=== PATIENT | male | born 1950 | race Caucasian/White ===

== ENCOUNTER → 2016-06-05 | Outpatient (CLI) | payer BC ==
[~2016-06-05] MED LIST: AFRIN; ASCA500 PO; ASPI1TAB2 PO; ATOR-26 PO; CEPH500C2 PO; CHOL1000 PO; CYAN10005 PO; HYDR-3983 PO; INSU100I2 SQ; INSU1INJ23 SQ.; LIRA18IN IM; LIRA18IN INJ; LOSA50TA6 PO; LYSI500T4 PO; METF-384 PO; MULTCHW PO; OMEG10007 PO; SALI0.6510
[2016-06-05 10:08] LABS: ESTIMATED AVERAGE GLUCOSE 160 mg/dl; HA1C FLAG Normal (Normal)
== END | disposition home or self-care (01) ==
LOC: C.LAB1850 07:37
PROVIDERS: ATTEND Nurse Practitioner Adult Health
DX: E11.65 Type 2 diabetes mellitus with hyperglycemia (principal)

== ENCOUNTER → 2016-10-15 | Outpatient (CLI) | payer BC ==
[2016-10-15 10:14] LABS: RATIO 5.2 mcg/mg (0-30.0)
[2016-10-15 10:29] LABS: ESTIMATED AVERAGE GLUCOSE 157 mg/dl; HA1C FLAG Normal (Normal)
== END | disposition home or self-care (01) ==
LOC: C.LAB1850 07:19
PROVIDERS: ATTEND Nurse Practitioner Adult Health
DX: E11.9 Type 2 diabetes mellitus without complications (principal); E55.9 Vitamin D deficiency, unspecified; I10 Essential (primary) hypertension

== ENCOUNTER 2016-11-03 23:28 | Emergency (ER) | payer BC ==
[~2016-11-03] VITALS: Ht 170.2 cm; Wt 84.4 kg
[2016-11-03 23:30] VITALS: Ht 170.2 cm; Wt 84.4 kg
[2016-11-04] MEDS ORDERED: ATOR-26 PO (00:26)
[2016-11-04] MEDS ORDERED: INSU1INJ23 SQ. (00:26)
[2016-11-04] MEDS ORDERED: CYAN10005 PO (00:26)
[2016-11-04] MEDS ORDERED: LIRA18IN INJ (00:26)
[2016-11-04] MEDS ORDERED: INSU100I2 SQ (00:26)
[2016-11-04] MEDS ORDERED: OMEG10007 PO (00:26)
[2016-11-04] MEDS ORDERED: METF-384 PO (00:26)
[2016-11-04] MEDS ORDERED: ASPI1TAB2 PO (00:26)
[2016-11-04] MEDS ORDERED: ASCA500 PO (00:26)
[2016-11-04] MEDS ORDERED: LYSI500T4 PO (00:26)
[2016-11-04] MEDS ORDERED: CHOL1000 PO (00:26)
[2016-11-04] MEDS ORDERED: LOSA50TA6 PO (00:26)
[2016-11-04] MEDS ORDERED: MULTCHW PO (00:26)
--- NOTE | 2016-11-04 00:37 | EMERGENCY ROOM VISIT NOTE ---
History Report prepared by Duglas: Bhupendra Brennan Under the Supervision of: Dr. Samira Monzon D.O. First contact with patient: 23:56 Chief Complaint: NOSE BLEED (MINOR) Stated Complaint: BLEEDING NOSE - S/P SINUS SURGERY History of Present Illness The patient is a 66 year old male who presents to the Emergency Room with complaints of persistent nose bleeds that began yesterday. The patient notes that he had sinus surgery 1 week ago at [facility]. He was feeling good after the surgery and had no concerns, until his nose began to bleed yesterday. His nose started to bleed significantly this evening when he attempted to do his daily flush. The patient states that the nose bled heavily for 20-30 minutes. There was no associated light headedness or dizziness. He is not on any blood thinners. He denies any nausea, vomiting, or sneezing. He also denies any chest pain or shortness of breath, and has no history of hypertension. Source of History: patient Onset: Yesterday Position: nose Quality: other (Nose Bleed) Timing: other (Persistent) Associated Symptoms: No chest pain, No SOB, No nausea, No vomiting Review of Systems Patient is not on blood thinners, no nose manipulation tonight, no bleeding since surgery until this evening. Past Medical & Surgical Medical Problems: (1) Diabetes mellitus Surgical Problems: (1) History of sinus surgery (2) History of sinus surgery Diabetes mellitus Family History Diabetes mellitus Social History Smoking Status: Never Smoker Drug Use: none Marital Status: Housing Status: lives with significant other Current/Historical Medications Scheduled Ascorbic Acid (Vitamin C), 500 MG PO QAM Aspirin (Delia Aspirin Ec Low Dose), 81 MG PO HS Atorvastatin (Lipitor), 80 MG PO QPM Cholecalciferol (Vitamin D3), 1,000 UNIT PO QAM Cyanocobalamin (Vitamin B-12), 1,000 MCG PO QAM Fish Oil ([place]-3), 1 CAP PO AMPM Insulin Isophane (Human) (Humulin N Kwikpen), 24 UNITS SQ. HS Insulin Lispro (Human) (Humalog Kwikpen), 20 UNITS SQ ACHS Liraglutide (Victoza), 1.8 ML INJ HS Losartan Potassium (Cozaar), 50 MG PO QPM Lysine (L-Lysine), 500 MG PO DAILY Metformin Hcl (Glucophage), 1,000 MG PO AMPM Multiple Vitamins W/ Minerals (Centrum Silver), 1 TAB PO DAILY Allergies Coded Allergies: Lisinopril (Verified Allergy, Mild, cough, 11/04/16) Physical Exam Vital Signs Date Time Temp Pulse Resp B/P (MAP) Pulse Ox O2 Delivery O2 Flow Rate FiO2 11/04/16 01:47 36.7 85 16 113/81 96 11/04/16 01:04 85 16 113/81 11/03/16 23:30 36.7 103 20 143/85 96 Room Air Physical Exam HEENT: Head - normocephalic and atraumatic Pupils are equal, round, and reactive to light. Extraocular eye muscles are intact, and sclera are anicteric. Nose - moist nasal mucosa. There is a large clot present in the posterior oropharynx. Some blood present in the right naris. Mouth - moist buccal mucosa. Oropharynx is nonerythematous and there is no tonsillar exudate or edema noted. Medical Decision & Procedures Laboratory Results 11/04/16 00:15 Test 11/04/16 00:15 Red Blood Count 4.44 M/uL (4.7-6.1) Mean Corpuscular Volume 86.3 fL (80-100) Mean Corpuscular Hemoglobin 28.6 pg (25-34) Mean Corpuscular Hemoglobin Concent 33.2 g/dl (32-36) RDW Standard Deviation 41.7 fL (36.4-46.3) RDW Coefficient of Variation 13.0 % (11.5-14.5) Mean Platelet Volume 10.7 fL (7.4-10.4) Laboratory results per my review. ED Course 0019: Past medical records reviewed. The patient was evaluated in room B11B. A complete history and physical exam was performed. 0050: I reevaluated the patient at this time. The nose bleeding has stopped. There was a small amount of clot present in the posterior oropharynx. He was able to gargle and clear the clot. No further active bleeding. Laboratory studies were drawn as above. 0122: Upon reevaluation, there is no further bleeding. I discussed findings and results with him. He verbalized agreement of the treatment plan. The patient was discharged home. 0137: Per nursing staff the patient's nose started to bleed slightly once again. 0146: I reevaluated the patient at this time. The bleeding has stopped. I reminded him to not manipulate the nose. The patient is ready to be discharged home. Medical Decision The patient is a 66 year old male who presents to the Emergency Department for a nose bleed. Differential Diagnosis includes; Epistaxis, post surgical bleeding. Hematology Testing Shows; Hemoglobin of 12.7, Hematocrit of 38.3. No leukocytosis. The nosebleed had stopped. The patient's blood pressure came down nicely on its own. He was slightly anemic but did not require a blood transfusion. He has an appointment scheduled with the ENT doctor in 2 days from now. He was given very specific instructions if the bleeding were to start again. I suggested that he avoid any strenuous activity and I suggested he not manipulate his nose. Medication Reconcilliation Current Medication List: was personally reviewed by me Blood Pressure Screening Patient's blood pressure: Normal blood pressure Impression Primary Impression: Epistaxis Scribe Attestation The scribe's documentation has been prepared under my direction and personally reviewed by me in its entirety. I confirm that the note above accurately reflects all work, treatment, procedures, and medical decision making performed by me. Departure Information Dispostion Home / Self-Care Referrals Dallas Coulter M.D. (PCP) Forms HOME CARE DOCUMENTATION FORM, IMPORTANT VISIT INFORMATION, WORK / SCHOOL INSTRUCTIONS Patient Instructions My [facility] Additional Instructions Rest with your head elevated. Humidifier in your bedroom. Avoid manipulation of the nose. No strenuous activity. If bleeding starts again, clear the throat and hold pressure for 20 minutes.
[2016-11-04 01:08] LABS: HEMATOCRIT 38.3 % (42-52); MEAN CELL VOLUME 86.3 fL (80-100); MEAN CORPUSCULAR HEMOGLOBIN 28.6 pg (25-34); MEAN CORPUSCULAR HGB CONC 33.2 g/dl (32-36); MEAN PLATELET VOLUME 10.7 fL (7.4-10.4); PLATELET COUNT 210 K/uL (130-400); RED BLOOD COUNT 4.44 M/uL (4.7-6.1); WHITE BLOOD COUNT 7.23 K/uL (4.8-10.8)
[2016-11-04 01:47] VITALS: BP 113/81; PULSE 85; TEMP 36.7; O2SAT 96
[2016-11-05] MEDS ORDERED: HYDR-3983 PO (23:54)
[2016-11-05] MEDS ORDERED: CEPH500C2 PO (23:57)
[2016-11-05] MEDS ORDERED: LIRA18IN IM (23:59)
== END 2016-11-04 01:49 | disposition home or self-care (01) ==
LOC: C.EDB 23:29
DX: R04.0 Epistaxis (principal); E11.9 Type 2 diabetes mellitus without complications; D64.9 Anemia, unspecified; Z83.3 Family history of diabetes mellitus; Z79.82 Long term (current) use of aspirin; Z79.4 Long term (current) use of insulin; Z79.899 Other long term (current) drug therapy

== ENCOUNTER 2016-11-05 23:08 | Inpatient (IN) | payer BC, OTHER ==
[~2016-11-05] VITALS: Ht 170.2 cm; Wt 83.1 kg
[~2016-11-05 23:08] MED LIST changes: -AFRIN; -CEPH500C2 PO; -HYDR-3983 PO; -LIRA18IN IM; -SALI0.6510
[2016-11-05] MEDS ORDERED: HYDR-3983 PO (23:54)
[2016-11-05] MEDS ORDERED: CEPH500C2 PO (23:57)
[2016-11-05] MEDS ORDERED: LIRA18IN IM (23:59)
[2016-11-06] VITALS (9 sets, daily range): BP systolic 114–143; BP diastolic 68–85; PULSE 68–119; TEMP 36.8–37.2; O2SAT 93–98; Ht 170.2 cm; Wt 83.1 kg
[2016-11-06] MEDS ORDERED: NURSING VERBAL MED ORDER ONE (00:15)
[2016-11-06] MEDS ORDERED: SODIUM CHLORIDE 0.9% 500ML 500 ML IV STA (00:23)
[2016-11-06] MEDS ORDERED: SODIUM CHLORIDE 0.9% 1000ML 1,000 ML IV STA ×2 (00:23→04:33)
[2016-11-06] MEDS ORDERED: PROMETHAZINE HCL INJ 12.5 MG in SODIUM CHLORIDE 0.9% 50ML 50 ML IV STA (00:24)
[2016-11-06 00:28] LABS: HEMATOCRIT 32.3 % (42-52); MEAN CELL VOLUME 86.1 fL (80-100); MEAN CORPUSCULAR HEMOGLOBIN 28.3 pg (25-34); MEAN CORPUSCULAR HGB CONC 32.8 g/dl (32-36); MEAN PLATELET VOLUME 10.5 fL (7.4-10.4); PLATELET COUNT 244 K/uL (130-400); RED BLOOD COUNT 3.75 M/uL (4.7-6.1); WHITE BLOOD COUNT 15.22 K/uL (4.8-10.8)
[2016-11-06] MEDS ORDERED: OXYMETAZOLINE HCL 0.05% NA SPR 15 ML BTL ONE (00:28)
[2016-11-06] MEDS ORDERED: ONDANSETRON INJ 2 MG/ML 2 ML VIAL IV ONE (00:30)
--- NOTE | 2016-11-06 00:36 | EMERGENCY ROOM VISIT NOTE ---
History Report prepared by Duglas: Yuko Dang Under the Supervision of: Dr. Sheri Sherman M.D. First contact with patient: 00:07 Chief Complaint: NOSE BLEED (MINOR) Stated Complaint: NOSE BLEED, SYNCOPE History of Present Illness The patient is a 66 year old male who presents to the Emergency Room with complaints of a constant nose bleed beginning 4 hours ago. The patient states that he had sinus surgery done the other day at [facility]. He reports that the surgery went well and until 2 days ago. He notes that he he was seen here for the nose bleed and has not had another nose bleed until tonight. The patient states that he began to feel faint about 2 hours ago and fell backwards onto the carpet. His reports that he was shaking after the fall and had about 3 episodes of vomiting after the fall. The patient states that he has not had any of his diabetes medication tonight. He complains of nausea and denies any abdominal pain and blood in the back of his throat. He reports that he has never had a blood transfusion. Source of History: patient Onset: 4 hours ago Position: nose Quality: other (bloody) Timing: constant Associated Symptoms: + LOC, + nausea, + vomiting, No abdominal pain Note: Pt complains of lightheadedness. He denies blood in the throat. Review of Systems See HPI for pertinent positives & negatives. A total of 10 systems reviewed and were otherwise negative. Past Medical & Surgical Medical Problems: (1) Anemia (2) Bleeding nose (3) Diabetes mellitus (4) Syncope (5) Tachycardia Surgical Problems: (1) History of sinus surgery (2) History of sinus surgery Family History Diabetes mellitus Social History Smoking Status: Never Smoker Drug Use: none Marital Status: Housing Status: lives with significant other Current/Historical Medications Scheduled Aspirin (Delia Aspirin Ec Low Dose), 81 MG PO HS Atorvastatin (Lipitor), 80 MG PO QPM Cephalexin Monohydrate (Keflex), 500 MG PO QID Cholecalciferol (Vitamin D3), 1,000 UNIT PO QAM Fish Oil ([place]-3), 1 CAP PO AMPM Insulin Isophane (Human) (Humulin N Kwikpen), 24 UNITS SQ. HS Insulin Lispro (Human) (Humalog Kwikpen), 20 UNITS SQ ACHS Liraglutide (Victoza), 1.8 ML INJ HS Liraglutide (Victoza), 1 DOSE IM DAILYBB Losartan Potassium (Cozaar), 50 MG PO QPM Lysine (L-Lysine), 500 MG PO DAILY Metformin Hcl (Glucophage), 1,000 MG PO AMPM Multiple Vitamins W/ Minerals (Centrum Silver), 1 TAB PO DAILY Oxymetazoline HCl (Afrin Nasal [place]), 2 SPRAYS NA Q12 Saline ([place] Nasal [place]), 2 SPRAYS NA Q4H Scheduled PRN Hydrocodone/Acetaminophen 7.5MG/325MG ([place] 7.5MG/325MG), 1 TAB PO Q6 PRN for Pain Allergies Coded Allergies: Lisinopril (Verified Adverse Reaction, Mild, cough, 11/07/16) Physical Exam Vital Signs Date Time Temp Pulse Resp B/P (MAP) Pulse Ox O2 Delivery O2 Flow Rate FiO2 11/06/16 02:08 106 16 94 11/06/16 02:01 108/64 11/06/16 01:53 107 16 95 11/06/16 01:38 107 15 92 11/06/16 01:35 119/69 11/06/16 01:23 113 17 100 11/06/16 01:08 107 17 97 11/06/16 00:53 109 16 98 11/06/16 00:38 112 16 100 11/06/16 00:31 95/74 11/06/16 00:23 109 14 98 11/06/16 00:08 111 23 98 11/06/16 00:01 116/65 11/05/16 23:53 111 20 100 11/05/16 23:38 110 16 98 11/05/16 23:31 110/65 11/05/16 23:23 109 16 97 11/05/16 23:20 108 11/05/16 23:18 36.3 110 17 118/69 98 Room Air 11/05/16 23:17 118/69 Physical Exam Vital signs reviewed. General: Well-appearing male, pale, in no significant distress. HEENT: No scleral icterus, PERRLA, neck supple. Atraumatic. No active posterior oropharyngeal bleeding, nasal clamp in place with dried blood on the mucosa, pale with pale conjunctiva. Cardiovascular: Tachycardic rate and regular rhythm, no extra sounds. Pulmonary: Clear to auscultation bilaterally, normal work of breathing. Abdomen: Soft, nontender, nondistended, positive bowel sounds. Musculoskeletal: Atraumatic, no peripheral edema. Neurologic: Patient awake alert and oriented x 3 Skin: Warm, dry, no rash Medical Decision & Procedures Laboratory Results Test 11/06/16 00:18 Prothrombin Time 10.5 SECONDS (9.0-12.0) Prothromb Time International Ratio 1.0 (0.9-1.1) Activated Partial Thromboplast Time 22.2 SECONDS (21.0-31.0) Partial Thromboplastin Ratio 0.9 Laboratory results per my review. Medications Administered Medications (Trade) Dose Ordered Sig/Nani Route Start Time Stop Time Status Last Admin Dose Admin Ondansetron HCl (Zofran Inj) 4 mg NOW ONCE IV 11/06/16 00:30 11/06/16 00:31 DC 11/06/16 00:25 4 MG Sodium Chloride 500 ml @ 999 mls/hr Q31M STAT IV 11/06/16 00:23 11/06/16 00:53 DC 11/06/16 00:42 999 MLS/HR Sodium Chloride 1,000 ml @ 125 mls/hr Q8H STAT IV 11/06/16 00:23 11/06/16 04:34 DC 11/06/16 00:42 125 MLS/HR Insulin Aspart (novoLOG PER UNIT) 5 units ONE ONCE SC 11/06/16 02:11 11/06/16 03:00 DC 11/06/16 03:14 5 UNITS ED Course 0007: Past medical records reviewed. The patient was evaluated in room B2. A complete history and physical examination was performed. 0023: Sodium Chloride 1000 ml @ 125 mls/hr IV, Sodium Chloride 500 ml @ 999 mls/ hr IV. 0024: Promethazine HCl 12.5mg/Sodium Chloride 50.5 ml @ 204mls/hr IV. 0028: Oxymetazoline HCl 75 sprays. 0030: Zofran Inj 4mg IV. 0056: I reviewed the patient's case with Dr. Bateman of [facility]. He will evaluate the patient for further management. 0106: Upon reevaluation, the patient is resting comfortably. I discussed laboratory and radiographic results with the patient. He verbalized agreement of the treatment plan. I spoke with Dr. Bateman of the [facility] Hospitalist Service. The patient will be evaluated for further management and care. Medical Decision Differential diagnosis: Etiologies such as anterior epistaxis, coagulopathy, traumatic injury, fracture , septal hematoma, posterior epistaxis as well as other pathologies were entertained. This patient was evaluated and appeared to be in no significant distress. IV access was obtained and laboratory work was drawn. Patient was placed on cardiac surgeon and found to be in a normal sinus rhythm. Patient is found to be slightly hypotensive with a systolic pressure of 110. He is tachycardic. IV fluids were initiated. Patient was given IV Zofran for nausea. Patient's hemoglobin has dropped 2 points since his previous ER visit. Topical Afrin spray was applied with a nasal clamp, although bleeding had largely stopped on its own. The patient was observed in the emergency department and remained stable. Due to the drop in hemoglobin, he will be evaluated by the hospitalist service for further management. ENT to be consulted. Medication Reconcilliation Current Medication List: was personally reviewed by me Blood Pressure Screening Patient's blood pressure: Normal blood pressure Blood pressure disposition: Did not require urgent referral Consults Time Called: 51 Consulting Physician: Dr. Bateman - [facility] Returned Call: [phone] I reviewed the patient's case with Dr. Bateman of [facility]. He will evaluate the patient for further management. Impression Primary Impression: Epistaxis Scribe Attestation The scribe's documentation has been prepared under my direction and personally reviewed by me in its entirety. I confirm that the note above accurately reflects all work, treatment, procedures, and medical decision making performed by me. Departure Information Dispostion Being Evaluated By Hospitalist Prescriptions Saline ([place] NASAL SPRAY) 0.65 % Spr 2 SPRAYS NA Q4H for 16 Days, #100 SPRAYS Prov: Casey Langston MD 11/08/16 Oxymetazoline HCl (Afrin Nasal [place]) 75 Sprays/15 Ml [place] 2 SPRAYS NA Q12 for 2 Days, #12 SPRAY Prov: Casey Langston MD 11/08/16 Referrals Dallas Coulter M.D. (PCP) Patient Instructions My [facility]
[2016-11-06 00:47] LABS: BUN/CREATININE RATIO 21.4 (10-20); CALCIUM 8.5 mg/dl (8.5-10.1); CREATININE 1.4 mg/dl (0.60-1.40); POTASSIUM 4.6 mmol/L (3.5-5.1)
[2016-11-06 00:50] LABS: PARTIAL THROMBOPLASTIN RATIO 0.9; PROTHROMBIN TIME (PATIENT) 10.5 SECONDS (9.0-12.0)
[2016-11-06] MEDS ORDERED: NovoLOG PER UNIT CHARGE SC ONE (02:11)
[2016-11-06] MEDS ORDERED: DEXTROSE 50% 50 ML SYR IV PRN (02:15)
[2016-11-06] MEDS ORDERED: DC ALL PREVIOUSLY ORDERED DIABETES MEDS ONE (02:15)
[2016-11-06] MEDS ORDERED: GLUCAGON FOR INJ 1 MG VIAL SQ PRN (02:15)
[2016-11-06] MEDS ORDERED: ACETAMINOPHEN 325 MG TAB PO PRN (02:15)
[2016-11-06] MEDS ORDERED: GLUCOSE 10 TABS/TUBE PO PRN (02:15)
[2016-11-06] MEDS ORDERED: GLUCOSE 40% GEL 15 GM TUBE PO PRN (02:15)
[2016-11-06] MEDS ORDERED: ONDANSETRON INJ 2 MG/ML 2 ML VIAL IV PRN (02:15)
--- NOTE | 2016-11-06 02:58 | History and Physical ---
History & Physical Date & Time of Service: Nov 06, 2016 at 02:58 Chief Complaint: Nose Bleed, Syncope Primary Care Physician: Dallas Coulter M.D. History of Present Illness Source: patient, hospital records Mr Doss is a 66 year old male who presents to the ER with with epistaxis. He underwent sinus surgery by Dr Lehman approximately 1 week prior to presentation. He had packing removed the day after surgery. He presented to the ER 2 days prior with epistaxis which resolved and he was sent home from the ER. He then started having recurrent bleeding today. On this occasion he had a syncopal event (while sitting down at the top of the stairs he felt dizzy and passed out for a few minutes - no injuries from this). The patient states that he began to feel faint about 2 hours prior to presentation and fell backwards onto the carpet. He denies any chest pain, shortness of breath or current dizziness. Past Medical/Surgical History Medical Problems: (1) Diabetes mellitus Status: Chronic Surgical Problems: (1) History of sinus surgery Status: Resolved (2) History of sinus surgery Status: Resolved Family History Diabetes mellitus Social History Smoking Status: Never Smoker Smokeless Tobacco Use: No Alcohol Use: none Drug Use: none Marital Status: Housing status: lives with significant other Occupational Status: retired Immunizations History of Influenza Vaccine: Yes History of Tetanus Vaccine?: Yes History of Pneumococcal: Unknown History of Hepatitis B Vaccine: Unknown Multi-Drug Resistant Organisms History of MDRO: No Allergies Coded Allergies: Lisinopril (Verified Adverse Reaction, Mild, cough, 11/07/16) Home Medications Scheduled Aspirin (Delia Aspirin Ec Low Dose), 81 MG PO HS Atorvastatin (Lipitor), 80 MG PO QPM Cephalexin Monohydrate (Keflex), 500 MG PO QID Cholecalciferol (Vitamin D3), 1,000 UNIT PO QAM Fish Oil ([place]-3), 1 CAP PO AMPM Insulin Isophane (Human) (Humulin N Kwikpen), 24 UNITS SQ. HS Insulin Lispro (Human) (Humalog Kwikpen), 20 UNITS SQ ACHS Liraglutide (Victoza), 1.8 ML INJ HS Liraglutide (Victoza), 1 DOSE IM DAILYBB Losartan Potassium (Cozaar), 50 MG PO QPM Lysine (L-Lysine), 500 MG PO DAILY Metformin Hcl (Glucophage), 1,000 MG PO AMPM Multiple Vitamins W/ Minerals (Centrum Silver), 1 TAB PO DAILY Oxymetazoline HCl (Afrin Nasal [place]), 2 SPRAYS NA Q12 Saline ([place] Nasal [place]), 2 SPRAYS NA Q4H Scheduled PRN Hydrocodone/Acetaminophen 7.5MG/325MG ([place] 7.5MG/325MG), 1 TAB PO Q6 PRN for Pain Review of Systems Constitutional: No fever, No chills Eyes: No worsening of vision ENT: + unusual epistaxis, + sore throat, No hearing loss Respiratory: + cough, + sputum, No shortness of breath Cardiovascular: No chest pain, No edema, No palpitations Abdomen: No pain, No nausea, No vomiting, No diarrhea, No constipation, No GI bleeding Musculoskeletal: No joint pain, No muscle pain Genitourinary - Male: No hematuria, No dysuria, No urinary frequency, No urinary urgency Neurologic: No numbness/tingling, No balance problems Integumentary: No rash, No itch Physical Exam Vital Signs Date Time Temp Pulse Resp B/P (MAP) Pulse Ox O2 Delivery O2 Flow Rate FiO2 11/06/16 02:38 114 17 97 11/06/16 02:31 109/73 11/06/16 02:23 112 17 98 11/06/16 02:08 106 16 94 11/06/16 02:01 108/64 11/06/16 01:53 107 16 95 11/06/16 01:38 107 15 92 11/06/16 01:35 119/69 11/06/16 01:23 113 17 100 11/06/16 01:08 107 17 97 11/06/16 00:53 109 16 98 11/06/16 00:38 112 16 100 11/06/16 00:31 95/74 11/06/16 00:23 109 14 98 11/06/16 00:08 111 23 98 11/06/16 00:01 116/65 11/05/16 23:53 111 20 100 11/05/16 23:38 110 16 98 11/05/16 23:31 110/65 11/05/16 23:23 109 16 97 11/05/16 23:20 108 11/05/16 23:18 36.3 110 17 118/69 98 Room Air 11/05/16 23:17 [id number] General Appearance: WD/WN, no apparent distress Head: normocephalic, atraumatic Eyes: normal inspection, PERRL, EOMI ENT: + pertinent finding (dark red behind TM b/l likely from surgery) Neck: supple, no JVD Respiratory/Chest: chest non-tender, lungs clear, normal breath sounds, no respiratory distress, no accessory muscle use Cardiovascular: regular rate, rhythm, no edema, normal peripheral pulses Abdomen/GI: normal bowel sounds, non tender, soft Extremities/Musculoskelatal: no calf tenderness, no pedal edema, + slow capillary refill (3-4 seconds) Neurologic/Psych: nurse clinical II-XII nml as tested, no motor/sensory deficits, alert, oriented x 3 Skin: no rash, + mottled (cool peripheries) Diagnostics Laboratory Results Results Past 24 Hours Test 11/06/16 00:18 Range/Units White Blood Count 15.22 4.8-10.8 K/uL Red Blood Count 3.75 4.7-6.1 M/uL Hemoglobin 10.6 14.0-18.0 g/dL Hematocrit 32.3 42-52 % Mean Corpuscular Volume 86.1 80-100 fL Mean Corpuscular Hemoglobin 28.3 25-34 pg Mean Corpuscular Hemoglobin Concent 32.8 32-36 g/dl RDW Standard Deviation 40.5 36.4-46.3 fL RDW Coefficient of Variation 12.7 11.5-14.5 % Platelet Count 244 130-400 K/uL Mean Platelet Volume 10.5 7.4-10.4 fL Prothrombin Time 10.5 9.0-12.0 SECONDS Prothromb Time International Ratio 1.0 0.9-1.1 Activated Partial Thromboplast Time 22.2 21.0-31.0 SECONDS Partial Thromboplastin Ratio 0.9 Sodium Level 138 136-145 mmol/L Potassium Level 4.6 3.5-5.1 mmol/L Chloride Level 103 98-107 mmol/L Carbon Dioxide Level 29 21-32 mmol/L Anion Gap 6.0 3-11 mmol/L Blood Urea Nitrogen 30 7-18 mg/dl Creatinine 1.40 0.60-1.40 mg/dl Est Creatinine Clear Calc Drug Dose 52.4 ml/min Estimated GFR () 59.4 Estimated GFR (Non- 51.3 BUN/Creatinine Ratio 21.4 10-20 Random Glucose 275 70-99 mg/dl Calcium Level 8.5 8.5-10.1 mg/dl Impression Assessment and Plan 66 year old with recurrent epistaxis since sinus surgery Epistaxis - currently well controlled when seen, will re-evaluate if it returns. - Consult ENT in morning - Dr Lehman - appears under control since affrin given in the ER - serial H&H - type and screen done Elevated WBC s/p sinus surgery - he has been on keflex since his sinus surgery which I assume is prophylatic however despite this his WBC has increased since his ER visit . Given recurrence of bleeding we will switch him to Unasyn and consult ENT for further advice regarding this however currently he does not have significant pain over his sinus'. He is not septic and from Hx does not appear to have an infection elsewhere. Syncope - secondary to hypotension from bleeding as above - hold antihypertensives - perform orthostatics - IVF fluid bolus now for tachycardia T2DM - we will hold his usual regimen given acute illness and treat with basal bolus insulin only - Lantus 26 units BID, Novolog 15 correction, 5:1 carb ACHS/Q6H - BSG ACHS/Q6H Attending Addendum: I have physically seen and examined this patient, have supervised the medical residents activities, and agree with the H&P as noted above with the following exceptions: NONE The patient is awake, well-developed and adequately nourished, alert and oriented 3, normocephalic and atraumatic, lying in bed and in no acute distress. HEENT--PERRL, EOMI, mucous membranes and oropharynx dry. Blood at nares bilaterally. Neck--supple, no JVD or bruits, thyroid normal, trachea midline, no adenopathy. Heart--normal S1 and S2, no extra beats, no murmurs, rubs or gallops. Lungs--clear bilaterally with good air movement, no respiratory distress, no accessory muscle use. Abdomen--normal bowel sounds and soft, nontender and nondistended, no hernias or masses, no organomegaly. Extremities--no cyanosis, clubbing or edema. There are good distal pulses b/l. Dermatologic--mildly mottled and cool periphery with slow capillary refill, no abnormal lymph nodes. Neurologic--cranial nerves II through XII grossly intact. Rheumatologic--normal range of motion, nontender, muscles and joints. Psychiatric--normal affect. Assessment and Plan: 1. Epistaxis status post recent sinus surgery and then irrigation/anemia/ syncope-- The patient be admitted to telemetry unit for close vital signs monitoring. Check H&H every 6 hours for the next 24 hours. Consult his ENT Dr. Lehman. Place on Unasyn 3 g IV every 6 hours due to leukocytosis. Hold aspirin, losartan, and metformin. Orthostatic vital signs. Appropriate tachycardia due to hypovolemia. Give normal saline fluid boluses as indicated. Place on Accu-Cheks before meals and at bedtime with NovoLog coverage. Nothing by mouth after midnight Level of Care Telemetry Advanced Directives Existing Advance Directive: No Existing Living Will: No Existing Power of Betting Agency Counter Clerk: No Resuscitation Status FULL RESUSCITATION VTE Prophylaxis VTE Risk Assessment Done? Y/N: Yes Risk Level: Moderate Given or contraindicated: SCD's, Contraindicated Social Service Consult None Apply Resident Tracking Resident Involvement: Resident Care Provided Care Provided: Adult Hospital Medicine
[2016-11-06] MEDS: SODIUM CHLORIDE 0.9% 1000ML 1,000 ML IV SCH ×3 (06:11→23:06)
[2016-11-06] MEDS: AMPICILLIN/SULBACTAM SOD INJ 3,000 MG in SODIUM CHLORIDE 0.9% 100ML 100 ML IV SCH ×4 (06:12→21:29)
[2016-11-06 07:02] LABS: BASO % 0.1 %; BASO ABS # 0.01 K/uL (0-0.2); HEMATOCRIT 24.9 % (42-52); IG% 0.1 %; LYMPH % 11.6 %; LYMPH ABS # 0.82 K/uL (1.2-3.4); MEAN CELL VOLUME 85.9 fL (80-100); MEAN CORPUSCULAR HGB CONC 34.9 g/dl (32-36); MEAN PLATELET VOLUME 10.6 fL (7.4-10.4); MONO % 4.7 %; NEUT % 83.5 %; PLATELET COUNT 175 K/uL (130-400); WHITE BLOOD COUNT 7.08 K/uL (4.8-10.8)
[2016-11-06 07:38] LABS: COMPLETE YES
[2016-11-06 07:41] LABS: BUN/CREATININE RATIO 25.6 (10-20); CALCIUM 7.9 mg/dl (8.5-10.1); CREATININE 1.3 mg/dl (0.60-1.40); POTASSIUM 4.7 mmol/L (3.5-5.1)
--- NOTE | 2016-11-06 08:04 | Progress Note ---
Subjective Date of Service: Nov 06, 2016. I interviewed and examined this patient in room 242, and he was awake and alert and oriented. He reported no bleeding since Afrin was sprayed in his nose late last night in the [facility] ED. A little history is in order. He underwent endoscopic sinus surgery resulting in bilateral anterior ethmoidectomy and bilateral maxillary sinusotomy with bilateral inferior turbinate reduction by me on 10/28/16. This was uneventful with minimal blood loss. He was then seen by me on POD #1, 10/29/16, and his nasal packing was removed. There was still Nasopore (absorbable hemostatic packing in the anterior ethmoid defect). He did well until late in the night on POD #6 (11/03/16) when he developed epistaxis and he was seen in the [facility] ED and discharged to home in the accounting teacher of 11/04 after removal of a clot from his oropharynx. He mentioned that his blood pressure was elevated at the time of presentation to the ED. He then experienced no bleeding for over 24 hours, and saw me in the office yesterday, . I removed a bit of crusting and mature clot from the inferior nose ( along the inferior turbinates) bilaterally, and there was no excessive bleeding. Given his recent history, I decided NOT to perform his first endoscopic sinus debridement at that visit (first debridement is usually done by me on POD #8). He then did well until last night when he again experienced epistaxis. He related to me that his blood pressure was once again elevated in the [facility] ED. Either Dr. Bateman, or a member of the ED staff, interfaced with the ENT installation tech, Dr. Silas Floyd, and decision for admission was made. Subjective Pt evaluation today including: conversation w/ patient Problem List Medical Problems: (1) Epistaxis Status: Acute (2) Epistaxis Status: Acute Objective Vital Signs Date Time Temp Pulse Resp B/P (MAP) Pulse Ox O2 Delivery O2 Flow Rate FiO2 11/06/16 05:35 36.8 119 18 129/77 95 Room Air 11/06/16 04:07 36.3 110 17 109/67 96 11/06/16 04:06 110 109/67 96 11/06/16 02:38 114 17 97 11/06/16 02:31 109/73 11/06/16 02:23 112 17 98 11/06/16 02:08 106 16 94 11/06/16 02:01 108/64 11/06/16 01:53 107 16 95 11/06/16 01:38 107 15 92 11/06/16 01:35 119/69 11/06/16 01:23 113 17 100 11/06/16 01:08 107 17 97 11/06/16 00:53 109 16 98 11/06/16 00:38 112 16 100 11/06/16 00:31 95/74 11/06/16 00:23 109 14 98 11/06/16 00:08 111 23 98 11/06/16 00:01 116/65 11/05/16 23:53 111 20 100 11/05/16 23:38 110 16 98 11/05/16 23:31 110/65 11/05/16 23:23 109 16 97 11/05/16 23:20 108 11/05/16 23:18 36.3 110 17 118/69 98 Room Air 11/05/16 23:17 118/69 I examined his nose and there was no active bleeding. Exam of the oropharynx showed no active bleeding. Laboratory Results Last 24 Hours Test 11/06/16 00:18 11/06/16 03:15 11/06/16 06:26 11/06/16 06:37 White Blood Count 15.22 K/uL 7.08 K/uL Red Blood Count 3.75 M/uL 2.90 M/uL Hemoglobin 10.6 g/dL 8.7 g/dL Hematocrit 32.3 % 24.9 % Mean Corpuscular Volume 86.1 fL 85.9 fL Mean Corpuscular Hemoglobin 28.3 pg 30.0 pg Mean Corpuscular Hemoglobin Concent 32.8 g/dl 34.9 g/dl RDW Standard Deviation 40.5 fL 40.4 fL RDW Coefficient of Variation 12.7 % 12.8 % Platelet Count 244 K/uL 175 K/uL Mean Platelet Volume 10.5 fL 10.6 fL Prothrombin Time 10.5 SECONDS Prothromb Time International Ratio 1.0 Activated Partial Thromboplast Time 22.2 SECONDS Partial Thromboplastin Ratio 0.9 Sodium Level 138 mmol/L 140 mmol/L Potassium Level 4.6 mmol/L 4.7 mmol/L Chloride Level 103 mmol/L 106 mmol/L Carbon Dioxide Level 29 mmol/L 27 mmol/L Anion Gap 6.0 mmol/L 7.0 mmol/L Blood Urea Nitrogen 30 mg/dl 33 mg/dl Creatinine 1.40 mg/dl 1.30 mg/dl Est Creatinine Clear Calc Drug Dose 52.4 ml/min 56.1 ml/min Estimated GFR () 59.4 65.0 Estimated GFR (Non- 51.3 56.1 BUN/Creatinine Ratio 21.4 25.6 Random Glucose 275 mg/dl 169 mg/dl Calcium Level 8.5 mg/dl 7.9 mg/dl Bedside Glucose 241 mg/dl 178 mg/dl Neutrophils (%) (Auto) 83.5 % Lymphocytes (%) (Auto) 11.6 % Monocytes (%) (Auto) 4.7 % Eosinophils (%) (Auto) 0.0 % Basophils (%) (Auto) 0.1 % Neutrophils # (Auto) 5.91 K/uL Lymphocytes # (Auto) 0.82 K/uL Monocytes # (Auto) 0.33 K/uL Eosinophils # (Auto) 0.00 K/uL Basophils # (Auto) 0.01 K/uL Immature Granulocyte % (Auto) 0.1 % Immature Granulocyte # (Auto) 0.01 K/uL Red Blood Cell Morphology Unremarkable Assessment and Plan Epistaxis following the above. No bleeding since late last night, stable BP, Hct of 32, adequate platelets, and PT WNL indicate no need for transfusion and no need for return to the OR at this time. I have spoken to Sherif, the RN taking care of the patient today, and Spenser, of the Resident Hospitalist Team. I have also left a message for Dr. Rao Villagran. Please find my recommendations below: #1) He has had two visits to the [facility] ED in the last 72 hours. Therefore, I recommend he remain an inpatient until at least Wednesday morning, 11/08/16. #2) He should have nasal saline 2 puffs/nostril every four hours. I recommend against humidified air via face tent at this time. #3) He should have Afrin (Oxymetazoline 0.05%): 2 puffs/nostril Q 12 hours. #4) Ambulate TID. #5) Continue close monitoring of BP (stable since admission). #6) CBC in the AM on 11/07/16. #6) Call me, not Dr. Silas Floyd, on my cell phone ([phone]) for any problems, questions, or concerns. +++++++ I have asked Spenser to review my recommendations and write orders appropriately or call me for clarification.
[2016-11-06] MEDS: INSULIN GLARGINE SOLOSTAR 100 UNITS/ML 3 ML PEN SC SCH ×2 (09:00→20:06)
[2016-11-06] MEDS: INSULIN ASPART 100 UNITS/ML 3 ML PEN SC SCH ×4 (09:00→20:04)
[2016-11-06] MEDS: SODIUM CHLORIDE 0.65% NA SOLN 45 ML (OCEAN) SCH ×4 (10:38→21:30)
[2016-11-06] MEDS: OXYMETAZOLINE HCL 0.05% NA SPR 15 ML BTL SCH ×2 (11:28→20:03)
[2016-11-06 12:48] LABS: HEMATOCRIT 25.2 % (42-52)
--- NOTE | 2016-11-06 17:25 | Family Medicine Progress Note ---
Progress Note Date of Service Nov 06, 2016. Subjective Pt evaluation today including: conversation w/ patient, physical exam, chart review, lab review, review of studies Pain: no pain reported this morning Voiding: no voiding problems, no incontinence Patient is resting comfortably in bed this morning with no acute complaints. He states that for the time being his epistaxis has resolved. When he was at home earlier he states that his syncope was related to dizziness when he was sitting on the stairs at his home and he felt faint and just laid back onto the carpet. He denies any lightheadedness or syncopal episodes since being admitted to the hospital. He denies any fevers, chills, shortness of breath, epistaxis, or any other acute complaints at this time. Constitutional: No fever, No chills ENT: + unusual epistaxis, No hearing loss, No nasal symptoms, No sore throat , No trouble swallowing Respiratory: No cough, No wheezing, No shortness of breath Cardiovascular: No chest pain, No palpitations Abdomen: No pain, No nausea Musculoskeletal: No joint pain Medications Current Inpatient Medications Medications (Trade) Dose Ordered Sig/Nani Route Start Time Stop Time Status Last Admin Dose Admin Acetaminophen (Tylenol Tab) 650 mg Q4H PRN PO 11/06/16 02:15 12/06/16 02:14 Ondansetron HCl (Zofran Inj) 4 mg Q6H PRN IV 11/06/16 02:15 12/06/16 02:14 Atorvastatin Calcium (Lipitor Tab) 80 mg QPM PO 11/06/16 21:00 12/06/16 20:59 Insulin Glargine (Lantus Solostar Pen) 26 units Q12 SC 11/06/16 09:00 12/06/16 08:59 11/06/16 09:00 26 UNITS Insulin Aspart (novoLOG ASPART) SLIDING SCALE If C... ACHS SC 11/06/16 07:00 12/06/16 06:59 11/06/16 12:57 16 UNITS Glucose (Glucose 40% Gel) 15-30 GRAMS 15 GRAMS... UD PRN PO 11/06/16 02:15 12/06/16 02:14 Glucose (Glucose Chew Tab) 4-8 Tablets 4 Tabl... UD PRN PO 11/06/16 02:15 12/06/16 02:14 Dextrose (Dextrose 50% 50ML Syringe) 25-50ML OF 50% DW IV FOR... UD PRN IV 11/06/16 02:15 12/06/16 02:14 Glucagon (Glucagon Inj) 1 mg UD PRN SQ 11/06/16 02:15 12/06/16 02:14 Ampicillin Sodium/ Sulbactam Sodium 3000 mg/Sodium Chloride 108 ml @ 200 mls/hr Q6@0400,1000,1600,2200 IV 11/06/16 04:45 11/16/16 04:44 11/06/16 10:36 200 MLS/HR Sodium Chloride 1,000 ml @ 125 mls/hr Q8H IV 11/06/16 05:30 12/06/16 05:29 11/06/16 14:29 125 MLS/HR Oxymetazoline HCl (Afrin 0.05% Nasal [place]) 2 sprays Q12 NA 11/06/16 09:00 12/06/16 08:59 11/06/16 11:28 2 SPRAYS Sodium Chloride ([place] Nasal [place]) 2 sprays Q4H NA 11/06/16 10:00 12/06/16 08:59 11/06/16 14:30 2 SPRAYS Objective Vital Signs Date Time Temp Pulse Resp B/P (MAP) Pulse Ox O2 Delivery O2 Flow Rate FiO2 11/06/16 12:00 97 Room Air 11/06/16 11:08 36.9 93 20 116/72 (87) 97 Room Air 11/06/16 08:00 95 Room Air 11/06/16 07:57 36.8 89 16 121/73 (89) 95 Room Air 11/06/16 05:35 36.8 119 18 129/77 95 Room Air 11/06/16 04:07 36.3 110 17 109/67 96 11/06/16 04:06 110 109/67 96 11/06/16 02:38 114 17 97 11/06/16 02:31 109/73 11/06/16 02:23 112 17 98 11/06/16 02:08 106 16 94 11/06/16 02:01 108/64 11/06/16 01:53 107 16 95 11/06/16 01:38 107 15 92 11/06/16 01:35 119/69 11/06/16 01:23 113 17 100 11/06/16 01:08 107 17 97 11/06/16 00:53 109 16 98 11/06/16 00:38 112 16 100 11/06/16 00:31 95/74 11/06/16 00:23 109 14 98 11/06/16 00:08 111 23 98 11/06/16 00:01 116/65 11/05/16 23:53 111 20 100 11/05/16 23:38 110 16 98 11/05/16 23:31 110/65 11/05/16 23:23 109 16 97 11/05/16 23:20 108 11/05/16 23:18 36.3 110 17 118/69 98 Room Air 11/05/16 23:17 118/69 Physical Exam General Appearance: WD/WN, no apparent distress Eyes: normal inspection, sclerae normal ENT: pharynx normal, + pertinent finding (dried blood surrounding the patient' s nares) Neck: supple, no carotid bruits Respiratory/Chest: chest non-tender, lungs clear, normal breath sounds Cardiovascular: regular rate, rhythm, no edema, no gallop Neurologic/Psychiatric: no motor/sensory deficits, alert, oriented x 3 Laboratory Results Results Past 24 Hours Test 11/06/16 00:18 11/06/16 03:15 11/06/16 06:26 11/06/16 06:37 Range/Units White Blood Count 15.22 7.08 4.8-10.8 K/uL Red Blood Count 3.75 2.90 4.7-6.1 M/uL Hemoglobin 10.6 8.7 14.0-18.0 g/dL Hematocrit 32.3 24.9 42-52 % Mean Corpuscular Volume 86.1 85.9 80-100 fL Mean Corpuscular Hemoglobin 28.3 30.0 25-34 pg Mean Corpuscular Hemoglobin Concent 32.8 34.9 32-36 g/dl RDW Standard Deviation 40.5 40.4 36.4-46.3 fL RDW Coefficient of Variation 12.7 12.8 11.5-14.5 % Platelet Count 244 175 130-400 K/uL Mean Platelet Volume 10.5 10.6 7.4-10.4 fL Prothrombin Time 10.5 9.0-12.0 SECONDS Prothromb Time International Ratio 1.0 0.9-1.1 Activated Partial Thromboplast Time 22.2 21.0-31.0 SECONDS Partial Thromboplastin Ratio 0.9 Sodium Level 138 140 136-145 mmol/L Potassium Level 4.6 4.7 3.5-5.1 mmol/L Chloride Level 103 106 98-107 mmol/L Carbon Dioxide Level 29 27 21-32 mmol/L Anion Gap 6.0 7.0 3-11 mmol/L Blood Urea Nitrogen 30 33 7-18 mg/dl Creatinine 1.40 1.30 0.60-1.40 mg/dl Est Creatinine Clear Calc Drug Dose 52.4 56.1 ml/min Estimated GFR () 59.4 65.0 Estimated GFR (Non- 51.3 56.1 BUN/Creatinine Ratio 21.4 25.6 10-20 Random Glucose 275 169 70-99 mg/dl Calcium Level 8.5 7.9 8.5-10.1 mg/dl Bedside Glucose 241 178 70-99 mg/dl Neutrophils (%) (Auto) 83.5 % Lymphocytes (%) (Auto) 11.6 % Monocytes (%) (Auto) 4.7 % Eosinophils (%) (Auto) 0.0 % Basophils (%) (Auto) 0.1 % Neutrophils # (Auto) 5.91 1.4-6.5 K/uL Lymphocytes # (Auto) 0.82 1.2-3.4 K/uL Monocytes # (Auto) 0.33 0.11-0.59 K/uL Eosinophils # (Auto) 0.00 0-0.5 K/uL Basophils # (Auto) 0.01 0-0.2 K/uL Immature Granulocyte % (Auto) 0.1 % Immature Granulocyte # (Auto) 0.01 0.00-0.02 K/uL Red Blood Cell Morphology Unremarkable Hepatitis C Antibody Screen NEG NEG Test 11/06/16 11:18 11/06/16 12:15 Range/Units Bedside Glucose 263 70-99 mg/dl Hemoglobin 8.6 14.0-18.0 g/dL Hematocrit 25.2 42-52 % Assessment and Plan The patient is a 66-year-old male that presents hospital for epistaxis on postop day 8 status post sinus surgery. The patient was seen on October 28 by ENT for an endoscopic sinus surgery where he had bilateral anterior ethmoidectomy, bilateral maxillary sinusotomy, with bilateral inferior turbinate reduction. The patient did have an episode of epistaxis on postop day 6 and discharged home. The patient was doing well until last night when again he had an episode of epistaxis that was not resolving. While the patient was waiting to be taken to the hospital by his he was sitting at the top of the stairs and describes an episode of syncope where he fell back onto the carpet. The patient states that he was only out for a few seconds and then came back to. After speaking with the ENT of the patient's, he would like us to currently treat the patient with nasal saline sprays every 4 hours as well as Afrin every 12 hours with repeat CBCs. We will continue to monitor the patient for further epistaxis and manage his medical symptoms. 1) Epistaxis 2/2 Endoscopic Sinus Surgery - POD #8 - Normal Saline 2 puffs/nostril q4h - Afrin 2 puffs/nostril q12h - Avoid humidified air - H/H q8h - Referral to ENT 2) Leukocytosis - Most likely 2/2 demargination of white blood cells - WBC on admission 15.22, currently 7.08 - Discontinue Unasyn 3) Hypotension - Resolved - Transfer to Med/Surg - IV fluids @ 125ml/hr - 1L IV NS bolus in ED 4) Diabetes Mellitus - Insulin Sliding Scale 5) DVT Prophylaxis - SCD - No anticoagulation due to acute bleeding 6) Code Status - Full Resuscitation Resident Physician Supervision Note: I interviewed and examined the patient. Discussed with Dr. Langston and agree with findings and plan as documented in the note. Any exceptions or clarifications are listed here: None Documented By: Rao Villagran feeling ok not lightheaded now. dr garcia input noted. all other ROS otherwise negative except for as above vitals noted nad breathing unlabored no pallor or icterus, nares crusted but no active bleeding nosebleed- management by dr garcia acute blood loss anemia w early hemodynamic instability - apperaing to stabilize , keep on tele until more stable (ie HR comes down, clear that there's no more bleeding, Hgb levels off) otherwise as above Resident Tracking Resident Involvement: Resident Care Provided Care Provided: Adult [facility] Medicine
[2016-11-06 18:33] LABS: HEMATOCRIT 23.5 % (42-52)
[2016-11-06] MEDS: ATORVASTATIN 40 MG TAB PO SCH (20:04)
[2016-11-06] MEDS ORDERED: LOSARTAN POTASSIUM 50 MG TAB PO SCH (21:00)
[2016-11-07 00:41] LABS: HEMATOCRIT 22.5 % (42-52)
[2016-11-07] MEDS: SODIUM CHLORIDE 0.65% NA SOLN 45 ML (OCEAN) SCH ×6 (01:55→21:38)
[2016-11-07] MEDS: AMPICILLIN/SULBACTAM SOD INJ 3,000 MG in SODIUM CHLORIDE 0.9% 100ML 100 ML IV SCH ×4 (05:10→21:38)
[2016-11-07] MEDS: SODIUM CHLORIDE 0.9% 1000ML 1,000 ML IV SCH ×2 (05:11→14:08)
[2016-11-07 07:25] VITALS: BP 114/67; PULSE 71; TEMP 36.7; O2SAT 96
[2016-11-07] MEDS: OXYMETAZOLINE HCL 0.05% NA SPR 15 ML BTL SCH ×2 (08:25→20:27)
[2016-11-07] MEDS: INSULIN ASPART 100 UNITS/ML 3 ML PEN SC SCH ×4 (08:30→20:29)
[2016-11-07] MEDS: INSULIN GLARGINE SOLOSTAR 100 UNITS/ML 3 ML PEN SC SCH ×2 (08:31→20:29)
[2016-11-07 14:40] VITALS: BP 133/68; PULSE 80; TEMP 36.6; O2SAT 100
--- NOTE | 2016-11-07 15:12 | Family Medicine Progress Note ---
Progress Note Date of Service Nov 07, 2016. Subjective Pt evaluation today including: conversation w/ patient, physical exam, chart review, lab review, review of studies Pain: no pain reported this morning Voiding: no voiding problems, no incontinence Patient resting comfortably in bed today with no acute events overnight. Patient states that his bowel movement today was dark, most likely because he had swallowed some blood during his epistaxis episode. He denies any recent episodes of epistaxis since admission. He states he is feeling well, and denies any shortness of breath, headache, changes in vision, shortness of breath , or any other acute complaints. Constitutional: No fever, No chills Respiratory: No shortness of breath Cardiovascular: No chest pain, No palpitations Abdomen: + problem reported (dark stool with no gross blood visualized), No pain Male : No dysuria Endo: No fatigue Medications Current Inpatient Medications Medications (Trade) Dose Ordered Sig/Nani Route Start Time Stop Time Status Last Admin Dose Admin Acetaminophen (Tylenol Tab) 650 mg Q4H PRN PO 11/06/16 02:15 12/06/16 02:14 Ondansetron HCl (Zofran Inj) 4 mg Q6H PRN IV 11/06/16 02:15 12/06/16 02:14 Atorvastatin Calcium (Lipitor Tab) 80 mg QPM PO 11/06/16 21:00 12/06/16 20:59 11/06/16 20:04 80 MG Insulin Glargine (Lantus Solostar Pen) 26 units Q12 SC 11/06/16 09:00 12/06/16 08:59 11/07/16 08:31 26 UNITS Insulin Aspart (novoLOG ASPART) SLIDING SCALE If C... ACHS SC 11/06/16 07:00 12/06/16 06:59 11/07/16 13:06 16 UNITS Glucose (Glucose 40% Gel) 15-30 GRAMS 15 GRAMS... UD PRN PO 11/06/16 02:15 12/06/16 02:14 Glucose (Glucose Chew Tab) 4-8 Tablets 4 Tabl... UD PRN PO 11/06/16 02:15 12/06/16 02:14 Dextrose (Dextrose 50% 50ML Syringe) 25-50ML OF 50% DW IV FOR... UD PRN IV 11/06/16 02:15 12/06/16 02:14 Glucagon (Glucagon Inj) 1 mg UD PRN SQ 11/06/16 02:15 12/06/16 02:14 Ampicillin Sodium/ Sulbactam Sodium 3000 mg/Sodium Chloride 108 ml @ 200 mls/hr Q6@0400,1000,1600,2200 IV 11/06/16 04:45 11/16/16 04:44 11/07/16 09:59 200 MLS/HR Sodium Chloride 1,000 ml @ 125 mls/hr Q8H IV 11/06/16 05:30 12/06/16 05:29 11/07/16 14:08 125 MLS/HR Oxymetazoline HCl (Afrin 0.05% Nasal [place]) 2 sprays Q12 NA 11/06/16 09:00 12/06/16 08:59 11/07/16 08:25 2 SPRAYS Sodium Chloride ([place] Nasal [place]) 2 sprays Q4H NA 11/06/16 10:00 12/06/16 08:59 11/07/16 09:59 2 SPRAYS Objective Vital Signs Date Time Temp Pulse Resp B/P (MAP) Pulse Ox O2 Delivery O2 Flow Rate FiO2 11/07/16 14:40 36.6 80 18 133/68 (89) 100 Room Air 11/07/16 08:30 Room Air 11/07/16 07:25 36.7 71 18 114/67 (83) 96 Room Air 11/07/16 00:00 Room Air 11/06/16 23:48 37.0 68 18 129/72 (91) 93 Room Air 114/71 (85) 130/68 (88) 11/06/16 20:22 36.9 100 18 143/83 (103) 97 Room Air 11/06/16 16:00 98 Room Air 11/06/16 15:22 37.2 82 20 119/85 (96) 98 Room Air Physical Exam General Appearance: WD/WN, no apparent distress Eyes: normal inspection, sclerae normal Respiratory/Chest: chest non-tender, lungs clear, normal breath sounds Cardiovascular: regular rate, rhythm, no edema, no gallop Abdomen: normal bowel sounds, non tender, soft Neurologic/Psychiatric: alert, normal mood/affect, oriented x 3 Skin: normal color Laboratory Results Results Past 24 Hours Test 11/06/16 16:13 7/28/17 18:15 11/06/16 20:03 11/07/16 00:28 Range/Units Bedside Glucose 95 97 70-99 mg/dl Hemoglobin 8.2 7.4 14.0-18.0 g/dL Hematocrit 23.5 22.5 42-52 % Test 11/07/16 07:50 11/07/16 11:22 Range/Units Bedside Glucose 126 143 70-99 mg/dl Assessment and Plan The patient is a 66-year-old male that presents hospital for epistaxis on postop day 8 status post sinus surgery. The patient has not had any episodes of epistaxis since being in the hospital and appears to have clinically improved. His blood pressure remained stable, he is not tachycardic, he denies any lightheadedness, dizziness, changes in vision, headaches, or any other acute complaints. He does state that he had some dark stools this morning, but acknowledges that he did swallow a significant amount of blood during his episode of epistaxis. He appears to be clinically improving and should be discharged home tomorrow. 1) Epistaxis 2/2 Endoscopic Sinus Surgery - POD #9 - Normal Saline 2 puffs/nostril q4h - Afrin 2 puffs/nostril q12h - Avoid humidified air - H/H tomorrow morning - Discontinued IV fluids due to the appearance of dilutional anemia in addition to blood pressure stabilization - ENT on board 2) Leukocytosis - Most likely 2/2 demargination of white blood cells - Discontinue Unasyn 3) Hypotension - Blood pressure appears to be stable and within normal limits - Transfer to Med/Surg - 1L IV NS bolus in ED 4) Diabetes Mellitus - Insulin Sliding Scale 5) DVT Prophylaxis - SCD - No anticoagulation due to acute bleeding 6) Code Status - Full Resuscitation Resident Physician Supervision Note: I interviewed and examined the patient. Discussed with Dr. Langston and agree with findings and plan as documented in the note. Any exceptions or clarifications are listed here: None Documented By: Rao Villagran feeling fine no further significant bleeding. vitals noted nad breathing unlabored no pallor nosebleed - appearing to have resolved. observe into tomorrow as per ENT mandate acute blood loss anemia - late drop yesterday to today likely more reflective of dilution and equillibration than ongoing blood loss otherwise as above Resident Tracking Resident Involvement: Resident Care Provided Care Provided: Adult Hospital Medicine
[2016-11-07] MEDS: ATORVASTATIN 40 MG TAB PO SCH (20:28)
[2016-11-07 23:45] VITALS: BP 117/67; PULSE 69; TEMP 37.1; O2SAT 100
[2016-11-08] MEDS: SODIUM CHLORIDE 0.65% NA SOLN 45 ML (OCEAN) SCH ×3 (01:37→10:28)
[2016-11-08] MEDS: AMPICILLIN/SULBACTAM SOD INJ 3,000 MG in SODIUM CHLORIDE 0.9% 100ML 100 ML IV SCH ×2 (03:47→10:55)
[2016-11-08 06:11] LABS: HEMATOCRIT 22.5 % (42-52); MEAN CELL VOLUME 86.2 fL (80-100); MEAN CORPUSCULAR HEMOGLOBIN 28.7 pg (25-34); MEAN CORPUSCULAR HGB CONC 33.3 g/dl (32-36); MEAN PLATELET VOLUME 9.9 fL (7.4-10.4); PLATELET COUNT 188 K/uL (130-400); RED BLOOD COUNT 2.61 M/uL (4.7-6.1); WHITE BLOOD COUNT 5.56 K/uL (4.8-10.8)
[2016-11-08 07:18] VITALS: BP 135/74; PULSE 68; TEMP 36.9; O2SAT 99
--- NOTE | 2016-11-08 08:04 | Progress Note ---
Subjective Date of Service: Nov 08, 2016. Patient described feeling well, and ready to go home. There has been no bleeding since 11/05/16. Problem List Medical Problems: (1) Epistaxis Status: Acute (2) Epistaxis Status: Acute Objective Vital Signs Date Time Temp Pulse Resp B/P (MAP) Pulse Ox O2 Delivery O2 Flow Rate FiO2 11/08/16 07:18 36.9 68 17 135/74 (94) 99 Room Air 11/08/16 00:00 Room Air 11/07/16 23:45 37.1 69 16 117/67 (84) 100 Room Air 11/07/16 20:00 Room Air 11/07/16 15:40 Room Air 11/07/16 14:40 36.6 80 18 133/68 (89) 100 Room Air 11/07/16 08:30 Room Air Patient was alert and doing well There was no bleeding from the nose, and no old or new blood in the oropharynx. Hct on 11/07 and 11/08 (29 hours apart) was 22.5 Laboratory Results Last 24 Hours Test 11/07/16 11:22 11/07/16 16:31 11/07/16 20:12 11/08/16 05:41 Bedside Glucose 143 mg/dl 83 mg/dl 106 mg/dl White Blood Count 5.56 K/uL Red Blood Count 2.61 M/uL Hemoglobin 7.5 g/dL Hematocrit 22.5 % Mean Corpuscular Volume 86.2 fL Mean Corpuscular Hemoglobin 28.7 pg Mean Corpuscular Hemoglobin Concent 33.3 g/dl RDW Standard Deviation 41.1 fL RDW Coefficient of Variation 13.0 % Platelet Count 188 K/uL Mean Platelet Volume 9.9 fL Test 11/08/16 07:34 Bedside Glucose 116 mg/dl Assessment and Plan Severe epistaxis following endoscopic sinus surgery and turbinate reduction. No bleeding for almost 3 days. Although Hct is low (22.5), he is stable (not tachycardic and not bleeding). Therefore, here are my recommendations: #1) O.K. for discharge home without transfusion. PATIENT MUST RETURN IMMEDIATELY AT THE FIRST SIGN OF EPISTAXIS OR SPITTING UP BRIGHT RED BLOOD. #2) Patient will continue with nasal saline mist Q 4 hours at home. He will apply antibiotic ointment to his nose every morning. HE WILL NOT USE AYR GEL. He will continue with Afrin 12-Hour (oxymetazoline 0.05%) 2 puffs/nostril BID, and discontinue usage on Wednesday night, 11/09. #3) He will follow-up in my office on 11/25/16. Patient will call my office to make arrangements. ++++++ Hospitalist: Call me on my cell phone ([phone]) for any problems, questions, or concerns.
[2016-11-08] MEDS: OXYMETAZOLINE HCL 0.05% NA SPR 15 ML BTL SCH (08:16)
[2016-11-08] MEDS: INSULIN ASPART 100 UNITS/ML 3 ML PEN SC SCH (08:20)
[2016-11-08] MEDS: INSULIN GLARGINE SOLOSTAR 100 UNITS/ML 3 ML PEN SC SCH (08:20)
[2016-11-08] MEDS ORDERED: SALI0.6510 (10:07)
[2016-11-08] MEDS ORDERED: AFRIN (10:07)
--- NOTE | 2016-11-08 10:30 | Discharge Instructions ---
Discharge Instructions Date of Service Nov 08, 2016. Admission Reason for Admission: Anemia, Bleeding Nose, Syncope, Tachycardia Discharge Discharge Diagnosis / Problem: Epistaxis Discharge Goals Goal(s): Improve function, Therapeutic intervention Activity Recommendations Activity Limitations: as noted below Lifting Limitations: gradually increase as tolerated Exercise/Sports Limitations: gradually increase as tolerated . Instructions / Follow-Up Instructions / Follow-Up - You were admitted to the hospital for a nose bleed secondary to your most recent sinus surgery - You were treated with nasal saline sprays and Afrin and your bleeding was stopped and your blood counts have been stable - You were also given IV fluids to help stabilize you blood pressure Medications: - Resume your regular home medications as prescribed - NASAL SALINE MIST: 2 puffs/nostril every 4 hours - AFRIN (Oxymetazoline 0.05%): 2 puffs /nostril twice daily (every 12 hours) - ANTIBIOTIC OINTMENT: Apply every morning - KEFLEX 500mg: Every 6 hours for infection prevention - DO NOT USE AYR GEL FOLLOW UP IN OFFICE WITH DR. VERA on 11/26/15 If you have ANY EPISODES of recurrent nose bleeding please return the hospital IMMEDIATELY. If you have any concerning symptoms including severe headache, shortness of breath, dizziness, changes in vision, chest pain, or any other concerning symptoms please be evaluated by a physician or return to the emergency department for evaluation. Please follow up with your Family Doctor in 2 weeks to review you Hemoglobin and Hematocrit Your Hepatitis C Screen was NEGATIVE Current Hospital Diet Patient's current hospital diet: Diabetes Type 2 Diet Discharge Diet Recommended Diet: Regular Diet Pending Studies Studies pending at discharge: no Laboratory Results Hemoglobin A1c Test 10/15/16 07:23 Range/Units Estimated Average Glucose 157 mg/dl Hemoglobin A1c 7.1 H 4.5-5.6 % Medical Emergencies . Who to Call and When: Medical Emergencies: If at any time you feel your situation is an emergency, please call 911 immediately. . Non-Emergent Contact Non-Emergency issues call your: Primary Care Provider . . "Provider Documentation" section prepared by Casey Langston. . VTE Core Measure Inpt VTE Proph given/why not?: Contraindicated Resident Tracking Resident Involvement: Resident Care Provided Care Provided: Adult Hospital Medicine
[2016-11-08 12:18] VITALS: BP 135/74; PULSE 68; TEMP 36.9; O2SAT 99
--- NOTE | 2016-11-08 17:38 | Discharge Summary ---
Discharge Summary Date of Service Nov 08, 2016. Discharge Summary Admission Date: Nov 06, 2016 at 02:20 Discharge Date: Nov 08, 2016 Discharge Disposition: Home Principal Diagnosis: acute blood loss anemia due to severe epistaxis Procedures: Last 24 Hours Test 11/07/16 20:12 11/08/16 05:41 11/08/16 07:34 11/08/16 11:34 Bedside Glucose 106 mg/dl 116 mg/dl 159 mg/dl White Blood Count 5.56 K/uL Red Blood Count 2.61 M/uL Hemoglobin 7.5 g/dL Hematocrit 22.5 % Mean Corpuscular Volume 86.2 fL Mean Corpuscular Hemoglobin 28.7 pg Mean Corpuscular Hemoglobin Concent 33.3 g/dl RDW Standard Deviation 41.1 fL RDW Coefficient of Variation 13.0 % Platelet Count 188 K/uL Mean Platelet Volume 9.9 fL Consultations: ENT: a/p as below: Severe epistaxis following endoscopic sinus surgery and turbinate reduction. No bleeding for almost 3 days. Although Hct is low (22.5), he is stable (not tachycardic and not bleeding). Therefore, here are my recommendations: #1) O.K. for discharge home without transfusion. PATIENT MUST RETURN IMMEDIATELY AT THE FIRST SIGN OF EPISTAXIS OR SPITTING UP BRIGHT RED BLOOD. #2) Patient will continue with nasal saline mist Q 4 hours at home. He will apply antibiotic ointment to his nose every morning. HE WILL NOT USE AYR GEL. He will continue with Afrin 12-Hour (oxymetazoline 0.05%) 2 puffs/nostril BID, and discontinue usage on Wednesday night, 11/09. #3) He will follow-up in my office on 11/25/16. Patient will call my office to make arrangements. ++++++ Hospitalist: Call me on my cell phone ([phone]) for any problems, questions, or concerns. Medication Reconciliation New Medications: Oxymetazoline HCl (Afrin Nasal [place]) 75 Sprays/15 Ml [place] 2 SPRAYS NA Q12 for 2 Days, #12 SPRAY Saline ([place] Nasal [place]) 0.65 % Spr 2 SPRAYS NA Q4H for 16 Days, #100 SPRAYS Continued Medications: Aspirin (Delia Aspirin Ec Low Dose) 81 Mg Tab 81 MG PO HS for 90 Days, TAB 3 Refills Atorvastatin (Lipitor) 80 Mg Tab 80 MG PO QPM, TAB Cephalexin Monohydrate (Keflex) 500 Mg Cap 500 MG PO QID, CAP Cholecalciferol (Vitamin D3) 1,000 Unit Tab 1000 UNIT PO QAM for 90 Days, #9 TAB 3 Refills Fish Oil ([place]-3) 1 Ea Cap 1 CAP PO AMPM, CAP Hydrocodone/Acetaminophen 7.5MG/325MG ([place] 7.5MG/325MG) Tab 1 TAB PO Q6 PRN for Pain, TAB PRN PAIN Insulin Isophane (Human) (Humulin N Kwikpen) 100 Unit/Ml Inj 24 UNITS SQ. HS Insulin Lispro (Human) (Humalog Kwikpen) 100 Unit/Ml Inj 20 UNITS SQ ACHS Liraglutide (Victoza) 18 Mg/3 Ml Inj 1.8 ML INJ HS Liraglutide (Victoza) 18 Mg/3 Ml Inj 1 DOSE IM DAILYBB Losartan Potassium (Cozaar) 50 Mg Tab 50 MG PO QPM, TAB Lysine (L-Lysine) 500 Mg Tab 500 MG PO DAILY Metformin Hcl (Glucophage) 1,000 Mg Tab 1000 MG PO AMPM Multiple Vitamins W/ Minerals (Centrum Silver) 1 Chw Chw 1 TAB PO DAILY Discharge Exam Physical Exam: General Appearance: no apparent distress Eyes: EOMI ENT: hearing grossly normal Neck: trachea midline Respiratory/Chest: no respiratory distress, no accessory muscle use Extremities: normal inspection Neurologic/Psychiatric: specifications checker II-XII nml as tested, alert, normal mood/affect Skin: normal color, warm/dry Hospital Course The patient is a 66-year-old male that presents hospital for epistaxis on postop day 8 status post sinus surgery. The patient has not had any episodes of epistaxis since being in the hospital and appears to have clinically improved. His blood pressure remained stable, he is not tachycardic, he denies any lightheadedness, dizziness, changes in vision, headaches, or any other acute complaints. 1) Epistaxis 2/2 Endoscopic Sinus Surgery - POD #10 - Normal Saline 2 puffs/nostril q4h - Afrin 2 puffs/nostril q12h as per ENT above - stable for discharge home 2) Leukocytosis - Most likely 2/2 demargination of white blood cells 3) Hypotension and acute blood loss anemia due to severe epistaxis - now stable after fluid resuscitation - CBC ~2wks (sooner if clinically warranted) then again ~q2-4wks until returns to normal -- since acute hemorrhage, anticipate return to normal Hgb over short term; would w/u further for ongoing bleeding and/or deficiencies if didn't improve over appropriate period of time 4) Diabetes Mellitus - outpatient management 5) DVT Prophylaxis - SCD used during his stay - No anticoagulation due to acute bleeding 6) Code Status - Full Resuscitation Total Time Spent: Less than 30 minutes This includes examination of the patient, discharge planning, medication reconciliation, and communication with other providers. Discharge Instructions Please refer to the electronic Patient Visit Report (Discharge Instructions) for additional information. Additional Copies To Dallas Coulter M.D.; Gibson Lehman M.D.
== END 2016-11-08 14:59 | disposition home or self-care (01) | DRG 920 ==
LOC: EDBD 23:08 → C.EDB 23:10 → C.2T 11-06 02:20 → ENRESERV 11-06 02:28 → C.4E 11-06 20:10
PROVIDERS: ADMIT Hospitalist; ATTEND Family Medicine
DX: J95.830 Postprocedural hemorrhage of a respiratory system organ or structure following a respiratory system procedure (principal); D62 Acute posthemorrhagic anemia; Z83.3 Family history of diabetes mellitus; Z79.82 Long term (current) use of aspirin; D72.829 Elevated white blood cell count, unspecified; R55 Syncope and collapse; E11.9 Type 2 diabetes mellitus without complications; I95.9 Hypotension, unspecified; R00.0 Tachycardia, unspecified; Z79.4 Long term (current) use of insulin

== ENCOUNTER → 2017-02-22 | Outpatient (CLI) | payer BC ==
[~2017-02-22] MED LIST changes: +AFRIN; -ASCA500 PO; +CEPH500C2 PO; -CYAN10005 PO; +HYDR-3983 PO; +LIRA18IN IM; +SALI0.6510
[2017-02-22 10:43] LABS: ESTIMATED AVERAGE GLUCOSE 171 mg/dl; HA1C FLAG Normal (Normal)
[2017-02-22 11:02] LABS: THYROID STIMULATING HORMONE 2.22 uIu/ml (0.300-4.500)
== END | disposition home or self-care (01) ==
LOC: C.LAB1850 08:06
PROVIDERS: ATTEND Nurse Practitioner Adult Health
DX: E11.9 Type 2 diabetes mellitus without complications (principal); Z51.81 Encounter for therapeutic drug level monitoring; Z79.4 Long term (current) use of insulin; R94.6 Abnormal results of thyroid function studies

== ENCOUNTER → 2017-06-17 | Outpatient (CLI) | payer BC ==
[2017-06-17 10:03] LABS: HEMOGLOBIN A1C 7.2 % (4.5-5.6)
== END | disposition home or self-care (01) ==
LOC: C.LAB1850 07:39
PROVIDERS: ATTEND Internal Medicine Cardiovascular Disease
DX: E11.9 Type 2 diabetes mellitus without complications (principal); E78.5 Hyperlipidemia, unspecified

== ENCOUNTER 2020-07-15 17:02 | Inpatient (IN) ==
--- NOTE | 2020-07-15 17:31 | Emergency Department Note ---
History of Present Illness General Chief complaint: Shortness of Breath/Dyspnea Stated complaint: SOB/COUGH-REF BY DR. COULTER Time Seen by Provider: 07/15/20 17:10 Source: patient History of Present Illness Provider complaint: Short of breath Onset (ago): week(s) 1 Location: chest Pain Consistency: + constant Quality: + other (Short of breath) Exacerbated By: + other (Exertion) Associated symptoms: + cough, + fever/chills, + malaise, + nausea/vomiting, + shortness of breath and + weakness; no chest pain and no headaches This is a 70-year-old male who presents with shortness of breath and flulike symptoms for the past week. He states that his shortness of breath is worse when he walks across the room. It is associated with generalized weakness. He has had fever, cough, diarrhea, loss of taste and smell and body aches. He denies any known exposure to COVID-19. He denies any chest discomfort or pain. He has had no leg swelling or pain. He did vomit yesterday but has not vomited since. He denies any abdominal pain. Home Medications Medication Instructions Recorded Confirmed Type ascorbic acid (vitamin C) 500 mg 500 mg PO DAILY tab 02/16/19 07/15/20 History tablet cholecalciferol (vitamin D3) 25 1,000 units PO BID cap 02/16/19 07/15/20 History mcg (1,000 unit) capsule [id number]-vit K-lycop 1 ea PO DAILY 04/26/19 07/15/20 History BD Ultra-Fine Yessy Pen Needle 32 #300 ea NS 06/13/19 05/03/20 Rx gauge x 5/32" metformin 1,000 mg tablet 1,000 mg PO BID #180 tab 06/13/19 07/15/20 Rx liraglutide 0.6 mg/0.1 mL (18 mg/3 1.8 mg SQ DAILY 90 Days #27 ml 07/24/19 07/15/20 Rx mL) subcutaneous pen injector cyanocobalamin (vitamin B-12) 1,000 mcg PO .COMPLEX tab 10/03/19 07/15/20 History 1,000 mcg tablet,extended release atorvastatin 80 mg tablet 80 mg PO DAILY #90 tab 01/04/20 07/15/20 Rx insulin lispro 100 unit/mL 25 unit SUBCUT DAILY ml 01/10/20 07/15/20 History subcutaneous pen Humulin N NPH Insulin KwikPen 100 37 unit SQ QPM #45 ml NS 01/24/20 07/15/20 Rx unit/mL (3 mL) subcutaneous OneTouch Ultra Blue Test Strip #300 ea NS 03/27/20 05/03/20 Rx aspirin 81 mg PO DAILY 07/15/20 07/15/20 History lysine 1,000 mg PO DAILY 07/15/20 07/15/20 History Allergies Allergy/AdvReac Type Severity Reaction Status Date / Time lisinopril AdvReac Mild cough Verified 07/15/20 20:23 Past Med/Surg History Medical History Bleeding nose Elevated TSH Nasal congestion Nasal obstruction Rupture of biceps tendon Syncope Tachycardia Surgical History H/O hernia repair H/O sinus surgery Family History Mother Diabetes Father Diabetes Social History Smoking Status: Never smoker Hx Alcohol Use: Yes Preferred Language: Tanzanian Communication Ability: Effective marital status: Current Living Situation: Spouse 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 and A total of 10 systems reviewed and were otherwise negative Physical Exam Vital Signs Vital Signs - 24 hr 07/15/20 17:05 07/15/20 17:12 07/15/20 17:20 Temperature 36.3 C L Temperature Source Temporal Artery Scan Pulse Rate 127 H 105 H 127 H Pulse Rate from SpO2 Sensor 105 H Pulse Rhythm Regular Respiratory Rate 20 20 Blood Pressure 132/75 175/98 H Blood Pressure Mean 94 123 Pulse Oximetry 79 L 89 L 79 L Oxygen Delivery Method Room Air Room Air Oxygen Flow Rate Sepsis Recent Fever Within 48 Hours Yes Sepsis New/Unexplained Change in Mental Status No Sepsis Action Taken by Nursing No Action Required Oxygen Flow Rate - Titration Pulse Oximetry Post Tiitration 07/15/20 18:00 07/15/20 18:44 07/15/20 19:00 Temperature Temperature Source Pulse Rate 101 H 93 H Pulse Rate from SpO2 Sensor 100 H 93 H Pulse Rhythm Respiratory Rate 22 Blood Pressure 147/82 H 136/91 Blood Pressure Mean 103 106 Pulse Oximetry 79 L 94 97 Oxygen Delivery Method Oxymask Oxymask Oxygen Flow Rate 8 Sepsis Recent Fever Within 48 Hours Sepsis New/Unexplained Change in Mental Status Sepsis Action Taken by Nursing Oxygen Flow Rate - Titration 8 Pulse Oximetry Post Tiitration 97 07/15/20 19:30 07/15/20 20:00 07/15/20 20:30 Temperature Temperature Source Pulse Rate 97 H 95 H 93 H Pulse Rate from SpO2 Sensor 98 H 96 H 93 H Pulse Rhythm Respiratory Rate 22 22 22 Blood Pressure 145/79 H 130/80 128/81 Blood Pressure Mean 101 96 96 Pulse Oximetry 99 97 96 Oxygen Delivery Method Oxymask Oxymask Oxymask Oxygen Flow Rate 8 8 8 Sepsis Recent Fever Within 48 Hours Sepsis New/Unexplained Change in Mental Status Sepsis Action Taken by Nursing Oxygen Flow Rate - Titration Pulse Oximetry Post Tiitration 07/15/20 21:00 Temperature Temperature Source Pulse Rate 85 Pulse Rate from SpO2 Sensor 85 Pulse Rhythm Respiratory Rate 20 Blood Pressure 136/77 Blood Pressure Mean 96 Pulse Oximetry 96 Oxygen Delivery Method Oxymask Oxygen Flow Rate 8 Sepsis Recent Fever Within 48 Hours Sepsis New/Unexplained Change in Mental Status Sepsis Action Taken by Nursing Oxygen Flow Rate - Titration Pulse Oximetry Post Tiitration Constitutional: Vital signs reviewed. O2 saturation is 93% on 6 L. Eyes: Pupils are equal round reactive to light. Conjunctiva are noninjected. ENT: Pharynx is clear without erythema or exudate. Mucous membranes are moist. Neck supple without meningeal signs. Respiratory: Clear to auscultation bilaterally. Breath sounds are equal bilaterally. Cardiovascular: Tachycardic. Regular rhythm. Heart rate 107. GI: Soft, nondistended and nontender. Bowel sounds are present. Musculoskeletal: No peripheral edema. No lower extremity tenderness. Integumentary: No cyanosis. or jaundice. Neurological: The patient is awake and alert. Hard of hearing. Psychiatric: Normal affect. Course Administered Medications Discontinued Medications Dexamethasone Sodium Phosphate (DexamethasonePf 10 Mg/Ml Vial) 6 mg IV NOW ONE Stop: 07/15/20 19:27 Last Admin: 07/15/20 19:37 Dose: 6 mg Documented by: [id number] Ioversol (Optiray 320 125ml) 119 ml IV ONCE ONE Stop: 07/15/20 18:36 Last Admin: 07/15/20 18:36 Dose: 119 ml Documented by: [id number] Critical Care Time Critical Care Time: Yes Total Critical Care Time: 35 I have personally spent approximately 35 minutes of critical care time in the direct management of this patient. This includes bedside care, interpretation of diagnostic studies, and testing, discussion with consultants, patient, and family members, and other required patient management activities. These minutes are in excess of all separately billable procedures. Medical Decision Making Differential Diagnosis COVID-19, multifocal pneumonia, respiratory failure, pulmonary embolism, myocarditis Medical Records Attestation: I reviewed the patient's medical records. I did perform a limited focused review of portions of the patient's old chart on the electronic medical record. The patient has had no recent pertinent visits to this hospital. Home Medications Current Medication List: was personally reviewed by me Laboratory Data Attestation: I reviewed the patient's lab results. Result diagrams: 07/15/20 17:56 07/15/20 17:56 Lab Results 07/15/20 07/15/20 07/15/20 Range/Units 17:37 17:37 17:56 WBC 5.51 (4.8-10.8) K/uL RBC 4.72 (4.7-6.1) M/uL Hgb 13.8 L (14.0-18.0) g/dL POC Hgb (14.0-18.0) g/dl Hct 39.6 L (42-52) % POC Hct (42-52) % MCV 83.9 (80-100) fL MCH 29.2 (25-34) pg MCHC 34.8 (32-36) g/dL RDW Std Deviation 38.2 (36.4-46.3) fL RDW Coeff of Madonna 12.5 (11.5-14.5) % Plt Count 159 (130-400) K/uL MPV 10.9 H (7.4-10.4) fL Immature Gran % (Auto) 0.2 % Neut % (Auto) 86.0 % Lymph % (Auto) 7.6 % [place] % (Auto) 6.2 % Eos % (Auto) 0.0 % Baso % (Auto) 0.0 % Neut # (Auto) 4.74 (1.4-6.5) K/uL Lymph # (Auto) 0.42 L (1.2-3.4) K/uL [place] # (Auto) 0.34 (0.11-0.59) K/uL Eos # (Auto) 0.00 (0-0.5) K/uL Baso # (Auto) 0.00 (0-0.2) K/uL Immature Gran # (Auto) 0.01 (0.00-0.02) K/uL PT (9.0-12.0) Seconds INR (0.9-1.1) APTT (21.0-31.0) Seconds PTT Ratio D-Dimer (0-500) ug/L FEU ABG pH ABG pCO2 ABG pO2 ABG HCO3 ABG O2 Saturation ABG Base Excess Matt Test Barometric Pressure Oxygen Given POC Sodium (135-144) mmol/L Sodium (136-145) mmol/L POC Potassium (3.3-5.0) mmol/L Potassium (3.5-5.1) mmol/L POC Chloride (101-112) mmol/L Chloride (98-107) mmol/L Carbon Dioxide (21-32) mmol/L POC Total CO2 (24-31) mmol/L Anion Gap (3-11) POC Anion Gap (16-25) mmol/L POC BUN (7-18) mg/dl BUN (7-18) mg/dl Creatinine (0.6-1.4) mg/dl POC Creatinine (0.6-1.3) mg/dl Est Cr Clr Drug Dosing ml/min Est GFR ( Amer) Est GFR (Non-Af Amer) BUN/Creatinine Ratio (10-20) Glucose (70-99) mg/dl POC Glucose (other) (70-99) mg/dl Lactate (0.4-2.0) mmol/L Calcium (8.5-10.1) mg/dl POC Ioniz Calcium [place] (1.12-1.32) mmol/l Total Bilirubin (0.2-1) mg/dl AST (15-37) U/L ALT (12-78) U/L Alkaline Phosphatase (45-117) U/L Troponin I (0-0.045) ng/ml C-Reactive Protein (0-0.29) mg/dl Total Protein (6.4-8.2) gm/dl Albumin (3.4-5.0) gm/dl Globulin (2.5-4.0) gm/dl Albumin/Globulin Ratio (0.9-2) COVID-19 Eval Order CovFluRsv at [facility] SARS-CoV-2 (PCR) POSITIVE A* (Negative) Influenza Type A (PCR) Negative (Neg) Influenza Type B (PCR) Negative (Neg) RSV (RT-PCR) Negative (Neg) 07/15/20 07/15/20 07/15/20 Range/Units 17:56 17:56 17:56 WBC (4.8-10.8) K/uL RBC (4.7-6.1) M/uL Hgb (14.0-18.0) g/dL POC Hgb (14.0-18.0) g/dl Hct (42-52) % POC Hct (42-52) % MCV (80-100) fL MCH (25-34) pg MCHC (32-36) g/dL RDW Std Deviation (36.4-46.3) fL RDW Coeff of Madonna (11.5-14.5) % Plt Count (130-400) K/uL MPV (7.4-10.4) fL Immature Gran % (Auto) % Neut % (Auto) % Lymph % (Auto) % [place] % (Auto) % Eos % (Auto) % Baso % (Auto) % Neut # (Auto) (1.4-6.5) K/uL Lymph # (Auto) (1.2-3.4) K/uL [place] # (Auto) (0.11-0.59) K/uL Eos # (Auto) (0-0.5) K/uL Baso # (Auto) (0-0.2) K/uL Immature Gran # (Auto) (0.00-0.02) K/uL PT 9.7 (9.0-12.0) Seconds INR 1.0 (0.9-1.1) APTT 27.3 (21.0-31.0) Seconds PTT Ratio 1.0 D-Dimer 480 (0-500) ug/L FEU ABG pH ABG pCO2 ABG pO2 ABG HCO3 ABG O2 Saturation ABG Base Excess Matt Test Barometric Pressure Oxygen Given POC Sodium (135-144) mmol/L Sodium 129 L (136-145) mmol/L POC Potassium (3.3-5.0) mmol/L Potassium 4.4 (3.5-5.1) mmol/L POC Chloride (101-112) mmol/L Chloride 97 L (98-107) mmol/L Carbon Dioxide 25 (21-32) mmol/L POC Total CO2 (24-31) mmol/L Anion Gap 8.0 (3-11) POC Anion Gap (16-25) mmol/L POC BUN (7-18) mg/dl BUN 21 H (7-18) mg/dl Creatinine 1.35 (0.6-1.4) mg/dl POC Creatinine (0.6-1.3) mg/dl Est Cr Clr Drug Dosing 51.6 ml/min Est GFR ( Amer) 60.4 Est GFR (Non-Af Amer) 52.1 BUN/Creatinine Ratio 15.9 (10-20) Glucose 268 H (70-99) mg/dl POC Glucose (other) (70-99) mg/dl Lactate 1.7 (0.4-2.0) mmol/L Calcium 8.9 (8.5-10.1) mg/dl POC Ioniz Calcium [place] (1.12-1.32) mmol/l Total Bilirubin 0.8 (0.2-1) mg/dl AST 69 H (15-37) U/L ALT 66 (12-78) U/L Alkaline Phosphatase 61 (45-117) U/L Troponin I < 0.015 (0-0.045) ng/ml C-Reactive Protein 7.82 H (0-0.29) mg/dl Total Protein 7.2 (6.4-8.2) gm/dl Albumin 3.1 L (3.4-5.0) gm/dl Globulin 4.1 H (2.5-4.0) gm/dl Albumin/Globulin Ratio 0.8 L (0.9-2) COVID-19 Eval Order SARS-CoV-2 (PCR) (Negative) Influenza Type A (PCR) (Neg) Influenza Type B (PCR) (Neg) RSV (RT-PCR) (Neg) 04/05/21 04/05/21 04/05/21 Range/Units 18:08 18:12 19:02 WBC (4.8-10.8) K/uL RBC (4.7-6.1) M/uL Hgb (14.0-18.0) g/dL POC Hgb 13.9 L (14.0-18.0) g/dl Hct (42-52) % POC Hct 41 L (42-52) % MCV (80-100) fL MCH (25-34) pg MCHC (32-36) g/dL RDW Std Deviation (36.4-46.3) fL RDW Coeff of Madonna (11.5-14.5) % Plt Count (130-400) K/uL MPV (7.4-10.4) fL Immature Gran % (Auto) % Neut % (Auto) % Lymph % (Auto) % [place] % (Auto) % Eos % (Auto) % Baso % (Auto) % Neut # (Auto) (1.4-6.5) K/uL Lymph # (Auto) (1.2-3.4) K/uL [place] # (Auto) (0.11-0.59) K/uL Eos # (Auto) (0-0.5) K/uL Baso # (Auto) (0-0.2) K/uL Immature Gran # (Auto) (0.00-0.02) K/uL PT (9.0-12.0) Seconds INR (0.9-1.1) APTT (21.0-31.0) Seconds PTT Ratio D-Dimer (0-500) ug/L FEU ABG pH Cancelled 7.42 ABG pCO2 Cancelled 35 ABG pO2 Cancelled 95 ABG HCO3 Cancelled 22 ABG O2 Saturation Cancelled 97.4 H ABG Base Excess Cancelled -1.8 Matt Test Cancelled Pos Barometric Pressure Cancelled 732.0 Oxygen Given Cancelled ROOM AIR POC Sodium 130 L (135-144) mmol/L Sodium (136-145) mmol/L POC Potassium 4.4 (3.3-5.0) mmol/L Potassium (3.5-5.1) mmol/L POC Chloride 95 L (101-112) mmol/L Chloride (98-107) mmol/L Carbon Dioxide (21-32) mmol/L POC Total CO2 27 (24-31) mmol/L Anion Gap (3-11) POC Anion Gap 13.0 L (16-25) mmol/L POC BUN 22 H (7-18) mg/dl BUN (7-18) mg/dl Creatinine (0.6-1.4) mg/dl POC Creatinine 1.3 (0.6-1.3) mg/dl Est Cr Clr Drug Dosing ml/min Est GFR ( Amer) Est GFR (Non-Af Amer) BUN/Creatinine Ratio (10-20) Glucose (70-99) mg/dl POC Glucose (other) 284 H (70-99) mg/dl Lactate (0.4-2.0) mmol/L Calcium (8.5-10.1) mg/dl POC Ioniz Calcium [place] 1.05 L (1.12-1.32) mmol/l Total Bilirubin (0.2-1) mg/dl AST (15-37) U/L ALT (12-78) U/L Alkaline Phosphatase (45-117) U/L Troponin I (0-0.045) ng/ml C-Reactive Protein (0-0.29) mg/dl Total Protein (6.4-8.2) gm/dl Albumin (3.4-5.0) gm/dl Globulin (2.5-4.0) gm/dl Albumin/Globulin Ratio (0.9-2) COVID-19 Eval Order SARS-CoV-2 (PCR) (Negative) Influenza Type A (PCR) (Neg) Influenza Type B (PCR) (Neg) RSV (RT-PCR) (Neg) Imaging Data Radiologist's Impression: Chest CTA 07/15/20 17:20 CT ANGIOGRAPHY OF THE CHEST, PULMONARY EMBOLUS PROTOCOL CLINICAL HISTORY: Dyspnea eval for PE COMPARISON STUDY: Chest radiograph April 23, 2015. TECHNIQUE: Following IV administration of 119 mL of Optiray-320, helical axial images of the chest were obtained utilizing the pulmonary embolus protocol. Maximal intensity projections and sagittal and coronal reformats were viewed on an independent 3D workstation. IV contrast was administered without complication. Automated exposure control was utilized for the study. A dose lowering technique was utilized adhering to the principles of ALARA. CT DOSE: 470.99 mGycm FINDINGS: No central pulmonary emboli are identified. The remainder of the pulmonary arteries are suboptimally assessed due to respiratory motion. Note is made of moderate cardiomegaly and coronary artery calcification. There are prominent mediastinal lymph nodes. A few are partially calcified. No pneumothorax or pleural effusion is noted. Lungs are suboptimally assessed given respiratory motion. Note is made of numerous groundglass opacities with developing consolidation within both lungs. No cavitation is present. IMPRESSION: 1. No central pulmonary emboli identified. Remainder of pulmonary arteries suboptimally assessed due to respiratory motion. 2. Extensive multifocal airspace opacities within lungs consistent with an infectious process. 3. Moderate cardiomegaly and coronary artery calcification. 4. Prominent mediastinal lymph nodes which are likely reactive. ACT 112: Negative or not required by law. Electronically signed by: Kolton Wilson M.D. 07/15/2020 6:58 PM ECG Data Attestation: I personally reviewed and interpreted this ECG as follows: Indication: + SOB/dyspnea Rate (beats per minute): 106 Rhythm: + sinus tachycardia ECG ST segments: no ST elevation ECG Findings: + LVH; no PVCs MDM Narrative I did evaluate the patient as noted above. He is presenting with symptoms consistent with COVID-19 infection for the past week. In triage his pulse ox was 79% on room air. He was placed on supplemental oxygen via facemask. His O2 saturation is 93% on 6 L. IV access was established. I did place an order for continuous cardiac monitoring. The monitor showed sinus tachycardia at a rate of 107 bpm. I did order and personally review the patient's 12-lead EKG as described above. He has no acute ischemic changes on his twelve-lead EKG. I did order blood cultures. I did order and review the patient's blood work as noted in the electronic medical record. I-STAT labs demonstrate a creatinine of 1.3. He is slightly anemic with a hemoglobin at 13.9. Sodium is 130. I did order a stat CT angiogram of the chest. I did review the images myself as well as the radiology report as described above. He has a multifocal pneumonia. There is no evidence of pulmonary embolism. More labs came back later. His white count is not elevated. Platelet count is 159. D-dimer was negative at 480. Glucose is elevated at 268. Lactate is 1.7. CRP is 7.8. Troponin is negative. COVID-19 test came back positive. I did treat him with Decadron 6 mg IV. The case was discussed with the case finisher and the hospitalist was informed. The patient is on 8 L of oxygen via oxygen mask. Impression & Plan Hypoxemia, COVID-19, Multifocal pneumonia, Hyponatremia Discharge Plan Visit Data Chief Complaint: Shortness of Breath/Dyspnea Stated Complaint: SOB/COUGH-REF BY DR. COULTER ED Provider: Edwin Blake Discharge Problem: Hypoxemia, COVID-19, Multifocal pneumonia, Hyponatremia Patient Disposition: Being Evaluated by Hospitalist Discharge Instructions Krames/Other Patient Handouts: 2019-nCoV Forms Stand Alone Forms: My [facility] Prescriptions Prescriptions: No Action (DME) pen needle, diabetic [BD Ultra-Fine Yessy Pen Needle] 32 gauge x 5/32" needle See Rx Instructions .ROUTE .MEDSUPPLY Qty: 300 RF: 3 metformin 1,000 mg tablet 1,000 mg PO BID Qty: 180 RF: 3 liraglutide 0.6 mg/0.1 mL (18 mg/3 mL) pen injector 1.8 mg SQ DAILY 90 Days Qty: 27 RF: 3 atorvastatin 80 mg tablet 80 mg PO DAILY Qty: 90 RF: 3 Humulin N NPH Insulin KwikPen 100 unit/mL (3 mL) insulin pen 37 unit SQ QPM Qty: 45 RF: 3 (DME) OneTouch Ultra Blue Test Strip Strip See Dose Instructions .ROUTE .MEDSUPPLY Qty: 300 RF: 3 cholecalciferol (vitamin D3) 1,000 unit capsule 1,000 units PO BID RF: 0 ascorbic acid (vitamin C) 500 mg tablet 500 mg PO DAILY RF: 0 pohgwsvm-yxp-inexi-vit K-lycop 1 ea PO DAILY RF: 0 cyanocobalamin (vitamin B-12) 1,000 mcg tablet extended release 1,000 mcg PO .COMPLEX RF: 0 insulin lispro [Humalog KwikPen Insulin] 100 unit/mL insulin pen 25 unit subcut DAILY RF: 0 lysine 1,000 mg Tablet 1,000 mg PO DAILY RF: 0 aspirin 81 mg Tablet,Delayed Release (Dr/Ec) 81 mg PO DAILY RF: 0 Referrals Referrals: Dallas Coulter MD [Primary Care Provider] -
[2020-07-15 18:11] LABS: Hematocrit (blood only) 39.6 % (42-52); Hemoglobin 13.8 g/dL (14.0-18.0); Immature Granulocytes # (auto) 0.01 K/uL (0.00-0.02); Immature Granulocytes % (auto) 0.2 %; Lymphocytes # (auto) 0.42 K/uL (1.2-3.4); Lymphocytes % (auto) 7.6 %; Mean Corpuscular Hemoglobin 29.2 pg (25-34); Mean Corpuscular Hgb Conc 34.8 g/dL (32-36); Mean Corpuscular Volume 83.9 fL (80-100); Mean Platelet Volume 10.9 fL (7.4-10.4); Monocytes # (auto) 0.34 K/uL (0.11-0.59); Monocytes % (auto) 6.2 %; Neutrophils # (auto) 4.74 K/uL (1.4-6.5); Platelet Count 159 K/uL (130-400); RDW Coefficient of Variation 12.5 % (11.5-14.5); RDW Standard Deviation 38.2 fL (36.4-46.3); Red Blood Count 4.72 M/uL (4.7-6.1); White Blood Count 5.51 K/uL (4.8-10.8)
[2020-07-15 18:25] LABS: iSTAT Creatinine 1.3 mg/dl (0.6-1.3); iSTAT Hemoglobin 13.9 g/dl (14.0-18.0); iSTAT Ionized Calcium 1.05 mmol/l (1.12-1.32); iSTAT Potassium 4.4 mmol/L (3.3-5.0)
[2020-07-15 18:28] LABS: Alanine Aminotransferase 66 U/L (12-78); Albumin Level 3.1 gm/dl (3.4-5.0); Aspartate Aminotransferase 69 U/L (15-37); BUN Creatinine Ratio 15.9 (10-20); Blood Urea Nitrogen 21 mg/dl (7-18); C Reactive Protein 7.82 mg/dl (0-0.29); Calcium 8.9 mg/dl (8.5-10.1); Carbon Dioxide 25 mmol/L (21-32); Chloride 97 mmol/L (98-107); Creatinine Clr Calc Pharmacy 51.6 ml/min; D Dimer 480 ug/L FEU (0-500); Est GFR (African American) 60.4; Est GFR (Non-African American) 52.1; Glucose 268 mg/dl (70-99); Partial Thromboplastin Time 27.3 Seconds (21.0-31.0); Potassium 4.4 mmol/L (3.5-5.1); Prothrombin Time 9.7 Seconds (9.0-12.0); Sodium 129 mmol/L (136-145)
[2020-07-15 18:32] LABS: Albumin Globulin Ratio 0.8 (0.9-2); Alkaline Phosphatase 61 U/L (45-117); Bilirubin,Total 0.8 mg/dl (0.2-1); Globulin 4.1 gm/dl (2.5-4.0); Total Protein 7.2 gm/dl (6.4-8.2); Troponin I < 0.015 ng/ml (0-0.045)
[2020-07-15] MEDS ORDERED: OPTIRAY 320 125ml IV ONE (18:35)
[2020-07-15 18:50] LABS: Influenza A virus by PCR Negative (Neg); Influenza B virus by PCR Negative (Neg); RSV by PCR Negative (Neg)
--- NOTE | 2020-07-15 19:00 | CT Scan Report ---
CT ANGIOGRAPHY OF THE CHEST, PULMONARY EMBOLUS PROTOCOL CLINICAL HISTORY: Dyspnea eval for PE COMPARISON STUDY: Chest radiograph April 23, 2015. TECHNIQUE: Following IV administration of 119 mL of Optiray-320, helical axial images of the chest we re obtained utilizing the pulmonary embolus protocol. Maximal intensity projections and sagittal and coronal reformats were viewed on an independent 3D workstation. IV contrast was administered withou t complication. Automated exposure control was utilized for the study. A dose lowering technique wa s utilized adhering to the principles of ALARA. CT DOSE: 470.99 mGycm FINDINGS: No central pulmonary emboli are identified. The remainder of the pulmonary arteries are munoz boptimally assessed due to respiratory motion. Note is made of moderate cardiomegaly and coronary art elisha calcification. There are prominent mediastinal lymph nodes. A few are partially calcified. No pne umothorax or pleural effusion is noted. Lungs are suboptimally assessed given respiratory motion. Not e is made of numerous groundglass opacities with developing consolidation within both lungs. No cavit ation is present. IMPRESSION: 1. No central pulmonary emboli identified. Remainder of pulmonary arteries suboptimally assessed due to respiratory motion. 2. Extensive multifocal airspace opacities within lungs consistent with an infectious process. 3. Moderate cardiomegaly and coronary artery calcification. 4. Prominent mediastinal lymph nodes which are likely reactive. ACT 112: Negative or not required by law. Electronically signed by: Kolton Wilson M.D. 07/15/2020 6:58 PM
[2020-07-15 19:05] LABS: SARS CoV2 RNA(COVID-19) InHosp POSITIVE (Negative)
[2020-07-15] MEDS ORDERED: dexAMETHasone**PF** 10 MG/ML VIAL IV ONE (19:26)
[2020-07-15 19:42] LABS: Base Excess ABG -1.8 mEq/L (-9-1.8); HCO3 ABG 22 mmol/L (19-24); Oxygen Saturation ABG 97.4 % (90-95); PCO2 ABG 35 mmHg (35-46); PO2 ABG 95 mmHg (80-95); pH ABG 7.42 (7.35-7.45)
[2020-07-15 19:49] LABS: Allen Test Pos (Pos)
--- NOTE | 2020-07-15 20:47 | History & Physical Report ---
Date of Service July 15, 2020 Assessment & Plan (1) Acute respiratory failure with hypoxia: Acute respiratory failure with hypoxia/COVID-19 pneumonia/secondary bacterial pneumonia- Dexamethasone 6 mg IV every morning Duonebs every 4 hours while awake and every 2 hours when necessary. Remdesivir IV per protocol Ceftriaxone 2 g IV daily Azithromycin 500 mg IV daily Guaifenesin extended release 600 mg p.o. twice daily Continue oxygen mask, and taper to nasal cannula sent as symptoms improve Zinc sulfate 220 mg p.o. every morning Vitamin D 5000 international units p.o. daily Present on Admission?: Yes (2) COVID-19: See above Present on Admission?: Yes (3) Multifocal pneumonia: See above Present on Admission?: Yes (4) Hypertension: Continue aspirin Present on Admission?: Yes (5) Controlled diabetes mellitus with neurologic complication, with long-term current use of insulin: Continue Humulin N 37 units subcu every afternoon and lispro 25 units subcu every morning. Hold liraglutide and Metformin Placed on Accu-Cheks before meals and at bedtime with NovoLog coverage per scale Present on Admission?: Yes (6) Dyslipidemia: Continue atorvastatin 80 mg daily Present on Admission?: Yes History of Present Illness Chief Complaint: The patient presents to the emergency department with productive cough, fever, chills, generalized malaise, generalized weakness, shortness of breath and dyspnea on exertion Primary Care Provider: Dallas Coulter MD The patient is a 70-year-old male with a past medical history including vitamin D deficiency, hypertension, cerebrovascular disease, obesity, dyslipidemia, ED, diabetes mellitus with long-term use of insulin, bilateral carpal tunnel syndrome and anemia. He reports that he started feeling symptoms at the beginning of the month, felt like he might be getting a little bit better, and then started getting worse again. Upon arrival in the emergency department, his pulse ox was 79% on room air, and he was placed on oxime mask with improvement into the low to mid 90s. In the emergency department, COVID-19 test was posit sapna. CT angiography showed a multifocal pneumonia with reactive mediastinal lymphadenopathy. Allergies Allergy/AdvReac Type Severity Reaction Status Date / Time lisinopril AdvReac Mild cough Verified 07/15/20 20:23 Home Medications Medication Instructions Recorded Confirmed Type ascorbic acid (vitamin C) 500 mg 500 mg PO DAILY tab 02/16/19 07/15/20 History tablet cholecalciferol (vitamin D3) 25 1,000 units PO BID cap 02/16/19 07/15/20 History mcg (1,000 unit) capsule [id number] K-lycop 1 ea PO DAILY 04/26/19 07/15/20 History BD Ultra-Fine Yessy Pen Needle 32 #300 ea NS 06/13/19 05/03/20 Rx gauge x 5/32" metformin 1,000 mg tablet 1,000 mg PO BID #180 tab 06/13/19 07/15/20 Rx liraglutide 0.6 mg/0.1 mL (18 mg/3 1.8 mg SQ DAILY 90 Days #27 ml 07/24/19 07/15/20 Rx mL) subcutaneous pen injector cyanocobalamin (vitamin B-12) 1,000 mcg PO .COMPLEX tab 10/03/19 07/15/20 History 1,000 mcg tablet,extended release atorvastatin 80 mg tablet 80 mg PO DAILY #90 tab 01/04/20 07/15/20 Rx insulin lispro 100 unit/mL 25 unit SUBCUT DAILY ml 01/10/20 07/15/20 History subcutaneous pen Humulin N NPH Insulin KwikPen 100 37 unit SQ QPM #45 ml NS 01/24/20 07/15/20 Rx unit/mL (3 mL) subcutaneous OneTouch Ultra Blue Test Strip #300 ea NS 03/27/20 05/03/20 Rx aspirin 81 mg PO DAILY 07/15/20 07/15/20 History lysine 1,000 mg PO DAILY 07/15/20 07/15/20 History Past Med/Surg History Medical History Bleeding nose Elevated TSH Nasal congestion Nasal obstruction Rupture of biceps tendon Syncope Tachycardia Surgical History H/O hernia repair H/O sinus surgery Family History Mother Diabetes Father Diabetes Social History Smoking Status: Never smoker Hx Alcohol Use: Yes Preferred Language: Nepali Communication Ability: Effective marital status: Current Living Situation: Spouse 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 The review of systems is otherwise negative other than for that already noted above, and at least 10 systems have been reviewed. Physical Exam Physical Exam: The patient is awake, alert and oriented 3, well developed and well nourished, normocephalic and atraumatic, lying in bed and in no acute distress. HEENT--PERRL, EOMI, mucous membranes and oropharynx dry. Neck--supple. No JVD. No bruits. Thyroid normal, trachea midline, no adenopathy. Heart--normal S1 and S2. No murmurs, rubs or gallops. Lungs--decreased breath sounds throughout. No respiratory distress, no accessory muscle use. Abdomen--normal bowel sounds and soft. Nontender. Nondistended. Extremities--no cyanosis or clubbing. No edema. Dermatologic--normal skin turgor, normal color, no abnormal lymph nodes, no rash. Neurologic--cranial nerves II through XII grossly intact. Rheumatologic--normal range of motion. Psychiatric--normal affect. Results & Data Results & Data ([facility]) Vital Signs (Past 12 Hours) Vital Signs Temp Pulse Resp BP Pulse Ox 07/15/20 20:30 93 H 22 128/81 96 07/15/20 20:00 95 H 22 130/80 97 07/15/20 19:30 97 H 22 145/79 H 99 07/15/20 19:00 93 H 22 136/91 97 07/15/20 18:44 101 H 147/82 H 94 07/15/20 18:00 79 L 07/15/20 17:20 127 H 20 79 L 07/15/20 17:12 105 H 175/98 H 89 L 07/15/20 17:05 97.3 F L 127 H 20 132/75 79 L Laboratory Results Laboratory Results WBC 5.51 K/uL (4.8-10.8) 07/15/20 17:56 RBC 4.72 M/uL (4.7-6.1) 07/15/20 17:56 Hgb 13.8 g/dL (14.0-18.0) L 07/15/20 17:56 POC Hgb 13.9 g/dl (14.0-18.0) L 07/15/20 18:12 Hct 39.6 % (42-52) L 07/15/20 17:56 POC Hct 41 % (42-52) L 07/15/20 18:12 MCV 83.9 fL (80-100) 07/15/20 17:56 MCH 29.2 pg (25-34) 07/15/20 17:56 MCHC 34.8 g/dL (32-36) 07/15/20 17:56 RDW Std Deviation 38.2 fL (36.4-46.3) 07/15/20 17:56 RDW Coeff of Madonna 12.5 % (11.5-14.5) 07/15/20 17:56 Plt Count 159 K/uL (130-400) 07/15/20 17:56 MPV 10.9 fL (7.4-10.4) H 07/15/20 17:56 Immature Gran % (Auto) 0.2 % 07/15/20 17:56 Neut % (Auto) 86.0 % 07/15/20 17:56 Lymph % (Auto) 7.6 % 07/15/20 17:56 [place] % (Auto) 6.2 % 07/15/20 17:56 Eos % (Auto) 0.0 % 07/15/20 17:56 Baso % (Auto) 0.0 % 07/15/20 17:56 Neut # (Auto) 4.74 K/uL (1.4-6.5) 07/15/20 17:56 Lymph # (Auto) 0.42 K/uL (1.2-3.4) L 07/15/20 17:56 [place] # (Auto) 0.34 K/uL (0.11-0.59) 07/15/20 17:56 Eos # (Auto) 0.00 K/uL (0-0.5) 07/15/20 17:56 Baso # (Auto) 0.00 K/uL (0-0.2) 07/15/20 17:56 Immature Gran # (Auto) 0.01 K/uL (0.00-0.02) 07/15/20 17:56 PT 9.7 Seconds (9.0-12.0) 07/15/20 17:56 INR 1.0 (0.9-1.1) 07/15/20 17:56 APTT 27.3 Seconds (21.0-31.0) 07/15/20 17:56 PTT Ratio 1.0 07/15/20 17:56 D-Dimer 480 ug/L FEU (0-500) 07/15/20 17:56 ABG pH 7.42 (7.35-7.45) 07/15/20 19:02 ABG pCO2 35 mmHg (35-46) 07/15/20 19:02 ABG pO2 95 mmHg (80-95) 07/15/20 19:02 ABG HCO3 22 mmol/L (19-24) 07/15/20 19:02 ABG O2 Saturation 97.4 % (90-95) H 07/15/20 19:02 ABG Base Excess -1.8 mEq/L (-9-1.8) 07/15/20 19:02 Matt Test Pos (Pos) 07/15/20 19:02 Barometric Pressure 732.0 mm/Hg 07/15/20 19:02 Oxygen Given ROOM AIR 07/15/20 19:02 POC Sodium 130 mmol/L (135-144) L 07/15/20 18:12 Sodium 129 mmol/L (136-145) L 07/15/20 17:56 POC Potassium 4.4 mmol/L (3.3-5.0) 07/15/20 18:12 Potassium 4.4 mmol/L (3.5-5.1) 07/15/20 17:56 POC Chloride 95 mmol/L (101-112) L 07/15/20 18:12 Chloride 97 mmol/L (98-107) L 07/15/20 17:56 Carbon Dioxide 25 mmol/L (21-32) 07/15/20 17:56 POC Total CO2 27 mmol/L (24-31) 07/15/20 18:12 Anion Gap 8.0 (3-11) 07/15/20 17:56 POC Anion Gap 13.0 mmol/L (16-25) L 07/15/20 18:12 POC BUN 22 mg/dl (7-18) H 07/15/20 18:12 BUN 21 mg/dl (7-18) H 07/15/20 17:56 Creatinine 1.35 mg/dl (0.6-1.4) 07/15/20 17:56 POC Creatinine 1.3 mg/dl (0.6-1.3) 07/15/20 18:12 Est Cr Clr Drug Dosing 51.6 ml/min 07/15/20 17:56 Est GFR ( Amer) 60.4 07/15/20 17:56 Est GFR (Non-Af Amer) 52.1 07/15/20 17:56 BUN/Creatinine Ratio 15.9 (10-20) 07/15/20 17:56 Glucose 268 mg/dl (70-99) H 07/15/20 17:56 POC Glucose (other) 284 mg/dl (70-99) H 07/15/20 18:12 Lactate 1.7 mmol/L (0.4-2.0) 07/15/20 17:56 Calcium 8.9 mg/dl (8.5-10.1) 07/15/20 17:56 POC Ioniz Calcium [place] 1.05 mmol/l (1.12-1.32) L 07/15/20 18:12 Total Bilirubin 0.8 mg/dl (0.2-1) 07/15/20 17:56 AST 69 U/L (15-37) H 07/15/20 17:56 ALT 66 U/L (12-78) 07/15/20 17:56 Alkaline Phosphatase 61 U/L (45-117) 07/15/20 17:56 Troponin I < 0.015 ng/ml (0-0.045) 07/15/20 17:56 C-Reactive Protein 7.82 mg/dl (0-0.29) H 07/15/20 17:56 Total Protein 7.2 gm/dl (6.4-8.2) 07/15/20 17:56 Albumin 3.1 gm/dl (3.4-5.0) L 07/15/20 17:56 Globulin 4.1 gm/dl (2.5-4.0) H 07/15/20 17:56 Albumin/Globulin Ratio 0.8 (0.9-2) L 07/15/20 17:56 COVID-19 Eval Order CovFluRsv at [facility] 07/15/20 17:37 SARS-CoV-2 (PCR) POSITIVE (Negative) A* 07/15/20 17:37 Influenza Type A (PCR) Negative (Neg) 07/15/20 17:37 Influenza Type B (PCR) Negative (Neg) 07/15/20 17:37 RSV (RT-PCR) Negative (Neg) 07/15/20 17:37 Impressions Chest CTA 07/15/20 17:20 CT ANGIOGRAPHY OF THE CHEST, PULMONARY EMBOLUS PROTOCOL CLINICAL HISTORY: Dyspnea eval for PE COMPARISON STUDY: Chest radiograph April 23, 2015. TECHNIQUE: Following IV administration of 119 mL of Optiray-320, helical axial images of the chest were obtained utilizing the pulmonary embolus protocol. Maximal intensity projections and sagittal and coronal reformats were viewed on an independent 3D workstation. IV contrast was administered without complication. Automated exposure control was utilized for the study. A dose lowering technique was utilized adhering to the principles of ALARA. CT DOSE: 470.99 mGycm FINDINGS: No central pulmonary emboli are identified. The remainder of the pulmonary arteries are suboptimally assessed due to respiratory motion. Note is made of moderate cardiomegaly and coronary artery calcification. There are prominent mediastinal lymph nodes. A few are partially calcified. No pneumothorax or pleural effusion is noted. Lungs are suboptimally assessed given respiratory motion. Note is made of numerous groundglass opacities with developing consolidation within both lungs. No cavitation is present. IMPRESSION: 1. No central pulmonary emboli identified. Remainder of pulmonary arteries munoz boptimally assessed due to respiratory motion. 2. Extensive multifocal airspace opacities within lungs consistent with an infectious process. 3. Moderate cardiomegaly and coronary artery calcification. 4. Prominent mediastinal lymph nodes which are likely reactive. ACT 112: Negative or not required by law. Electronically signed by: Kolton Wilson M.D. 07/15/2020 6:58 PM Code Status & VTE Plan Code Status Full code VTE Prophylaxis Plan VTE Prophylaxis will be ordered: Yes PG Care Time/CCT Total # of Minutes Spent Total Time Spent with Patient: Total time spent is greater than 50% in coordination of care (as documented) at patient's floor/unit and/or counseling patient: Coding Level of Care Code 44740 Initial Inpt Care Lvl 3 Diagnoses Acute respiratory failure with hypoxia J96.01 COVID-19 U07.1 Multifocal pneumonia J18.9 Hypertension I10 Controlled diabetes mellitus with neurologic complication, with long-term current use of insulin E11.49; Z79.4 Dyslipidemia E78.5
[2020-07-15] MEDS ORDERED: DEXTROSE 50% 50 ML SYRINGE IV PRN (22:51)
[2020-07-15] MEDS ORDERED: CARBOHYDRATES FOR HYPOGLYCEMIA PO PRN (22:51)
[2020-07-15] MEDS ORDERED: CHOLECALCIFEROL 1,000 UNITS 25 MCG TAB PO SCH (22:51)
[2020-07-15] MEDS ORDERED: GLUCAGON FOR INJ 1 MG VIAL SQ PRN (22:51)
[2020-07-15] MEDS ORDERED: GLUCOSE 40% GEL 15 GM TUBE PO PRN (22:51)
[2020-07-15] MEDS ORDERED: GLUCOSE 10 TABS/TUBE PO PRN (22:51)
[2020-07-15] MEDS ORDERED: INSULIN HUMAN NPH SC SCH (23:15)
[2020-07-15] MEDS ORDERED: REMDESIVIR 200 MG in SODIUM CHLORIDE 0.9% 210 ML IV ONE (23:15)
[2020-07-15] MEDS: guaiFENesin 600 MG TABCR PO SCH (23:53)
[2020-07-15] MEDS: INSULIN ASPART 100 UNITS/ML 3 ML PEN SC SCH (23:58)
[2020-07-16 00:03] LABS: Appearance Urine Clear (Clear); Bacteria Urine Automated Negative (Negative); Bilirubin Urine Negative (Negative); Blood Urine Trace (Negative); Cast Urine Automated 0 /lpf (0-5); Color Urine Yellow; Glucose Urine UA 1+ (Negative); Ketones Urine Trace (Negative); Leukocyte Esterase Urine Negative (Negative); Nitrite Urine Negative (Negative); Protein Urine 2+ (Negative); RBC Urine Automated 0-4 /hpf (0-4); Specific Gravity Urine > 1.045 (1.000-1.030); Urobilinogen Urine Negative (Negative); pH Urine 5.5 (4.5-7.5)
[2020-07-16] MEDS: SODIUM CHLORIDE 0.9% 10ML FLUSH IV SCH ×2 (01:17→23:13)
[2020-07-16] MEDS: cefTRIAXone SODIUM 2,000 MG in DEXTROSE 5% 50 ML IV SCH ×2 (01:18→23:48)
[2020-07-16] MEDS: AZITHROMYCIN 500 MG in DEXTROSE 5% 250 ML IV SCH (02:41)
[2020-07-16] MEDS ORDERED: INSULIN HUMAN REGULAR PER UNIT 10 UNITS in SYRINGE 9.9 ML IV ONE (05:15)
[2020-07-16 06:14] LABS: Eosinophils # (auto) 0.01 K/uL (0-0.5); Eosinophils % (auto) 0.2 %; Hematocrit (blood only) 37.3 % (42-52); Immature Granulocytes # (auto) 0.02 K/uL (0.00-0.02); Immature Granulocytes % (auto) 0.4 %; Lymphocytes # (auto) 0.44 K/uL (1.2-3.4); Lymphocytes % (auto) 9.8 %; Mean Corpuscular Hemoglobin 29.4 pg (25-34); Mean Corpuscular Hgb Conc 34.9 g/dL (32-36); Mean Corpuscular Volume 84.4 fL (80-100); Mean Platelet Volume 11.2 fL (7.4-10.4); Monocytes # (auto) 0.29 K/uL (0.11-0.59); Monocytes % (auto) 6.5 %; Neutrophils # (auto) 3.73 K/uL (1.4-6.5); Neutrophils % (auto) 83.1 %; Platelet Count 156 K/uL (130-400); RDW Coefficient of Variation 12.6 % (11.5-14.5); RDW Standard Deviation 38.7 fL (36.4-46.3); Red Blood Count 4.42 M/uL (4.7-6.1); White Blood Count 4.49 K/uL (4.8-10.8)
[2020-07-16] MEDS ORDERED: COUGH DROP (SUGAR FREE) LOZ 24 LOZ/1 BOX BUCCAL ONE (06:25)
[2020-07-16 06:42] LABS: Estimated Average Glucose 189 mg/dl; Hemoglobin A1C 8.2 % (4.5-5.6)
[2020-07-16 07:00] LABS: Alanine Aminotransferase 65 U/L (12-78); Albumin Globulin Ratio 0.6 (0.9-2); Albumin Level 2.7 gm/dl (3.4-5.0); Alkaline Phosphatase 57 U/L (45-117); Aspartate Aminotransferase 63 U/L (15-37); BUN Creatinine Ratio 17.6 (10-20); Bilirubin,Total 0.4 mg/dl (0.2-1); Blood Urea Nitrogen 25 mg/dl (7-18); Calcium 8.8 mg/dl (8.5-10.1); Carbon Dioxide 27 mmol/L (21-32); Chloride 97 mmol/L (98-107); Creatinine Clr Calc Pharmacy 48.9 ml/min; Est GFR (African American) 56.8; Globulin 4.3 gm/dl (2.5-4.0); Glucose 318 mg/dl (70-99); Potassium 4.2 mmol/L (3.5-5.1); Sodium 132 mmol/L (136-145); Troponin I < 0.015 ng/ml (0-0.045)
[2020-07-16] MEDS: ALBUT/IPRATROP 3MG/0.5MG NEB 3 ML VIAL NEB SCH ×2 (07:23→11:12)
[2020-07-16] MEDS: ATORVASTATIN 40 MG TAB PO SCH (08:28)
[2020-07-16] MEDS: dexAMETHasone 6 MG in SYRINGE 0 ML IV SCH (08:28)
[2020-07-16] MEDS: INSULIN ASPART 100 UNITS/ML 3 ML PEN SC SCH ×4 (08:28→21:19)
[2020-07-16] MEDS: CYANOCOBALAMIN 500 MCG TABLET (VITAMIN B-12) PO SCH (08:29)
[2020-07-16] MEDS: guaiFENesin 600 MG TABCR PO SCH ×2 (08:29→20:56)
[2020-07-16] MEDS: ASPIRIN 81 MG ECTAB PO SCH (08:29)
[2020-07-16] MEDS: ASCORBIC ACID 500 MG TAB PO SCH (08:29)
[2020-07-16] MEDS ORDERED: MULTIVIT MIN FOLIC VIT K LYCOP PO SCH (09:00)
[2020-07-16] MEDS ORDERED: CHOLECALCIFEROL 1,000 UNITS 25 MCG TAB PO SCH (09:00)
[2020-07-16] MEDS ORDERED: INSULIN ASPART 100 UNITS/ML 3 ML PEN SC SCH (09:00)
[2020-07-16] MEDS ORDERED: ZINC SULFATE 220 MG CAPSULE PO SCH (09:00)
[2020-07-16] MEDS ORDERED: NON-FORMULARY MEDICATION (Lysine 1,000 mg Tablet) PO SCH (09:00)
[2020-07-16] MEDS ORDERED: INSULIN ASPART 100 UNITS/ML VIAL SC SCH (09:00)
--- NOTE | 2020-07-16 12:37 | Electrocardiogram Report ---
Test Reason : Blood Pressure : / mmHG Vent. Rate : 106 BPM Atrial Rate : 106 BPM P-R Int : 134 ms QRS Dur : 078 ms QT Int : 320 ms P-R-T Axes : 056 -28 041 degrees QTc Int : 425 ms Poor data quality, interpretation may be adversely affected Sinus tachycardia Minimal voltage criteria for LVH, may be normal variant Borderline ECG When compared with ECG of 18-MAY-2019 12:49, No significant change was found Confirmed by Pola Singer ([id number]) on 07/16/2020 12:36:27 PM Referred By: Dallas Coulter Confirmed By:Pola Singer
--- NOTE | 2020-07-16 13:05 | Hospitalist Progress Note ---
Date of Service July 16, 2020 Assessment & Plan (1) COVID-19: Covid-19 pneumonia with acute hypoxemic respiratory failure. Approximately one week of symptoms prior to presentation. - Dexamethasone 6 mg IV every morning (End date: 07/24/2020) - Remdesivir IV per protocol (End date: 07/19/2020) - CAP abx with ceftriaxone and azithromycin (End date: 07/20/2020 for 5-day course) - Patient meets criteria for tocilizumab now that he's on high flow. Discussed with pharmacy and ICU provider who has to approve its use. - Continue Duonebs standing and PRN - Continue guaifenesin - As above, he is now needing high flow NC and has no contraindications to tocilizumab. Will order today. Given decompensation, will also just have ICU provider see him. (2) Controlled diabetes mellitus with neurologic complication, with long-term current use of insulin: A1c was 8.2% this admission. - Hold metformin and liraglutide. - Admitting provider continued his home regimen which makes little sense to me. He's getting a once-daily short-acting insulin as well as NPH in the evening. - Stop above insulins - Glycemic pharmacist consult as his sugars will be very volatile with breathing issues, steroids, and possibly even intubation. (3) CKD (chronic kidney disease) stage 3, GFR 30-59 ml/min: Baseline Cr ~1.3. - Presently Cr is 1.4, so near baseline. - Monitor (4) Hyponatremia: Na was 129 on admission. Up to 132 today. Likely low solute vs. SIADH. - Monitor (5) Dyslipidemia: - Continue atorvastatin 80 mg daily (6) DVT prophylaxis: Lovenox 40 mg SQ daily -> Normally would do intermediate-dosing, but his CrCl is right on the cusp at 50 mL/min, and Q12h would increase bleeding risk. He is also on ASA 81 mg PO daily which may reduce risk of VTE as well. Admission and Anticipated Discharge Date Admission Date: July 15, 2020 Subjective More shortness of breath today. It is not significant if he is not moving, but moreso with movement. Cough as well. Reports no fevers/chills, chest pain, abdominal pain, nausea, or vomiting. Physical Exam Constitutional: WD/WN, vitals as above + acute distress Eyes: EOM intact bilaterally; no conjunctival abnormality ENMT: external ear and nose normal, oropharynx normal Neck: trachea midline, no thyromegaly normal visual inspection Respiratory: + respiratory distress, + uses accessory muscles, + cough and + tachypneic Auscultation: + crackles; no wheezes Cardiovascular: RRR, no murmur, no edema Gastrointestinal (Abdomen): Inspection/Auscultation: abdomen normal to inspection; abdomen not distended Musculoskeletal: no cyanosis or clubbing, extremities motor strength 5/5 Skin: no rashes, warm and dry Neurologic: moves all extremities and awake Psychiatric: Orientation: alert, oriented to person and cooperative Results & Data Results & Data ([facility]) Vital Signs (Past 12 Hours) Vital Signs Temp Pulse Pulse Pulse Resp BP Pulse Ox 07/16/20 11:57 36.7 C 80 19 123/66 93 07/16/20 11:14 78 24 90 07/16/20 11:12 78 24 90 07/16/20 08:50 75 20 92 07/16/20 08:00 78 07/16/20 07:35 36.7 C 85 19 101/82 86 L 07/16/20 07:23 73 18 93 07/16/20 02:46 37.5 C 65 95 H 21 109/60 95 PG Care Time/CCT Total # of Minutes Spent Total Time Spent with Patient: Total time spent is greater than 50% in coordination of care (as documented) at patient's floor/unit and/or counseling patient: Coding Level of Care Code 35511 Subseq Hosp Care Lvl 3 Diagnoses COVID-19 U07.1 Controlled diabetes mellitus with neurologic complication, with long-term current use of insulin E11.49; Z79.4 CKD (chronic kidney disease) stage 3, GFR 30-59 ml/min N18.30 Hyponatremia E87.1 Dyslipidemia E78.5 DVT prophylaxis Z29.9
[2020-07-16] MEDS: BENZONATATE 100 MG CAPSULE PO SCH ×2 (14:03→23:35)
[2020-07-16] MEDS ORDERED: PHARMACY GLYCEMIC MGMT CONSULT PRN (14:14)
[2020-07-16] MEDS ORDERED: ALBUT/IPRATROP 3MG/0.5MG NEB 3 ML VIAL NEB PRN (14:30)
--- NOTE | 2020-07-16 14:49 | Pharmacy Report ---
Pharmacy Glycemic Short Note 2 - Date of Service July 16, 2020 - Glycemic Short BSG Results (Last 24 hours): 07/15/20 07/15/20 07/15/20 17:56 18:12 22:55 Glucose 268 H POC Glucose 322 H* POC Glucose (other) 284 H 07/16/20 07/16/20 07/16/20 04:02 06:00 08:07 Glucose 318 H* POC Glucose 383 H* 196 H POC Glucose (other) 07/16/20 12:09 Glucose POC Glucose 152 H POC Glucose (other) OUTPATIENT ANTIDIABETIC REGIMEN: * NPH 37 units SQ qPM * Humalog insulin, ~25 units prior to meals (unless low carb meal, then skip) * information obtained from outpt DM provider's notes * Victoza 1.8mg SQ daily * Metformin 1gm PO BID * HbA1c: 8.2% (07/16/20) ASSESSMENT: * Mr Doss is a 70yo admitted with pneumonia, COVID-19 positive. * Pt is receiving daily IV dexamethasone, which is expected to contribute to significant steroid-induced hyperglycemia. * Pt is also receiving Remdesivir, Rocephin, Zithromax, and Tocilizumab. * Will add additional NPH to cover dexamethasone, and tighten Novolog parameters to provide additional coverage. PLAN FOR INPATIENT GLYCEMIC CONTROL: * Hold Metformin and Victoza * Basal insulin * NPH 30 units qAM (~0.35 units/kg -- to cover daily DXM. This should be held if DXM is held or discontinued) * NPH 37 units qPM (outpt dose) * Bolus insulin * NovoLog per scale ACHS or Q6hrs while NPO, plus 00 and 04 until adequate glycemic control is achieved * Goal Range: Low 110 mg/dL - High 140 mg/dL * Correction Factor: 15 mg/dL/unit * Nutritional / Prandial insulin per carb ratio of 1 unit per 5 grams CHO consumed PLAN FOR DISCHARGE: * pending
[2020-07-16] MEDS ORDERED: TOCILIZUMAB 400 MG, TOCILIZUMAB 200 MG, TOCILIZUMAB 80 MG in 0.9 % SODIUM CHLORIDE 66 ML IV ONE (15:00)
[2020-07-16] MEDS: ENOXAPARIN INJ 40 MG/0.4 ML SYR SQ SCH (15:50)
--- NOTE | 2020-07-16 16:38 | Critical Care Consultation ---
Date of Consultation July 16, 2020 Assessment & Plan (1) COVID-19: Okay to receive Tocilizumab Continue current high flow nasal cannula (2) CKD (chronic kidney disease) stage 3, GFR 30-59 ml/min: (3) Acute respiratory failure with hypoxia: History of Present Illness Reason for Consultation: Tocilizumab consult Requesting Physician: Tono ROBB Attending Physician: Gerard Power MD History of Present Illness Patient is a 70-year-old male who is admitted for Covid pneumonia who has worsening symptoms in the last 24 hours and we have been requested for possible drug Tocilizumab administration. Patient is on high flow nasal cannula requiring greater than 40% FiO2 he was able to eat lunch and can speak in full sentences however he has a significant cough he desaturates with the cough. He denies diverticulitis diverticulosis we discussed risks and benefits as this is a off label use. He desires to proceed with Tocilizumab Allergies Allergy/AdvReac Type Severity Reaction Status Date / Time lisinopril AdvReac Mild cough Verified 07/15/20 20:23 Home Medications Medication Instructions Recorded Confirmed Type ascorbic acid (vitamin C) 500 mg 500 mg PO DAILY tab 02/16/19 07/15/20 History tablet cholecalciferol (vitamin D3) 25 1,000 units PO BID cap 02/16/19 07/15/20 History mcg (1,000 unit) capsule [id number] K-lycop 1 ea PO DAILY 04/26/19 07/15/20 History BD Ultra-Fine Yessy Pen Needle 32 #300 ea NS 06/13/19 05/03/20 Rx gauge x 5/32" metformin 1,000 mg tablet 1,000 mg PO BID #180 tab 06/13/19 07/15/20 Rx liraglutide 0.6 mg/0.1 mL (18 mg/3 1.8 mg SQ DAILY 90 Days #27 ml 07/24/19 07/15/20 Rx mL) subcutaneous pen injector cyanocobalamin (vitamin B-12) 1,000 mcg PO .COMPLEX tab 10/03/19 07/15/20 History 1,000 mcg tablet,extended release atorvastatin 80 mg tablet 80 mg PO DAILY #90 tab 01/04/20 07/15/20 Rx insulin lispro 100 unit/mL 25 unit SUBCUT DAILY ml 01/10/20 07/15/20 History subcutaneous pen Humulin N NPH Insulin KwikPen 100 37 unit SQ QPM #45 ml NS 01/24/20 07/15/20 Rx unit/mL (3 mL) subcutaneous OneTouch Ultra Blue Test Strip #300 ea NS 03/27/20 05/03/20 Rx aspirin 81 mg PO DAILY 07/15/20 07/15/20 History lysine 1,000 mg PO DAILY 07/15/20 07/15/20 History Patient History Medical History (Updated 07/16/20 @ 13:03 by Gerard Power MD) Bleeding nose CKD (chronic kidney disease) stage 3, GFR 30-59 ml/min Elevated TSH Nasal congestion Nasal obstruction Rupture of biceps tendon Syncope Tachycardia Surgical History H/O hernia repair H/O sinus surgery Family History Mother Diabetes Father Diabetes Social History Smoking Status: Never smoker Second Hand Exposure: No; Hx Alcohol Use: Yes Alcohol type: beer Hx Substance Use: No Preferred Language: Albanian Communication Ability: Effective Doula Required: Yes Beliefs That Will Affect Care: None marital status: Current Living Situation: Spouse current occupational status: 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 nontoxic. Skin: Warm, dry, Head: Atraumatic Ears, nose, mouth and throat: airway patent Cardiovascular: Normal peripheral perfusion Respiratory: no respiratory distress Gastrointestinal: Non distended Musculoskeletal: No deformity Results & Data Results & Data ([facility]) Vital Signs (Past 12 Hours) Vital Signs Temp Pulse Pulse Pulse Resp BP Pulse Ox 07/16/20 16:20 85 26 H 150/96 H 94 07/16/20 16:10 85 25 H 162/107 H 92 07/16/20 16:00 87 24 154/96 H 95 07/16/20 15:51 36.7 C 87 28 H 161/94 H 94 07/16/20 15:32 91 H 20 94 07/16/20 11:57 36.7 C 80 19 123/66 93 07/16/20 11:14 78 24 90 07/16/20 11:12 78 24 90 07/16/20 08:50 75 20 92 07/16/20 08:00 78 07/16/20 07:35 36.7 C 85 19 101/82 86 L 07/16/20 07:23 73 18 93 Laboratory Results 07/16/20 07/16/20 07/16/20 Range/Units 16:09 16:07 12:09 WBC (4.8-10.8) K/uL RBC (4.7-6.1) M/uL Hgb (14.0-18.0) g/dL POC Hgb (14.0-18.0) g/dl Hct (42-52) % POC Hct (42-52) % MCV (80-100) fL MCH (25-34) pg MCHC (32-36) g/dL RDW Std Deviation (36.4-46.3) fL RDW Coeff of Madonna (11.5-14.5) % Plt Count (130-400) K/uL MPV (7.4-10.4) fL Immature Gran % (Auto) % Neut % (Auto) % Lymph % (Auto) % Madison % (Auto) % Eos % (Auto) % Baso % (Auto) % Neut # (Auto) (1.4-6.5) K/uL Lymph # (Auto) (1.2-3.4) K/uL Madison # (Auto) (0.11-0.59) K/uL Eos # (Auto) (0-0.5) K/uL Baso # (Auto) (0-0.2) K/uL Immature Gran # (Auto) (0.00-0.02) K/uL PT (9.0-12.0) Seconds INR (0.9-1.1) APTT (21.0-31.0) Seconds PTT Ratio D-Dimer (0-500) ug/L FEU ABG pH ABG pCO2 ABG pO2 ABG HCO3 ABG O2 Saturation ABG Base Excess Matt Test Barometric Pressure Oxygen Given POC Sodium (135-144) mmol/L Sodium (136-145) mmol/L POC Potassium (3.3-5.0) mmol/L Potassium (3.5-5.1) mmol/L POC Chloride (101-112) mmol/L Chloride (98-107) mmol/L Carbon Dioxide (21-32) mmol/L POC Total CO2 (24-31) mmol/L Anion Gap (3-11) POC Anion Gap (16-25) mmol/L POC BUN (7-18) mg/dl BUN (7-18) mg/dl Creatinine (0.6-1.4) mg/dl POC Creatinine (0.6-1.3) mg/dl Est Cr Clr Drug Dosing ml/min Est GFR ( Amer) Est GFR (Non-Af Amer) BUN/Creatinine Ratio (10-20) Glucose (70-99) mg/dl POC Glucose 335 H* 340 H* 152 H (70-99) mg/dl POC Glucose (other) (70-99) mg/dl Estimat Average Glucose mg/dl Hemoglobin A1c (4.5-5.6) % Lactate (0.4-2.0) mmol/L Calcium (8.5-10.1) mg/dl POC Ioniz Calcium Tesfaye (1.12-1.32) mmol/l Total Bilirubin (0.2-1) mg/dl AST (15-37) U/L ALT (12-78) U/L Alkaline Phosphatase (45-117) U/L Troponin I (0-0.045) ng/ml C-Reactive Protein (0-0.29) mg/dl Total Protein (6.4-8.2) gm/dl Albumin (3.4-5.0) gm/dl Globulin (2.5-4.0) gm/dl Albumin/Globulin Ratio (0.9-2) Beta-Hydroxybutyric Acd (0.2-2.81) mg/dl Urine Color Urine Appearance (Clear) Urine pH (4.5-7.5) Ur Specific Webster (1.000-1.030) Urine Protein (Negative) Urine Glucose (UA) (Negative) Urine Ketones (Negative) Urine Blood (Negative) Urine Nitrite (Negative) Urine Bilirubin (Negative) Urine Urobilinogen (Negative) Ur Leukocyte Esterase (Negative) Urine WBC (Auto) (0-5) /hpf Urine RBC (Auto) (0-4) /hpf U Hyaline Cast (Auto) (0-5) /lpf U Epithel Cells (Auto) (0-5) /lpf Urine Bacteria (Auto) (Negative) COVID-19 Eval Order SARS-CoV-2 (PCR) (Negative) Influenza Type A (PCR) (Neg) Influenza Type B (PCR) (Neg) RSV (RT-PCR) (Neg) 07/16/20 07/16/20 07/16/20 Range/Units 08:07 06:00 06:00 WBC (4.8-10.8) K/uL RBC (4.7-6.1) M/uL Hgb (14.0-18.0) g/dL POC Hgb (14.0-18.0) g/dl Hct (42-52) % POC Hct (42-52) % MCV (80-100) fL MCH (25-34) pg MCHC (32-36) g/dL RDW Std Deviation (36.4-46.3) fL RDW Coeff of Madonna (11.5-14.5) % Plt Count (130-400) K/uL MPV (7.4-10.4) fL Immature Gran % (Auto) % Neut % (Auto) % Lymph % (Auto) % Madison % (Auto) % Eos % (Auto) % Baso % (Auto) % Neut # (Auto) (1.4-6.5) K/uL Lymph # (Auto) (1.2-3.4) K/uL Madison # (Auto) (0.11-0.59) K/uL Eos # (Auto) (0-0.5) K/uL Baso # (Auto) (0-0.2) K/uL Immature Gran # (Auto) (0.00-0.02) K/uL PT (9.0-12.0) Seconds INR (0.9-1.1) APTT (21.0-31.0) Seconds PTT Ratio D-Dimer (0-500) ug/L FEU ABG pH ABG pCO2 ABG pO2 ABG HCO3 ABG O2 Saturation ABG Base Excess Matt Test Barometric Pressure Oxygen Given POC Sodium (135-144) mmol/L Sodium (136-145) mmol/L POC Potassium (3.3-5.0) mmol/L Potassium (3.5-5.1) mmol/L POC Chloride (101-112) mmol/L Chloride (98-107) mmol/L Carbon Dioxide (21-32) mmol/L POC Total CO2 (24-31) mmol/L Anion Gap (3-11) POC Anion Gap (16-25) mmol/L POC BUN (7-18) mg/dl BUN (7-18) mg/dl Creatinine (0.6-1.4) mg/dl POC Creatinine (0.6-1.3) mg/dl Est Cr Clr Drug Dosing ml/min Est GFR ( Amer) Est GFR (Non-Af Amer) BUN/Creatinine Ratio (10-20) Glucose (70-99) mg/dl POC Glucose 196 H (70-99) mg/dl POC Glucose (other) (70-99) mg/dl Estimat Average Glucose 189 mg/dl Hemoglobin A1c 8.2 H (4.5-5.6) % Lactate (0.4-2.0) mmol/L Calcium (8.5-10.1) mg/dl POC Ioniz Calcium Tesfaye (1.12-1.32) mmol/l Total Bilirubin (0.2-1) mg/dl AST (15-37) U/L ALT (12-78) U/L Alkaline Phosphatase (45-117) U/L Troponin I (0-0.045) ng/ml C-Reactive Protein 9.42 H (0-0.29) mg/dl Total Protein (6.4-8.2) gm/dl Albumin (3.4-5.0) gm/dl Globulin (2.5-4.0) gm/dl Albumin/Globulin Ratio (0.9-2) Beta-Hydroxybutyric Acd (0.2-2.81) mg/dl Urine Color Urine Appearance (Clear) Urine pH (4.5-7.5) Ur Specific Webster (1.000-1.030) Urine Protein (Negative) Urine Glucose (UA) (Negative) Urine Ketones (Negative) Urine Blood (Negative) Urine Nitrite (Negative) Urine Bilirubin (Negative) Urine Urobilinogen (Negative) Ur Leukocyte Esterase (Negative) Urine WBC (Auto) (0-5) /hpf Urine RBC (Auto) (0-4) /hpf U Hyaline Cast (Auto) (0-5) /lpf U Epithel Cells (Auto) (0-5) /lpf Urine Bacteria (Auto) (Negative) COVID-19 Eval Order SARS-CoV-2 (PCR) (Negative) Influenza Type A (PCR) (Neg) Influenza Type B (PCR) (Neg) RSV (RT-PCR) (Neg) 07/16/20 07/16/20 07/16/20 Range/Units 06:00 06:00 04:02 WBC 4.49 L (4.8-10.8) K/uL RBC 4.42 L (4.7-6.1) M/uL Hgb 13.0 L (14.0-18.0) g/dL POC Hgb (14.0-18.0) g/dl Hct 37.3 L (42-52) % POC Hct (42-52) % MCV 84.4 (80-100) fL MCH 29.4 (25-34) pg MCHC 34.9 (32-36) g/dL RDW Std Deviation 38.7 (36.4-46.3) fL RDW Coeff of Madonna 12.6 (11.5-14.5) % Plt Count 156 (130-400) K/uL MPV 11.2 H (7.4-10.4) fL Immature Gran % (Auto) 0.4 % Neut % (Auto) 83.1 % Lymph % (Auto) 9.8 % Madison % (Auto) 6.5 % Eos % (Auto) 0.2 % Baso % (Auto) 0.0 % Neut # (Auto) 3.73 (1.4-6.5) K/uL Lymph # (Auto) 0.44 L (1.2-3.4) K/uL Madison # (Auto) 0.29 (0.11-0.59) K/uL Eos # (Auto) 0.01 (0-0.5) K/uL Baso # (Auto) 0.00 (0-0.2) K/uL Immature Gran # (Auto) 0.02 (0.00-0.02) K/uL PT (9.0-12.0) Seconds INR (0.9-1.1) APTT (21.0-31.0) Seconds PTT Ratio D-Dimer (0-500) ug/L FEU ABG pH ABG pCO2 ABG pO2 ABG HCO3 ABG O2 Saturation ABG Base Excess Matt Test Barometric Pressure Oxygen Given POC Sodium (135-144) mmol/L Sodium 132 L (136-145) mmol/L POC Potassium (3.3-5.0) mmol/L Potassium 4.2 (3.5-5.1) mmol/L POC Chloride (101-112) mmol/L Chloride 97 L (98-107) mmol/L Carbon Dioxide 27 (21-32) mmol/L POC Total CO2 (24-31) mmol/L Anion Gap 7.0 (3-11) POC Anion Gap (16-25) mmol/L POC BUN (7-18) mg/dl BUN 25 H (7-18) mg/dl Creatinine 1.42 H (0.6-1.4) mg/dl POC Creatinine (0.6-1.3) mg/dl Est Cr Clr Drug Dosing 48.9 ml/min Est GFR ( Amer) 56.8 Est GFR (Non-Af Amer) 49.0 BUN/Creatinine Ratio 17.6 (10-20) Glucose 318 H* (70-99) mg/dl POC Glucose 383 H* (70-99) mg/dl POC Glucose (other) (70-99) mg/dl Estimat Average Glucose mg/dl Hemoglobin A1c (4.5-5.6) % Lactate (0.4-2.0) mmol/L Calcium 8.8 (8.5-10.1) mg/dl POC Ioniz Calcium Tesfaye (1.12-1.32) mmol/l Total Bilirubin 0.4 (0.2-1) mg/dl AST 63 H (15-37) U/L ALT 65 (12-78) U/L Alkaline Phosphatase 57 (45-117) U/L Troponin I < 0.015 (0-0.045) ng/ml C-Reactive Protein (0-0.29) mg/dl Total Protein 7.0 (6.4-8.2) gm/dl Albumin 2.7 L (3.4-5.0) gm/dl Globulin 4.3 H (2.5-4.0) gm/dl Albumin/Globulin Ratio 0.6 L (0.9-2) Beta-Hydroxybutyric Acd 1.10 (0.2-2.81) mg/dl Urine Color Urine Appearance (Clear) Urine pH (4.5-7.5) Ur Specific Webster (1.000-1.030) Urine Protein (Negative) Urine Glucose (UA) (Negative) Urine Ketones (Negative) Urine Blood (Negative) Urine Nitrite (Negative) Urine Bilirubin (Negative) Urine Urobilinogen (Negative) Ur Leukocyte Esterase (Negative) Urine WBC (Auto) (0-5) /hpf Urine RBC (Auto) (0-4) /hpf U Hyaline Cast (Auto) (0-5) /lpf U Epithel Cells (Auto) (0-5) /lpf Urine Bacteria (Auto) (Negative) COVID-19 Eval Order SARS-CoV-2 (PCR) (Negative) Influenza Type A (PCR) (Neg) Influenza Type B (PCR) (Neg) RSV (RT-PCR) (Neg) 07/15/20 07/15/20 07/15/20 Range/Units 23:15 22:55 19:02 WBC (4.8-10.8) K/uL RBC (4.7-6.1) M/uL Hgb (14.0-18.0) g/dL POC Hgb (14.0-18.0) g/dl Hct (42-52) % POC Hct (42-52) % MCV (80-100) fL MCH (25-34) pg MCHC (32-36) g/dL RDW Std Deviation (36.4-46.3) fL RDW Coeff of Madonna (11.5-14.5) % Plt Count (130-400) K/uL MPV (7.4-10.4) fL Immature Gran % (Auto) % Neut % (Auto) % Lymph % (Auto) % Madison % (Auto) % Eos % (Auto) % Baso % (Auto) % Neut # (Auto) (1.4-6.5) K/uL Lymph # (Auto) (1.2-3.4) K/uL Madison # (Auto) (0.11-0.59) K/uL Eos # (Auto) (0-0.5) K/uL Baso # (Auto) (0-0.2) K/uL Immature Gran # (Auto) (0.00-0.02) K/uL PT (9.0-12.0) Seconds INR (0.9-1.1) APTT (21.0-31.0) Seconds PTT Ratio D-Dimer (0-500) ug/L FEU ABG pH 7.42 ABG pCO2 35 ABG pO2 95 ABG HCO3 22 ABG O2 Saturation 97.4 H ABG Base Excess -1.8 Matt Test Pos Barometric Pressure 732.0 Oxygen Given ROOM AIR POC Sodium (135-144) mmol/L Sodium (136-145) mmol/L POC Potassium (3.3-5.0) mmol/L Potassium (3.5-5.1) mmol/L POC Chloride (101-112) mmol/L Chloride (98-107) mmol/L Carbon Dioxide (21-32) mmol/L POC Total CO2 (24-31) mmol/L Anion Gap (3-11) POC Anion Gap (16-25) mmol/L POC BUN (7-18) mg/dl BUN (7-18) mg/dl Creatinine (0.6-1.4) mg/dl POC Creatinine (0.6-1.3) mg/dl Est Cr Clr Drug Dosing ml/min Est GFR ( Amer) Est GFR (Non-Af Amer) BUN/Creatinine Ratio (10-20) Glucose (70-99) mg/dl POC Glucose 322 H* (70-99) mg/dl POC Glucose (other) (70-99) mg/dl Estimat Average Glucose mg/dl Hemoglobin A1c (4.5-5.6) % Lactate (0.4-2.0) mmol/L Calcium (8.5-10.1) mg/dl POC Ioniz Calcium Tesfaye (1.12-1.32) mmol/l Total Bilirubin (0.2-1) mg/dl AST (15-37) U/L ALT (12-78) U/L Alkaline Phosphatase (45-117) U/L Troponin I (0-0.045) ng/ml C-Reactive Protein (0-0.29) mg/dl Total Protein (6.4-8.2) gm/dl Albumin (3.4-5.0) gm/dl Globulin (2.5-4.0) gm/dl Albumin/Globulin Ratio (0.9-2) Beta-Hydroxybutyric Acd (0.2-2.81) mg/dl Urine Color Yellow Urine Appearance Clear (Clear) Urine pH 5.5 (4.5-7.5) Ur Specific Webster > 1.045 H (1.000-1.030) Urine Protein 2+ H (Negative) Urine Glucose (UA) 1+ H (Negative) Urine Ketones Trace H (Negative) Urine Blood Trace H (Negative) Urine Nitrite Negative (Negative) Urine Bilirubin Negative (Negative) Urine Urobilinogen Negative (Negative) Ur Leukocyte Esterase Negative (Negative) Urine WBC (Auto) 1-5 (0-5) /hpf Urine RBC (Auto) 0-4 (0-4) /hpf U Hyaline Cast (Auto) 0 (0-5) /lpf U Epithel Cells (Auto) 5-10 H (0-5) /lpf Urine Bacteria (Auto) Negative (Negative) COVID-19 Eval Order SARS-CoV-2 (PCR) (Negative) Influenza Type A (PCR) (Neg) Influenza Type B (PCR) (Neg) RSV (RT-PCR) (Neg) 07/15/20 07/15/20 07/15/20 Range/Units 18:12 18:08 17:56 WBC (4.8-10.8) K/uL RBC (4.7-6.1) M/uL Hgb (14.0-18.0) g/dL POC Hgb 13.9 L (14.0-18.0) g/dl Hct (42-52) % POC Hct 41 L (42-52) % MCV (80-100) fL MCH (25-34) pg MCHC (32-36) g/dL RDW Std Deviation (36.4-46.3) fL RDW Coeff of Madonna (11.5-14.5) % Plt Count (130-400) K/uL MPV (7.4-10.4) fL Immature Gran % (Auto) % Neut % (Auto) % Lymph % (Auto) % Madison % (Auto) % Eos % (Auto) % Baso % (Auto) % Neut # (Auto) (1.4-6.5) K/uL Lymph # (Auto) (1.2-3.4) K/uL Madison # (Auto) (0.11-0.59) K/uL Eos # (Auto) (0-0.5) K/uL Baso # (Auto) (0-0.2) K/uL Immature Gran # (Auto) (0.00-0.02) K/uL PT (9.0-12.0) Seconds INR (0.9-1.1) APTT (21.0-31.0) Seconds PTT Ratio D-Dimer (0-500) ug/L FEU ABG pH Cancelled ABG pCO2 Cancelled ABG pO2 Cancelled ABG HCO3 Cancelled ABG O2 Saturation Cancelled ABG Base Excess Cancelled Matt Test Cancelled Barometric Pressure Cancelled Oxygen Given Cancelled POC Sodium 130 L (135-144) mmol/L Sodium (136-145) mmol/L POC Potassium 4.4 (3.3-5.0) mmol/L Potassium (3.5-5.1) mmol/L POC Chloride 95 L (101-112) mmol/L Chloride (98-107) mmol/L Carbon Dioxide (21-32) mmol/L POC Total CO2 27 (24-31) mmol/L Anion Gap (3-11) POC Anion Gap 13.0 L (16-25) mmol/L POC BUN 22 H (7-18) mg/dl BUN (7-18) mg/dl Creatinine (0.6-1.4) mg/dl POC Creatinine 1.3 (0.6-1.3) mg/dl Est Cr Clr Drug Dosing ml/min Est GFR ( Amer) Est GFR (Non-Af Amer) BUN/Creatinine Ratio (10-20) Glucose (70-99) mg/dl POC Glucose (70-99) mg/dl POC Glucose (other) 284 H (70-99) mg/dl Estimat Average Glucose mg/dl Hemoglobin A1c (4.5-5.6) % Lactate 1.7 (0.4-2.0) mmol/L Calcium (8.5-10.1) mg/dl POC Ioniz Calcium Tesfaye 1.05 L (1.12-1.32) mmol/l Total Bilirubin (0.2-1) mg/dl AST (15-37) U/L ALT (12-78) U/L Alkaline Phosphatase (45-117) U/L Troponin I (0-0.045) ng/ml C-Reactive Protein (0-0.29) mg/dl Total Protein (6.4-8.2) gm/dl Albumin (3.4-5.0) gm/dl Globulin (2.5-4.0) gm/dl Albumin/Globulin Ratio (0.9-2) Beta-Hydroxybutyric Acd (0.2-2.81) mg/dl Urine Color Urine Appearance (Clear) Urine pH (4.5-7.5) Ur Specific Webster (1.000-1.030) Urine Protein (Negative) Urine Glucose (UA) (Negative) Urine Ketones (Negative) Urine Blood (Negative) Urine Nitrite (Negative) Urine Bilirubin (Negative) Urine Urobilinogen (Negative) Ur Leukocyte Esterase (Negative) Urine WBC (Auto) (0-5) /hpf Urine RBC (Auto) (0-4) /hpf U Hyaline Cast (Auto) (0-5) /lpf U Epithel Cells (Auto) (0-5) /lpf Urine Bacteria (Auto) (Negative) COVID-19 Eval Order SARS-CoV-2 (PCR) (Negative) Influenza Type A (PCR) (Neg) Influenza Type B (PCR) (Neg) RSV (RT-PCR) (Neg) 07/15/20 07/15/20 07/15/20 Range/Units 17:56 17:56 17:56 WBC 5.51 (4.8-10.8) K/uL RBC 4.72 (4.7-6.1) M/uL Hgb 13.8 L (14.0-18.0) g/dL POC Hgb (14.0-18.0) g/dl Hct 39.6 L (42-52) % POC Hct (42-52) % MCV 83.9 (80-100) fL MCH 29.2 (25-34) pg MCHC 34.8 (32-36) g/dL RDW Std Deviation 38.2 (36.4-46.3) fL RDW Coeff of Madonna 12.5 (11.5-14.5) % Plt Count 159 (130-400) K/uL MPV 10.9 H (7.4-10.4) fL Immature Gran % (Auto) 0.2 % Neut % (Auto) 86.0 % Lymph % (Auto) 7.6 % Madison % (Auto) 6.2 % Eos % (Auto) 0.0 % Baso % (Auto) 0.0 % Neut # (Auto) 4.74 (1.4-6.5) K/uL Lymph # (Auto) 0.42 L (1.2-3.4) K/uL Madison # (Auto) 0.34 (0.11-0.59) K/uL Eos # (Auto) 0.00 (0-0.5) K/uL Baso # (Auto) 0.00 (0-0.2) K/uL Immature Gran # (Auto) 0.01 (0.00-0.02) K/uL PT 9.7 (9.0-12.0) Seconds INR 1.0 (0.9-1.1) APTT 27.3 (21.0-31.0) Seconds PTT Ratio 1.0 D-Dimer 480 (0-500) ug/L FEU ABG pH ABG pCO2 ABG pO2 ABG HCO3 ABG O2 Saturation ABG Base Excess Amtt Test Barometric Pressure Oxygen Given POC Sodium (135-144) mmol/L Sodium 129 L (136-145) mmol/L POC Potassium (3.3-5.0) mmol/L Potassium 4.4 (3.5-5.1) mmol/L POC Chloride (101-112) mmol/L Chloride 97 L (98-107) mmol/L Carbon Dioxide 25 (21-32) mmol/L POC Total CO2 (24-31) mmol/L Anion Gap 8.0 (3-11) POC Anion Gap (16-25) mmol/L POC BUN (7-18) mg/dl BUN 21 H (7-18) mg/dl Creatinine 1.35 (0.6-1.4) mg/dl POC Creatinine (0.6-1.3) mg/dl Est Cr Clr Drug Dosing 51.6 ml/min Est GFR ( Amer) 60.4 Est GFR (Non-Af Amer) 52.1 BUN/Creatinine Ratio 15.9 (10-20) Glucose 268 H (70-99) mg/dl POC Glucose (70-99) mg/dl POC Glucose (other) (70-99) mg/dl Estimat Average Glucose mg/dl Hemoglobin A1c (4.5-5.6) % Lactate (0.4-2.0) mmol/L Calcium 8.9 (8.5-10.1) mg/dl POC Ioniz Calcium Tesfaye (1.12-1.32) mmol/l Total Bilirubin 0.8 (0.2-1) mg/dl AST 69 H (15-37) U/L ALT 66 (12-78) U/L Alkaline Phosphatase 61 (45-117) U/L Troponin I < 0.015 (0-0.045) ng/ml C-Reactive Protein 7.82 H (0-0.29) mg/dl Total Protein 7.2 (6.4-8.2) gm/dl Albumin 3.1 L (3.4-5.0) gm/dl Globulin 4.1 H (2.5-4.0) gm/dl Albumin/Globulin Ratio 0.8 L (0.9-2) Beta-Hydroxybutyric Acd (0.2-2.81) mg/dl Urine Color Urine Appearance (Clear) Urine pH (4.5-7.5) Ur Specific Webster (1.000-1.030) Urine Protein (Negative) Urine Glucose (UA) (Negative) Urine Ketones (Negative) Urine Blood (Negative) Urine Nitrite (Negative) Urine Bilirubin (Negative) Urine Urobilinogen (Negative) Ur Leukocyte Esterase (Negative) Urine WBC (Auto) (0-5) /hpf Urine RBC (Auto) (0-4) /hpf U Hyaline Cast (Auto) (0-5) /lpf U Epithel Cells (Auto) (0-5) /lpf Urine Bacteria (Auto) (Negative) COVID-19 Eval Order SARS-CoV-2 (PCR) (Negative) Influenza Type A (PCR) (Neg) Influenza Type B (PCR) (Neg) RSV (RT-PCR) (Neg) 07/15/20 07/15/20 Range/Units 17:37 17:37 WBC (4.8-10.8) K/uL RBC (4.7-6.1) M/uL Hgb (14.0-18.0) g/dL POC Hgb (14.0-18.0) g/dl Hct (42-52) % POC Hct (42-52) % MCV (80-100) fL MCH (25-34) pg MCHC (32-36) g/dL RDW Std Deviation (36.4-46.3) fL RDW Coeff of Madonna (11.5-14.5) % Plt Count (130-400) K/uL MPV (7.4-10.4) fL Immature Gran % (Auto) % Neut % (Auto) % Lymph % (Auto) % [place] % (Auto) % Eos % (Auto) % Baso % (Auto) % Neut # (Auto) (1.4-6.5) K/uL Lymph # (Auto) (1.2-3.4) K/uL [place] # (Auto) (0.11-0.59) K/uL Eos # (Auto) (0-0.5) K/uL Baso # (Auto) (0-0.2) K/uL Immature Gran # (Auto) (0.00-0.02) K/uL PT (9.0-12.0) Seconds INR (0.9-1.1) APTT (21.0-31.0) Seconds PTT Ratio D-Dimer (0-500) ug/L FEU ABG pH ABG pCO2 ABG pO2 ABG HCO3 ABG O2 Saturation ABG Base Excess Matt Test Barometric Pressure Oxygen Given POC Sodium (135-144) mmol/L Sodium (136-145) mmol/L POC Potassium (3.3-5.0) mmol/L Potassium (3.5-5.1) mmol/L POC Chloride (101-112) mmol/L Chloride (98-107) mmol/L Carbon Dioxide (21-32) mmol/L POC Total CO2 (24-31) mmol/L Anion Gap (3-11) POC Anion Gap (16-25) mmol/L POC BUN (7-18) mg/dl BUN (7-18) mg/dl Creatinine (0.6-1.4) mg/dl POC Creatinine (0.6-1.3) mg/dl Est Cr Clr Drug Dosing ml/min Est GFR ( Amer) Est GFR (Non-Af Amer) BUN/Creatinine Ratio (10-20) Glucose (70-99) mg/dl POC Glucose (70-99) mg/dl POC Glucose (other) (70-99) mg/dl Estimat Average Glucose mg/dl Hemoglobin A1c (4.5-5.6) % Lactate (0.4-2.0) mmol/L Calcium (8.5-10.1) mg/dl POC Ioniz Calcium Tesfaye (1.12-1.32) mmol/l Total Bilirubin (0.2-1) mg/dl AST (15-37) U/L ALT (12-78) U/L Alkaline Phosphatase (45-117) U/L Troponin I (0-0.045) ng/ml C-Reactive Protein (0-0.29) mg/dl Total Protein (6.4-8.2) gm/dl Albumin (3.4-5.0) gm/dl Globulin (2.5-4.0) gm/dl Albumin/Globulin Ratio (0.9-2) Beta-Hydroxybutyric Acd (0.2-2.81) mg/dl Urine Color Urine Appearance (Clear) Urine pH (4.5-7.5) Ur Specific Webster (1.000-1.030) Urine Protein (Negative) Urine Glucose (UA) (Negative) Urine Ketones (Negative) Urine Blood (Negative) Urine Nitrite (Negative) Urine Bilirubin (Negative) Urine Urobilinogen (Negative) Ur Leukocyte Esterase (Negative) Urine WBC (Auto) (0-5) /hpf Urine RBC (Auto) (0-4) /hpf U Hyaline Cast (Auto) (0-5) /lpf U Epithel Cells (Auto) (0-5) /lpf Urine Bacteria (Auto) (Negative) COVID-19 Eval Order CovFluRsv at [facility] SARS-CoV-2 (PCR) POSITIVE A* (Negative) Influenza Type A (PCR) Negative (Neg) Influenza Type B (PCR) Negative (Neg) RSV (RT-PCR) Negative (Neg) Coding Level of Care Code 47905 Inpt Consult Level 4 Diagnoses COVID-19 U07.1 CKD (chronic kidney disease) stage 3, GFR 30-59 ml/min N18.30 Acute respiratory failure with hypoxia J96.01
[2020-07-16] MEDS: INSULIN HUMAN NPH SC SCH (17:33)
[2020-07-16] MEDS: REMDESIVIR 100 MG in SODIUM CHLORIDE 0.9% 230 ML IV SCH (20:54)
[2020-07-17] MEDS: INSULIN ASPART 100 UNITS/ML 3 ML PEN SC SCH ×6 (00:07→21:08)
[2020-07-17] MEDS: AZITHROMYCIN 500 MG in DEXTROSE 5% 250 ML IV SCH (02:46)
[2020-07-17 07:33] LABS: Basophils # (auto) 0.01 K/uL (0-0.2); Basophils % (auto) 0.2 %; Hematocrit (blood only) 39.4 % (42-52); Hemoglobin 13.7 g/dL (14.0-18.0); Immature Granulocytes # (auto) 0.01 K/uL (0.00-0.02); Immature Granulocytes % (auto) 0.2 %; Lymphocytes # (auto) 0.62 K/uL (1.2-3.4); Lymphocytes % (auto) 9.8 %; Mean Corpuscular Hemoglobin 28.9 pg (25-34); Mean Corpuscular Hgb Conc 34.8 g/dL (32-36); Mean Corpuscular Volume 83.1 fL (80-100); Mean Platelet Volume 11.2 fL (7.4-10.4); Monocytes # (auto) 0.24 K/uL (0.11-0.59); Monocytes % (auto) 3.8 %; Neutrophils # (auto) 5.47 K/uL (1.4-6.5); Platelet Count 208 K/uL (130-400); RDW Coefficient of Variation 12.6 % (11.5-14.5); RDW Standard Deviation 38.3 fL (36.4-46.3); Red Blood Count 4.74 M/uL (4.7-6.1); White Blood Count 6.35 K/uL (4.8-10.8)
[2020-07-17 07:57] LABS: Albumin Level 2.7 gm/dl (3.4-5.0); BUN Creatinine Ratio 26.7 (10-20); Creatinine Clr Calc Pharmacy 59.9 ml/min; Est GFR (African American) 72.5; Est GFR (Non-African American) 62.6; Magnesium 2.2 mg/dl (1.8-2.4); Potassium 4.1 mmol/L (3.5-5.1)
[2020-07-17 07:59] LABS: Albumin Globulin Ratio 0.6 (0.9-2); Bilirubin,Total 0.4 mg/dl (0.2-1); Globulin 4.2 gm/dl (2.5-4.0); Total Protein 6.9 gm/dl (6.4-8.2)
[2020-07-17] MEDS: ATORVASTATIN 40 MG TAB PO SCH (08:02)
[2020-07-17] MEDS: dexAMETHasone 6 MG in SYRINGE 0 ML IV SCH (08:02)
[2020-07-17] MEDS: ENOXAPARIN INJ 40 MG/0.4 ML SYR SQ SCH (08:02)
[2020-07-17] MEDS: ASCORBIC ACID 500 MG TAB PO SCH (08:02)
[2020-07-17] MEDS: ASPIRIN 81 MG ECTAB PO SCH (08:03)
[2020-07-17] MEDS: BENZONATATE 100 MG CAPSULE PO SCH ×3 (08:15→20:58)
[2020-07-17] MEDS: INSULIN HUMAN NPH SC SCH ×2 (09:44→17:40)
[2020-07-17] MEDS: guaiFENesin 600 MG TABCR PO SCH ×2 (11:01→20:58)
[2020-07-17] MEDS: ONDANSETRON INJ 2 MG/ML 2 ML VIAL IV PRN (12:48)
--- NOTE | 2020-07-17 15:02 | Pharmacy Report ---
Pharmacy Glycemic Short Note 2 - Date of Service July 17, 2020 - Glycemic Short BSG Results (Last 24 hours): 07/16/20 07/16/20 07/16/20 16:07 16:09 20:36 Glucose POC Glucose 340 H* 335 H* 424 H* 07/16/20 07/16/20 07/17/20 20:39 23:53 03:43 Glucose POC Glucose 402 H* 320 H* 226 H 07/17/20 07/17/20 07/17/20 06:48 07:41 12:43 Glucose 135 H POC Glucose 126 H 314 H* OUTPATIENT ANTIDIABETIC REGIMEN: * NPH 37 units SQ qPM * Humalog insulin, ~25 units prior to meals (unless low carb meal, then skip) * information obtained from outpt DM provider's notes * Victoza 1.8mg SQ daily * Metformin 1gm PO BID * HbA1c: 8.2% (07/16/20) ASSESSMENT: 07/17/20: * Pt became significantly hyperglycemic yesterday afternoon/evening, likely d/t lack of coverage for steroids. * NPH on board this morning, so hopefully will help to prevent this moving forward. * Pre-lunch BSG markedly elevated, but it does not appear that patient received carb coverage at breakfast. * Novolog parameters tightened further this morning. Will continue to adjust as needed. 07/16 * Mr Doss is a 70yo admitted with pneumonia, COVID-19 positive. * Pt is receiving daily IV dexamethasone, which is expected to contribute to significant steroid-induced hyperglycemia. * Pt is also receiving Remdesivir, Rocephin, Zithromax, and Tocilizumab. * Will add additional NPH to cover dexamethasone, and tighten Novolog parameters to provide additional coverage. PLAN FOR INPATIENT GLYCEMIC CONTROL: * Hold Metformin and Victoza * Basal insulin * NPH 30 units qAM (~0.35 units/kg -- to cover daily DXM. This should be held if DXM is held or discontinued) * NPH 37 units qPM (outpt dose) * Bolus insulin * NovoLog per scale ACHS or Q6hrs while NPO, plus 00 and 04 until adequate glycemic control is achieved * Goal Range: Low 110 mg/dL - High 140 mg/dL * Correction Factor: 10 mg/dL/unit * Nutritional / Prandial insulin per carb ratio of 1 unit per 4 grams CHO consumed PLAN FOR DISCHARGE: * pending
--- NOTE | 2020-07-17 16:39 | XRay Report ---
SINGLE VIEW CHEST CLINICAL HISTORY: Covid pneumonia. Hypoxia. FINDINGS: 2 AP, portable, upright chest radiographs are correlated with chest CT dated 07/15/2020. The cardiomediastinal silhouette is unremarkable. Multifocal airspace consolidation is again seen through out both lungs, most confluent at the left lung base. No large pleural effusion or pneumothorax is se en. The skeletal structures are osteopenic. There are healed left-sided rib fractures. IMPRESSION: Multifocal airspace consolidation is consistent with the reported history of a viral pneu monia. This is increasingly confluent as compared to 07/15/2020. ACT 112: Negative or not required by law. Electronically signed by: Morris Coombs M.D. 07/17/2020 4:37 PM
[2020-07-17 16:53] LABS: iSTAT Allen Test Pass; iSTAT Art Bld Gas pCO2 Correct 36 mmHg (35-46); iSTAT Art Bld Gas pH Corrected 7.428 (7.35-7.45); iSTAT Arterial Blood Gas HCO3 24 meg/L (19-24); iSTAT Arterial Blood Gas pCO2 36 mmHg (35-46); iSTAT Arterial Blood Gas pH 7.43 (7.35-7.45); iSTAT Arterial Blood Gas pO2 59 mmHg (80-95); iSTAT Arterial Blood Gas pO2 C 59; iSTAT Carbon Dioxide 25 mmol/L (24-31); iSTAT FiO2 70 %; iSTAT Hematocrit 39 % (42-52); iSTAT Hemoglobin 13.3 g/dl (14.0-18.0); iSTAT Potassium 4.3 mmol/L (3.3-5.0); iSTAT Site L Radial; iSTAT Sodium 134 mmol/L (135-144)
--- NOTE | 2020-07-17 17:14 | Critical Care Progress Note ---
Date of Service July 17, 2020 Assessment & Plan (1) COVID-19: Positive serology on 07/15/2020 Symptoms started around July 11, 2020 Converted to CPAP this afternoon 8 cm of water at 70% FiO2 Was previous on high flow oxygen at 40 L/min and 100% FiO2 Seems more comfortable CPAP ABG with no evidence of hypercapnia Repeat chest x-ray with multifocal appearance suggesting viral pneumonia Patient had been started on dexamethasone and remdesivir on admission I discontinue remdesivir today as the patient has increasing AST at 75 and ALT at 81. Patient is also a CKD stage III patient Continue with dexamethasone Patient started on Tocilizumab yesterday (07/16/2020). Would continue this at thi s time Continue with supportive care with CPAP Patient with low threshold to transfer to ICU or staying Covid unit for possible intubation should he decline. (2) Multifocal pneumonia: Most likely viral in etiology as patient is positive for COVID-19 Patient started on ceftriaxone and azithromycin and continues on same Continue antibiotics for now but check a procalcitonin with next lab draw Continue oxygen support (3) Acute respiratory failure with hypoxia: Secondary to COVID-19 above as well as multifocal pneumonia which is suspected to be viral (4) CKD (chronic kidney disease) stage 3, GFR 30-59 ml/min: GFR 49 Creatinine 1.16 today Recommend discontinuing remdesivir Follow serial labs (5) Hypertension: Generally controlled: Blood pressure 127/76 Not on an antihypertensive at home Will treat hypertension prn but not schedule any antihypertensives (6) Controlled diabetes mellitus with neurologic complication, with long-term current use of insulin: Patient on dexamethasone for COVID-19 Continue with insulin and sliding scale while inpatient Appreciate glycemic consult and input from pharmacy Hemoglobin A1c is 8.2% (7) Anemia: No active bleeding Patient is not on any iron supplements at home Patient is normocytic Hemoglobin stable at 13.7 with a hematocrit of 39.4 (8) DVT prophylaxis: Continue enoxaparin 40 mg SQ every morning Thank you for including us in the care of this patient. We will continue to follow along with you. Admission and Anticipated Discharge Date Admission Date: July 15, 2020 Supervising Physician Co-Signing Physician Notes I have personally evaluated and examined this patient. I agree with assessment and plan of Lee Seymour PA-C. Severe hypoxemic respiratory failure requiring APRV after intubation and we will qualify the patient for Tocilizumab. Patient is critically ill. I have personally spent 40 minutes of critical care time in the direct management of this patient. This is a life/limb threatening event. This includes time spent evaluating patient, direct bedside care, chart review, placing orders, interpretation of diagnostic studies, discussion with consultants, patient, and/or family members regarding treatment decisions, as well as other required patient management activities. This time is exclusive of all separately billable procedures, and teaching time and separate from and in addition to any other critical care service time. Subjective Attending: Dr. Magana Called to bedside by nursing as they thought that the patient may need to be intubated. Throughout the day, the patient has been having increasing oxygen requirements. He was on high flow oxygen at 40 L/min and FiO2 of 100%. He had increased respiratory rate. He was converted to CPAP at 12/6 with an FiO2 of 100%. An ABG was performed and he was found to have a pH of 7.44 with a PCO2 of 36, PaO2 of 59, HCO3 of 24, and an SaO2 of 91% on 70% FiO2. He was uncomfortable with the BiPAP and could not take a breath as the high pressures induced cough. The mask was also too small for his face and he was leaking at the corner of his mouth. He was converted to CPAP 8 cm of water with an FiO2 of 70% and converted to a large mask. Mask leak was improved from 86 down to less than 40. He also seem to be much more comfortable with the CPAP in place. SaO2 after 2 to 3 minutes was 96% and the patient had respiratory rate of approximately 22 breaths/min. The patient states that he is having night sweats. He has no chest pain or tightness. He has ongoing cough with no sputum production. He denies any awareness of fever or rigors. He feels generally weak but has no feelings of syncope or near syncope. He denies any awareness of arrhythmias or tachycardia. I did discuss proning and the patient said that that is uncomfortable to to his abdominal girth. He is able to lay on his side and I recommended alternating from his left side to his right side periodically as he is not able to self prone. The patient has no other acute complaints at this time. Review of Systems Review of Systems: All systems reviewed & are unremarkable except as noted in Subjective Physical Exam Physical Exam: GENERAL : No acute distress EYES: No icterus, gaze conjugate NOSE: No evidence of epistaxis. MOUTH: No lesions or candidiasis. CPAP mask is in place and secure with an air leak of less than 40. NECK: Supple LUNGS: Bibasilar rales. No rhonchi. No wheezes. Decreased breath sounds at the left base. There is no paradoxical chest wall movement. HEART: Regular, rate controlled. No appreciation of ectopy. ABDOMEN: Soft, NT, ND, BS Present. Protuberant EXTREMITIES: No LE edema, pedal pulses intact and equal bilaterally NEURO: A&OX3 Results & Data Results & Data ([facility]) Vital Signs (Past 12 Hours) Vital Signs Temp Pulse Pulse Pulse Resp BP Pulse Ox 07/17/20 15:58 74 31 H 94 07/17/20 15:26 36.5 C 75 24 127/76 89 L 07/17/20 14:00 89 07/17/20 12:49 36.7 C 91 H 22 126/72 87 L 07/17/20 11:41 79 20 92 07/17/20 08:33 80 20 87 L 07/17/20 08:00 65 07/17/20 07:45 37.2 C 72 20 146/70 H 83 L Laboratory Results 07/17/20 06:48 07/17/20 06:48 07/15/20 07/15/20 18:08 19:02 ABG pH Cancelled 7.42 ABG pCO2 Cancelled 35 ABG pO2 Cancelled 95 ABG HCO3 Cancelled 22 ABG O2 Saturation Cancelled 97.4 H ABG Base Excess Cancelled -1.8 ABG done this afternoon 7.43/36/59/24/91% CPAP 8cm/H2O at 70% FiO2 Diagnostic Findings SINGLE VIEW CHEST CLINICAL HISTORY: Covid pneumonia. Hypoxia. FINDINGS: 2 AP, portable, upright chest radiographs are correlated with chest CT dated 07/15/2020. The cardiomediastinal silhouette is unremarkable. Multifocal airspace consolidation is again seen throughout both lungs, most confluent at the left lung base. No large pleural effusion or pneumothorax is seen. The skeletal structures are osteopenic. There are healed left-sided rib fractures. IMPRESSION: Multifocal airspace consolidation is consistent with the reported history of a viral pneumonia. This is increasingly confluent as compared to 07/15/2020. ACT 112: Negative or not required by law. Electronically signed by: Morris Coombs M.D. 07/17/2020 4:37 PM Coding Level of Care Code Critical Care ea addt'l 30 min Diagnoses COVID-19 U07.1 Multifocal pneumonia J18.9 Acute respiratory failure with hypoxia J96.01 CKD (chronic kidney disease) stage 3, GFR 30-59 ml/min N18.30 Hypertension I10 Controlled diabetes mellitus with neurologic complication, with long-term current use of insulin E11.49; Z79.4 Anemia D64.9 DVT prophylaxis Z29.9 Time Spent (min) 80 Comment Dawn 40: [id number]; Izzy 40: [id number]
[2020-07-17] MEDS: REMDESIVIR 100 MG in SODIUM CHLORIDE 0.9% 230 ML IV SCH (20:54)
[2020-07-17] MEDS: SODIUM CHLORIDE 0.9% 10ML FLUSH IV SCH (20:57)
--- NOTE | 2020-07-17 21:14 | Hospitalist Progress Note ---
Date of Service July 17, 2020 Assessment & Plan (1) COVID-19: Covid-19 pneumonia with acute hypoxemic respiratory failure. Approximately one week of symptoms prior to presentation. - Dexamethasone 6 mg IV every morning (End date: 07/24/2020) - Remdesivir IV per protocol (End date: 07/19/2020) - Will continue despite small increase in LFT. - CAP abx with ceftriaxone and azithromycin (End date: 07/20/2020 for 5-day course) - Patient meets criteria for tocilizumab and is now on this medication. - Continue Duonebs standing and PRN - Continue guaifenesin (2) Controlled diabetes mellitus with neurologic complication, with long-term current use of insulin: A1c was 8.2% this admission. - Hold metformin and liraglutide. - Admitting provider continued his home regimen which makes little sense to me. He's getting a once-daily short-acting insulin as well as NPH in the evening. - Stop above insulins - Glycemic pharmacist consult as his sugars will be very volatile with breathing issues, steroids, and possibly even intubation. (3) CKD (chronic kidney disease) stage 3, GFR 30-59 ml/min: Baseline Cr ~1.3. - Presently Cr is 1.4, so near baseline. - Monitor (4) Hyponatremia: Na was 129 on admission. Up to 132 today. Likely low solute vs. SIADH. - Monitor (5) Dyslipidemia: - Continue atorvastatin 80 mg daily (6) DVT prophylaxis: Lovenox 40 mg SQ daily -> Normally would do intermediate-dosing, but his CrCl is right on the cusp at 50 mL/min, and Q12h would increase bleeding risk. He is also on ASA 81 mg PO daily which may reduce risk of VTE as well. Admission and Anticipated Discharge Date Admission Date: July 15, 2020 Subjective Patient reports no new symptoms. Review of Systems Review of Systems: All systems reviewed & are unremarkable except as noted in HPI & below Physical Exam Physical Exam: Constitutional: WD/WN, vitals as above Eyes: EOM intact bilaterally; no conjunctival abnormality ENMT: external ear and nose normal, oropharynx normal Neck: trachea midline, no thyromegaly normal visual inspection Respiratory: On CPAP, more comfortable, crackles bilaterally Cardiovascular: RRR, no murmur, no edema Gastrointestinal (Abdomen): Inspection/Auscultation: abdomen normal to inspection; abdomen not distended Musculoskeletal: no cyanosis or clubbing, extremities motor strength 5/5 Skin: no rashes, warm and dry Neurologic: moves all extremities and awake Psychiatric: Orientation: alert, oriented to person and cooperative Results & Data Results & Data ([facility]) Vital Signs (Past 12 Hours) Vital Signs Temp Pulse Pulse Pulse Resp BP BP 07/17/20 20:18 36.4 C L 78 20 131/69 07/17/20 19:35 83 28 H 07/17/20 15:58 74 31 H 07/17/20 15:26 36.5 C 75 24 127/76 07/17/20 14:00 89 07/17/20 12:49 36.7 C 91 H 22 126/72 07/17/20 11:41 79 20 Pulse Ox 07/17/20 20:18 91 07/17/20 19:35 92 07/17/20 15:58 94 07/17/20 15:26 89 L 07/17/20 14:00 07/17/20 12:49 87 L 07/17/20 11:41 92 PG Care Time/CCT Total # of Minutes Spent Total Time Spent with Patient: Total time spent is greater than 50% in coordination of care (as documented) at patient's floor/unit and/or counseling patient: Coding Level of Care Code 31838 Subseq Hosp Care Lvl 3 Diagnoses COVID-19 U07.1 Controlled diabetes mellitus with neurologic complication, with long-term current use of insulin E11.49; Z79.4 CKD (chronic kidney disease) stage 3, GFR 30-59 ml/min N18.30 Hyponatremia E87.1 Dyslipidemia E78.5 DVT prophylaxis Z29.9 Time Spent (min) 35
[2020-07-18] MEDS: cefTRIAXone SODIUM 2,000 MG in DEXTROSE 5% 50 ML IV SCH (01:23)
[2020-07-18] MEDS: INSULIN ASPART 100 UNITS/ML 3 ML PEN SC SCH ×6 (01:34→20:43)
[2020-07-18] MEDS: AZITHROMYCIN 500 MG in DEXTROSE 5% 250 ML IV SCH (02:18)
--- NOTE | 2020-07-18 06:14 | Procedure Note ---
Procedure Note Date of Service July 18, 2020 July 18, 2020 Procedure date: Noted above Procedure: Central venous access Pre-procedure indication: Need for vasoactive medication administration Post-procedure Diagnosis: same as above Prior to Procedure: Informed Consent: Emergent consent implied. Attending Staff: Hari Magana DO Resident/APC: Lee Seymour Skin Prep: Chlorhexidine Anesthesia: 4 mL 1% lidocaine without epinephrine The identity of the patient was confirmed and a bedside time out was performed. Description of Procedure: After sterile prep and sterile drape utilizing standard sterile technique the superficial skin of the left subclavian area was anesthetized. The target vessel was identified and entered with an 18-gauge needle. Dark venous blood return was noted. A guidewire was inserted through the needle and into the vessel. The needle was withdrawn and a skin ralph was made. A tissue dilator was advanced via Seldinger technique and removed. A triple lumen catheter was inserted via Seldinger technique and the guidewire removed. All ports parmjit and flushed easily. A Biopatch was placed, and the catheter was secured via silk suture. A sterile dressing was then applied. Complications: None Estimated blood loss: Trace Patient tolerated the procedure well. Chest x-ray was reviewed and no pneumothorax seen catheter in appropriate position Coding CPT Codes Tubes, Drains, and Vasc Access - Tubes, Drains, and Vasc Access: [id number] Insertion Of Non-tunneled Catheter Age 3 Yrs> ([id number]) [facility] [place] Procedure Codes (Charges) Tubes, Drains, and Vasc Access Procedure 1: Tubes, Drains, and Vasc Access: [id number] Insertion Of Non-tunneled Catheter Age 3 Yrs>
[2020-07-18] MEDS: INSULIN HUMAN NPH SC SCH ×2 (08:00→19:12)
[2020-07-18 08:05] LABS: Basophils # (auto) 0.01 K/uL (0-0.2); Basophils % (auto) 0.1 %; Hematocrit (blood only) 39.7 % (42-52); Hemoglobin 14.4 g/dL (14.0-18.0); Immature Granulocytes # (auto) 0.02 K/uL (0.00-0.02); Immature Granulocytes % (auto) 0.3 %; Lymphocytes # (auto) 0.65 K/uL (1.2-3.4); Lymphocytes % (auto) 8.8 %; Mean Corpuscular Hemoglobin 29.8 pg (25-34); Mean Corpuscular Hgb Conc 36.3 g/dL (32-36); Mean Corpuscular Volume 82.2 fL (80-100); Mean Platelet Volume 11.6 fL (7.4-10.4); Monocytes # (auto) 0.34 K/uL (0.11-0.59); Monocytes % (auto) 4.6 %; Neutrophils % (auto) 86.2 %; Platelet Count 251 K/uL (130-400); RDW Coefficient of Variation 12.8 % (11.5-14.5); Red Blood Count 4.83 M/uL (4.7-6.1); White Blood Count 7.42 K/uL (4.8-10.8)
[2020-07-18] MEDS: ATORVASTATIN 40 MG TAB PO SCH (08:20)
[2020-07-18] MEDS: BENZONATATE 100 MG CAPSULE PO SCH ×3 (08:22→22:58)
[2020-07-18] MEDS: dexAMETHasone 6 MG in SYRINGE 0 ML IV SCH (08:22)
[2020-07-18] MEDS: ENOXAPARIN INJ 40 MG/0.4 ML SYR SQ SCH (08:23)
[2020-07-18] MEDS: ASPIRIN 81 MG ECTAB PO SCH (08:23)
[2020-07-18] MEDS: CYANOCOBALAMIN 500 MCG TABLET (VITAMIN B-12) PO SCH (08:23)
[2020-07-18] MEDS: ASCORBIC ACID 500 MG TAB PO SCH (08:23)
[2020-07-18] MEDS: guaiFENesin 600 MG TABCR PO SCH ×2 (08:24→22:58)
[2020-07-18 08:27] LABS: Albumin Level 2.7 gm/dl (3.4-5.0); BUN Creatinine Ratio 26.5 (10-20); Calcium 8.8 mg/dl (8.5-10.1); Creatinine Clr Calc Pharmacy 59.9 ml/min; Est GFR (African American) 72.5; Est GFR (Non-African American) 62.6; Potassium 4.1 mmol/L (3.5-5.1)
[2020-07-18 08:33] LABS: Albumin Globulin Ratio 0.7 (0.9-2); Bilirubin,Total 0.5 mg/dl (0.2-1); Globulin 3.9 gm/dl (2.5-4.0); Total Protein 6.6 gm/dl (6.4-8.2)
--- NOTE | 2020-07-18 11:14 | Hospitalist Progress Note ---
Date of Service July 18, 2020 Assessment & Plan (1) COVID-19: Covid-19 pneumonia with acute hypoxemic respiratory failure. Approximately one week of symptoms prior to presentation. - Dexamethasone 6 mg IV every morning (End date: 07/24/2020) - Remdesivir IV per protocol (End date: 07/19/2020) - Will continue despite small increase in LFT. - CAP abx with ceftriaxone and azithromycin (End date: 07/20/2020 for 5-day course) - Patient meets criteria for tocilizumab and is now on this medication. - Continue Duonebs standing and PRN - Continue guaifenesin Patient is now on CPAP and titrated down to High flow. D/W pulmonary team. (2) Controlled diabetes mellitus with neurologic complication, with long-term current use of insulin: A1c was 8.2% this admission. - Hold metformin and liraglutide. - Admitting provider continued his home regimen which makes little sense to me. He's getting a once-daily short-acting insulin as well as NPH in the evening. - Stop above insulins - Glycemic pharmacist consult as his sugars will be very volatile with breathing issues, steroids, and possibly even intubation. (3) CKD (chronic kidney disease) stage 3, GFR 30-59 ml/min: Baseline Cr ~1.3. - Presently Cr is 1.4, so near baseline. - Monitor (4) Hyponatremia: Na was 129 on admission. Up to 132 today. Likely low solute vs. SIADH. - Monitor (5) Dyslipidemia: - Continue atorvastatin 80 mg daily (6) DVT prophylaxis: Lovenox 40 mg SQ daily -> Normally would do intermediate-dosing, but his CrCl is right on the cusp at 50 mL/min, and Q12h would increase bleeding risk. He is also on ASA 81 mg PO daily which may reduce risk of VTE as well. Admission and Anticipated Discharge Date Admission Date: July 15, 2020 Subjective Patient appears comfortable on high flow oxygen. He reports he has been using the chair but he has not used it this AM. He is aksing when he can be discharged. Review of Systems 2 Review of Systems: All systems reviewed & are unremarkable except as noted in HPI & below Physical Exam Physical Exam: Constitutional: WD/WN, vitals as above Eyes: EOM intact bilaterally; no conjunctival abnormality ENMT: external ear and nose normal, oropharynx normal Neck: trachea midline, no thyromegaly normal visual inspection Respiratory: On CPAP, more comfortable, crackles bilaterally Cardiovascular: RRR, no murmur, no edema Gastrointestinal (Abdomen): Inspection/Auscultation: abdomen normal to inspection; abdomen not distended Musculoskeletal: no cyanosis or clubbing, extremities motor strength 5/5 Skin: no rashes, warm and dry Neurologic: moves all extremities and awake Psychiatric: Orientation: alert, oriented to person and cooperative Results & Data Results & Data ([facility]) Vital Signs (Past 12 Hours) Vital Signs Temp Pulse Pulse Pulse Resp BP BP 07/18/20 11:02 86 18 07/18/20 07:58 07/18/20 07:51 84 18 07/18/20 07:36 36.4 C L 86 20 114/71 07/18/20 04:37 70 29 H 07/18/20 04:29 91 H 20 143/71 H 07/18/20 04:14 78 34 H 07/18/20 01:50 65 26 H 07/18/20 01:00 36.4 C L 68 20 130/70 Pulse Ox Pulse Ox 07/18/20 11:02 91 07/18/20 07:58 95 07/18/20 07:51 91 07/18/20 07:36 92 07/18/20 04:37 94 07/18/20 04:29 96 07/18/20 04:14 96 07/18/20 01:50 90 07/18/20 01:00 92 PG Care Time/CCT Total # of Minutes Spent Total Time Spent with Patient: Total time spent is greater than 50% in coordination of care (as documented) at patient's floor/unit and/or counseling patient: Coding Level of Care Code 87445 Subseq Hosp Care Lvl 3 Diagnoses COVID-19 U07.1 Controlled diabetes mellitus with neurologic complication, with long-term current use of insulin E11.49; Z79.4 CKD (chronic kidney disease) stage 3, GFR 30-59 ml/min N18.30 Hyponatremia E87.1 Dyslipidemia E78.5 DVT prophylaxis Z29.9 Time Spent (min) 35
--- NOTE | 2020-07-18 13:54 | Pulmonology Progress Note ---
Date of Service July 18, 2020 Assessment & Plan (1) COVID-19: Positive serology on 07/15/2020 Symptoms started around July 11, 2020 Converted to CPAP yesterday at 8 cm of water at 70% FiO2 Was previous on high flow oxygen at 40 L/min and 100% FiO2 Seems more comfortable CPAP ABG with no evidence of hypercapnia Repeat chest x-ray with multifocal appearance suggesting viral pneumonia Patient had been started on dexamethasone and remdesivir on admission I discontinue remdesivir today as the patient has increasing AST at 75 and ALT at 81. Patient is also a CKD stage III patient Continue with dexamethasone Patient recieved Tocilizumab (07/16/2020). Continue with supportive care with CPAP (2) Multifocal pneumonia: Most likely viral in etiology as patient is positive for COVID-19 Patient started on ceftriaxone and azithromycin and continues on same Continue antibiotics for now but check a procalcitonin with next lab draw Continue oxygen support (3) Acute respiratory failure with hypoxia: Secondary to COVID-19 above as well as multifocal pneumonia which is suspected to be viral (4) CKD (chronic kidney disease) stage 3, GFR 30-59 ml/min: GFR 49 Creatinine 1.16 today Recommend discontinuing remdesivir Follow serial labs (5) Hypertension: Generally controlled: Blood pressure 127/76 Not on an antihypertensive at home Will treat hypertension prn but not schedule any antihypertensives (6) Controlled diabetes mellitus with neurologic complication, with long-term current use of insulin: Patient on dexamethasone for COVID-19 Continue with insulin and sliding scale while inpatient Appreciate glycemic consult and input from pharmacy Hemoglobin A1c is 8.2% (7) Anemia: No active bleeding Patient is not on any iron supplements at home Patient is normocytic Hemoglobin stable at 13.7 with a hematocrit of 39.4 (8) DVT prophylaxis: Continue enoxaparin 40 mg SQ every morning Thank you for including us in the care of this patient. We will continue to follow along with you. Admission and Anticipated Discharge Date Admission Date: July 15, 2020 Supervising Physician Co-Signing Physician Notes Patient reviewed. Discussed with critical care/pulmonary TARA. Patient completed Tocilizumab and is still on Decadron. Stop Remdesivir as noted above. Okay to discontinue antibiotics at this point time given his normal white blood cell count. Continue to wean oxygen as tolerated. [id number] may be more beneficial with regards to improving his shunt fraction. We will continue to follow for pulmonary issues. Feel free to contact us with questions or concerns Subjective Attending: Dr. Hansen Patient seen and examined at bedside. He is on high flow cannula. He has no apparent distress at this time. On first presentation in the room the patient was saturating 93% on 40 L/min and FiO2 of 100% on the high flow. Throughout the course of her conversation, the patient began to experience some conversational dyspnea and desaturated to 83%. When given a chance to rest, patient saturations increased to 90% without intervention. Patient was placed on CPAP yesterday at 8 cm of water and tolerated that until about 4 AM this morning when he began to have some claustrophobia. At that time the CPAP mask was removed and patient was put back on high flow cannula which she has been on since that time. The patient states when asked how he is feeling, that he is ready for discharge. He has no fever or chills. He had no further night sweats last night. He denies nausea or vomiting. He has no diarrhea. He denies any abdominal pain. He does state that he did well with his diet today. He has not been out of bed to chair yet today and has not ambulated. I did explain to the patient that his oxygen requirements are much too high at this point is discharged home not only from a treatment standpoint but from a supply standpoint. It should be noted that I was informed by the nurse that the patient's now has Covid. Her disposition is unclear. Review of Systems Review of Systems: All systems reviewed & are unremarkable except as noted in Subjective Physical Exam Physical Exam: GENERAL : No acute distress EYES: No icterus, gaze conjugate NOSE: No evidence of epistaxis MOUTH: No lesions or candidiasis NECK: Supple LUNGS: Patient continues decreased breath sounds globally. He does have some crackles at the bilateral bases. I appreciate no bronchospasm or rhonchi. Deep inspiration does induce cough. No sputum produced during the course of my examination and interview. HEART: Regular, rate controlled in the 70s. ABDOMEN: Soft, NT, ND, BS Present EXTREMITIES: No LE edema, pedal pulses intact NEURO: A&OX3 Results & Data Results & Data ([facility]) Vital Signs (Past 12 Hours) Vital Signs Temp Pulse Pulse Pulse Resp BP Pulse Ox 07/18/20 11:02 86 18 91 04/08/21 07:58 07/18/20 07:51 84 18 91 07/18/20 07:36 36.4 C L 86 20 114/71 92 07/18/20 04:37 70 29 H 94 07/18/20 04:29 91 H 20 143/71 H 96 07/18/20 04:14 78 34 H 96 07/18/20 01:50 65 26 H 90 Pulse Ox 07/18/20 11:02 07/18/20 07:58 95 07/18/20 07:51 07/18/20 07:36 07/18/20 04:37 07/18/20 04:29 07/18/20 04:14 07/18/20 01:50 Laboratory Results 07/18/20 07:21 07/18/20 07:21 Diagnostic Findings SINGLE VIEW CHEST CLINICAL HISTORY: Covid pneumonia. Hypoxia. FINDINGS: 2 AP, portable, upright chest radiographs are correlated with chest CT dated 07/15/2020. The cardiomediastinal silhouette is unremarkable. Multifocal airspace consolidation is again seen throughout both lungs, most confluent at the left lung base. No large pleural effusion or pneumothorax is seen. The skeletal structures are osteopenic. There are healed left-sided rib fractures. IMPRESSION: Multifocal airspace consolidation is consistent with the reported history of a viral pneumonia. This is increasingly confluent as compared to 07/15/2020. ACT 112: Negative or not required by law. Electronically signed by: Morris Coombs M.D. 07/17/2020 4:37 PM PG Care Time/CCT Total # of Minutes Spent Total Time Spent with Patient: Total time spent is greater than 50% in coordination of care (as documented) at patient's floor/unit and/or counseling patient: Coding Level of Care Code 05556 Subseq Hosp Care Lvl 3 Diagnoses COVID-19 U07.1 Multifocal pneumonia J18.9 Acute respiratory failure with hypoxia J96.01 CKD (chronic kidney disease) stage 3, GFR 30-59 ml/min N18.30 Hypertension I10 Controlled diabetes mellitus with neurologic complication, with long-term current use of insulin E11.49; Z79.4 Anemia D64.9 DVT prophylaxis Z29.9
[2020-07-18] MEDS: SODIUM CHLORIDE 0.9% 10ML FLUSH IV SCH (20:43)
[2020-07-19] MEDS: ONDANSETRON INJ 2 MG/ML 2 ML VIAL IV PRN (03:39)
[2020-07-19 07:18] LABS: Hematocrit (blood only) 41.7 % (42-52); Hemoglobin 15.1 g/dL (14.0-18.0); Mean Corpuscular Hemoglobin 29.4 pg (25-34); Mean Corpuscular Hgb Conc 36.2 g/dL (32-36); Mean Corpuscular Volume 81.3 fL (80-100); Platelet Count 249 K/uL (130-400); RDW Coefficient of Variation 12.8 % (11.5-14.5); RDW Standard Deviation 38.9 fL (36.4-46.3); Red Blood Count 5.13 M/uL (4.7-6.1); White Blood Count 8.79 K/uL (4.8-10.8)
[2020-07-19 07:43] LABS: BUN Creatinine Ratio 25.3 (10-20); Creatinine Clr Calc Pharmacy 61.2 ml/min; Est GFR (African American) 74.8; Est GFR (Non-African American) 64.6; Potassium 3.9 mmol/L (3.5-5.1)
[2020-07-19 07:46] LABS: Albumin Globulin Ratio 0.8 (0.9-2); Globulin 3.7 gm/dl (2.5-4.0); Total Protein 6.7 gm/dl (6.4-8.2)
[2020-07-19] MEDS: INSULIN HUMAN NPH SC SCH ×2 (09:30→17:48)
[2020-07-19] MEDS: dexAMETHasone 6 MG in SYRINGE 0 ML IV SCH (09:35)
[2020-07-19] MEDS: ASPIRIN 81 MG ECTAB PO SCH (09:35)
[2020-07-19] MEDS: BENZONATATE 100 MG CAPSULE PO SCH ×3 (09:35→20:36)
[2020-07-19] MEDS: ATORVASTATIN 40 MG TAB PO SCH (09:35)
[2020-07-19] MEDS: guaiFENesin 600 MG TABCR PO SCH ×2 (09:36→20:36)
[2020-07-19] MEDS: ENOXAPARIN INJ 40 MG/0.4 ML SYR SQ SCH (09:36)
[2020-07-19] MEDS: INSULIN ASPART 100 UNITS/ML 3 ML PEN SC SCH ×4 (10:01→21:51)
--- NOTE | 2020-07-19 10:59 | Pulmonology Progress Note ---
Date of Service July 19, 2020 Assessment & Plan (1) Acute respiratory failure with hypoxia: Impression: 70-year-old male with Covid pneumonia status post tocilizumab and Decadron. Recommendations: 1. Covid pneumonia: Continue Decadron at 6 mg daily. No indication for other adjuvants at this point time. 2. Hypoxemic respiratory failure: Continue supplemental oxygen titrated to keep saturations at or above 88%. 3. We will try and gently wean oxygen as tolerated. Increase activity as tolerated. The patient is at risk of clinical deterioration but appears to be responding favorably currently at least holding his own. He does not appear to be in any respiratory distress. We will continue to follow (2) COVID-19: (3) Multifocal pneumonia: Admission and Anticipated Discharge Date Admission Date: July 15, 2020 Subjective Patient seen and examined. He is doing reasonably well clinically. He continues to have a high oxygen requirement but he appears comfortable. He is not coughing. He is tolerating a diet. No sputum production. No chest pain or palpitations. Review of Systems Review of Systems: All systems reviewed & are unremarkable except as noted in HPI & below Physical Exam Constitutional: WD/WN, vitals as above Neck: trachea midline, no thyromegaly Respiratory: normal respiratory effort, lungs clear to auscultation Cardiovascular: RRR, no murmur, no edema Gastrointestinal (Abdomen): normal bowel sounds, soft, nontender, no hepatosplenomegaly Musculoskeletal: Extremities: extremities normal to inspection Skin: no rashes, warm and dry Neurologic: Nonfocal exam Lymphatic: no cervical lymphadenopathy Results & Data Results & Data ([facility]) Vital Signs (Past 12 Hours) Vital Signs Temp Pulse Pulse Pulse Resp BP Pulse Ox 07/19/20 10:23 89 20 99 07/19/20 07:49 36.8 C 68 18 147/87 H 96 07/19/20 07:39 94 H 94 07/19/20 07:00 07/19/20 03:29 99 H 27 H 88 L 07/19/20 03:00 36.6 C 79 18 173/86 H 98 07/19/20 00:00 84 07/18/20 23:23 77 26 H 93 Pulse Ox 07/19/20 10:23 07/19/20 07:49 07/19/20 07:39 07/19/20 07:00 96 07/19/20 03:29 07/19/20 03:00 07/19/20 00:00 07/18/20 23:23 Laboratory Results 07/19/20 06:38 07/19/20 06:38 Diagnostic Findings No new imaging PG Care Time/CCT Total # of Minutes Spent Total Time Spent with Patient: Total time spent is greater than 50% in coordination of care (as documented) at patient's floor/unit and/or counseling patient: Coding Level of Care Code 29926 Subseq Hosp Care Lvl 3 Diagnoses Acute respiratory failure with hypoxia J96.01 COVID-19 U07.1 Multifocal pneumonia J18.9 Time Spent (min) 35
--- NOTE | 2020-07-19 12:23 | Pharmacy Report ---
Pharmacy Glycemic Short Note 2 - Date of Service July 19, 2020 - Glycemic Short BSG Results (Last 24 hours): 07/18/20 07/18/20 07/19/20 17:17 20:35 06:38 Glucose 136 H POC Glucose 183 H 185 H 07/19/20 07/19/20 07:48 11:54 Glucose POC Glucose 175 H 201 H OUTPATIENT ANTIDIABETIC REGIMEN: * NPH 37 units SQ qPM * Humalog insulin, ~25 units prior to meals (unless low carb meal, then skip) * information obtained from outpt DM provider's notes * Victoza 1.8mg SQ daily * Metformin 1gm PO BID * HbA1c: 8.2% (07/16/20) ASSESSMENT: 07/19/20: * Blood sugars pretty well controlled, some elevations due to late administration of insulin and steroid effects, tighten CR slightly * Day 5 IV Dexamethasone 6mg daily 07/17/20: * Pt became significantly hyperglycemic yesterday afternoon/evening, likely d/t lack of coverage for steroids. * NPH on board this morning, so hopefully will help to prevent this moving forward. * Pre-lunch BSG markedly elevated, but it does not appear that patient received carb coverage at breakfast. * Novolog parameters tightened further this morning. Will continue to adjust as needed. 07/16 * Mr Doss is a 70yo admitted with pneumonia, COVID-19 positive. * Pt is receiving daily IV dexamethasone, which is expected to contribute to significant steroid-induced hyperglycemia. * Pt is also receiving Remdesivir, Rocephin, Zithromax, and Tocilizumab. * Will add additional NPH to cover dexamethasone, and tighten Novolog parameters to provide additional coverage. PLAN FOR INPATIENT GLYCEMIC CONTROL: * Hold Metformin and Victoza * Basal insulin * NPH 30 units qAM (~0.35 units/kg -- to cover daily DXM. This should be held if DXM is held or discontinued) * NPH 37 units qPM (outpt dose) * Bolus insulin * NovoLog per scale ACHS or Q6hrs while NPO * Goal Range: Low 110 mg/dL - High 140 mg/dL * Correction Factor: 10 mg/dL/unit * tighten: Nutritional / Prandial insulin per carb ratio of 1 unit per 3.5 grams CHO consumed PLAN FOR DISCHARGE: * pending
[2020-07-19] MEDS: SODIUM CHLORIDE 0.9% 10ML FLUSH IV SCH (20:36)
--- NOTE | 2020-07-19 22:10 | Hospitalist Progress Note ---
Date of Service July 19, 2020 Assessment & Plan (1) COVID-19: Covid-19 pneumonia with acute hypoxemic respiratory failure. Approximately one week of symptoms prior to presentation. - Dexamethasone 6 mg IV every morning (End date: 07/24/2020) - Remdesivir IV per protocol (End date: 07/19/2020) - Will continue despite small increase in LFT. - CAP abx with ceftriaxone and azithromycin (End date: 07/20/2020 for 5-day course) - Patient meets criteria for tocilizumab and is now on this medication. - Continue Duonebs standing and PRN - Continue guaifenesin Patient is now on CPAP and titrated down to High flow. D/W pulmonary team. Patient continues to require high flow oxygen, no significant improvement. will monitor. (2) Controlled diabetes mellitus with neurologic complication, with long-term current use of insulin: A1c was 8.2% this admission. - Hold metformin and liraglutide. - Admitting provider continued his home regimen which makes little sense to me. He's getting a once-daily short-acting insulin as well as NPH in the evening. - Stop above insulins - Glycemic pharmacist consult as his sugars will be very volatile with breathing issues, steroids, and possibly even intubation. (3) CKD (chronic kidney disease) stage 3, GFR 30-59 ml/min: Baseline Cr ~1.3. - Presently Cr is 1.4, so near baseline. - Monitor (4) Hyponatremia: Na was 129 on admission. Up to 132 today. Likely low solute vs. SIADH. - Monitor (5) Dyslipidemia: - Continue atorvastatin 80 mg daily (6) DVT prophylaxis: Lovenox 40 mg SQ daily -> Normally would do intermediate-dosing, but his CrCl is right on the cusp at 50 mL/min, and Q12h would increase bleeding risk. He is also on ASA 81 mg PO daily which may reduce risk of VTE as well. Admission and Anticipated Discharge Date Admission Date: July 15, 2020 Subjective Patient continues to require high flow nasal cannula Review of Systems Review of Systems: All systems reviewed & are unremarkable except as noted in HPI & below Physical Exam Physical Exam: Constitutional: WD/WN, vitals as above Eyes: EOM intact bilaterally; no conjunctival abnormality ENMT: external ear and nose normal, oropharynx normal Neck: trachea midline, no thyromegaly normal visual inspection Respiratory: On CPAP, more comfortable, crackles bilaterally Cardiovascular: RRR, no murmur, no edema Gastrointestinal (Abdomen): Inspection/Auscultation: abdomen normal to inspection; abdomen not distended Musculoskeletal: no cyanosis or clubbing, extremities motor strength 5/5 Skin: no rashes, warm and dry Neurologic: moves all extremities and awake Psychiatric: Orientation: alert, oriented to person and cooperative Results & Data Results & Data ([facility]) Vital Signs (Past 12 Hours) Vital Signs Temp Pulse Pulse Pulse Resp BP BP 07/19/20 20:04 37.3 C 94 H 21 140/83 07/19/20 19:54 95 H 20 07/19/20 16:00 36.8 C 98 H 22 138/83 07/19/20 14:59 97 H 24 07/19/20 14:20 105 H 07/19/20 12:20 36.4 C L 107 H 22 151/85 H 07/19/20 10:23 89 20 Pulse Ox 07/19/20 20:04 92 07/19/20 19:54 89 L 07/19/20 16:00 91 07/19/20 14:59 94 07/19/20 14:20 07/19/20 12:20 90 07/19/20 10:23 99 PG Care Time/CCT Total # of Minutes Spent Total Time Spent with Patient: Total time spent is greater than 50% in coord ination of care (as documented) at patient's floor/unit and/or counseling patient: Coding Level of Care Code 11139 Subseq Hosp Care Lvl 3 Diagnoses COVID-19 U07.1 Controlled diabetes mellitus with neurologic complication, with long-term current use of insulin E11.49; Z79.4 CKD (chronic kidney disease) stage 3, GFR 30-59 ml/min N18.30 Hyponatremia E87.1 Dyslipidemia E78.5 DVT prophylaxis Z29.9 Time Spent (min) 35
[2020-07-20 07:01] LABS: Hematocrit (blood only) 44.2 % (42-52); Hemoglobin 16.2 g/dL (14.0-18.0); Mean Corpuscular Hemoglobin 29.6 pg (25-34); Mean Corpuscular Hgb Conc 36.7 g/dL (32-36); Mean Corpuscular Volume 80.8 fL (80-100); Mean Platelet Volume 10.9 fL (7.4-10.4); Platelet Count 287 K/uL (130-400); RDW Coefficient of Variation 12.8 % (11.5-14.5); RDW Standard Deviation 38.3 fL (36.4-46.3); Red Blood Count 5.47 M/uL (4.7-6.1)
[2020-07-20 07:26] LABS: Albumin Level 3.1 gm/dl (3.4-5.0); BUN Creatinine Ratio 26.8 (10-20); Calcium 9.1 mg/dl (8.5-10.1); Creatinine Clr Calc Pharmacy 61.4 ml/min; Est GFR (African American) 76.5
[2020-07-20 07:28] LABS: Albumin Globulin Ratio 0.9 (0.9-2); Bilirubin,Total 1.3 mg/dl (0.2-1); Globulin 3.6 gm/dl (2.5-4.0); Total Protein 6.7 gm/dl (6.4-8.2)
[2020-07-20] MEDS: CYANOCOBALAMIN 500 MCG TABLET (VITAMIN B-12) PO SCH (08:22)
[2020-07-20] MEDS: dexAMETHasone 6 MG in SYRINGE 0 ML IV SCH (08:22)
[2020-07-20] MEDS: ASPIRIN 81 MG ECTAB PO SCH (08:22)
[2020-07-20] MEDS: ATORVASTATIN 40 MG TAB PO SCH (08:22)
[2020-07-20] MEDS: ENOXAPARIN INJ 40 MG/0.4 ML SYR SQ SCH (08:22)
[2020-07-20] MEDS: INSULIN HUMAN NPH SC SCH ×2 (08:23→18:10)
[2020-07-20] MEDS: BENZONATATE 100 MG CAPSULE PO SCH ×3 (08:23→20:28)
[2020-07-20] MEDS: guaiFENesin 600 MG TABCR PO SCH ×2 (08:23→20:28)
[2020-07-20] MEDS: INSULIN ASPART 100 UNITS/ML 3 ML PEN SC SCH ×4 (08:24→21:31)
--- NOTE | 2020-07-20 10:14 | Pulmonology Progress Note ---
Date of Service July 20, 2020 Assessment & Plan (1) Acute respiratory failure with hypoxia: Impression: 70-year-old male with Covid pneumonia status post tocilizumab and Decadron. Recommendations: 1. Covid pneumonia: Continue Decadron at 6 mg daily. No indication for other adjuvants at this point time. 2. Hypoxemic respiratory failure: Continue supplemental oxygen titrated to keep saturations at or above 88%. Some progress over the last 24 hours weaning oxygen 3. Scant hemoptysis: Suspect related to viral pneumonia. Continue to monitor clinically. No changes in therapy advised currently. The patient is at risk of clinical deterioration but appears to be responding somewhat. He is comfortable. There is no indication for intubation or mechanical ventilation currently. Continue supportive care. We will continue to follow Admission and Anticipated Discharge Date Admission Date: July 15, 2020 Subjective His oxygen has been weaned down to 75% at 40 L/min. He is coughing with a small amount of hemoptysis. No chest pain or palpitations. He overall feels that he is doing well. Patient seen and examined. He is doing reasonably well clinically. He continues to have a high oxygen requirement but he appears comfortable. He is not coughing. He is tolerating a diet. No sputum production. No chest pain or palpitations. Physical Exam Constitutional: WD/WN, vitals as above Neck: trachea midline, no thyromegaly Respiratory: normal respiratory effort, lungs clear to auscultation Cardiovascular: RRR, no murmur, no edema Gastrointestinal (Abdomen): normal bowel sounds, soft, nontender, no hepatosplenomegaly Musculoskeletal: Extremities: extremities normal to inspection Skin: no rashes, warm and dry Lymphatic: no cervical lymphadenopathy Results & Data Results & Data ([facility]) Vital Signs (Past 12 Hours) Vital Signs Temp Pulse Pulse Pulse Resp BP BP 07/20/20 08:37 80 20 07/20/20 07:25 36.6 C 79 22 154/94 H 07/20/20 02:56 36.8 C 79 19 141/85 H 07/20/20 02:47 71 27 H 07/19/20 23:43 37.2 C 81 24 162/89 H 07/19/20 22:47 81 26 H Pulse Ox 07/20/20 08:37 95 07/20/20 07:25 96 07/20/20 02:56 91 07/20/20 02:47 91 07/19/20 23:43 97 07/19/20 22:47 95 Laboratory Results 07/20/20 06:02 07/20/20 06:02 PG Care Time/CCT Total # of Minutes Spent Total Time Spent with Patient: Total time spent is greater than 50% in coordination of care (as documented) at patient's floor/unit and/or counseling patient: Coding Level of Care Code 77250 Subseq Hosp Care Lvl 2 Diagnoses Acute respiratory failure with hypoxia J96.01
[2020-07-20] MEDS: ACETAMINOPHEN 325 MG TAB PO PRN (16:39)
[2020-07-20] MEDS ORDERED: POLYETHYLENE (MIRALAX) 17 GM PACK PO SCH (18:15)
--- NOTE | 2020-07-20 22:28 | Hospitalist Progress Note ---
Date of Service July 20, 2020 Assessment & Plan (1) COVID-19: Covid-19 pneumonia with acute hypoxemic respiratory failure. Approximately one week of symptoms prior to presentation. - Dexamethasone 6 mg IV every morning (End date: 07/24/2020) - Remdesivir IV per protocol (End date: 07/19/2020) - Will continue despite small increase in LFT. - CAP abx with ceftriaxone and azithromycin (End date: 07/20/2020 for 5-day course) - Patient meets criteria for tocilizumab. And he completed treatment for this. - Continue Duonebs standing and PRN - Continue guaifenesin Patient was on CPAP and titrated down to High flow. Currently on HIGH FLOW 40 liters/min D/W pulmonary team. Patient continues to require high flow oxygen, no significant improvement. will monitor. Updated who is an inpatient. (2) Controlled diabetes mellitus with neurologic complication, with long-term current use of insulin: A1c was 8.2% this admission. - Hold metformin and liraglutide. - Admitting provider continued his home regimen which makes little sense to me. He's getting a once-daily short-acting insulin as well as NPH in the evening. - Stop above insulins - Glycemic pharmacist consult as his sugars will be very volatile with breathing issues, steroids, and possibly even intubation. (3) CKD (chronic kidney disease) stage 3, GFR 30-59 ml/min: Baseline Cr ~1.3. - Presently Cr is 1.4, so near baseline. - Monitor (4) Hyponatremia: Na was 129 on admission. Up to 132 today. Likely low solute vs. SIADH. - Monitor (5) Dyslipidemia: - Continue atorvastatin 80 mg daily (6) DVT prophylaxis: Lovenox 40 mg SQ daily -> Normally would do intermediate-dosing, but his CrCl is right on the cusp at 50 mL/min, and Q12h would increase bleeding risk. He is also on ASA 81 mg PO daily which may reduce risk of VTE as well. Admission and Anticipated Discharge Date Admission Date: July 15, 2020 Subjective Patient reports no significant improvement Review of Systems Review of Systems: All systems reviewed & are unremarkable except as noted in HPI & below Physical Exam Physical Exam: Constitutional: WD/WN, vitals as above Eyes: EOM intact bilaterally; no conjunctival abnormality ENMT: external ear and nose normal, oropharynx normal Neck: trachea midline, no thyromegaly normal visual inspection Respiratory: On CPAP, more comfortable, crackles bilaterally Cardiovascular: RRR, no murmur, no edema Gastrointestinal (Abdomen): Inspection/Auscultation: abdomen normal to inspection; abdomen not distended Musculoskeletal: no cyanosis or clubbing, extremities motor strength 5/5 Skin: no rashes, warm and dry Neurologic: moves all extremities and awake Psychiatric: Orientation: alert, oriented to person and cooperative Results & Data Results & Data ([facility]) Vital Signs (Past 12 Hours) Vital Signs Temp Pulse Pulse Pulse Resp BP Pulse Ox 07/20/20 19:51 36.8 C 114 H 24 148/97 H 91 07/20/20 19:36 118 H 24 90 07/20/20 16:12 108 H 22 95 07/20/20 16:00 108 H 07/20/20 15:42 36.6 C 105 H 20 133/88 92 07/20/20 11:41 95 07/20/20 11:28 36.6 C 101 H 24 125/79 07/20/20 11:16 102 H 24 95 PG Care Time/CCT Total # of Minutes Spent Total Time Spent with Patient: Total time spent is greater than 50% in coordination of care (as documented) at patient's floor/unit and/or counseling patient: Coding Level of Care Code 93009 Subseq Hosp Care Lvl 3 Diagnoses COVID-19 U07.1 Controlled diabetes mellitus with neurologic complication, with long-term current use of insulin E11.49; Z79.4 CKD (chronic kidney disease) stage 3, GFR 30-59 ml/min N18.30 Hyponatremia E87.1 Dyslipidemia E78.5 DVT prophylaxis Z29.9 Time Spent (min) 35
[2020-07-20] MEDS ORDERED: DOCUSATE SODIUM 100 MG CAP PO ONE (23:16)
[2020-07-21 00:03] LABS: HCO3 ABG 21 mmol/L (19-24); Oxygen Saturation ABG 98.2 % (90-95); PCO2 ABG 28 mmHg (35-46); PO2 ABG 103 mmHg (80-95); pH ABG 7.49 (7.35-7.45)
[2020-07-21 00:04] LABS: Allen Test Pos (Pos)
[2020-07-21] MEDS ORDERED: POLYETHYLENE (MIRALAX) 17 GM PACK PO STA (00:21)
[2020-07-21] MEDS ORDERED: MELATONIN 3 MG TAB PO PRN (02:00)
--- NOTE | 2020-07-21 06:49 | Communication Note ---
Date of Service: July 21, 2020 Night team notified by nursing of patient's increasing O2 requirement + abnormal behavior (continuous attempts to remove high flow and CPAP mask). I ordered a STAT CXR (which appeared unchanged from film on 07/17/20) as well as an ABG, which showed a pH 7.49, PCO2 28 and pO2 103. I suspect this behavior is secondary to hospital acquired delirium rather than hypercapnia. Once respiratory therapy placed him on CPAP, his O2 sat improved to 96%. I recommended he prone, however he refused to lay on his stomach (apparently he felt as though he needed to have a BM, so I ordered Colace and Miralax).
[2020-07-21 06:51] LABS: Hematocrit (blood only) 47.4 % (42-52); Hemoglobin 17.2 g/dL (14.0-18.0); Mean Corpuscular Hemoglobin 29.5 pg (25-34); Mean Corpuscular Hgb Conc 36.3 g/dL (32-36); Mean Corpuscular Volume 81.2 fL (80-100); Mean Platelet Volume 11.4 fL (7.4-10.4); Platelet Count 346 K/uL (130-400); RDW Standard Deviation 38.6 fL (36.4-46.3); Red Blood Count 5.84 M/uL (4.7-6.1); White Blood Count 18.36 K/uL (4.8-10.8)
[2020-07-21 07:13] LABS: Albumin Level 3.3 gm/dl (3.4-5.0); BUN Creatinine Ratio 35.3 (10-20); Calcium 9.6 mg/dl (8.5-10.1); Creatinine Clr Calc Pharmacy 52.7 ml/min; Est GFR (African American) 64.4; Est GFR (Non-African American) 55.5; Potassium 4.5 mmol/L (3.5-5.1)
[2020-07-21 07:16] LABS: Albumin Globulin Ratio 0.9 (0.9-2); Bilirubin,Total 1.7 mg/dl (0.2-1); Globulin 3.7 gm/dl (2.5-4.0)
[2020-07-21] MEDS: ATORVASTATIN 40 MG TAB PO SCH (09:07)
[2020-07-21] MEDS: BENZONATATE 100 MG CAPSULE PO SCH ×2 (09:07→12:52)
[2020-07-21] MEDS: guaiFENesin 600 MG TABCR PO SCH ×2 (09:07→19:27)
[2020-07-21] MEDS: ENOXAPARIN INJ 40 MG/0.4 ML SYR SQ SCH (09:07)
[2020-07-21] MEDS: ASPIRIN 81 MG ECTAB PO SCH (09:07)
[2020-07-21] MEDS: dexAMETHasone 6 MG in SYRINGE 0 ML IV SCH (09:08)
[2020-07-21] MEDS: INSULIN ASPART 100 UNITS/ML 3 ML PEN SC SCH ×5 (09:31→23:56)
[2020-07-21] MEDS: INSULIN HUMAN NPH SC SCH (09:32)
--- NOTE | 2020-07-21 10:00 | XRay Report ---
XR chest 1V portable CLINICAL HISTORY: worsening O2 sat COMPARISON STUDY: Chest CT July 15, 2020. Chest radiograph July 17, 2020. FINDINGS: There is no pneumothorax or pleural effusion. Cardiac mediastinal silhouette is stable. Mul tifocal bilateral airspace opacities are similar to prior examination of July 17, 2020. There is no e vidence for pulmonary edema. IMPRESSION: No significant change in multifocal bilateral airspace opacities consistent with pneumon ia. ACT 112: Negative or not required by law. Electronically signed by: Kolton Wilson M.D. 07/21/2020 9:58 AM
--- NOTE | 2020-07-21 10:19 | Hospitalist Progress Note ---
Date of Service July 21, 2020 Assessment & Plan (1) COVID-19: Covid-19 pneumonia with acute hypoxemic respiratory failure. Approximately one week of symptoms prior to presentation. - Dexamethasone 6 mg IV every morning (End date: 07/24/2020) - Remdesivir IV per protocol (End date: 07/19/2020) - Will continue despite small increase in LFT. - CAP abx with ceftriaxone and azithromycin (End date: 07/20/2020 for 5-day course) - Patient meets criteria for tocilizumab. And he completed treatment for this. - Continue Duonebs standing and PRN - Continue guaifenesin Patient was on CPAP and titrated down to High flow. Was on HIGH FLOW 40 liters/min. But at this point, given tachycardia, tachypnea, and abd. pain, will need to intubate patient. Patient is now having elevated lactic acidosis, and in setting of abd pain, concern over ischemic bowel vs COVID 19. D/W pulmonary team. Updated who is an inpatient. Updated son by phone. (2) Abdominal distention: possible ischemic bowel, ileus, small bowel obstruction. Once patient was intubated, (patient agreeable) CT scan of abd pelvis was completed.No signs of ischemic bowel, only ileus. NG tube is placed. Meropenem has been started. (3) Controlled diabetes mellitus with neurologic complication, with long-term current use of insulin: A1c was 8.2% this admission. - Hold metformin and liraglutide. - Admitting provider continued his home regimen which makes little sense to me. He's getting a once-daily short-acting insulin as well as NPH in the evening. - Stop above insulins - Glycemic pharmacist consult as his sugars will be very volatile with breathing issues, steroids, and possibly even intubation. (4) CKD (chronic kidney disease) stage 3, GFR 30-59 ml/min: Baseline Cr ~1.3. - Presently Cr is 1.4, so near baseline. - Monitor (5) Hyponatremia: Na was 129 on admission. Up to 132 today. Likely low solute vs. SIADH. - Monitor (6) Dyslipidemia: - Continue atorvastatin 80 mg daily (7) DVT prophylaxis: Lovenox 40 mg SQ daily -> Normally would do intermediate-dosing, but his CrCl is right on the cusp at 50 mL/min, and Q12h would increase bleeding risk. He is also on ASA 81 mg PO daily which may reduce risk of VTE as well. Admission and Anticipated Discharge Date Admission Date: July 15, 2020 Subjective Patient states he is breathing comfortable, however, as per nurse, he appears weaker, and desaturates with limited movement. Patient reports no BM despite NG tube suction. Review of Systems Review of Systems: All systems reviewed & are unremarkable except as noted in HPI & below Physical Exam Physical Exam: Constitutional: WD/WN, vitals as above Eyes: EOM intact bilaterally; no conjunctival abnormality ENMT: external ear and nose normal, oropharynx normal Neck: trachea midline, no thyromegaly normal visual inspection Respiratory: On CPAP, more comfortable, crackles bilaterally Cardiovascular: RRR, no murmur, no edema Gastrointestinal (Abdomen): Inspection/Auscultation: abdomen normal to inspection; abdomen not distended Musculoskeletal: no cyanosis or clubbing, extremities motor strength 5/5 Skin: no rashes, warm and dry Neurologic: moves all extremities and awake Psychiatric: Orientation: alert, oriented to person and cooperative Results & Data Results & Data ([facility]) Vital Signs (Past 12 Hours) Vital Signs Temp Pulse Pulse Resp BP Pulse Ox Pulse Ox 07/21/20 08:55 126 H 36 H 93 07/21/20 07:57 120 H 26 H 93 07/21/20 07:16 95 07/21/20 07:00 96 07/21/20 04:19 37.0 C 106 H 24 145/99 H 91 07/21/20 02:38 114 H 32 H 92 07/21/20 00:00 115 H 07/20/20 23:43 37.0 C 115 H 24 153/93 H 94 07/20/20 23:08 115 H 28 H 117 H PG Care Time/CCT Total # of Minutes Spent Total Time Spent with Patient: Total time spent is greater than 50% in coordination of care (as documented) at patient's floor/unit and/or counseling patient: Critical Care Time: Yes Total Critical Care Time: 35 10:45 to 11:20 Coding Level of Care Code 25694 Subseq Hosp Care Lvl 3 Diagnoses COVID-19 U07.1 Abdominal distention R14.0 Controlled diabetes mellitus with neurologic complication, with long-term current use of insulin E11.49; Z79.4 CKD (chronic kidney disease) stage 3, GFR 30-59 ml/min N18.30 Hyponatremia E87.1 Dyslipidemia E78.5 DVT prophylaxis Z29.9 Additional Codes Critical Care Time - Critical Care Time: Yes ([id number]) Time Spent (min) 70
[2020-07-21] MEDS ORDERED: PROPOFOL IV EMULSION 10 MG/ML 100 ML VIAL IV ONE (11:14)
[2020-07-21] MEDS ORDERED: RAPID SEQUENCE INDUCTION BAG ONE (11:14)
[2020-07-21] MEDS ORDERED: NOREPINEPHRINE/D5W 8 MG/508 ML IV ONE (11:44)
[2020-07-21] MEDS ORDERED: ETOMIDATE 2 MG/ML 20 ML VIAL IV ONE ×2 (11:56→18:32)
[2020-07-21] MEDS ORDERED: SUCCINYLCHOLINE CHLORIDE 20 MG/ML 10 ML VIAL IV ONE ×2 (11:56→18:32)
[2020-07-21] MEDS ORDERED: MIDAZOLAM HCL 125MG/250ML D5W ONE (11:58)
[2020-07-21] MEDS ORDERED: PROPOFOL BOLUS FROM BAG IV PRN (12:07)
[2020-07-21] MEDS ORDERED: MIDAZOLAM HCL 125 MG/250 ML BAG IV PRN (12:07)
[2020-07-21] MEDS ORDERED: MIDAZOLAM BOLUS FROM BAG IV PRN ×2 (12:07→12:38)
[2020-07-21] MEDS ORDERED: STAT IV Infusion **Titration per Protocol STA ×3 (12:07→13:04)
[2020-07-21] MEDS: propofoL 1,000 MG/100 ML VIAL IV SCH ×3 (12:15→23:53)
[2020-07-21] MEDS: fentaNYL DRIP 1,250 MCG/250 ML BAG IV SCH (12:30)
--- NOTE | 2020-07-21 12:42 | Procedure Note ---
Procedure Note Date of Service July 21, 2020 INTUBATION PROCEDURE NOTE: Provider: Nito Hansen MD A time-out was completed verifying correct patient, procedure, site, positioning. Patient was evaluated and required intubation for hypoxemic respiratory failure and potential intra-abdominal process. Sedative agent used: 40 mg etomidate, 5 mg Versed Paralysis agent used: 100 mg succinylcholine Emergent consent was implied given patients rapidly declining clinical status and need for airway protection. Verbal consent obtained from the patient prior to procedure The patient was prepared in the appropriate fashion. Sedation was achieved utilizing etomidate and Versed. Rapid sequence induction was utilized as the patient was Covid positive. Etomidate and succinylcholine were both ports. The patient was preoxygenated using BiPAP and the mask was left in place until the patient became apneic. At that point time the mask was removed. Indirect fiberoptic laryngoscopy using a glide scope for was conducted yielding a grade 1 view. A previously tested 7.5 endotracheal tube was passed and observed to be extending beyond the vocal cords. There was a significant amount of old bloody secretions welling up from the esophagus. The balloon was immediately inflated to prevent aspiration. End-tidal CO2 was detected and bilateral breath sounds were noted. Patient was attached to the ventilator with good returns and stable oxygen saturations Post Intubation Chest X-ray confirms placement without pneumothorax. Patient tolerated the procedure well and there were no immediate complications. Coding CPT Codes Resuscitation - Resuscitation: 74760 Endotracheal Intubation, emergency ([id number]) [facility] [place]Charges) Resuscitation Resuscitation: 75572 Endotracheal Intubation, emergency
--- NOTE | 2020-07-21 12:42 | XRay Report ---
XR chest 1V portable CLINICAL HISTORY: Intubation/line placement COMPARISON STUDY: Chest radiograph July 20, 2020. FINDINGS: Tip of the endotracheal tube is 3.6 cm above the casi. Tip of the nasogastric tube is wit hin the proximal body of the stomach. Left subclavian central line has been placed. There is no pneum othorax or no pleural effusion. Cardiomegaly is unchanged. Bilateral airspace opacities persist. Ther e are old left rib fractures. IMPRESSION: 1. Satisfactory positioning of lines and tubes. No pneumothorax. 2. Persistent bilateral airspace opacities suggestive of an infectious process. ACT 112: Negative or not required by law. Electronically signed by: Kolton Wilson M.D. 07/21/2020 12:41 PM
--- NOTE | 2020-07-21 12:44 | Procedure Note ---
Procedure Note Date of Service July 21, 2020 Note CENTRAL LINE PROCEDURE NOTE: Procedure: Central Line Placement Provider: Nito Hansen MD Indication: Central Drug Administration, Poor Venous Access, Multiple Lab Draws Necessary, etc. Anesthesia: 5 mL 1% lidocaine without epinephrine Site: Left subclavian Patient was critically ill and unable to provide written consent however the patient did verbally consent to the procedure prior to intubation. A time-out was completed verifying correct patient, procedure, site, positioning, and implants(s) or special equipment if applicable. Patients left infraclavicular fossa was cleansed and draped in the typical sterile fashion u sing Chloraprep. Superficial tissues were anesthetized using lidocaine. Using anatomic landmarks, an 18-gauge needle was used to access the subclavian vein. Good venous blood return was maintained prior to removal of syringe from introducer needle. Using Seldinger Technique, a guide wire was advanced through the introducer needle without resistance. The introducer needle was removed. A small incision was made in penetrating fashion at the guide wire insertion site utilizing an 11 blade scalpel. The dilator was advanced to the vessel without resistance. The dilator was exchanged for the triple lumen catheter which was advanced into the vessel without resistance. The guide wire was removed intact from the catheter without issue. Claves were placed on each catheter tip with confirmation of good blood flow from each lumen. Each port was easily flushed with sterile saline. The catheter was placed at 22 cm and sutured in place. BioPatch was applied to the catheter and a sterile Tegaderm dressing was applied over the catheter with careful attention to sterility. Patient tolerated procedure well. No immediate complications were met. Post procedure x-ray was completed, placement was appropriate and no pneumothorax was noted. Coding CPT Codes Tubes, Drains, and Vasc Access - Tubes, Drains, and Vasc Access: [id number] Place catheter in vein superior or inferior vena cava ([id number]) [facility] [place] Procedure Codes (Charges) Tubes, Drains, and Vasc Access Procedure 1: Tubes, Drains, and Vasc Access: [id number] Place catheter in vein superior or inferior vena cava
[2020-07-21] MEDS ORDERED: MIDAZOLAM HCL 125 MG/250 ML BAG IV SCH (12:45)
--- NOTE | 2020-07-21 12:46 | Procedure Note ---
Procedure Note Date of Service July 21, 2020 Note ARTERIAL LINE PROCEDURE NOTE: Procedure: Arterial Line Placement Provider: Nito Hansen MD Indication: Monitoring on Pressors Anesthesia: None Verbal consent was obtained from the patient prior to procedure. Due to urgency of the situation written consent was not possible A time-out was completed verifying correct patient, procedure, site, positioning, and implant(s) or special equipment if applicable. Allens test was performed to ensure adequate perfusion. Patients left wrist was prepped and draped in the usual sterile fashion. Ultrasound guidance was used to aid needle placement. A 20g Arrow arterial line was introduced into the left radial artery. Catheter was threaded, and the needle was removed with appropriate blood return. Good waveform was observed. The patient tolerated the procedure well. Blood Loss: Minimal Complications: None Coding CPT Codes Tubes, Drains, and Vasc Access - Tubes, Drains, and Vasc Access: [id number] Insertion Catheter, Artery ([id number]) [facility] Procedure Codes (Charges) Tubes, Drains, and Vasc Access Procedure 1: Tubes, Drains, and Vasc Access: [id number] Insertion Catheter, Artery
[2020-07-21 12:48] LABS: iSTAT Art Bld Gas pCO2 Correct 45 mmHg (35-46); iSTAT Art Bld Gas pH Corrected 7.321 (7.35-7.45); iSTAT Arterial Blood Gas HCO3 23 meg/L (19-24); iSTAT Arterial Blood Gas pCO2 45 mmHg (35-46); iSTAT Arterial Blood Gas pH 7.32 (7.35-7.45); iSTAT Arterial Blood Gas pO2 98 mmHg (80-95); iSTAT Arterial Blood Gas pO2 C 98; iSTAT Carbon Dioxide 24 mmol/L (24-31); iSTAT FiO2 100 %; iSTAT Hematocrit 48 % (42-52); iSTAT Hemoglobin 16.3 g/dl (14.0-18.0); iSTAT Potassium 5.2 mmol/L (3.3-5.0); iSTAT Site Art Line; iSTAT Sodium 135 mmol/L (135-144)
--- NOTE | 2020-07-21 12:53 | Critical Care Progress Note ---
Date of Service July 21, 2020 Assessment & Plan (1) COVID-19: (2) Multifocal pneumonia: (3) Acute respiratory failure with hypoxia: (4) Lactic acidosis: (5) Septic shock: (6) Peritonitis: Impression: 70-year-old male admitted 07/15 with Covid pneumonia. He has been on dexamethasone and Tocilizumab and had been doing reasonably well from a respiratory standpoint on high flow and intermittently on CPAP. Over the last 24 hours she developed increasing abdominal distention, lactic acidosis, progressive respiratory distress and sinus tachycardia. His bili was increasingly distended and it was concerning for potential intra-abdominal process. He is now been intubated and pressors have been initiated. Recommendations: 1. Neurologic: Continue sedation with propofol fentanyl and Versed. The patient did demonstrate some encephalopathy prior to intubation which likely was metabolic in nature. No indication for imaging. Continue to follow closely. 2. Cardiovascular: Tachycardia likely secondary to intra-abdominal process and sepsis. Is better now that he has been intubated. Continue Levophed for now. Try and maintain mean arterial pressure of 65. Patient is already on dexamethasone so a little utility in random cortisol at this point time. We will trend lactate. Continue aspirin and Lipitor. 3. Pulmonary: Acute hypoxemic respiratory failure: The patient was intubated to facilitate imaging studies and to support his potential intra-abdominal process. He does have Covid pneumonia but appears to be doing reasonably well. Continue lung protective ventilatory strategy. Mild hypercarbia on blood gas but will tolerate for now. 4. GI: Unclear process. Patient was diffusely tender and distended. NG tube to low intermittent suction. Will obtain stat CT abdomen pelvis with IV and oral contrast. Discussed with general surgery who is following as well 5. ID: Continue dexamethasone for Covid pneumonia. Will place on meropenem for empiric intra-abdominal coverage pending imaging studies. 6. Renal: Kidney function is increased to 1.28 and will need to follow closely. Potassium 5.2 and will recheck. May have been related to succinylcholine with intubation. Will follow urine output. 7. Endocrine: Glycemic control per ICU protocol. 8. Heme-onc: Leukocytosis likely reactive to intra-abdominal process. Continue to follow closely. Hemoglobin hematocrit and platelet counts are stable. Patient is on Lovenox prophylaxis and will hold for now pending his abdominal imaging for potential procedures. The patient is critically ill at this point in time. A total of 79 minutes critical care time was spent in evaluation management stabilization of this patient exclusive of procedures. He is at significant risk of clinical deterioration. Admission and Anticipated Discharge Date Admission Date: July 15, 2020 Review of Systems Review of Systems: Unobtainable due to endotracheal tube Physical Exam Constitutional: + acute distress and + ill appearing Neck: trachea midline, no thyromegaly Respiratory: + respiratory distress, + labored breathing and + uses accessory muscles Cardiovascular: RRR, no murmur, no edema Gastrointestinal (Abdomen): Inspection/Auscultation: + abnormal bowel sounds Percussion/Palpation: + abdomen tender and + guarding Musculoskeletal: Extremities: extremities normal to inspection Skin: no rashes, warm and dry Neurologic: Nonfocal exam Lymphatic: no cervical lymphadenopathy Results & Data Results & Data ([facility]) Vital Signs (Past 12 Hours) Vital Signs Temp Pulse Pulse Resp BP Pulse Ox Pulse Ox 07/21/20 11:49 108 H 24 91 07/21/20 08:55 126 H 36 H 93 07/21/20 08:00 124 H 07/21/20 07:57 120 H 26 H 93 07/21/20 07:16 95 07/21/20 07:00 96 07/21/20 04:19 37.0 C 106 H 24 145/99 H 91 07/21/20 02:38 114 H 32 H 92 Laboratory Results 07/21/20 06:01 07/21/20 06:01 07/15/20 07/15/20 07/20/20 18:08 19:02 23:46 ABG pH Cancelled 7.42 7.49 H ABG pCO2 Cancelled 35 28 L ABG pO2 Cancelled 95 103 H ABG HCO3 Cancelled 22 21 ABG O2 Saturation Cancelled 97.4 H 98.2 H ABG Base Excess Cancelled -1.8 -1.0 Lactate elevated at 3 Diagnostic Findings Chest x-ray post intubation was reviewed. Central line and endotracheal tube are in good position. Persistent bibasilar airspace opacities. No free air under the diaphragm appreciated. Coding Level of Care Code Critical Care 1st 30-74 mins Diagnoses COVID-19 U07.1 Multifocal pneumonia J18.9 Acute respiratory failure with hypoxia J96.01 Lactic acidosis E87.2 Septic shock A41.9; R65.21 Peritonitis K65.9 Time Spent (min) 75 Comment [id number] and [id number]
[2020-07-21] MEDS ORDERED: MEROPENEM CONSULT ACITVE PRN (13:10)
[2020-07-21] MEDS ORDERED: NOREPINEPHRINE/D5W 8 MG/508 ML BAG IV SCH (13:15)
[2020-07-21] MEDS ORDERED: ICU PROTOCOL FOR HYPERGLYCEMIA PRN (13:17)
[2020-07-21] MEDS: ACETAMINOPHEN 325 MG TAB PO PRN (13:40)
--- NOTE | 2020-07-21 13:50 | Pharmacy Report ---
Pharmacy Glycemic Short Note 2 - Date of Service July 21, 2020 - Glycemic Short BSG Results (Last 24 hours): 07/20/20 07/20/20 07/21/20 16:39 19:46 06:01 Glucose 86 POC Glucose 264 H 288 H 07/21/20 07:43 Glucose POC Glucose 118 H OUTPATIENT ANTIDIABETIC REGIMEN: * NPH 37 units SQ qPM * Humalog insulin, ~25 units prior to meals (unless low carb meal, then skip) * information obtained from outpt DM provider's notes * Victoza 1.8mg SQ daily * Metformin 1gm PO BID * HbA1c: 8.2% (07/16/20) ASSESSMENT: 07/21 * Patient received total of 85 units of insulin yesterday, of which 52 units were basal insulin * BSGs trending up throughout the day, however PO intake still poor - unclear reasoning for elevated BSGs at dinner time as his BSGs have been relatively stable on this dosing * Fasting BSG 118 mg/dL - plan to continue with reduced evening NPH dosing * Patient transferred to MICU around lunch time and intubated / started on pressors PLAN FOR INPATIENT GLYCEMIC CONTROL: * Hold Metformin and Victoza * Basal insulin * NPH 30 units qAM * NPH 22 units with dinner * Bolus insulin * NovoLog per scale ACHS or Q6hrs while NPO * Goal Range: Low 110 mg/dL - High 140 mg/dL * Correction Factor: 10 mg/dL/unit * tighten: Nutritional / Prandial insulin per carb ratio of 1 unit per 3.5 grams CHO consumed PLAN FOR DISCHARGE: * pending
[2020-07-21] MEDS: SODIUM CHLORIDE 0.9% 1000ML 1,000 ML IV SCH ×2 (14:40→23:53)
[2020-07-21] MEDS: MEROPENEM 500 MG in SYRINGE 0 ML IV SCH ×2 (14:40→19:27)
[2020-07-21] MEDS ORDERED: ACETAMINOPHEN SUSP 325 MG/10.15 ML UDC PO PRN (14:43)
[2020-07-21] MEDS ORDERED: ACETAMINOPHEN SUSP 325 MG/10.15 ML UDC OG PRN (14:45)
[2020-07-21] MEDS ORDERED: OPTIRAY 320 100ml IV ONE (15:50)
--- NOTE | 2020-07-21 16:32 | CT Scan Report ---
CT OF THE ABDOMEN AND PELVIS WITH CONTRAST CLINICAL HISTORY: Abdominal distention. Sepsis. COMPARISON STUDY: None. TECHNIQUE: Following IV administration of 87 mL of Optiray-320, axial images of the abdomen and pelvi s were obtained from the lung bases to the proximal femurs. Images were reviewed in the axial, sagitt al, and coronal planes. IV contrast was administered without complication. Automated exposure contro l was utilized for the study. A dose lowering technique was utilized adhering to the principles of A MOY. Oral contrast was administered. CT DOSE: 1142.97 mGycm FINDINGS: Imaged portions of the lower chest demonstrate extensive airspace opacities within the lowe r lungs. Tip of nasogastric tube is within the distal body of the stomach. No pneumatosis, free air o r portal venous gas is present. This exam is mildly compromised by motion artifact. Hepatic steatosis is present. There is no biliary or pancreatic ductal dilatation dictation. A subcentimeter medial se gment hepatic lesion likely reflects a cyst. The spleen, adrenal glands and kidneys are unremarkable. There is no hydronephrosis. The appendix is normal. The majority of the small bowel is mildly dilate d. There is no transition point. Oral contrast reaches the distal ileum. Note is made of mild wall th ickening of a ileal loop within the right lower quadrant. This is best shown on axial image [id number]. There is trace adjacent ascites and minimal mesenteric infiltration. Colonic diverticulosis is noted without evidence for acute diverticulitis. Rectal probe is in place. Rutherford balloon is noted. Trace pe rihepatic ascites is present. There is calcified plaque at the origin of the superior mesenteric jerica ry. This is suboptimally assessed on this non-CTA exam but suggests moderate stenosis. Celiac axis is patent. Inferior mesenteric artery is patent. There is moderate plaque of the abdominal aorta. IMPRESSION: 1. Mild wall thickening of a distal ileal loop with trace adjacent ascites and mesenteric infiltratio n. This suggests a nonspecific enteritis. No pneumatosis, free air or portal venous gas. If persisten t symptoms, short-term follow-up CT of the abdomen and pelvis is recommended. 2. Mild colonic dilatation without discrete transition point. The findings suggest an ileus. Oral con trast reaches the distal ileum. 3. Extensive bilateral airspace opacities within the lower lungs consistent with multifocal pneumonia . 4. Hepatic steatosis. 5. Trace ascites within the abdomen and pelvis. 6. Moderate calcified plaque at the origin of the superior mesenteric artery with suspected moderate stenosis. Patent celiac axis and inferior mesenteric artery. ACT 112: Negative or not required by law. Electronically signed by: Kolton Wilson M.D. 07/21/2020 4:31 PM
--- NOTE | 2020-07-21 17:09 | Surgery Consultation ---
Date of Consultation July 21, 2020 Assessment & Plan (1) Abdominal distention: This morning had discussed the situation with Dr. Hansen and recommended to proceed with CT scan of the abdomen with and without oral and IV contrast I was in surgery and just reviewed the CAT scan findings that was completed and there was no evidence of any acute process We will continue following the patient but at this time there is no indication that the elevated white count and lactic acid is related to any abdominal findings Present on Admission?: Yes History of Present Illness Reason for Consultation: Was called to see patient for abdominal distention increasing lactic acid and increased white count Requesting Physician: Enrique Attending Physician: Natanael Nunez History of Present Illness Present situation and history was obtained through chart nurses and physician in summary the patient has been admitted approximately 6 days ago in Covid unit for positive coded apparently was doing well last few days according to the nurses he has had no bowel movements abdomen became progressively more distended really not been eating much and then there was marked deterioration this morning with a stated above which is white count elevated increased lactic acid and increased abdominal distention Allergies Allergy/AdvReac Type Severity Reaction Status Date / Time lisinopril AdvReac Mild cough Verified 07/15/20 20:23 Home Medications Medication Instructions Recorded Confirmed Type ascorbic acid (vitamin C) 500 mg 500 mg PO DAILY tab 02/16/19 07/15/20 History tablet cholecalciferol (vitamin D3) 25 1,000 units PO BID cap 02/16/19 07/15/20 History mcg (1,000 unit) capsule [id number]-vit K-lycop 1 ea PO DAILY 04/26/19 07/15/20 History BD Ultra-Fine Yessy Pen Needle 32 #300 ea NS 06/13/19 05/03/20 Rx gauge x 5/32" metformin 1,000 mg tablet 1,000 mg PO BID #180 tab 06/13/19 07/15/20 Rx liraglutide 0.6 mg/0.1 mL (18 mg/3 1.8 mg SQ DAILY 90 Days #27 ml 07/24/19 07/15/20 Rx mL) subcutaneous pen injector cyanocobalamin (vitamin B-12) 1,000 mcg PO .COMPLEX tab 10/03/19 07/15/20 History 1,000 mcg tablet,extended release atorvastatin 80 mg tablet 80 mg PO DAILY #90 tab 01/04/20 07/15/20 Rx insulin lispro 100 unit/mL 25 unit SUBCUT DAILY ml 01/10/20 07/15/20 History subcutaneous pen Humulin N NPH Insulin KwikPen 100 37 unit SQ QPM #45 ml NS 01/24/20 07/15/20 Rx unit/mL (3 mL) subcutaneous OneTouch Ultra Blue Test Strip #300 ea NS 03/27/20 05/03/20 Rx aspirin 81 mg PO DAILY 07/15/20 07/15/20 History lysine 1,000 mg PO DAILY 07/15/20 07/15/20 History Patient History Medical History (Updated 07/21/20 @ 17:07 by Robert Fernandes MD, FACS) Bleeding nose CKD (chronic kidney disease) stage 3, GFR 30-59 ml/min Elevated TSH Nasal congestion Nasal obstruction Rupture of biceps tendon Syncope Tachycardia Surgical History H/O hernia repair H/O sinus surgery Family History Mother Diabetes Father Diabetes Social History Smoking Status: Never smoker Second Hand Exposure: No; Hx Alcohol Use: Yes Alcohol type: beer Hx Substance Use: No Preferred Language: Libyan Communication Ability: Effective 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: Yes Beliefs That Will Affect Care: None marital status: Current Living Situation: Spouse 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 Feels Safe at Home: Yes Assistive Devices: Oxygen - Continuous Physical Exam Physical Exam: I saw the patient approximately 1130 this morning that time he had just been intubated had moderate amount of coffee-ground coming out orally around the endotracheal tube the patient has been recently paralyzed for being on the vent I asked that an NG tube be placed got moderate amount of coffee ground material His abdomen was was distended but very compliant with palpation No evidence of any hernia abdominally or in the groin Results & Data ([facility]) Vital Signs (Past 12 Hours) Vital Signs Temp Pulse Pulse Resp BP Pulse Ox Pulse Ox 07/21/20 16:30 38.1 C H 119 H 24 90 07/21/20 16:27 38.1 C H 117 H 30 H 109/73 89 L 07/21/20 16:25 109 H 27 H 90 07/21/20 16:11 110 H 24 112/75 91 07/21/20 15:15 38.0 C H 111 H 30 H 89 L 07/21/20 15:00 38.0 C H 104 H 26 H 90 07/21/20 14:57 38.0 C H 102 H 144/83 H 91 07/21/20 14:30 38.0 C H 99 H 31 H 91 07/21/20 14:00 38.0 C H 94 H 31 H 91 07/21/20 13:30 38.1 C H 97 H 89 L 07/21/20 13:00 103 H 25 H 107/69 91 07/21/20 12:27 102 H 24 103/70 92 07/21/20 12:12 103 H 24 114/78 94 07/21/20 12:09 104 H 24 119/80 93 07/21/20 12:07 105 H 30 H 111/76 93 07/21/20 12:01 107 H 24 110/78 91 07/21/20 11:57 112 H 30 H 77/61 L 94 07/21/20 11:54 108 H 24 95/67 L 92 07/21/20 11:51 108 H 24 96/70 L 91 07/21/20 11:49 108 H 24 102/77 91 07/21/20 11:44 109 H 30 H 82/64 L 88 L 07/21/20 11:40 113 H 24 86/65 L 85 L 07/21/20 08:55 126 H 36 H 93 07/21/20 08:00 124 H 07/21/20 07:57 120 H 26 H 93 07/21/20 07:16 95 07/21/20 07:00 96 PG Care Time/CCT Total # of Minutes Spent Total Time Spent with Patient: Total time spent is greater than 50% in coordination of care (as documented) at patient's floor/unit and/or counseling patient: Coding Level of Care Code 29921 Inpt Consult Level 3 Diagnoses Abdominal distention R14.0
[2020-07-21] MEDS ORDERED: MIDAZOLAM HCL 5 MG/ML VIAL IV ONE (18:32)
[2020-07-21] MEDS ORDERED: INSULIN HUMAN NPH SC ONE (18:45)
[2020-07-22] MEDS: propofoL 1,000 MG/100 ML VIAL IV SCH ×5 (00:19→23:24)
[2020-07-22] MEDS: MEROPENEM 500 MG in SYRINGE 0 ML IV SCH ×2 (02:13→08:04)
[2020-07-22 04:51] LABS: iSTAT Art Bld Gas pCO2 Correct 35 mmHg (35-46); iSTAT Art Bld Gas pH Corrected 7.424 (7.35-7.45); iSTAT Arterial Blood Gas HCO3 23 meg/L (19-24); iSTAT Arterial Blood Gas pCO2 35 mmHg (35-46); iSTAT Arterial Blood Gas pH 7.42 (7.35-7.45); iSTAT Arterial Blood Gas pO2 71 mmHg (80-95); iSTAT Arterial Blood Gas pO2 C 68; iSTAT Carbon Dioxide 24 mmol/L (24-31); iSTAT FiO2 75 %; iSTAT Hematocrit 45 % (42-52); iSTAT Hemoglobin 15.3 g/dl (14.0-18.0); iSTAT Potassium 4.8 mmol/L (3.3-5.0); iSTAT Site Art Line; iSTAT Sodium 136 mmol/L (135-144)
[2020-07-22] MEDS: INSULIN ASPART 100 UNITS/ML 3 ML PEN SC SCH ×3 (06:34→17:48)
[2020-07-22] MEDS: dexAMETHasone 6 MG in SYRINGE 0 ML IV SCH (08:04)
[2020-07-22] MEDS: ATORVASTATIN 40 MG TAB PO SCH (08:05)
[2020-07-22] MEDS: INSULIN HUMAN NPH SC SCH ×2 (08:17→17:48)
[2020-07-22 08:29] LABS: Basophils # (auto) 0.01 K/uL (0-0.2); Basophils % (auto) 0.1 %; Eosinophils # (auto) 0.31 K/uL (0-0.5); Eosinophils % (auto) 2.1 %; Hematocrit (blood only) 43.7 % (42-52); Hemoglobin 15.4 g/dL (14.0-18.0); Immature Granulocytes # (auto) 0.09 K/uL (0.00-0.02); Immature Granulocytes % (auto) 0.6 %; Lymphocytes # (auto) 0.62 K/uL (1.2-3.4); Lymphocytes % (auto) 4.1 %; Mean Corpuscular Hemoglobin 29.1 pg (25-34); Mean Corpuscular Hgb Conc 35.2 g/dL (32-36); Mean Corpuscular Volume 82.5 fL (80-100); Mean Platelet Volume 10.7 fL (7.4-10.4); Monocytes % (auto) 2.7 %; Neutrophils # (auto) 13.51 K/uL (1.4-6.5); Neutrophils % (auto) 90.4 %; Platelet Count 268 K/uL (130-400); RDW Coefficient of Variation 13.1 % (11.5-14.5); RDW Standard Deviation 39.7 fL (36.4-46.3); White Blood Count 14.94 K/uL (4.8-10.8)
--- NOTE | 2020-07-22 09:04 | XRay Report ---
XR chest 1V portable HISTORY: 70 years-old Male resp failure acute respiratory failure COMPARISON: Chest radiograph 07/21/2020 TECHNIQUE: Portable AP view of the chest FINDINGS: Cardiac silhouette is enlarged. Endotracheal tube overlies the midline terminating 3.1 cm superior to the casi. Enteric tube courses below the diaphragm with distal tip in the region of the distal sto mach. Left subclavian central venous catheter distal tip terminates in the expected location of the m id SVC. No pneumothorax or large pleural effusion. Extensive bilateral mixed interstitial and alveola r opacities are redemonstrated with mildly progressed consolidation of the lung bases. Degenerative c hanges of the shoulders and spine. IMPRESSION: 1. Lines and tubes as above. 2. Mild progression of the extensive bilateral pulmonary opacities suggestive of multifocal pneumonia . ACT 112: Negative or not required by law. The above report was generated using voice recognition software. It may contain grammatical, syntax o r spelling errors. Electronically signed by: Spenser Amaya M.D. 07/22/2020 9:03 AM
[2020-07-22 09:05] LABS: Albumin Level 2.7 gm/dl (3.4-5.0); BUN Creatinine Ratio 38.3 (10-20); Calcium 7.6 mg/dl (8.5-10.1); Creatinine Clr Calc Pharmacy 34.7 ml/min; Est GFR (African American) 42.6; Est GFR (Non-African American) 36.8; Magnesium 2.6 mg/dl (1.8-2.4); Potassium 4.5 mmol/L (3.5-5.1)
[2020-07-22 09:10] LABS: Bilirubin,Total 1.4 mg/dl (0.2-1); Globulin 2.8 gm/dl (2.5-4.0); Phosphorus 5.2 mg/dl (2.5-4.9); Total Protein 5.5 gm/dl (6.4-8.2)
[2020-07-22] MEDS ORDERED: FAMOTIDINE 20 MG in SYRINGE 3 ML IV SCH (10:30)
--- NOTE | 2020-07-22 11:08 | Communication Note ---
Date of Service: July 22, 2020 Patient on COVID unit. Spoke with RN's with Dr. Fernandes regarding plan of care. Per RN patient appears to have some tenderness to palpation in the left and right lower quadrants to palpation. Still with some abdominal distention despite OG tube. Less emesis. WBC 14 (18). Lactate 2.1 (2.6). He is running temps of 38C, Tachy to 110's. Off Pressors for now with stable BP. CT scan was performed yesterday that revealed some mild wall thickening of a distal ileal loop suggestive of non specific enteritis along with mild colonic dilatation without transition point, suggesting ileus. Oral contrast reaches the distal ileum. No plans for surgical intervention at this time. Continue supportive care and conservative management. Please call with any questions/concerns.
[2020-07-22] MEDS: ASPIRIN 81 MG ECTAB PO SCH (11:42)
[2020-07-22] MEDS: guaiFENesin 600 MG TABCR PO SCH (11:42)
--- NOTE | 2020-07-22 11:43 | XRay Report ---
KUB CLINICAL HISTORY: abdominal distention COMPARISON STUDY: CT of the abdomen and pelvis July 21, 2010. FINDINGS: Multiple loops of mildly to moderately dilated small bowel are noted. Small bowel dilatatio n has mildly increased since CT of July 21, 2020. There is a paucity of colonic gas. Nasogastric tub e is in place. IMPRESSION: Slight increase in mild to moderate small bowel dilatation. Paucity of colonic gas. The finding may reflect an ileus or small bowel obstruction. Continued radiographic follow-up is recommen ded. ACT 112: Negative or not required by law. Electronically signed by: Kolton Wilson M.D. 07/22/2020 11:42 AM
[2020-07-22] MEDS: NORMOSOL-R 1,000 ML IV SCH ×2 (11:49→21:09)
[2020-07-22] MEDS: SODIUM CHLORIDE 0.9% 1000ML 1,000 ML IV SCH (12:02)
--- NOTE | 2020-07-22 12:14 | Critical Care Progress Note ---
Date of Service July 22, 2020 Assessment & Plan (1) COVID-19: Impression: 70-year-old male admitted 07/15 with Covid pneumonia. He has been on dexamethasone and Tocilizumab and had been doing reasonably well from a respiratory standpoint on high flow and intermittently on CPAP. Recommendations: 1. Neurologic: Continue sedation with propofol and fentanyl. We will wean Versed off. 2. Cardiovascular: Levophed has been weaned off. Continue aspirin and Lipitor. 3. Pulmonary: Acute hypoxemic respiratory failure. Continue ARDSnet protocol. Wean O2 and PEEP as able. 4. GI: Ileus likely related to COVID-19. Possible enteritis. Surgery consult appreciated. Continue NG tube to low intermittent suction. 5. ID: Continue dexamethasone for Covid pneumonia. Continue meropenem for the possible intra-abdominal process. 6. Renal: Patient with JENNIFER today. Continue with Normosol 100 mL/h. Possibly related to contrast for the CT abdomen that he received yesterday. 7. Endocrine: Glycemic control per ICU protocol. 8. Heme-onc: Hemoglobin is stable. Will restart DVT prophylaxis. CRITICAL CARE TIME - I have personally spent 37 minutes of critical care time in the direct management of this patient. This is a life/limb threatening event. This includes time spent evaluating patient, direct bedside care, chart review, placing orders, interpretation of diagnostic studies, discussion with consultants, patient, and family members, as well as other required patient management activities. This time is exclusive of all separately billable procedures, and teaching time and separate from and in addition to any other critical care service time. (2) Multifocal pneumonia: (3) Acute respiratory failure with hypoxia: (4) Lactic acidosis: (5) Septic shock: (6) Peritonitis: Admission and Anticipated Discharge Date Admission Date: July 15, 2020 Subjective Patient seen and examined at bedside. Continues to be heavily sedated and requiring mechanical ventilation. Unresponsive to commands. Review of Systems Review of Systems: Unobtainable due to cognitive status and Unobtainable due to endotracheal tube Physical Exam Constitutional: + ill appearing Intubated and sedated Eyes: PERRL, conjunctivae normal, anicteric sclerae ENMT: external ear and nose normal, oropharynx normal Respiratory: + tachypneic Coarse breath sounds on the ventilator. Cardiovascular: RRR, no murmur, no edema Gastrointestinal (Abdomen): Tender. Distended. Tympanic. Musculoskeletal: no cyanosis or clubbing, extremities motor strength 5/5 Skin: no rashes, warm and dry Neurologic: Not following commands. Moves limbs spontaneously. Psychiatric: Unable to assess due to intubation status. Results & Data Results & Data ([facility]) Vital Signs (Past 12 Hours) Vital Signs Temp Pulse Resp BP Pulse Ox 07/22/20 11:23 118 H 28 H 90 07/22/20 11:00 119 H 89 L 07/22/20 10:30 123 H 89 L 07/22/20 10:00 118 H 91 07/22/20 09:30 119 H 91 07/22/20 09:00 118 H 92 07/22/20 08:30 117 H 29 H 91 07/22/20 08:00 112 H 118/75 93 07/22/20 07:30 115 H 94 07/22/20 07:00 111 H 93 07/22/20 06:30 117 H 89 L 07/22/20 06:26 100.9 F H 118 H 107/77 88 L 07/22/20 06:00 111 H 28 H 92 07/22/20 05:30 116 H 92 07/22/20 05:17 114 H 117/83 93 07/22/20 05:00 100.8 F H 114 H 93 07/22/20 04:30 111 H 93 07/22/20 04:17 114 H 111/95 93 07/22/20 04:00 100.8 F H 111 H 28 L 07/22/20 03:30 108 H 94 07/22/20 03:17 109 H 112/82 94 07/22/20 03:00 108 H 94 07/22/20 02:30 109 H 94 07/22/20 02:17 101.3 F H 108 H 107/78 95 07/22/20 02:03 114 H 26 H 94 07/22/20 02:00 101.5 F H 111 H 26 H 94 07/22/20 01:30 101.5 F H 114 H 93 07/22/20 01:17 101.5 F H 116 H 94/67 L 92 07/22/20 01:00 101.3 F H 119 H 92 07/22/20 00:30 101.3 F H 114 H 92 04/12/21 00:10 101.1 F H 112 H 111/83 92 Vital signs, labs and imaging reviewed Coding Level of Care Code Critical Care 1st 30-74 mins Diagnoses COVID-19 U07.1 Multifocal pneumonia J18.9 Acute respiratory failure with hypoxia J96.01 Lactic acidosis E87.2 Septic shock A41.9; R65.21 Peritonitis K65.9 Time Spent (min) 37
[2020-07-22] MEDS: PANTOprazole 40 MG in SYRINGE 0 ML IV SCH ×2 (12:34→21:12)
[2020-07-22] MEDS ORDERED: PIPERACILL/TAZOBAC CONSULT ACTIVE PRN (12:56)
[2020-07-22] MEDS: ACETAMINOPHEN 1,000 MG/100 ML VIAL IV PRN (13:52)
[2020-07-22] MEDS: fentaNYL DRIP 1,250 MCG/250 ML BAG IV SCH (15:08)
[2020-07-22] MEDS ORDERED: PIPERACILLIN/TAZOBACTAM 3.375 GM in DEXTROSE 5% 100 ML IV ONE (16:00)
[2020-07-22] MEDS: PIPERACILLIN/TAZOBACTAM 3.375 GM in DEXTROSE 5% 100 ML IV SCH (21:12)
--- NOTE | 2020-07-22 23:26 | Hospitalist Progress Note ---
Date of Service July 22, 2020 Assessment & Plan (1) COVID-19: Covid-19 pneumonia with acute hypoxemic respiratory failure. Approximately one week of symptoms prior to presentation. - Dexamethasone 6 mg IV every morning (End date: 07/24/2020) - Remdesivir IV per protocol finished on 07/19/2020 - CAP abx with ceftriaxone and azithromycin (End date: 07/20/2020 for 5-day course) - Patient meets criteria for tocilizumab. And he completed treatment for this. - Continue Duonebs standing and PRN - Continue guaifenesin Patient was on CPAP and titrated down to High flow. Was on HIGH FLOW 40 liters/min. patient intubated on 07/21/20 for worsening respiratory failure, distress management per ICU sedated with Fentanyl, Propofol, wean off Versed (2) Abdominal distention: CT scan of abd pelvis was completed.No signs of ischemic bowel, only ileus, enteritis NG tube is placed, continue low intermittent suction Meropenem has been started. appreciate surgical consult, conservative management (3) Controlled diabetes mellitus with neurologic complication, with long-term current use of insulin: A1c was 8.2% this admission. - Hold metformin and liraglutide. - Glycemic pharmacist consult as his sugars will be very volatile with breathing issues, steroids, and possibly even intubation. (4) CKD (chronic kidney disease) stage 3, GFR 30-59 ml/min: Cr up to 1.8, this is JENNIFER, could be from contrast, poor perfusion continue Normosol follow UO via jenkins repeat BMP in AM (5) Hyponatremia: Na was 129 on admission. Up to 137, likely from poor solute intake (6) Dyslipidemia: - Continue atorvastatin 80 mg daily (7) DVT prophylaxis: Lovenox 40 mg SQ daily -> Normally would do intermediate-dosing, but his CrCl is right on the cusp at 50 mL/min, and Q12h would increase bleeding risk. He is also on ASA 81 mg PO daily which may reduce risk of VTE as well. Admission and Anticipated Discharge Date Admission Date: July 15, 2020 Subjective patient intubated reviewed chart, reviewed labs d/w Dr. Ortiz, appreciate his management reviewed CT a/p results, shows ileus/enteritis, nothing surgical, appreciate surgical consult Review of Systems Review of Systems: Unobtainable due to endotracheal tube Physical Exam Constitutional: + mechanically ventilated; no acute distress Neck: trachea midline, no thyromegaly Respiratory: symmetric chest movement; no respiratory distress Auscultation: lungs clear to auscultation bilaterally Cardiovascular: Rate/Rhythm: regular rhythm and + tachycardic Heart Sounds: normal S1 and normal S2; no murmur Vessels: no JVD Extremities: normal capillary refill; no edema Gastrointestinal (Abdomen): Inspection/Auscultation: + abdomen distended and + hypoactive bowel sounds Percussion/Palpation: + abdomen tender (slightly, diffse) and abdomen soft; no hepatosplenomegaly Musculoskeletal: Head/Neck/Chest: normocephalic, head atraumatic and neck supple Extremities: extremities normal to inspection; no cyanosis, no clubbing and no petechiae Skin: no rashes, warm and dry Neurologic: + obtunded; no focal motor deficits Results & Data Results & Data ([facility]) Vital Signs (Past 12 Hours) Vital Signs Temp Pulse Resp BP Pulse Ox 07/22/20 22:24 93 H 31 H 89 L 07/22/20 22:00 36.4 C L 95 H 26 H 100/62 91 07/22/20 21:30 36.3 C L 96 H 26 H 91 07/22/20 21:00 36.2 C L 101 H 26 H 121/73 91 07/22/20 20:30 36.0 C L 100 H 24 95 07/22/20 20:00 36.2 C L 96 H 24 108/78 90 07/22/20 19:37 98 H 25 H 92 07/22/20 19:30 36.0 C L 96 H 24 94 07/22/20 19:00 36.1 C L 99 H 24 119/80 94 07/22/20 18:17 36.6 C 101 H 124/99 89 L 07/22/20 17:17 36.6 C 101 H 114/76 92 07/22/20 17:00 101 H 92 07/22/20 16:02 104 H 29 H 91 07/22/20 16:00 105 H 93 07/22/20 15:17 103 H 115/69 95 07/22/20 15:12 101 H 97/65 L 89 L 07/22/20 14:30 112 H 92 07/22/20 14:17 112 H 92/64 L 93 07/22/20 13:30 117 H 92 07/22/20 12:30 115 H 90 07/22/20 12:00 37.3 C 116 H 24 105/64 91 07/22/20 11:30 115 H 91 Laboratory Results Laboratory Results - last 24 hr 07/21/20 07/22/20 07/22/20 23:54 04:37 06:33 WBC RBC Hgb POC Hgb 15.3 Hct POC Hct 45 MCV MCH MCHC RDW Std Deviation RDW Coeff of Madonna Plt Count MPV Immature Gran % (Auto) Neut % (Auto) Lymph % (Auto) [place] % (Auto) Eos % (Auto) Baso % (Auto) Neut # (Auto) Lymph # (Auto) [place] # (Auto) Eos # (Auto) Baso # (Auto) Immature Gran # (Auto) Sample Site Art Line POC pH 7.42 POC pCO2 35 POC pO2 71 L POC HCO3 23 POC Total CO2 24 POC Base Excess -2.0 ABG pH (Temp Correct) 7.424 ABG pCO2 (Temp Corrct 35 POC ABG pO2 at Pt Temp 68 POC ABG O2 Sat 94.0 Matt Test NA O2 Delivery Device Ventilator POC O2 Rate 24 POC FiO2 75 Tidal Volume 380 PEEP 10 POC Sodium 136 Sodium POC Potassium 4.8 Potassium Chloride Carbon Dioxide Anion Gap BUN Creatinine Est Cr Clr Drug Dosing Est GFR ( Amer) Est GFR (Non-Af Amer) BUN/Creatinine Ratio Glucose POC Glucose POC Glucose (other) 143 H 138 H Lactate Calcium Phosphorus Magnesium Total Bilirubin AST ALT Alkaline Phosphatase Total Protein Albumin Globulin Albumin/Globulin Ratio 07/22/20 07/22/20 07/22/20 08:01 08:01 08:05 WBC 14.94 H RBC 5.30 Hgb 15.4 POC Hgb Hct 43.7 POC Hct MCV 82.5 MCH 29.1 MCHC 35.2 RDW Std Deviation 39.7 RDW Coeff of Madonna 13.1 Plt Count 268 MPV 10.7 H Immature Gran % (Auto) 0.6 Neut % (Auto) 90.4 Lymph % (Auto) 4.1 [place] % (Auto) 2.7 Eos % (Auto) 2.1 Baso % (Auto) 0.1 Neut # (Auto) 13.51 H Lymph # (Auto) 0.62 L [place] # (Auto) 0.40 Eos # (Auto) 0.31 Baso # (Auto) 0.01 Immature Gran # (Auto) 0.09 H Sample Site POC pH POC pCO2 POC pO2 POC HCO3 POC Total CO2 POC Base Excess ABG pH (Temp Correct) ABG pCO2 (Temp Corrct POC ABG pO2 at Pt Temp POC ABG O2 Sat Matt Test O2 Delivery Device POC O2 Rate POC FiO2 Tidal Volume PEEP POC Sodium Sodium 137 POC Potassium Potassium 4.5 Chloride 106 Carbon Dioxide 22 Anion Gap 9.0 BUN 69 H D Creatinine 1.80 H D Est Cr Clr Drug Dosing 34.7 Est GFR ( Amer) 42.6 Est GFR (Non-Af Amer) 36.8 BUN/Creatinine Ratio 38.3 H Glucose 137 H POC Glucose POC Glucose (other) Lactate 2.1 H* Calcium 7.6 L D Phosphorus 5.2 H Magnesium 2.6 H Total Bilirubin 1.4 H AST 44 H ALT 44 Alkaline Phosphatase 92 Total Protein 5.5 L D Albumin 2.7 L Globulin 2.8 Albumin/Globulin Ratio 1.0 07/22/20 07/22/20 12:33 17:39 WBC RBC Hgb POC Hgb Hct POC Hct MCV MCH MCHC RDW Std Deviation RDW Coeff of Madonna Plt Count MPV Immature Gran % (Auto) Neut % (Auto) Lymph % (Auto) [place] % (Auto) Eos % (Auto) Baso % (Auto) Neut # (Auto) Lymph # (Auto) [place] # (Auto) Eos # (Auto) Baso # (Auto) Immature Gran # (Auto) Sample Site POC pH POC pCO2 POC pO2 POC HCO3 POC Total CO2 POC Base Excess ABG pH (Temp Correct) ABG pCO2 (Temp Corrct POC ABG pO2 at Pt Temp POC ABG O2 Sat Matt Test O2 Delivery Device POC O2 Rate POC FiO2 Tidal Volume PEEP POC Sodium Sodium POC Potassium Potassium Chloride Carbon Dioxide Anion Gap BUN Creatinine Est Cr Clr Drug Dosing Est GFR ( Amer) Est GFR (Non-Af Amer) BUN/Creatinine Ratio Glucose POC Glucose 185 H POC Glucose (other) 173 H Lactate Calcium Phosphorus Magnesium Total Bilirubin AST ALT Alkaline Phosphatase Total Protein Albumin Globulin Albumin/Globulin Ratio Medications Administered Current Inpatient Medications Acetaminophen (Acetaminophen Susp 325 Mg/10.15 Ml Udc) 650 mg OG Q6H PRN PRN Reason: Pain or Fever Stop: 08/20/20 14:42 Last Admin: 07/21/20 23:54 Dose: 650 mg Documented by: Albuterol (Albut/Ipratrop 3mg/0.5mg Neb 3 Ml Vial) 3 ml NEB Q4R PRN PRN Reason: Shortness Of Breath Or Wheezing Stop: 08/15/20 14:28 Last Admin: 07/18/20 04:14 Dose: 3 ml Documented by: Aspirin (Aspirin 81 Mg Chew) 81 mg PO DAILY RUSSEL Stop: 08/22/20 08:59 Atorvastatin Calcium (Atorvastatin 40 Mg Tab) 80 mg PO DAILY RUSSEL Stop: 08/15/20 08:59 Last Admin: 07/22/20 08:05 Dose: 80 mg Documented by: Dextrose (Dextrose 50% 50 Ml Syringe) 25 - 50 ml IV UD PRN; Protocol PRN Reason: Hypoglycemia Protocol Stop: 08/14/20 22:50 Enoxaparin Sodium (Enoxaparin Inj 40 Mg/0.4 Ml Syr) 40 mg SQ QAM RUSSEL Stop: 08/15/20 14:59 Last Admin: 07/21/20 09:07 Dose: 40 mg Documented by: Fentanyl Citrate (Fentanyl Bolus From Bag) 50 mcg IV Q60M PRN PRN Reason: Pain or Agitation Stop: 08/04/20 12:26 Last Admin: 07/22/20 10:30 Dose: 25 mcg Documented by: Glucagon (Glucagon For Inj 1 Mg Vial) 1 mg SQ UD PRN; Protocol PRN Reason: Hypoglycemia Protocol Stop: 08/14/20 22:50 Glucose (Glucose 10 Tabs/Tube) 4 - 8 tabs PO UD PRN; Protocol PRN Reason: Hypoglycemia Protocol Stop: 08/14/20 22:50 Glucose (Glucose 40% Gel 15 Gm Tube) 15 - 30 gm PO UD PRN; Protocol PRN Reason: Hypoglycemia Protocol Stop: 08/14/20 22:50 Guaifenesin (Guaifenesin 600 Mg Tabcr) 600 mg PO Q12 RUSSEL Stop: 08/14/20 22:50 Last Admin: 07/22/20 11:42 Dose: Not Given Documented by: Dexamethasone 6 mg/ Syringe 1.5 mls @ 1 mls/min IV Q24H RUSSEL Stop: 08/15/20 08:59 Last Admin: 07/22/20 08:04 Dose: 1 mls/min Documented by: Propofol (Diprivan) 1,000 mg in 100 mls @ 14.292 mls/hr IV .Q7H RUSSEL; Protocol Stop: 07/24/20 12:14 Last Admin: 07/22/20 23:24 Dose: 40 mcg/kg/min, 19.1 mls/hr Documented by: Fentanyl Citrate (Fentanyl Drip) 1,250 mcg in 250 mls @ 10 mls/hr IV .Q25H RUSSEL; Protocol Stop: 08/04/20 12:29 Last Titration: 07/22/20 22:30 Dose: 100 mcg/hr, 20 mls/hr Documented by: Parenteral Electrolytes (Normosol-R) 1,000 mls @ 100 mls/hr IV .Q10H RUSSEL Stop: 08/21/20 10:29 Last Admin: 07/22/20 21:09 Dose: 100 mls/hr Documented by: Pantoprazole Sodium 40 mg/ (Syringe) 10 mls @ 5 mls/min IV BID RUSSEL Stop: 08/21/20 10:44 Last Admin: 07/22/20 21:12 Dose: 5 mls/min Documented by: Piperacillin Sod/Tazobactam (Sod 3.375 gm/ Dextrose) 115 mls @ 28.75 mls/hr IV Q8H RUSSEL; Protocol Stop: 07/24/20 20:59 Last Admin: 07/22/20 21:12 Dose: 28.8 mls/hr Documented by: Acetaminophen (Ofirmev) 1,000 mg in 100 mls @ 400 mls/hr IV Q8H PRN PRN Reason: Fever Stop: 07/25/20 13:05 Last Infusion: 07/22/20 15:30 Dose: Infused Documented by: Insulin Aspart (Insulin Aspart 100 Units/Ml 3 Ml Pen) 0 units SC Q6 RUSSEL; Protocol Stop: 08/20/20 17:59 Last Admin: 07/22/20 17:48 Dose: 5 units Documented by: Insulin Human NPH (Insulin Human Nph) 30 units SC DAILY@0900 RUSSEL; Protocol Stop: 08/16/20 08:59 Last Admin: 07/22/20 08:17 Dose: 30 units Documented by: Insulin Human NPH (Insulin Human Nph) 22 units SC DAILY@1700 RUSSEL; Protocol Stop: 08/19/20 16:59 Last Admin: 07/22/20 17:48 Dose: 22 units Documented by: Melatonin (Melatonin 3 Mg Tab) 3 mg PO HS PRN PRN Reason: Sleep Stop: 08/20/20 01:59 Last Admin: 07/21/20 02:09 Dose: 3 mg Documented by: Midazolam HCl (Midazolam Bolus From Bag) 2 mg IV Q60M PRN PRN Reason: Sedation Stop: 08/20/20 12:06 Miscellaneous (Carbohydrates For Hypoglycemia ) 15 - 30 gm PO UD PRN PRN Reason: Hypoglycemia Protocol Stop: 08/14/20 22:50 Miscellaneous Information (Pharmacy Glycemic Mgmt Consult) 1 ea N/A UD PRN PRN Reason: Consult Stop: 08/15/20 14:13 Miscellaneous Information (Piperacill/Tazobac Consult Active) 1 ea N/A UD PRN PRN Reason: Consult Stop: 08/21/20 12:55 Ondansetron HCl (Ondansetron Inj 2 Mg/Ml 2 Ml Vial) 4 mg IV Q6H PRN PRN Reason: Nausea Stop: 08/14/20 22:50 Last Admin: 07/19/20 03:39 Dose: 4 mg Documented by: Polyethylene Glycol (Polyethylene (Miralax) 17 Gm Pack) 17 gm PO DAILY PRN PRN Reason: Constipation Stop: 08/19/20 23:15 Propofol (Propofol Bolus From Bag) 20 mg IV Q5M PRN PRN Reason: Sedation Stop: 07/24/20 12:06 PG Care Time/CCT Total # of Minutes Spent Total Time Spent with Patient: Total time spent is greater than 50% in coordination of care (as documented) at patient's floor/unit and/or counseling patient: Coding Level of Care Code 64675 Subseq Hosp Care Lvl 2 Diagnoses COVID-19 U07.1 Abdominal distention R14.0 Controlled diabetes mellitus with neurologic complication, with long-term current use of insulin E11.49; Z79.4 CKD (chronic kidney disease) stage 3, GFR 30-59 ml/min N18.30 Hyponatremia E87.1 Dyslipidemia E78.5 DVT prophylaxis Z29.9
[2020-07-23] MEDS: INSULIN ASPART 100 UNITS/ML 3 ML PEN SC SCH ×5 (00:23→23:54)
[2020-07-23 04:17] LABS: iSTAT Arterial Blood Gas HCO3 25 meg/L (19-24); iSTAT Arterial Blood Gas pCO2 45 mmHg (35-46); iSTAT Arterial Blood Gas pH 7.35 (7.35-7.45); iSTAT Arterial Blood Gas pO2 76 mmHg (80-95); iSTAT Carbon Dioxide 26 mmol/L (24-31); iSTAT FiO2 50 %; iSTAT Site Art Line
[2020-07-23] MEDS: PIPERACILLIN/TAZOBACTAM 3.375 GM in DEXTROSE 5% 100 ML IV SCH ×4 (04:33→20:59)
[2020-07-23] MEDS: propofoL 1,000 MG/100 ML VIAL IV SCH ×6 (05:00→19:46)
[2020-07-23] MEDS: fentaNYL DRIP 1,250 MCG/250 ML BAG IV SCH ×2 (06:02→19:46)
[2020-07-23] MEDS: NORMOSOL-R 1,000 ML IV SCH (06:02)
[2020-07-23 06:55] LABS: Basophils # (auto) 0.01 K/uL (0-0.2); Basophils % (auto) 0.1 %; Eosinophils % (auto) 2.5 %; Hematocrit (blood only) 39.5 % (42-52); Hemoglobin 13.9 g/dL (14.0-18.0); Immature Granulocytes # (auto) 0.06 K/uL (0.00-0.02); Immature Granulocytes % (auto) 0.4 %; Lymphocytes # (auto) 0.58 K/uL (1.2-3.4); Lymphocytes % (auto) 3.6 %; Mean Corpuscular Hemoglobin 29.4 pg (25-34); Mean Corpuscular Hgb Conc 35.2 g/dL (32-36); Mean Corpuscular Volume 83.5 fL (80-100); Mean Platelet Volume 11.4 fL (7.4-10.4); Monocytes # (auto) 0.33 K/uL (0.11-0.59); Monocytes % (auto) 2.1 %; Neutrophils # (auto) 14.58 K/uL (1.4-6.5); Neutrophils % (auto) 91.3 %; Platelet Count 239 K/uL (130-400); RDW Coefficient of Variation 13.3 % (11.5-14.5); RDW Standard Deviation 40.2 fL (36.4-46.3); Red Blood Count 4.73 M/uL (4.7-6.1); White Blood Count 15.96 K/uL (4.8-10.8)
[2020-07-23 07:23] LABS: Albumin Level 2.4 gm/dl (3.4-5.0); BUN Creatinine Ratio 41.5 (10-20); Calcium 7.9 mg/dl (8.5-10.1); Creatinine Clr Calc Pharmacy 42.6 ml/min; Est GFR (African American) 49.5; Est GFR (Non-African American) 42.7
[2020-07-23 07:25] LABS: Albumin Globulin Ratio 0.9 (0.9-2); Globulin 2.7 gm/dl (2.5-4.0); Phosphorus 5.8 mg/dl (2.5-4.9); Total Protein 5.1 gm/dl (6.4-8.2)
[2020-07-23] MEDS: dexAMETHasone 6 MG in SYRINGE 0 ML IV SCH (08:02)
[2020-07-23] MEDS: ENOXAPARIN INJ 40 MG/0.4 ML SYR SQ SCH (08:02)
[2020-07-23] MEDS: PANTOprazole 40 MG in SYRINGE 0 ML IV SCH ×2 (08:02→20:50)
[2020-07-23] MEDS: ATORVASTATIN 40 MG TAB PO SCH (08:03)
[2020-07-23] MEDS: INSULIN HUMAN NPH SC SCH ×2 (08:17→16:58)
[2020-07-23] MEDS: ASPIRIN 81 MG CHEW PO SCH (08:42)
--- NOTE | 2020-07-23 09:13 | XRay Report ---
XR chest 1V portable CLINICAL HISTORY: Respiratory failure. COMPARISON STUDY: Chest radiograph July 22, 2020. FINDINGS: Tip of the endotracheal tube is approximately 2.6 cm above the casi. Tip of nasogastric t ube projects over the distal stomach. Left subclavian central line remains in place. There is no pneu mothorax. Extensive bilateral airspace opacities have slightly increased. Cardiac mediastinal silhoue tte is stable. There may be a trace left pleural effusion. IMPRESSION: 1. Satisfactory positioning of lines and tubes. 2. Slight progression of extensive bilateral airspace opacities suggestive of pneumonia. ACT 112: Negative or not required by law. Electronically signed by: Kolton Wilson M.D. 07/23/2020 9:12 AM
[2020-07-23] MEDS: POLYETHYLENE (MIRALAX) 17 GM PACK PO PRN (09:59)
[2020-07-23] MEDS: ACETAMINOPHEN 1,000 MG/100 ML VIAL IV PRN (13:11)
--- NOTE | 2020-07-23 13:29 | Critical Care Progress Note ---
Date of Service July 23, 2020 Assessment & Plan (1) COVID-19: Impression: 70-year-old male admitted 07/15 with Covid pneumonia. Recommendations: 1. Neurologic: Continue sedation with propofol and fentanyl. Versed has been weaned off. 2. Cardiovascular: Shock has resolved. Levophed has been weaned off. Continue aspirin and Lipitor. 3. Pulmonary: Acute hypoxemic respiratory failure. Continue ARDSnet protocol. Wean O2 and PEEP as able. 4. GI: Ileus likely related to COVID-19. Possible enteritis. Surgery consult appreciated. Continue NG tube to low intermittent suction. We will start MiraLAX today. LFTs have improved. 5. ID: Continue dexamethasone for Covid pneumonia. Continue Zosyn empirically. 6. Renal: JENNIFER improved. Likely related to contrast nephropathy COVID-19. Discontinue Normosol. Creatinine 1.59. Baseline is near 1.15. 7. Endocrine: Glycemic control per ICU protocol. 8. Heme-onc: Hemoglobin is stable. Continue Lovenox 40 mg daily. CRITICAL CARE TIME - I have personally spent 32 minutes of critical care time in the direct management of this patient. This is a life/limb threatening event. This includes time spent evaluating patient, direct bedside care, chart review, placing orders, interpretation of diagnostic studies, discussion with consultants, patient, and family members, as well as other required patient management activities. This time is exclusive of all separately billable procedures, and teaching time and separate from and in addition to any other critical care service time. (2) Multifocal pneumonia: (3) Acute respiratory failure with hypoxia: (4) Lactic acidosis: (5) Septic shock: (6) Ileus: Admission and Anticipated Discharge Date Admission Date: July 15, 2020 Subjective Patient seen and examined this morning. He is currently intubated and sedated. Unable to participate in the review of systems. Discussed with bedside nursing, respiratory therapy and discussed on multidisciplinary rounds. Physical Exam Constitutional: + ill appearing Intubated and sedated Eyes: PERRL, conjunctivae normal, anicteric sclerae ENMT: external ear and nose normal, oropharynx normal Respiratory: + tachypneic Coarse breath sounds on the ventilator. Cardiovascular: RRR, no murmur, no edema Gastrointestinal (Abdomen): Tender. Distended. Tympanic. Musculoskeletal: no cyanosis or clubbing, extremities motor strength 5/5 Skin: no rashes, warm and dry Neurologic: Not following commands. Moves limbs spontaneously. Psychiatric: Unable to assess due to intubation status. Results & Data Results & Data ([facility]) Vital Signs (Past 12 Hours) Vital Signs Temp Pulse Resp BP Pulse Ox 07/23/20 13:18 99.7 F H 92 H 117/65 91 07/23/20 13:00 99.7 F H 97 H 90 07/23/20 12:30 99.7 F H 96 H 89 L 07/23/20 12:17 99.7 F H 98 H 102/75 92 07/23/20 12:00 99.5 F 97 H 100/85 92 07/23/20 11:37 98 H 22 93 07/23/20 11:30 99.5 F 98 H 93 07/23/20 11:17 99.5 F 100 H 111/73 92 07/23/20 11:00 99.3 F 97 H 90 07/23/20 10:30 99.3 F 94 H 88 L 07/23/20 10:18 99.3 F 93 H 104/79 90 07/23/20 10:00 99.3 F 97 H 88 L 07/23/20 09:30 99.1 F 95 H 88 L 07/23/20 09:17 99.1 F 93 H 103/67 89 L 07/23/20 09:00 99.1 F 95 H 88 L 07/23/20 08:30 99.0 F 93 H 24 89 L 07/23/20 08:18 99.0 F 96 H 95/68 L 86 L 07/23/20 08:00 99.0 F 91 H 92 07/23/20 07:30 99.0 F 90 91 07/23/20 07:18 99.0 F 91 H 107/67 91 07/23/20 07:00 99.0 F 92 H 90 07/23/20 06:30 99.0 F 91 H 92 07/23/20 06:17 99.0 F 92 H 107/68 92 07/23/20 06:00 99.0 F 93 H 24 107/68 92 07/23/20 05:30 99.0 F 93 H 24 90 07/23/20 05:00 99.0 F 94 H 24 104/68 91 07/23/20 04:30 99.0 F 92 H 24 90 07/23/20 04:00 98.8 F 93 H 24 96/67 L 91 07/23/20 03:55 94 H 24 91 07/23/20 03:30 99.0 F 96 H 24 94 07/23/20 03:00 98.8 F 98 H 24 98/69 L 93 07/23/20 02:30 98.8 F 98 H 24 91 07/23/20 02:00 98.6 F 97 H 25 H 94/77 L 92 07/23/20 01:30 98.4 F 97 H 26 H 92 I reviewed vital signs, labs and imaging Coding Level of Care Code Critical Care 1st 30-74 mins Diagnoses COVID-19 U07.1 Multifocal pneumonia J18.9 Acute respiratory failure with hypoxia J96.01 Lactic acidosis E87.2 Septic shock A41.9; R65.21 Ileus K56.7 Time Spent (min) 32
--- NOTE | 2020-07-23 23:33 | Hospitalist Progress Note ---
Date of Service July 23, 2020 Assessment & Plan (1) COVID-19: Covid-19 pneumonia with acute hypoxemic respiratory failure. Approximately one week of symptoms prior to presentation. - Dexamethasone 6 mg IV every morning (End date: 07/26/2020) - Remdesivir IV per protocol finished on 07/19/2020 - antibiotic coverage with ceftriaxone and azithromycin (End date: 07/20/2020 for 5-day course) - received tocilizumab - Continue Duonebs standing and PRN - Continue guaifenesin patient intubated on 07/21/20 for worsening respiratory failure, distress after about one week of high flow, CPAP management per ICU sedated with Fentanyl, Propofol continue to work towards SBT and weaning from ventilator (2) Abdominal distention: CT scan of abd pelvis was completed.No signs of ischemic bowel, only ileus, enteritis NG tube is placed, continue low intermittent suction Zosyn IV appreciate surgical consult, conservative management WBC is 15k (3) Controlled diabetes mellitus with neurologic complication, with long-term current use of insulin: A1c was 8.2% this admission. - Hold metformin and liraglutide. - Glycemic pharmacist consult as his sugars will be very volatile with breathing issues, steroids, and possibly even intubation. (4) CKD (chronic kidney disease) stage 3, GFR 30-59 ml/min: Cr up to 1.8 on 07/22, this is JENNIFER, could be from contrast, poor perfusion down to 1.59 with Normosol IV follow UO via jenkins repeat BMP in AM (5) Hyponatremia: Na was 129 on admission. Up to normal now (6) Dyslipidemia: - Continue atorvastatin 80 mg daily (7) DVT prophylaxis: Lovenox 40 mg SQ daily -> Normally would do intermediate-dosing, but his CrCl is right on the cusp at 50 mL/min, and Q12h would increase bleeding risk. He is also on ASA 81 mg PO daily which may reduce risk of VTE as well. Admission and Anticipated Discharge Date Admission Date: July 15, 2020 Subjective patient remains intubated, management per ICU reviewed labs spoke with RN at the bedside, no major changes Review of Systems Review of Systems: Unobtainable due to endotracheal tube Physical Exam Constitutional: + mechanically ventilated; no acute distress Neck: trachea midline, no thyromegaly Respiratory: symmetric chest movement; no respiratory distress Auscultation: lungs clear to auscultation bilaterally Cardiovascular: Rate/Rhythm: regular rhythm and + tachycardic Heart Sounds: normal S1 and normal S2; no murmur Vessels: no JVD Extremities: normal capillary refill; no edema Gastrointestinal (Abdomen): Inspection/Auscultation: + abdomen distended and + hypoactive bowel sounds Percussion/Palpation: + abdomen tender (slightly, diffse) and abdomen soft; no hepatosplenomegaly Musculoskeletal: Head/Neck/Chest: normocephalic, head atraumatic and neck supple Extremities: extremities normal to inspection; no cyanosis, no clubbing and no petechiae Skin: no rashes, warm and dry Neurologic: + obtunded; no focal motor deficits Results & Data Results & Data ([facility]) Vital Signs (Past 12 Hours) Vital Signs Temp Pulse Resp BP Pulse Ox 07/23/20 23:13 95 H 23 92 07/23/20 23:00 37.5 C 96 H 92 07/23/20 22:18 37.4 C 97 H 106/67 92 07/23/20 22:00 37.4 C 99 H 92 07/23/20 21:18 37.5 C 96 H 91/67 L 91 07/23/20 21:00 37.5 C 95 H 92 07/23/20 20:19 98 H 23 90 07/23/20 20:18 37.5 C 97 H 110/79 93 07/23/20 20:00 37.5 C 96 H 93 07/23/20 19:30 37.5 C 95 H 92 07/23/20 19:18 37.5 C 96 H 106/73 92 07/23/20 19:00 37.5 C 95 H 93 07/23/20 18:30 37.5 C 96 H 93 07/23/20 18:18 37.5 C 96 H 102/69 92 07/23/20 18:00 37.6 C H 97 H 92 07/23/20 17:30 37.6 C H 98 H 91 07/23/20 17:18 37.6 C H 97 H 107/68 91 07/23/20 17:00 37.6 C H 99 H 91 07/23/20 16:30 37.6 C H 97 H 90 07/23/20 16:18 37.6 C H 94 H 91/66 L 90 07/23/20 16:00 37.6 C H 94 H 90 07/23/20 15:30 37.6 C H 93 H 90 07/23/20 15:18 37.6 C H 92 H 98/64 L 91 07/23/20 15:15 93 H 23 91 07/23/20 15:00 37.6 C H 96 H 89 L 07/23/20 14:30 37.6 C H 98 H 90 07/23/20 14:19 37.6 C H 94 H 90 07/23/20 14:18 37.6 C H 96 H 97/66 L 91 07/23/20 14:00 37.6 C H 96 H 90 07/23/20 13:30 37.6 C H 93 H 91 07/23/20 13:19 37.6 C H 92 H 89 L 07/23/20 13:18 37.6 C H 92 H 117/65 91 07/23/20 13:00 37.6 C H 97 H 90 07/23/20 12:30 37.6 C H 96 H 89 L 07/23/20 12:17 37.6 C H 98 H 102/75 92 07/23/20 12:00 37.5 C 97 H 100/85 92 07/23/20 11:37 98 H 22 93 Laboratory Results Laboratory Results - last 24 hr 07/23/20 07/23/20 07/23/20 00:06 04:03 05:57 WBC RBC Hgb Hct MCV MCH MCHC RDW Std Deviation RDW Coeff of Madonna Plt Count MPV Immature Gran % (Auto) Neut % (Auto) Lymph % (Auto) Stevens % (Auto) Eos % (Auto) Baso % (Auto) Neut # (Auto) Lymph # (Auto) Stevens # (Auto) Eos # (Auto) Baso # (Auto) Immature Gran # (Auto) Sample Site Art Line POC pH 7.35 POC pCO2 45 POC pO2 76 L POC HCO3 25 H POC Total CO2 26 POC Base Excess -1.0 POC ABG O2 Sat 94.0 Matt Test NA O2 Delivery Device Ventilator POC O2 Rate 24 POC FiO2 50 Tidal Volume 380 PEEP 14 Sodium Potassium Chloride Carbon Dioxide Anion Gap BUN Creatinine Est Cr Clr Drug Dosing Est GFR ( Amer) Est GFR (Non-Af Amer) BUN/Creatinine Ratio Glucose POC Glucose 200 H 172 H Calcium Phosphorus Magnesium Total Bilirubin AST ALT Alkaline Phosphatase Total Protein Albumin Globulin Albumin/Globulin Ratio 07/23/20 07/23/20 07/23/20 06:30 06:30 11:47 WBC 15.96 H RBC 4.73 Hgb 13.9 L Hct 39.5 L MCV 83.5 MCH 29.4 MCHC 35.2 RDW Std Deviation 40.2 RDW Coeff of Madonna 13.3 Plt Count 239 MPV 11.4 H Immature Gran % (Auto) 0.4 Neut % (Auto) 91.3 Lymph % (Auto) 3.6 Stevens % (Auto) 2.1 Eos % (Auto) 2.5 Baso % (Auto) 0.1 Neut # (Auto) 14.58 H Lymph # (Auto) 0.58 L Stevens # (Auto) 0.33 Eos # (Auto) 0.40 Baso # (Auto) 0.01 Immature Gran # (Auto) 0.06 H Sample Site POC pH POC pCO2 POC pO2 POC HCO3 POC Total CO2 POC Base Excess POC ABG O2 Sat Matt Test O2 Delivery Device POC O2 Rate POC FiO2 Tidal Volume PEEP Sodium 135 L Potassium 5.0 Chloride 106 Carbon Dioxide 22 Anion Gap 8.0 BUN 66 H Creatinine 1.59 H Est Cr Clr Drug Dosing 42.6 Est GFR ( Amer) 49.5 Est GFR (Non-Af Amer) 42.7 BUN/Creatinine Ratio 41.5 H Glucose 175 H POC Glucose 144 H Calcium 7.9 L Phosphorus 5.8 H Magnesium 3.0 H Total Bilirubin 1.0 AST 45 H ALT 33 Alkaline Phosphatase 91 Total Protein 5.1 L Albumin 2.4 L Globulin 2.7 Albumin/Globulin Ratio 0.9 07/23/20 07/23/20 16:32 20:39 WBC RBC Hgb Hct MCV MCH MCHC RDW Std Deviation RDW Coeff of Madonna Plt Count MPV Immature Gran % (Auto) Neut % (Auto) Lymph % (Auto) Stevens % (Auto) Eos % (Auto) Baso % (Auto) Neut # (Auto) Lymph # (Auto) Stevens # (Auto) Eos # (Auto) Baso # (Auto) Immature Gran # (Auto) Sample Site POC pH POC pCO2 POC pO2 POC HCO3 POC Total CO2 POC Base Excess POC ABG O2 Sat Matt Test O2 Delivery Device POC O2 Rate POC FiO2 Tidal Volume PEEP Sodium Potassium Chloride Carbon Dioxide Anion Gap BUN Creatinine Est Cr Clr Drug Dosing Est GFR ( Amer) Est GFR (Non-Af Amer) BUN/Creatinine Ratio Glucose POC Glucose 177 H 124 H Calcium Phosphorus Magnesium Total Bilirubin AST ALT Alkaline Phosphatase Total Protein Albumin Globulin Albumin/Globulin Ratio Medications Administered Current Inpatient Medications Acetaminophen (Acetaminophen Susp 325 Mg/10.15 Ml Udc) 650 mg OG Q6H PRN PRN Reason: Pain or Fever Stop: 08/20/20 14:42 Last Admin: 07/21/20 23:54 Dose: 650 mg Documented by: Albuterol (Albut/Ipratrop 3mg/0.5mg Neb 3 Ml Vial) 3 ml NEB Q4R PRN PRN Reason: Shortness Of Breath Or Wheezing Stop: 08/15/20 14:28 Last Admin: 07/18/20 04:14 Dose: 3 ml Documented by: Aspirin (Aspirin 81 Mg Chew) 81 mg PO DAILY RUSSEL Stop: 08/22/20 08:59 Last Admin: 07/23/20 08:42 Dose: 81 mg Documented by: Atorvastatin Calcium (Atorvastatin 40 Mg Tab) 80 mg PO DAILY RUSSEL Stop: 08/15/20 08:59 Last Admin: 07/23/20 08:03 Dose: 80 mg Documented by: Dextrose (Dextrose 50% 50 Ml Syringe) 25 - 50 ml IV UD PRN; Protocol PRN Reason: Hypoglycemia Protocol Stop: 08/14/20 22:50 Enoxaparin Sodium (Enoxaparin Inj 40 Mg/0.4 Ml Syr) 40 mg SQ QAM RUSSEL Stop: 08/15/20 14:59 Last Admin: 07/23/20 08:02 Dose: 40 mg Documented by: Fentanyl Citrate (Fentanyl Bolus From Bag) 50 mcg IV Q60M PRN PRN Reason: Pain or Agitation Stop: 08/04/20 12:26 Last Admin: 07/22/20 10:30 Dose: 25 mcg Documented by: Glucagon (Glucagon For Inj 1 Mg Vial) 1 mg SQ UD PRN; Protocol PRN Reason: Hypoglycemia Protocol Stop: 08/14/20 22:50 Glucose (Glucose 10 Tabs/Tube) 4 - 8 tabs PO UD PRN; Protocol PRN Reason: Hypoglycemia Protocol Stop: 08/14/20 22:50 Glucose (Glucose 40% Gel 15 Gm Tube) 15 - 30 gm PO UD PRN; Protocol PRN Reason: Hypoglycemia Protocol Stop: 08/14/20 22:50 Guaifenesin (Guaifenesin 600 Mg Tabcr) 600 mg PO Q12 RUSSEL Stop: 08/14/20 22:50 Last Admin: 07/22/20 11:42 Dose: Not Given Documented by: Dexamethasone 6 mg/ Syringe 1.5 mls @ 1 mls/min IV Q24H RUSSEL Stop: 07/26/20 08:59 Last Admin: 07/23/20 08:02 Dose: 1 mls/min Documented by: Propofol (Diprivan) 1,000 mg in 100 mls @ 14.292 mls/hr IV .Q7H RUSSEL; Protocol Stop: 07/24/20 12:14 Last Admin: 07/23/20 19:46 Dose: 30 mcg/kg/min, 14.3 mls/hr Documented by: Fentanyl Citrate (Fentanyl Drip) 1,250 mcg in 250 mls @ 20 mls/hr IV .[id number] RUSSEL; Protocol Stop: 08/04/20 12:29 Last Admin: 07/23/20 19:46 Dose: 100 mcg/hr, 20 mls/hr Documented by: Pantoprazole Sodium 40 mg/ (Syringe) 10 mls @ 5 mls/min IV BID [facility] Stop: 08/21/20 10:44 Last Admin: 07/23/20 20:50 Dose: 5 mls/min Documented by: Piperacillin Sod/Tazobactam (Sod 3.375 gm/ Dextrose) 115 mls @ 28.75 mls/hr IV Q8H RUSSEL; Protocol Stop: 07/24/20 20:59 Last Admin: 07/23/20 20:59 Dose: 28.8 mls/hr Documented by: Acetaminophen (Ofirmev) 1,000 mg in 100 mls @ 400 mls/hr IV Q8H PRN PRN Reason: Fever Stop: 07/25/20 13:05 Last Infusion: 07/23/20 13:29 Dose: Infused Documented by: Insulin Aspart (Insulin Aspart 100 Units/Ml 3 Ml Pen) 0 units SC Q6 RUSSEL; Protocol Stop: 08/20/20 17:59 Last Admin: 07/23/20 16:58 Dose: 4 units Documented by: Insulin Human NPH (Insulin Human Nph) 22 units SC DAILY@1700 RUSSEL; Protocol Stop: 08/19/20 16:59 Last Admin: 07/23/20 16:58 Dose: 22 units Documented by: Insulin Human NPH (Insulin Human Nph) 35 units SC DAILY@0900 [facility]; Protocol Stop: 08/22/20 08:59 Last Admin: 07/23/20 08:17 Dose: 35 units Documented by: Melatonin (Melatonin 3 Mg Tab) 3 mg PO HS PRN PRN Reason: Sleep Stop: 08/20/20 01:59 Last Admin: 07/21/20 02:09 Dose: 3 mg Documented by: Midazolam HCl (Midazolam Bolus From Bag) 2 mg IV Q60M PRN PRN Reason: Sedation Stop: 08/20/20 12:06 Miscellaneous (Carbohydrates For Hypoglycemia ) 15 - 30 gm PO UD PRN PRN Reason: Hypoglycemia Protocol Stop: 08/14/20 22:50 Miscellaneous Information (Pharmacy Glycemic Mgmt Consult) 1 ea N/A UD PRN PRN Reason: Consult Stop: 08/15/20 14:13 Miscellaneous Information (Piperacill/Tazobac Consult Active) 1 ea N/A UD PRN PRN Reason: Consult Stop: 08/21/20 12:55 Ondansetron HCl (Ondansetron Inj 2 Mg/Ml 2 Ml Vial) 4 mg IV Q6H PRN PRN Reason: Nausea Stop: 08/14/20 22:50 Last Admin: 07/19/20 03:39 Dose: 4 mg Documented by: Polyethylene Glycol (Polyethylene (Miralax) 17 Gm Pack) 17 gm PO DAILY PRN PRN Reason: Constipation Stop: 08/19/20 23:15 Last Admin: 07/23/20 09:59 Dose: 17 gm Documented by: Propofol (Propofol Bolus From Bag) 20 mg IV Q5M PRN PRN Reason: Sedation Stop: 07/24/20 12:06 PG Care Time/CCT Total # of Minutes Spent Total Time Spent with Patient: Total time spent is greater than 50% in coordination of care (as documented) at patient's floor/unit and/or counseling patient: Coding Level of Care Code 37786 Subseq Hosp Care Lvl 2 Diagnoses COVID-19 U07.1 Abdominal distention R14.0 Controlled diabetes mellitus with neurologic complication, with long-term current use of insulin E11.49; Z79.4 CKD (chronic kidney disease) stage 3, GFR 30-59 ml/min N18.30 Hyponatremia E87.1 Dyslipidemia E78.5 DVT prophylaxis Z29.9
[2020-07-24] MEDS: propofoL 1,000 MG/100 ML VIAL IV SCH ×3 (02:03→09:52)
[2020-07-24 04:04] LABS: iSTAT Art Bld Gas pCO2 Correct 47 mmHg (35-46); iSTAT Art Bld Gas pH Corrected 7.354 (7.35-7.45); iSTAT Arterial Blood Gas HCO3 26 meg/L (19-24); iSTAT Arterial Blood Gas pCO2 46 mmHg (35-46); iSTAT Arterial Blood Gas pH 7.36 (7.35-7.45); iSTAT Arterial Blood Gas pO2 75 mmHg (80-95); iSTAT Arterial Blood Gas pO2 C 78; iSTAT Carbon Dioxide 27 mmol/L (24-31); iSTAT FiO2 40 %; iSTAT Hematocrit 38 % (42-52); iSTAT Hemoglobin 12.9 g/dl (14.0-18.0); iSTAT Potassium 4.9 mmol/L (3.3-5.0); iSTAT Site Art Line; iSTAT Sodium 136 mmol/L (135-144)
[2020-07-24] MEDS: PIPERACILLIN/TAZOBACTAM 3.375 GM in DEXTROSE 5% 100 ML IV SCH ×2 (05:15→12:55)
[2020-07-24 05:58] LABS: Basophils # (auto) 0.01 K/uL (0-0.2); Basophils % (auto) 0.1 %; Eosinophils # (auto) 0.39 K/uL (0-0.5); Eosinophils % (auto) 2.1 %; Hematocrit (blood only) 38.5 % (42-52); Hemoglobin 13.3 g/dL (14.0-18.0); Immature Granulocytes # (auto) 0.06 K/uL (0.00-0.02); Immature Granulocytes % (auto) 0.3 %; Lymphocytes # (auto) 0.58 K/uL (1.2-3.4); Lymphocytes % (auto) 3.2 %; Mean Corpuscular Hemoglobin 28.8 pg (25-34); Mean Corpuscular Hgb Conc 34.5 g/dL (32-36); Mean Corpuscular Volume 83.3 fL (80-100); Mean Platelet Volume 11.5 fL (7.4-10.4); Monocytes % (auto) 2.8 %; Neutrophils # (auto) 16.61 K/uL (1.4-6.5); Neutrophils % (auto) 91.5 %; Platelet Count 262 K/uL (130-400); RDW Coefficient of Variation 13.3 % (11.5-14.5); RDW Standard Deviation 40.1 fL (36.4-46.3); Red Blood Count 4.62 M/uL (4.7-6.1); White Blood Count 18.15 K/uL (4.8-10.8)
[2020-07-24] MEDS: INSULIN ASPART 100 UNITS/ML 3 ML PEN SC SCH ×3 (05:59→18:06)
[2020-07-24 06:23] LABS: Albumin Level 2.4 gm/dl (3.4-5.0); BUN Creatinine Ratio 38.3 (10-20); Creatinine Clr Calc Pharmacy 39.8 ml/min; Est GFR (African American) 45.7; Est GFR (Non-African American) 39.4; Magnesium 3.2 mg/dl (1.8-2.4)
[2020-07-24 06:26] LABS: Albumin Globulin Ratio 0.8 (0.9-2); Bilirubin,Total 0.9 mg/dl (0.2-1); Phosphorus 4.6 mg/dl (2.5-4.9); Total Protein 5.4 gm/dl (6.4-8.2)
[2020-07-24] MEDS: POLYETHYLENE (MIRALAX) 17 GM PACK PO PRN (07:32)
[2020-07-24] MEDS: ENOXAPARIN INJ 40 MG/0.4 ML SYR SQ SCH (07:32)
[2020-07-24] MEDS: PANTOprazole 40 MG in SYRINGE 0 ML IV SCH (07:33)
[2020-07-24] MEDS: ATORVASTATIN 40 MG TAB PO SCH (07:33)
[2020-07-24] MEDS: dexAMETHasone 6 MG in SYRINGE 0 ML IV SCH (07:34)
[2020-07-24] MEDS: ASPIRIN 81 MG CHEW PO SCH (07:34)
[2020-07-24] MEDS: INSULIN HUMAN NPH SC SCH (07:50)
--- NOTE | 2020-07-24 08:33 | XRay Report ---
XR chest 1V portable HISTORY: Respiratory failure. COMPARISON: Chest 07/23/2020. FINDINGS: Lines and tubes remain unchanged in position. No pneumothorax. No pleural effusions. The he art remains mildly enlarged. Slight progression of bilateral airspace opacities consistent with a mul tifocal pneumonia. IMPRESSION: 1. Satisfactory support line placement. 2. Slight progression of bilateral airspace opacities consistent with a multifocal pneumonia. ACT 112: Negative or not required by law. Electronically signed by: Vicente Mejia M.D. 07/24/2020 8:32 AM
[2020-07-24] MEDS: fentaNYL DRIP 1,250 MCG/250 ML BAG IV SCH (09:53)
--- NOTE | 2020-07-24 11:22 | Critical Care Progress Note ---
Date of Service July 24, 2020 Assessment & Plan (1) COVID-19: Impression: 70-year-old male admitted 4/5 with Covid pneumonia. Recommendations: 1. Neurologic: Continue to wean as able. 2. Cardiovascular: Shock has resolved. Levophed has been weaned off. Continue aspirin and Lipitor. 3. Pulmonary: Acute hypoxemic respiratory failure. Continue ARDSnet protocol. Wean O2 and PEEP as able. 4. GI: Ileus likely related to COVID-19. Possible enteritis. Surgery consult appreciated. Continue NG tube to low intermittent suction. Continue MiraLAX. Will check triglyceride level and lipase today. Will check KUB. 5. ID: Continue dexamethasone for Covid pneumonia. Continue Zosyn empirically. 6. Renal: Continues with JENNIFER. Creatinine 1.70. We will continue to trend and follow urine output. Likely related to contrast nephropathy and COVID-19. 7. Endocrine: Glycemic control per ICU protocol. 8. Heme-onc: Hemoglobin is stable. Continue Lovenox 40 mg daily. CRITICAL CARE TIME - I have personally spent 30 minutes of critical care time in the direct management of this patient. This is a life/limb threatening event. This includes time spent evaluating patient, direct bedside care, chart review, placing orders, interpretation of diagnostic studies, discussion with consultants, patient, and family members, as well as other required patient management activities. This time is exclusive of all separately billable procedures, and teaching time and separate from and in addition to any other critical care service time. (2) Multifocal pneumonia: (3) Acute respiratory failure with hypoxia: (4) Lactic acidosis: (5) Septic shock: (6) Ileus: (7) JENNIFER (acute kidney injury): Admission and Anticipated Discharge Date Admission Date: July 15, 2020 Subjective We are able to wean sedation further today with propofol and fentanyl. Patient is moving limbs spontaneously. He grimaces to pain when his abdomen is palpated. His art line was inadvertently removed when he was being cleaned. He is hemodynamically stable. Remains on the ventilator. Review of Systems Review of Systems: Unobtainable due to cognitive status and Unobtainable due to endotracheal tube Physical Exam Constitutional: + ill appearing Intubated and sedated Eyes: PERRL, conjunctivae normal, anicteric sclerae ENMT: external ear and nose normal, oropharynx normal Respiratory: + tachypneic Coarse breath sounds on the ventilator. Cardiovascular: RRR, no murmur, no edema Gastrointestinal (Abdomen): Tender. Distended. Tympanic. Musculoskeletal: no cyanosis or clubbing, extremities motor strength 5/5 Skin: no rashes, warm and dry Neurologic: Not following commands. Moves limbs spontaneously. Psychiatric: Unable to assess due to intubation status. Results & Data Results & Data ([facility]) Vital Signs (Past 12 Hours) Vital Signs Temp Pulse Resp BP Pulse Ox 07/24/20 11:00 99.5 F 111 H 91 07/24/20 10:58 108 H 28 H 91 07/24/20 10:55 99.5 F 107 H 122/84 91 07/24/20 10:30 99.5 F 104 H 91 07/24/20 10:02 99.3 F 102 H 123/81 89 L 07/24/20 10:00 99.3 F 101 H 88 L 07/24/20 09:30 99.3 F 96 H 90 07/24/20 09:29 96 H 90 07/24/20 09:18 99.1 F 97 H 106/65 91 07/24/20 09:00 99.1 F 99 H 90 07/24/20 08:32 96 H 89 L 07/24/20 08:30 99.1 F 101 H 92 07/24/20 08:18 99.1 F 97 H 104/65 92 07/24/20 08:02 93 H 25 H 89 L 07/24/20 08:00 99.1 F 95 H 97 07/24/20 07:30 99.3 F 94 H 91 07/24/20 07:18 99.3 F 92 H 103/68 91 07/24/20 07:00 99.3 F 94 H 90 07/24/20 06:30 99.5 F 93 H 91 07/24/20 06:18 99.7 F H 94 H 113/81 91 07/24/20 06:00 99.5 F 96 H 90 07/24/20 05:18 99.5 F 96 H 96/68 L 91 07/24/20 05:00 99.5 F 90 91 07/24/20 04:18 99.5 F 93 H 105/69 92 07/24/20 04:00 99.5 F 90 92 07/24/20 03:30 94 H 23 91 07/24/20 03:18 99.7 F H 92 H 106/61 91 07/24/20 03:00 99.7 F H 95 H 91 07/24/20 02:18 99.7 F H 94 H 101/64 91 07/24/20 02:00 99.5 F 98 H 90 07/24/20 01:18 99.5 F 96 H 100/69 93 07/24/20 01:00 99.5 F 96 H 92 07/24/20 00:30 99.5 F 96 H 92 07/24/20 00:19 99.5 F 94 H 92 07/24/20 00:18 99.5 F 94 H 121/66 93 07/24/20 00:00 99.5 F 96 H 93 Reviewed vital signs, labs and imaging Coding Level of Care Code Critical Care 1st 30-74 mins Diagnoses COVID-19 U07.1 Multifocal pneumonia J18.9 Acute respiratory failure with hypoxia J96.01 Lactic acidosis E87.2 Septic shock A41.9; R65.21 Ileus K56.7 JENNIFER (acute kidney injury) N17.9 Time Spent (min) 30
[2020-07-24 12:14] LABS: Lipase 296 U/L (73-393); Triglycerides 304 mg/dl (0-150)
--- NOTE | 2020-07-24 12:42 | XRay Report ---
KUB CLINICAL HISTORY: Ileus. FINDINGS: An AP, portable, supine abdominal radiograph is compared to study dated 07/22/2020 and corre lated with abdominal CT dated 07/21/2020. Enteric contrast projects over the stomach. Enteric contrast is noted within the small bowel loops. There is persistent dilatation of the small bowel loops which measure up to 3.4 cm. Gas is noted within the colon. The skeletal structures are osteopenic and appe ar intact. Advanced lumbosacral spondylosis is observed. IMPRESSION: There is persistent gaseous distention of the small bowel loops and colon. The appearance favors ileus. Low-grade bowel obstruction is not excluded and clinical correlation will be required. Electronically signed by: Morris Coombs M.D. 07/24/2020 12:40 PM
--- NOTE | 2020-07-24 14:50 | Pharmacy Report ---
Pharmacy Glycemic Short Note 2 - Date of Service July 24, 2020 - Glycemic Short BSG Results (Last 24 hours): 07/23/20 07/23/20 07/23/20 16:32 20:39 23:51 Glucose POC Glucose 177 H 124 H 93 07/24/20 07/24/20 07/24/20 05:32 05:58 12:19 Glucose 103 H POC Glucose 117 H 74 OUTPATIENT ANTIDIABETIC REGIMEN: * NPH 37 units SQ qPM * Humalog insulin, ~25 units prior to meals (unless low carb meal, then skip) * information obtained from outpt DM provider's notes * Victoza 1.8mg SQ daily * Metformin 1gm PO BID * HbA1c: 8.2% (07/16/20) ASSESSMENT: 07/22: * BSGs very well controlled yesterday on 66 units of insulin (57 of which were NPH) * Fasting and postprandial BSGs downtrending today. Will hold evening dose of [employer] and loosen novolog scale * Patient remains NPO and on steroids. 07/21 * Patient received total of 85 units of insulin yesterday, of which 52 units were basal insulin * BSGs trending up throughout the day, however PO intake still poor - unclear reasoning for elevated BSGs at dinner time as his BSGs have been relatively stable on this dosing * Fasting BSG 118 mg/dL - plan to continue with reduced evening NPH dosing * Patient transferred to MICU around lunch time and intubated / started on pressors PLAN FOR INPATIENT GLYCEMIC CONTROL: * Hold Metformin and Victoza * Basal insulin * NPH 35 units qAM * NPH 22 units with dinner-Hold today * Bolus insulin * NovoLog per scale ACHS or Q6hrs while NPO * Goal Range: Low 110 mg/dL - High 140 mg/dL * Correction Factor: 15 mg/dL/unit * tighten: Nutritional / Prandial insulin per carb ratio of 1 unit per 3.5 grams CHO consumed PLAN FOR DISCHARGE: * pending
[2020-07-24] MEDS ORDERED: Nursing to Pharmacy Communication SCH (16:45)
[2020-07-24] MEDS ORDERED: METOPROLOL TARTRATE 1 MG/ML VIAL IV STA (18:43)
[2020-07-24] MEDS: ACETAMINOPHEN 1,000 MG/100 ML VIAL IV PRN (18:59)
[2020-07-25] MEDS: INSULIN ASPART 100 UNITS/ML 3 ML PEN SC SCH ×4 (00:07→17:11)
[2020-07-25] MEDS: ACETAMINOPHEN 1,000 MG/100 ML VIAL IV PRN ×3 (02:03→21:26)
[2020-07-25 07:22] LABS: Basophils # (auto) 0.01 K/uL (0-0.2); Eosinophils # (auto) 0.05 K/uL (0-0.5); Eosinophils % (auto) 0.2 %; Hemoglobin 13.9 g/dL (14.0-18.0); Immature Granulocytes % (auto) 0.5 %; Lymphocytes % (auto) 2.4 %; Mean Corpuscular Hemoglobin 29.1 pg (25-34); Mean Corpuscular Hgb Conc 34.8 g/dL (32-36); Mean Corpuscular Volume 83.9 fL (80-100); Mean Platelet Volume 11.3 fL (7.4-10.4); Monocytes # (auto) 0.53 K/uL (0.11-0.59); Monocytes % (auto) 2.5 %; Neutrophils % (auto) 94.4 %; Platelet Count 229 K/uL (130-400); RDW Coefficient of Variation 13.2 % (11.5-14.5); Red Blood Count 4.77 M/uL (4.7-6.1); White Blood Count 20.79 K/uL (4.8-10.8)
[2020-07-25 07:57] LABS: BUN Creatinine Ratio 38.8 (10-20); Creatinine Clr Calc Pharmacy 57.4 ml/min; Est GFR (Non-African American) 61.3; Magnesium 2.8 mg/dl (1.8-2.4); Potassium 4.8 mmol/L (3.5-5.1)
[2020-07-25 08:03] LABS: Phosphorus 2.6 mg/dl (2.5-4.9)
--- NOTE | 2020-07-25 08:40 | XRay Report ---
SINGLE VIEW CHEST CLINICAL HISTORY: Respiratory failure. FINDINGS: An AP, portable, upright chest radiograph is compared to study dated 07/24/2020 and correlat ed with chest CT dated 07/15/2020. The examination is degraded by portable technique and patient rotati on. Endotracheal and enteric tubes have been removed. A left subclavian central venous catheter is in place. The cardiomediastinal silhouette is unremarkable. Multifocal airspace consolidation is again seen throughout both lungs, and has not significantly changed from yesterday. Small pleural effusions are suspected. No pneumothorax is seen. The skeletal structures are osteopenic. There are healed lef t-sided rib fractures. IMPRESSION: 1. Endotracheal and enteric tubes have been removed. 2. Findings of multifocal airspace consolidation and small pleural effusions have not significantly c hanged from yesterday. ACT 112: Negative or not required by law. Electronically signed by: Morris Coombs M.D. 07/25/2020 8:38 AM
[2020-07-25] MEDS: ATORVASTATIN 40 MG TAB PO SCH (08:44)
[2020-07-25] MEDS: ASPIRIN 81 MG CHEW PO SCH (08:44)
[2020-07-25] MEDS: dexAMETHasone 6 MG in SYRINGE 0 ML IV SCH (08:45)
[2020-07-25] MEDS: PANTOprazole 40 MG in SYRINGE 0 ML IV SCH (08:45)
[2020-07-25] MEDS: ENOXAPARIN INJ 40 MG/0.4 ML SYR SQ SCH (08:45)
[2020-07-25] MEDS: INSULIN HUMAN NPH SC SCH (08:46)
[2020-07-25] MEDS ORDERED: STAT IV Infusion **Titration per Protocol STA ×5 (11:10→22:01)
--- NOTE | 2020-07-25 11:23 | Critical Care Progress Note ---
Date of Service July 25, 2020 Assessment & Plan (1) COVID-19: Impression: 70-year-old male admitted 07/15 with Covid pneumonia and now found to have an ileus. Recommendations: 1. Neurologic: Continues with altered mental status. Likely metabolic encephalopathy. 2. Cardiovascular: Shock has resolved. Levophed has been weaned off. Continue aspirin and Lipitor. 3. Pulmonary: Severe COVID-19 pneumonitis. Self extubated on 07/24/2020. Currently on high flow nasal cannula. Continue to monitor. 4. GI: Ileus likely related to COVID-19. Possible enteritis. He pulled out his NG tube yesterday. We will touch base with surgery and obtain a CT abdomen/pelvis to follow-up on the previously seen findings. Abdomen is very tense today. Will replace the NG tube after adequate sedation with Precedex and restraints were placed. Lipase 07/24/20 was 296. Triglycerides were elevated 30 4. He is off propofol currently. 5. ID: Continue dexamethasone for Covid pneumonia. Empiric Zosyn was discontinued. He did receive several doses of meropenem previous to the Zosyn. White count is increased to 20,000 today. We will check procalcitonin. Blood cultures from 07/22/2020 with gram-positive cocci in clusters. We will repeat blood cultures today. Possible contaminant. MRSA screen was negative on 07/21/2020. 6. Renal: JENNIFER is improved today. 7. Endocrine: Glycemic control per ICU protocol. 8. Heme-onc: Hemoglobin is stable. Continue Lovenox 40 mg daily. CRITICAL CARE TIME - I have personally spent 34 minutes of critical care time in the direct management of this patient. This is a life/limb threatening event. This includes time spent evaluating patient, direct bedside care, chart review, placing orders, interpretation of diagnostic studies, discussion with consultants, patient, and family members, as well as other required patient management activities. This time is exclusive of all separately billable procedures, and teaching time and separate from and in addition to any other critical care service time. (2) Multifocal pneumonia: (3) Acute respiratory failure with hypoxia: (4) Lactic acidosis: (5) Septic shock: (6) Ileus: (7) JENNIFER (acute kidney injury): Admission and Anticipated Discharge Date Admission Date: July 15, 2020 Subjective Patient is currently on high flow nasal cannula. He does not really respond to commands. He does wince to pain and try to push my arm away when pressing on his abdomen. He has had no bowel movements overnight. Currently has a low- grade fever of 100.2. He appears mildly tachypneic. Unable to obtain full review of systems given altered mental status. Physical Exam Constitutional: Currently on high flow nasal cannula. Appears uncomfortable. Eyes: PERRL, conjunctivae normal, anicteric sclerae ENMT: external ear and nose normal, oropharynx normal Respiratory: + tachypneic Diminished lung sounds bilaterally. Cardiovascular: RRR, no murmur, no edema Gastrointestinal (Abdomen): Percussion/Palpation: + abdomen tender, + guarding, + abdomen rigid and + tympanic to percussion Musculoskeletal: no cyanosis or clubbing, extremities motor strength 5/5 Skin: no rashes, warm and dry Neurologic: Not following commands. Moves limbs spontaneously. Psychiatric: Unable to assess due due to altered mental status Results & Data Results & Data ([facility]) Vital Signs (Past 12 Hours) Vital Signs Temp Pulse Pulse Resp BP Pulse Ox 07/25/20 11:00 100.2 F H 123 H 36 H 91 07/25/20 10:56 100.2 F H 124 H 36 H 153/97 H 91 07/25/20 10:45 123 H 22 90 07/25/20 10:00 100.2 F H 126 H 39 H 89 L 07/25/20 09:56 100.2 F H 127 H 31 H 142/92 H 89 L 07/25/20 09:00 100.2 F H 120 H 37 H 154/93 H 93 07/25/20 08:56 100.2 F H 122 H 29 H 135/89 92 07/25/20 08:00 100.2 F H 124 H 32 H 91 07/25/20 07:56 100.2 F H 125 H 32 H 159/90 H 91 07/25/20 07:54 123 H 22 91 07/25/20 07:00 100.2 F H 120 H 32 H 154/93 H 92 07/25/20 06:56 100.2 F H 120 H 25 H 155/91 H 91 07/25/20 06:00 100.2 F H 117 H 23 154/93 H 93 07/25/20 05:30 100.2 F H 118 H 24 94 07/25/20 05:00 100.4 F H 118 H 20 151/83 H 92 07/25/20 04:30 100.4 F H 120 H 24 91 07/25/20 04:00 100.4 F H 118 H 22 145/81 H 94 07/25/20 03:40 117 H 21 94 07/25/20 03:30 100.4 F H 116 H 22 95 07/25/20 03:00 100.4 F H 112 H 24 153/79 H 91 07/25/20 02:30 100.4 F H 112 H 21 96 07/25/20 02:00 100.6 F H 115 H 24 157/83 H 94 07/25/20 01:30 100.6 F H 117 H 20 94 07/25/20 01:00 100.6 F H 115 H 20 148/87 H 93 07/25/20 00:30 100.6 F H 116 H 22 92 07/25/20 00:00 100.4 F H 118 H 14 158/85 H 92 07/24/20 23:30 100.4 F H 113 H 17 91 07/24/20 23:13 120 H 22 91 I reviewed the vital signs, labs and imaging Coding Level of Care Code Critical Care 1st 30-74 mins Diagnoses COVID-19 U07.1 Multifocal pneumonia J18.9 Acute respiratory failure with hypoxia J96.01 Lactic acidosis E87.2 Septic shock A41.9; R65.21 Ileus K56.7 JENNIFER (acute kidney injury) N17.9 Time Spent (min) 34
--- NOTE | 2020-07-25 13:50 | CT Scan Report ---
CT SCAN OF THE ABDOMEN AND PELVIS WITHOUT IV CONTRAST CLINICAL HISTORY: Generalized abdominal pain. COMPARISON STUDY: Abdominal CT dated 07/21/2020 TECHNIQUE: CT scan of the abdomen and pelvis is performed from the lung bases to the proximal femora. Images are reviewed in the axial, sagittal, and coronal planes. IV contrast was not administered for this examination. Note that the examination was performed in significant suboptimal fashion without oral and IV contrast. A dose lowering technique was utilized adhering to the principles of ALARA. Exa mination is severely degraded by motion artifact, and by streak artifact from the arms which could no t be elevated above the chest. CT DOSE: 1102.64 mGycm FINDINGS: Lung bases: The heart is normal in size and without pericardial effusion. The coronary arteries are d ensely calcified. Extensive confluent airspace consolidation is seen throughout the lung bases. No pl eural effusion is identified. Liver: The unenhanced liver is normal in size and contour. Liver demonstrates diffusely diminished at tenuation consistent with hepatic steatosis. Fatty sparing is seen adjacent to gallbladder fossa.. Th ere is no intrahepatic biliary ductal dilatation. Gallbladder: Mildly distended but otherwise normal in appearance. Spleen: Normal in size and attenuation. Pancreas: Unremarkable. Adrenal glands: Unremarkable. Kidneys: The unenhanced kidneys are atrophic and without hydronephrosis. There are no renal calculi i dentified. There is no evidence of contour deforming renal mass lesion. Abdominal vasculature: The abdominal aorta is normal in course and caliber noting advanced atheroscle rotic calcification. Bowel: An enteric tube terminates in the stomach. There is residual enteric contrast throughout the s mall bowel. The proximal small bowel loops are distended and fluid-filled measuring up to 4.5 cm in d iameter. There are scattered air-fluid levels. There is a gradual transition point in the distal ileu m on image #[id number]. The terminal ileum and colon are decompressed. A mildly thick-walled loop of ileum i n the right lower quadrant is again suggested on image #365. A rectal temperature probe is in place. There is moderate sigmoid diverticulosis without CT evidence of acute diverticulitis. The appendix is well-visualized and normal. Peritoneum: There is no intraperitoneal free air. There is perihepatic ascites, as well as trace free fluid in the pelvis. Lymphadenopathy: None. Pelvic viscera: The bladder is decompressed around a Rutherford catheter and cannot be evaluated. Foci of intraluminal gas are likely related to instrumentation. The prostate gland is enlarged and heterogene ous measuring 5.2 cm in transverse diameter. Skeletal structures: The skeletal structures are osteopenic. There is mild lumbosacral spondylosis. N o lytic or blastic lesions are seen. IMPRESSION: 1. Suboptimal examination without oral and IV contrast. There is also significant streak and motion a rtifact. 2. Extensive confluent airspace consolidation is again seen throughout the lung bases 3. An enteric tube, a Rutherford catheter, and a rectal temperature probe are in place. 4. The small bowel loops are distended and fluid-filled. This gradually transitions in the distal ile um to decompressed terminal ileum. The colon is also decompressed. A mildly thick-walled loop of ileu m in the right lower quadrant is again suggested. These findings are nonspecific and could represent a nonspecific enteritis and ileus. Bowel obstruction is not excluded. 5. There is a small volume of abdominopelvic ascites. 6. Additional findings as above. ACT 112: Negative or not required by law. Electronically signed by: Morris Coombs M.D. 07/25/2020 1:49 PM
[2020-07-25] MEDS: DEXMEDETOMIDINE HCL 200 MCG in SODIUM CHLORIDE 0.9% 48 ML IV SCH ×3 (14:03→20:18)
[2020-07-25] MEDS ORDERED: CEFEPIME CONSULT ACTIVE PRN (16:20)
[2020-07-25] MEDS ORDERED: METOPROLOL TARTRATE 25 MG TAB PO STA (16:22)
[2020-07-25] MEDS ORDERED: CEFEPIME 2,000 MG in SYRINGE 0 ML IV ONE (17:00)
[2020-07-25] MEDS ORDERED: INSULIN HUMAN NPH SC SCH (17:00)
[2020-07-25] MEDS: metroNIDAZOLE 500 MG/100 ML BAG IV SCH (17:18)
[2020-07-25] MEDS ORDERED: RAPID SEQUENCE INDUCTION BAG ONE (18:47)
[2020-07-25] MEDS ORDERED: PROPOFOL IV EMULSION 10 MG/ML 100 ML VIAL IV ONE (19:13)
--- NOTE | 2020-07-25 19:14 | Communication Note ---
Date of Service: July 25, 2020 1900: Was informed by attending as well as nursing staff that the patient was having increasing respiratory distress and anesthesia was called for emergent endotracheal intubation. By the time I had arrived to the unit, the patient was intubated and requiring additional sedation post procedurally. Patient remains with saturations in the 80s. He is requiring 1 her percent FiO2. Patient is tachypneic and appears diaphoretic. Orders placed for sedation as well as pressors as patient had previously required vasopressors with addition of any sedation. Arterial line was placed. Please see separate note. ABG demonstrates hypoxic respiratory failure. We will continue to titrate sedation for patient comfort. Chest x-ray consistent with COVID-19 pneumonia which does not appear to be significantly worsened. Patient received IV Lasix and orders for paralytic as the patient remained tachypneic despite appropriate sedation levels. Orders placed for labs but unfortunately, the chemistry machine of the hospital is currently down. We will continue to maintain current course. Consider CTA if persistently hypoxic despite taking control of ventilatory process patient. Otherwise, we will continue with previous course. 2109: I did call the patient's , Vera, and provide her updated. Questions were answered. She is aware that he is intubated, sedated, and on the ventilator. She is appreciative of update. I have personally spent 45 minutes of critical care time in the direct management of this patient. This is a life/limb threatening event. This includes time spent evaluating patient, direct bedside care, chart review, placing orders, interpretation of diagnostic studies, discussion with consultants, patient, and family members, as well as other required patient management activities. This time is exclusive of all separately billable procedures, and teaching time and separate from and in addition to any other critical care service time. Coding Level of Care Code Critical Care ea addt'l 30 min Time Spent (min) 45
[2020-07-25] MEDS ORDERED: NOREPINEPHRINE/D5W 8 MG/508 ML IV ONE (19:29)
--- NOTE | 2020-07-25 19:40 | Anesthesia Procedure Note ---
Anesthesia Procedure Note Intubation Note Date of procedure: 07/25/20 Indication for intubation: Failure to oxygenate and Respiratory distress Consent: Risk / Benefits Reviewed With: Emergency Monitors attached: Blood Pressure, EKG and Pulse Oximetry Premedication: Propofol (mg) (120) Paralytic medication: Succinylcholine (mg) (100) Intubation technique: Cricoid pressure Equipment: MAC (3) View: Grade 2 Endotracheal tube: Oral, 7.5, with Stylet and Tube secured @ cm (23) Attempts: 1 and Atraumatic Tube placement confirmation: auscultation (bilateral breath sounds) and Positive CO2 detection (good color change on detector) Post-procedure: Pt hemodynamically stable (gave ephedrine 10mg and phenylephrine 360oedA2 after intubation to improve blood pressure) and Post placement CXR ordered
[2020-07-25] MEDS ORDERED: PROPOFOL BOLUS FROM BAG IV PRN (19:45)
[2020-07-25] MEDS: fentaNYL DRIP 1,250 MCG/250 ML BAG IV SCH (19:45)
[2020-07-25] MEDS: propofoL 1,000 MG/100 ML VIAL IV SCH ×4 (19:45→23:09)
--- NOTE | 2020-07-25 19:47 | XRay Report ---
XR chest 1V portable HISTORY: 70 years-old Male intubation acute respiratory failure COMPARISON: Chest radiograph 07/25/2020 TECHNIQUE: Portable AP view of the chest FINDINGS: Endotracheal tube overlies the midline, 4.0 cm superior to the casi. Left subclavian central venous catheter distal tip terminates in the region of the mid SVC. Enteric tube is coiled within the stoma ch. No pneumothorax. Extensive multifocal mixed interstitial and alveolar opacities redemonstrated al miles with suggested trace pleural effusions. Stable to slightly improved aeration of the lungs. Degene rative changes of the shoulders and spine. IMPRESSION: 1. Lines and tubes as above. 2. Extensive bilateral pulmonary opacities appear stable to slightly improved from comparison. ACT 112: Negative or not required by law. The above report was generated using voice recognition software. It may contain grammatical, syntax o r spelling errors. Electronically signed by: Spenser Amaya M.D. 07/25/2020 7:46 PM
--- NOTE | 2020-07-25 19:50 | Procedure Note ---
Procedure Note Date of Service July 25, 2020 Procedure: Arterial Line Placement Attending: Dr. Ortiz APC: Joey Seymour PA-C Indication: Monitoring on Pressors Anesthesia: Lidocaine 1% Emergent consent implied in the setting of need for close hemodynamic monitoring and frequent ABGs in the setting of COVID-19 pneumonia with respiratory failure. A time-out was completed verifying correct patient, procedure, site, positioning, and implant(s) or special equipment if applicable. Allens test was performed to ensure adequate perfusion. Patients RIGHT wrist was prepped and draped in the usual sterile fashion. Ultrasound guidance was used to aid needle placement. A 20g Arrow arterial line was introduced into the RIGHT Radial jerica ry. Catheter was threaded, and the needle was removed with appropriate blood return. Good waveform was observed. The patient tolerated the procedure well. Confirmation of placement with ultrasound. Blood Loss: Minimal Complications: None Procedural Ultrasound Guidance: Procedure Date: 07/25/2020 Indication: Pressors, Frequent ABGs Attending: Dr. Ortiz APC: Joey Seymour PA-C Artery Identified: YES Line confirmed in Artery with ultrasound: YES Complications: NONE Patient tolerated procedure: WELL Coding CPT Codes Tubes, Drains, and Vasc Access - Tubes, Drains, and Vasc Access: [id number] Insertion Catheter, Artery ([id number]) [facility] [place] Procedure Codes (Charges) Tubes, Drains, and Vasc Access Procedure 2: Tubes, Drains, and Vasc Access: [id number] Insertion Catheter, Artery
[2020-07-25] MEDS ORDERED: NOREPINEPHRINE/D5W 8 MG/508 ML BAG IV SCH (20:00)
[2020-07-25] MEDS ORDERED: FUROSEMIDE 20 MG in SYRINGE 0 ML IV ONE (20:45)
[2020-07-25] MEDS ORDERED: FUROSEMIDE 40 MG/4 ML VIAL IV ONE (20:45)
[2020-07-25] MEDS: CISATRACURIUM BESYLATE 40 MG in 0.9 % SODIUM CHLORIDE 80 ML IV SCH (21:06)
[2020-07-25] MEDS: METOPROLOL TARTRATE 25 MG TAB PO SCH (21:49)
[2020-07-25] MEDS ORDERED: PHENYLEPHRINE HCL 20 MG in DEXTROSE 5% 500 ML IV SCH (22:15)
[2020-07-25] MEDS: DEXMEDETOMIDINE HCL 1,000 MCG in SODIUM CHLORIDE 0.9% 240 ML IV SCH (22:17)
--- NOTE | 2020-07-25 23:29 | Hospitalist Progress Note ---
Date of Service July 25, 2020 Assessment & Plan (1) Acute respiratory failure with hypoxia: progressed from high flow to CPAP and then intubation, ventilation he self extubated on 07/24, placed on high flow needed re-intubation on 07/25 sedation per ICU (2) Ileus: NGT to low intermittent suction (3) COVID-19: Covid-19 pneumonia with acute hypoxemic respiratory failure. Approximately one week of symptoms prior to presentation. - Dexamethasone 6 mg IV every morning (End date: 07/26/2020) - Remdesivir IV per protocol finished on 07/19/2020 - antibiotic coverage with ceftriaxone and azithromycin (End date: 07/20/2020 for 5-day course) - received tocilizumab - Continue Duonebs standing and PRN - Continue guaifenesin patient intubated on 07/21/20 for worsening respiratory failure, distress after about one week of high flow, CPAP management per ICU self extubated evening of 07/24, placed on high flow attempted to keep him calm with Precedex but respiratory status declined re-intubated on 07/[address] Ortiz (4) Abdominal distention: CT scan of abd pelvis was completed 07/21.No signs of ischemic bowel, only ileus, enteritis NG tube placed, continue low intermittent suction Zosyn IV initially but then stopped due to no clear infection appreciate surgical consult, conservative management WBC is 20k he pulled out NGT on 07/24 as well, placed new NGT on 07/[address] a/p today with enteritis and distal ileum is collapsed, colon as well cannot rule out obstruction, ileus (5) Controlled diabetes mellitus with neurologic complication, with long-term current use of insulin: A1c was 8.2% this admission. - Hold metformin and liraglutide. - Glycemic pharmacist consult as his sugars will be very volatile with breathing issues, steroids, and possibly even intubation. (6) CKD (chronic kidney disease) stage 3, GFR 30-59 ml/min: Cr up to 1.8 on 07/22, this is JENNIFER, could be from contrast, poor perfusion down to 1.1 with Normosol IV follow UO via jenkins repeat BMP in AM (7) Hyponatremia: Na was 129 on admission. Up to normal now (8) Dyslipidemia: - Continue atorvastatin 80 mg daily (9) DVT prophylaxis: Lovenox Admission and Anticipated Discharge Date Admission Date: July 15, 2020 Subjective patient self extubated later in the day yesterday, he also pulled out his NG tube placed on high flow NC repeat CT abd/pelvis today with continued enteritis, cannot rule out bowel obstruction NGT replaced, Precedex and mittens patient slowly deteriorated over the course of today, more tachycardic, more tachypneic required re-intubation by Dr. Ortiz labs reviewed, WBC 20k, hb 13, plts 229k Cr 1.1, K stable, procalcitonin 0.66 Review of Systems Review of Systems: Unobtainable due to cognitive status (sedated, confused) Physical Exam Constitutional: well developed, + ill appearing and + altered mental status; no acute distress Neck: trachea midline, no thyromegaly Respiratory: + respiratory distress, + labored breathing and + tachypneic Auscultation: lungs clear to auscultation bilaterally Cardiovascular: Rate/Rhythm: regular rhythm and + tachycardic Heart Sounds: normal S1 and normal S2; no murmur Vessels: no JVD Extremities: normal capillary refill; no edema Gastrointestinal (Abdomen): Inspection/Auscultation: + abdomen distended and + hypoactive bowel sounds Percussion/Palpation: + abdomen tender (slightly, diffuse) and abdomen soft; no hepatosplenomegaly Musculoskeletal: Head/Neck/Chest: normocephalic, head atraumatic and neck supple Extremities: extremities normal to inspection; no cyanosis, no clubbing and no petechiae Skin: no rashes, warm and dry Neurologic: + obtunded; no focal motor deficits Results & Data Results & Data ([facility]) Vital Signs (Past 12 Hours) Vital Signs Temp Pulse Pulse Resp BP Pulse Ox 07/25/20 21:49 24 07/25/20 21:30 39.5 C H 115 H 22 106/72 99 07/25/20 21:15 39.3 C H 110 H 22 100/70 98 07/25/20 21:00 39.2 C H 110 H 26 H 94/65 L 97 07/25/20 20:45 39.1 C H 112 H 28 H 110/75 94 07/25/20 20:30 39.0 C H 116 H 30 H 84/68 L 88 L 07/25/20 20:15 38.9 C H 119 H 37 H 101/70 85 L 07/25/20 20:03 115 H 36 H 86 L 07/25/20 20:00 38.8 C H 114 H 36 H 101/65 85 L 07/25/20 19:45 38.7 C H 119 H 36 H 89/56 L 75 L 07/25/20 19:43 38.7 C H 121 H 33 H 94/64 L 07/25/20 19:28 38.6 C H 122 H 36 H 88/60 L 81 L 07/25/20 19:25 38.5 C H 122 H 36 H 82/64 L 07/25/20 19:23 38.5 C H 121 H 37 H 96/72 L 82 L 07/25/20 19:21 38.5 C H 120 H 37 H 94/64 L 07/25/20 19:16 38.4 C H 126 H 28 H 115/83 86 L 07/25/20 19:07 37.8 C H 116 H 34 H 101/72 91 07/25/20 19:05 37.7 C H 117 H 27 H 104/75 86 L 07/25/20 19:02 37.6 C H 118 H 20 113/80 79 L 07/25/20 19:01 37.4 C 116 H 22 99/74 L 77 L 07/25/20 19:00 37.4 C 114 H 18 77/61 L 78 L 07/25/20 18:59 37.4 C 105 H 18 73/53 L 73 L 07/25/20 18:56 37.4 C 132 H 28 H 127/97 86 L 07/25/20 16:30 37.7 C H 124 H 34 H 90 07/25/20 16:00 37.7 C H 128 H 44 H 90 07/25/20 15:56 37.7 C H 127 H 36 H 151/93 H 89 L 07/25/20 15:45 122 H 22 90 07/25/20 15:30 37.9 C H 130 H 29 H 88 L 07/25/20 15:00 37.9 C H 133 H 37 H 86 L 07/25/20 14:56 37.9 C H 132 H 34 H 141/105 H 88 L 07/25/20 14:30 37.8 C H 136 H 38 H 87 L 07/25/20 14:00 37.9 C H 135 H 41 H 88 L 07/25/20 13:56 37.9 C H 135 H 22 167/97 H 87 L 07/25/20 13:47 141 H 34 H 07/25/20 13:45 152/104 H 07/25/20 13:00 38.0 C H 131 H 30 H 07/25/20 12:30 38.0 C H 133 H 32 H 89 L 07/25/20 12:00 38.0 C H 136 H 20 80 L 07/25/20 11:56 38.0 C H 133 H 40 H 146/90 H 86 L 07/25/20 11:30 37.9 C H 135 H 29 H 82 L Laboratory Results Laboratory Results - last 24 hr 07/25/20 07/25/20 07/25/20 00:04 05:58 06:52 WBC 20.79 H RBC 4.77 Hgb 13.9 L Hct 40.0 L MCV 83.9 MCH 29.1 MCHC 34.8 RDW Std Deviation 40.0 RDW Coeff of Madonna 13.2 Plt Count 229 MPV 11.3 H Immature Gran % (Auto) 0.5 Neut % (Auto) 94.4 Lymph % (Auto) 2.4 [place] % (Auto) 2.5 Eos % (Auto) 0.2 Baso % (Auto) 0.0 Neut # (Auto) 19.60 H Lymph # (Auto) 0.50 L [place] # (Auto) 0.53 Eos # (Auto) 0.05 Baso # (Auto) 0.01 Immature Gran # (Auto) 0.10 H Sodium Potassium Chloride Carbon Dioxide Anion Gap BUN Creatinine Est Cr Clr Drug Dosing Est GFR ( Amer) Est GFR (Non-Af Amer) BUN/Creatinine Ratio Glucose POC Glucose 171 H 185 H Calcium Phosphorus Magnesium Procalcitonin 07/25/20 07/25/20 07/25/20 06:52 11:57 12:05 WBC RBC Hgb Hct MCV MCH MCHC RDW Std Deviation RDW Coeff of Madonna Plt Count MPV Immature Gran % (Auto) Neut % (Auto) Lymph % (Auto) [place] % (Auto) Eos % (Auto) Baso % (Auto) Neut # (Auto) Lymph # (Auto) [place] # (Auto) Eos # (Auto) Baso # (Auto) Immature Gran # (Auto) Sodium 139 Potassium 4.8 Chloride 108 H Carbon Dioxide 24 Anion Gap 7.0 BUN 46 H Creatinine 1.18 D Est Cr Clr Drug Dosing 57.4 Est GFR ( Amer) 71.0 Est GFR (Non-Af Amer) 61.3 BUN/Creatinine Ratio 38.8 H Glucose 209 H POC Glucose 249 H Calcium 8.0 L Phosphorus 2.6 D Magnesium 2.8 H Procalcitonin 0.66 H 07/25/20 17:03 WBC RBC Hgb Hct MCV MCH MCHC RDW Std Deviation RDW Coeff of Madonna Plt Count MPV Immature Gran % (Auto) Neut % (Auto) Lymph % (Auto) [place] % (Auto) Eos % (Auto) Baso % (Auto) Neut # (Auto) Lymph # (Auto) [place] # (Auto) Eos # (Auto) Baso # (Auto) Immature Gran # (Auto) Sodium Potassium Chloride Carbon Dioxide Anion Gap BUN Creatinine Est Cr Clr Drug Dosing Est GFR ( Amer) Est GFR (Non-Af Amer) BUN/Creatinine Ratio Glucose POC Glucose 191 H Calcium Phosphorus Magnesium Procalcitonin Medications Administered Current Inpatient Medications Acetaminophen (Acetaminophen Susp 325 Mg/10.15 Ml Udc) 650 mg OG Q6H PRN PRN Reason: Pain or Fever Stop: 08/20/20 14:42 Last Admin: 07/21/20 23:54 Dose: 650 mg Documented by: Albuterol (Albut/Ipratrop 3mg/0.5mg Neb 3 Ml Vial) 3 ml NEB Q4R PRN PRN Reason: Shortness Of Breath Or Wheezing Stop: 08/15/20 14:28 Last Admin: 07/18/20 04:14 Dose: 3 ml Documented by: Aspirin (Aspirin 81 Mg Chew) 81 mg PO DAILY [facility] Stop: 08/22/20 08:59 Last Admin: 07/25/20 08:44 Dose: 81 mg Documented by: Atorvastatin Calcium (Atorvastatin 40 Mg Tab) 80 mg PO DAILY [facility] Stop: 08/15/20 08:59 Last Admin: 07/25/20 08:44 Dose: 80 mg Documented by: Dextrose (Dextrose 50% 50 Ml Syringe) 25 - 50 ml IV UD PRN; Protocol PRN Reason: Hypoglycemia Protocol Stop: 08/14/20 22:50 Enoxaparin Sodium (Enoxaparin Inj 40 Mg/0.4 Ml Syr) 40 mg SQ QAM [facility] Stop: 08/15/20 14:59 Last Admin: 07/25/20 08:45 Dose: 40 mg Documented by: Fentanyl Citrate (Fentanyl Bolus From Bag) 50 mcg IV Q60M PRN PRN Reason: Pain or Agitation Stop: 08/08/20 19:44 Glucagon (Glucagon For Inj 1 Mg Vial) 1 mg SQ UD PRN; Protocol PRN Reason: Hypoglycemia Protocol Stop: 08/14/20 22:50 Glucose (Glucose 10 Tabs/Tube) 4 - 8 tabs PO UD PRN; Protocol PRN Reason: Hypoglycemia Protocol Stop: 08/14/20 22:50 Glucose (Glucose 40% Gel 15 Gm Tube) 15 - 30 gm PO UD PRN; Protocol PRN Reason: Hypoglycemia Protocol Stop: 08/14/20 22:50 Guaifenesin (Guaifenesin 600 Mg Tabcr) 600 mg PO Q12 [facility] Stop: 08/14/20 22:50 Last Admin: 07/22/20 11:42 Dose: Not Given Documented by: Heparin Sodium (Beef Lung) (Heparin 10 Unit/Ml 5 Ml Flush) 5 ml FLUSH PRN PRN PRN Reason: Flush Stop: 08/23/20 23:13 Dexamethasone 6 mg/ Syringe 1.5 mls @ 1 mls/min IV Q24H [facility] Stop: 07/26/20 08:59 Last Admin: 07/25/20 08:45 Dose: 1 mls/min Documented by: Pantoprazole Sodium 40 mg/ (Syringe) 10 mls @ 5 mls/min IV QAM [facility] Stop: 08/24/20 08:59 Last Admin: 07/25/20 08:45 Dose: 5 mls/min Documented by: Cefepime HCl 1,000 mg/ Syringe 11.3 mls @ 5.5 mls/min IV Q12H [facility]; Protocol Stop: 08/05/20 04:59 Metronidazole (Flagyl) 500 mg in 100 mls @ 100 mls/hr IV Q8H [facility] Stop: 08/04/20 16:59 Last Infusion: 07/25/20 18:45 Dose: Infused Documented by: Fentanyl Citrate (Fentanyl Drip) 1,250 mcg in 250 mls @ 15 mls/hr IV .[id number] [facility]; Protocol Stop: 08/08/20 19:44 Last Titration: 07/25/20 22:16 Dose: 75 mcg/hr, 15 mls/hr Documented by: Propofol (Diprivan) 1,000 mg in 100 mls @ 14.4 mls/hr IV .Q6H57M [facility]; Protocol Stop: 07/28/20 19:44 Last Admin: 07/25/20 23:09 Dose: 30 mcg/kg/min, 14.4 mls/hr Documented by: Norepinephrine Bitartrate (Levophed/D5w) 8 mg in 508 mls @ 15.24 mls/hr IV .Q24H [facility]; Protocol Stop: 08/24/20 19:59 Last Titration: 07/25/20 22:15 Dose: 0.4 mcg/kg/min, 121.9 mls/hr Documented by: Cisatracurium Besylate 40 mg/ (Sodium Chloride) 100 mls @ 14.873 mls/hr IV .Q6H44M [facility]; Protocol Stop: 08/24/20 20:44 Last Titration: 07/25/20 22:16 Dose: 1.5 mcg/kg/min, 14.9 mls/hr Documented by: Acetaminophen (Ofirmev) 1,000 mg in 100 mls @ 400 mls/hr IV Q8H PRN PRN Reason: fever Stop: 07/28/20 20:38 Last Infusion: 07/25/20 21:39 Dose: Infused Documented by: Dexmedetomidine HCl 1,000 mcg/ (Sodium Chloride) 250 mls @ 20 mls/hr IV .[id number] [facility]; Protocol Stop: 07/29/20 21:59 Last Titration: 07/25/20 23:16 Dose: 1 mcg/kg/hr, 20 mls/hr Documented by: Phenylephrine HCl 20 mg/ (Dextrose) 502 mls @ 60.24 mls/hr IV .Q8H20M [facility]; Protocol Stop: 08/24/20 22:14 Last Admin: 07/25/20 23:08 Dose: 0.5 mcg/kg/min, 60.2 mls/hr Documented by: Insulin Aspart (Insulin Aspart 100 Units/Ml 3 Ml Pen) 0 units SC Q6 [facility]; Protocol Stop: 08/20/20 17:59 Last Admin: 07/25/20 17:11 Dose: 5 units Documented by: Insulin Human NPH (Insulin Human Nph) 35 units SC DAILY@0900 [facility]; Protocol Stop: 08/22/20 08:59 Last Admin: 07/25/20 08:46 Dose: 35 units Documented by: Insulin Human NPH (Insulin Human Nph) 15 units SC DAILY@1700 [facility]; Protocol Stop: 08/24/20 16:59 Last Admin: 07/25/20 17:10 Dose: 15 units Documented by: Melatonin (Melatonin 3 Mg Tab) 3 mg PO HS PRN PRN Reason: Sleep Stop: 08/20/20 01:59 Last Admin: 07/21/20 02:09 Dose: 3 mg Documented by: Metoprolol Tartrate (Metoprolol Tartrate 25 Mg Tab) 12.5 mg PO BID [facility] Stop: 08/24/20 20:59 Last Admin: 07/25/20 21:49 Dose: Not Given Documented by: Miscellaneous (Carbohydrates For Hypoglycemia ) 15 - 30 gm PO UD PRN PRN Reason: Hypoglycemia Protocol Stop: 08/14/20 22:50 Miscellaneous Information (Pharmacy Glycemic Mgmt Consult) 1 ea N/A UD PRN PRN Reason: Consult Stop: 08/15/20 14:13 Miscellaneous Information (Cefepime Consult Active) 1 ea N/A UD PRN PRN Reason: Consult Stop: 08/24/20 16:19 Ondansetron HCl (Ondansetron Inj 2 Mg/Ml 2 Ml Vial) 4 mg IV Q6H PRN PRN Reason: Nausea Stop: 08/14/20 22:50 Last Admin: 07/19/20 03:39 Dose: 4 mg Documented by: Polyethylene Glycol (Polyethylene (Miralax) 17 Gm Pack) 17 gm PO DAILY PRN PRN Reason: Constipation Stop: 08/19/20 23:15 Last Admin: 07/24/20 07:32 Dose: 17 gm Documented by: Propofol (Propofol Bolus From Bag) 20 mg IV Q5M PRN PRN Reason: Sedation Stop: 07/28/20 19:44 PG Care Time/CCT Total # of Minutes Spent Total Time Spent with Patient: Total time spent is greater than 50% in coordination of care (as documented) at patient's floor/unit and/or counseling patient: Coding Level of Care Code 39711 Subseq Hosp Care Lvl 3 Diagnoses Acute respiratory failure with hypoxia J96.01 Ileus K56.7 COVID-19 U07.1 Abdominal distention R14.0 Controlled diabetes mellitus with neurologic complication, with long-term current use of insulin E11.49; Z79.4 CKD (chronic kidney disease) stage 3, GFR 30-59 ml/min N18.30 Hyponatremia E87.1 Dyslipidemia E78.5 DVT prophylaxis Z29.9
[2020-07-26 00:04] LABS: Hematocrit (blood only) 47.2 % (42-52); Hemoglobin 16.2 g/dL (14.0-18.0); Mean Corpuscular Hemoglobin 29.6 pg (25-34); Mean Corpuscular Hgb Conc 34.3 g/dL (32-36); Mean Corpuscular Volume 86.1 fL (80-100); Mean Platelet Volume 11.3 fL (7.4-10.4); Platelet Count 300 K/uL (130-400); RDW Coefficient of Variation 13.5 % (11.5-14.5); RDW Standard Deviation 42.3 fL (36.4-46.3); Red Blood Count 5.48 M/uL (4.7-6.1); White Blood Count 20.52 K/uL (4.8-10.8)
[2020-07-26] MEDS ORDERED: STAT IV Infusion **Titration per Protocol STA ×2 (00:26→10:32)
[2020-07-26 00:53] LABS: Basophils # (auto) 0.02 K/uL (0-0.2); Basophils % (auto) 0.1 %; Echinocytes 1+; Eosinophils # (auto) 0.01 K/uL (0-0.5); Immature Granulocytes # (auto) 0.11 K/uL (0.00-0.02); Immature Granulocytes % (auto) 0.5 %; Lymphocytes # (auto) 1.46 K/uL (1.2-3.4); Lymphocytes % (auto) 7.1 %; Monocytes # (auto) 0.09 K/uL (0.11-0.59); Monocytes % (auto) 0.4 %; Neutrophils # (auto) 18.83 K/uL (1.4-6.5); Neutrophils % (auto) 91.9 %
[2020-07-26] MEDS: Double Conc 32mcg/mL; 16mg in 500mL IV SCH ×3 (00:54→15:50)
[2020-07-26] MEDS: VASOPRESSIN 20 UNITS in 0.9 % SODIUM CHLORIDE 100 ML IV SCH ×2 (00:54→07:10)
[2020-07-26] MEDS: PHENYLEPHRINE HCL 40 MG in DEXTROSE 5% 500 ML IV SCH ×3 (00:54→15:01)
[2020-07-26 00:55] LABS: BUN Creatinine Ratio 27.2 (10-20); Calcium 7.6 mg/dl (8.5-10.1); Creatinine Clr Calc Pharmacy 34.2 ml/min; Est GFR (African American) 37.8; Est GFR (Non-African American) 32.6; Magnesium 2.8 mg/dl (1.8-2.4); Potassium 6.1 mmol/L (3.5-5.1)
[2020-07-26] MEDS: INSULIN ASPART 100 UNITS/ML 3 ML PEN SC SCH ×5 (00:55→16:56)
[2020-07-26] MEDS ORDERED: DEXTROSE 50% 50 ML SYRINGE IV ONE ×2 (00:56→04:17)
[2020-07-26] MEDS ORDERED: INSULIN HUMAN REGULAR PER UNIT 8 UNITS in SYRINGE 7.92 ML IV STA (00:56)
[2020-07-26] MEDS ORDERED: CALCIUM CHLORIDE 10% 1,000 MG in SODIUM CHLORIDE 0.9% 50 ML IV STA ×2 (00:56→04:11)
[2020-07-26 00:58] LABS: INR 1.1 (0.9-1.1); Partial Thromboplastin Ratio 0.9; Partial Thromboplastin Time 24.1 Seconds (21.0-31.0); Prothrombin Time 10.9 Seconds (9.0-12.0)
[2020-07-26] MEDS ORDERED: SODIUM CHLORIDE 0.9% 1000ML 500 ML IV ONE (00:58)
[2020-07-26] MEDS ORDERED: SODIUM CHLORIDE 0.9% 500 ML IV SCH (01:00)
[2020-07-26] MEDS: metroNIDAZOLE 500 MG/100 ML BAG IV SCH ×3 (01:01→16:57)
[2020-07-26 01:03] LABS: D Dimer 12410 ug/L FEU (0-500)
[2020-07-26 01:05] LABS: Phosphorus 6.5 mg/dl (2.5-4.9)
--- NOTE | 2020-07-26 01:15 | Communication Note ---
Date of Service: July 26, 2020 0030: Was contacted by nursing staff as the patient developed return of tachycardia into the 130s. Previously, the patient had been maintained heart rates in the low 100s. Additionally, the patient is requiring escalating doses of both Levophed and Shad-Synephrine. Orders placed for addition of vasopressin. Patient was assessed at bedside. Unfortunately, laboratory chemistry panel had been delayed secondary to technical difficulties. When labs are available, the patient was noted to have a potassium of 6.1. EKG was obtained which demonstrated T wave inversions laterally without peak T waves. Patient's creatinine bumped to 1.99. Troponin was not elevated. Patient was treated with a 500 cc normal saline bolus followed by insulin, dextrose, and calcium chloride. Orders placed for bilateral lower extremity Dopplers for evaluation of possible thromboembolic sources. A.m. echocardiogram was ordered to evaluate for right-sided heart function. Unable to obtain CTA secondary to patient's state of extremitas and inability to transfer to CT as well as patient's elevated creatinine and recent JENNIFER with possible relationship to contrast. Patient's blood pressures did improve with fluid boluses. Patient is now making slightly more urine. Orders placed for repeat PRP in approximately 4 hours for reassessment of chemistry panel. Did receive message from electrostatic powder coating technician with concerns for bilateral lower extremity DVTs. [employer] read confirms bilateral lower extremity DVTs. At this point, the patient has been able to be weaned down on his FiO2 to 60%. I did reach out to my attending regarding initiation of Heparin gtt versus possible need for lysis treatment. Unfortunately, we are unable to confirm suspicion of large PE contributing to patient's hemodynamic instability and hypoxia. Fortunately, the patient's troponin did not elevate. He does have fevers in excess of 39.5'C as well which could certainly be contributing to the tachycardia as well. At this point, patient to be anticoagulated on Heparin. Will continue to wean FiO2 settings as tolerated EKG obtained by nursing staff and reviewed by myself. Demonstrates sinus tachycardia @ 124 bpm. T-wave inversions noted in lateral leads which does appear new from priors. No ST elevation. No Peaked T-waves noted. QTc 425ms. I have personally spent 62 minutes of critical care time in the direct management of this patient. This is a life/limb threatening event. This includes time spent evaluating patient, direct bedside care, chart review, placing orders, interpretation of diagnostic studies, discussion with consultants, patient, and family members, as well as other required patient management activities. This time is exclusive of all separately billable procedures, and teaching time and separate from and in addition to any other critical care service time. Coding Level of Care Code Critical Care 1st 30-74 mins Time Spent (min) 61
[2020-07-26 02:22] LABS: Troponin I 0.028 ng/ml (0-0.045)
[2020-07-26] MEDS: CISATRACURIUM BESYLATE 40 MG in 0.9 % SODIUM CHLORIDE 80 ML IV SCH ×2 (03:07→14:58)
[2020-07-26] MEDS ORDERED: Heparin IV Adult Wt-Based Standard WITH Bolus Protocol IV STA (03:07)
[2020-07-26] MEDS ORDERED: HEPARIN SODIUM/DEXTROSE 25,000 UNITS/500 ML BAG IV SCH (03:15)
[2020-07-26 03:18] LABS: Hematocrit (blood only) 46.5 % (42-52); Hemoglobin 15.5 g/dL (14.0-18.0); Mean Corpuscular Hgb Conc 33.3 g/dL (32-36); Mean Corpuscular Volume 86.9 fL (80-100); Mean Platelet Volume 11.2 fL (7.4-10.4); Platelet Count 274 K/uL (130-400); RDW Coefficient of Variation 13.6 % (11.5-14.5); Red Blood Count 5.35 M/uL (4.7-6.1); White Blood Count 19.98 K/uL (4.8-10.8)
[2020-07-26 03:30] LABS: INR 1.1 (0.9-1.1); Partial Thromboplastin Time 25.8 Seconds (21.0-31.0); Prothrombin Time 10.9 Seconds (9.0-12.0)
[2020-07-26] MEDS: SODIUM CHLORIDE 0.9% 1000ML 1,000 ML IV SCH ×2 (03:30→12:54)
[2020-07-26] MEDS ORDERED: HEPARIN IV BOLUS 6,000 UNITS in SYRINGE 0 ML IV ONE (03:30)
[2020-07-26 03:37] LABS: Basophils # (auto) 0.02 K/uL (0-0.2); Basophils % (auto) 0.1 %; Echinocytes 1+; Eosinophils # (auto) 0.01 K/uL (0-0.5); Eosinophils % (auto) 0.1 %; Immature Granulocytes % (auto) 0.5 %; Lymphocytes # (auto) 0.51 K/uL (1.2-3.4); Lymphocytes % (auto) 2.6 %; Neutrophils # (auto) 17.94 K/uL (1.4-6.5); Neutrophils % (auto) 89.7 %
[2020-07-26 03:52] LABS: Albumin Level 2.1 gm/dl (3.4-5.0); BUN Creatinine Ratio 26.8 (10-20); Bilirubin Direct 0.3 mg/dl (0-0.2); Bilirubin,Total 0.7 mg/dl (0.2-1); Calcium 7.7 mg/dl (8.5-10.1); Creatinine Clr Calc Pharmacy 31.9 ml/min; Est GFR (African American) 34.8; Phosphorus 7.2 mg/dl (2.5-4.9); Potassium 6.4 mmol/L (3.5-5.1); Total Protein 5.1 gm/dl (6.4-8.2); Troponin I 0.029 ng/ml (0-0.045)
[2020-07-26] MEDS ORDERED: INSULIN HUMAN REGULAR PER UNIT 4 UNITS in SYRINGE 3.96 ML IV STA (04:11)
[2020-07-26] MEDS ORDERED: SODIUM BICARB 8.4% INJ 50 MEQ/50 ML SYR IV STA (04:11)
[2020-07-26] MEDS: CEFEPIME 1,000 MG in SYRINGE 0 ML IV SCH ×2 (05:00→16:57)
[2020-07-26] MEDS: propofoL 1,000 MG/100 ML VIAL IV SCH ×3 (05:21→15:00)
--- NOTE | 2020-07-26 06:45 | Ultrasound Report ---
BILATERAL LOWER EXTREMITY VENOUS DOPPLER CLINICAL HISTORY: Hypoxia. Respiratory failure. COMPARISON STUDY: No previous studies for comparison. TECHNIQUE: Sonography of the deep venous system of the bilateral lower extremities was performed. Co mpression and augmentation were evaluated. FINDINGS: Right common femoral vein is patent. There is nonocclusive thrombus within the right superf icial femoral vein, adherent to the vessel wall. Right popliteal and right calf veins are patent. Note is made of nonocclusive thrombus within the left common femoral and peroneal veins. Thrombus is age indeterminate however the common femoral vein thrombus appears chronic. IMPRESSION: Age indeterminate nonocclusive deep venous thrombus within the right superficial femoral, left common femoral and left peroneal veins. ACT 112: Negative or not required by law. Electronically signed by: Kolton Wilson M.D. 07/26/2020 6:43 AM
--- NOTE | 2020-07-26 07:58 | Surgery Progress Note ---
Date of Service July 26, 2020 Assessment & Plan (1) Ileus: This is a Covid + gentleman we have been following along for patient's abdominal distention and presumed ileus - He decompensated yesterday requiring re-intubation. He is currently on 3 pressors. IV heparin has been started for + LE DVT's. Currently patient is febrile and tachycardic. CXR shows findings of multifocal airspace consolidation and small pleural effusions - A CT A/P was repeated yesterday revealing distended and fluid filled loops of small bowel with possible transition point in the distal ileus. Concerning for enteritis, ileus, vs bowel obstruction. - On examination patient's abdomen remains distended and overall unchanged. An NGT has been placed with minimal output. Apparently the patient has not had much in way of bowel function - He is currently not a surgical candidate in his current state. Would continue ongoing supportive care, NGT, IVF. - May need to consider initiating some sort of nutrition soon with hyperalimentation - Patient seen and examined with Dr. Fernandes - [facility] surgery covering over the weekend Admission and Anticipated Discharge Date Admission Date: July 15, 2020 Subjective Patient currently intubated. Recent events reviewed in chart and from nursing history. Appears patient's abdominal distention has remained the same. Patient decompensated yesterday requiring re-intubation and is currently on 3 pressors. NGT placed. Physical Exam Physical Exam: intubated Gastrointestinal (Abdomen): Inspection/Auscultation: + abdomen distended Results & Data ([facility]) Vital Signs (Past 12 Hours) Vital Signs Temp Pulse Resp BP Pulse Ox 07/26/20 06:31 38.9 C H 109 H 28 H 92/65 L 94 07/26/20 06:16 38.9 C H 110 H 28 H 103/63 93 07/26/20 06:03 38.8 C H 110 H 28 H 101/68 93 07/26/20 05:46 38.6 C H 104 H 28 H 92/65 L 95 07/26/20 05:31 38.6 C H 106 H 28 H 99/67 L 95 07/26/20 05:16 38.7 C H 109 H 28 H 109/70 95 07/26/20 05:01 38.8 C H 111 H 28 H 122/73 95 07/26/20 04:46 38.7 C H 109 H 28 H 139/77 94 07/26/20 04:35 38.8 C H 112 H 28 H 115/65 95 07/26/20 04:30 38.8 C H 115 H 28 H 171/79 H 95 07/26/20 04:16 38.8 C H 105 H 28 H 98/58 L 07/26/20 04:01 38.9 C H 108 H 28 H 100/65 95 07/26/20 04:00 28 H 07/26/20 03:48 24 07/26/20 03:46 38.9 C H 107 H 28 H 114/70 95 07/26/20 03:31 39.0 C H 107 H 24 111/78 07/26/20 03:16 39.0 C H 108 H 24 107/76 95 07/26/20 03:10 39.1 C H 108 H 24 98/68 L 07/26/20 03:04 39.1 C H 108 H 24 91/50 L 93 07/26/20 02:46 39.1 C H 112 H 24 104/67 93 07/26/20 02:31 39.1 C H 113 H 24 95/68 L 93 07/26/20 02:16 39.1 C H 117 H 24 95/69 L 92 07/26/20 02:01 39.0 C H 121 H 24 98/72 L 95 07/26/20 01:46 39.2 C H 125 H 24 116/78 95 07/26/20 01:31 39.4 C H 125 H 24 132/85 95 07/26/20 01:24 39.5 C H 123 H 24 160/91 H 95 07/26/20 01:01 39.7 C H 123 H 24 108/69 93 07/26/20 00:46 39.7 C H 129 H 24 102/61 93 07/26/20 00:34 39.7 C H 132 H 24 110/73 93 07/26/20 00:30 39.7 C H 131 H 24 126/90 94 07/26/20 00:18 39.8 C H 128 H 24 97/72 L 94 07/26/20 00:00 39.7 C H 127 H 24 92/73 L 94 07/25/20 23:46 39.5 C H 127 H 24 84/72 L 93 04/15/21 23:43 39.5 C H 127 H 24 109/76 93 07/25/20 23:30 39.1 C H 127 H 24 106/76 94 07/25/20 23:22 24 07/25/20 23:15 37.5 C 125 H 24 88/69 L 93 07/25/20 23:00 39.9 C H 124 H 24 110/67 93 07/25/20 22:45 39.9 C H 124 H 24 99/78 L 93 07/25/20 22:30 39.9 C H 123 H 24 91/76 L 93 07/25/20 22:15 39.8 C H 123 H 24 87/57 L 93 07/25/20 22:14 39.8 C H 123 H 24 79/62 L 93 07/25/20 22:00 39.7 C H 132 H 24 104/80 94 07/25/20 21:49 24 07/25/20 21:45 39.6 C H 121 H 24 109/80 99 07/25/20 21:30 39.5 C H 115 H 22 106/72 99 07/25/20 21:15 39.3 C H 110 H 22 100/70 98 07/25/20 21:00 39.2 C H 110 H 26 H 94/65 L 97 07/25/20 20:45 39.1 C H 112 H 28 H 110/75 94 07/25/20 20:30 39.0 C H 116 H 30 H 84/68 L 88 L 07/25/20 20:15 38.9 C H 119 H 37 H 101/70 85 L 07/25/20 20:03 115 H 36 H 86 L 07/25/20 20:00 38.8 C H 114 H 36 H 101/65 85 L PG Care Time/CCT Total # of Minutes Spent Total Time Spent with Patient: Total time spent is greater than 50% in coordination of care (as documented) at patient's floor/unit and/or counseling patient: Coding Level of Care Code 52318 Subseq Hosp Care Lvl 1 Diagnoses Ileus K56.7
[2020-07-26 08:34] LABS: BUN Creatinine Ratio 25.1 (10-20); Calcium 8.2 mg/dl (8.5-10.1); Est GFR (African American) 32.2; Est GFR (Non-African American) 27.8; Magnesium 2.8 mg/dl (1.8-2.4); Phosphorus 6.8 mg/dl (2.5-4.9); Potassium 6.2 mmol/L (3.5-5.1)
[2020-07-26] MEDS: ACETAMINOPHEN 1,000 MG/100 ML VIAL IV PRN (08:48)
[2020-07-26] MEDS: PANTOprazole 40 MG in SYRINGE 0 ML IV SCH (08:50)
--- NOTE | 2020-07-26 08:52 | XRay Report ---
XR chest 1V portable CLINICAL HISTORY: f/u COMPARISON STUDY: Chest radiograph July 25, 2020 at 7:06 PM. FINDINGS: The tip of the endotracheal tube is 4.2 cm above the casi. Nasogastric tube is coiled wit hin the stomach. Tip projects over the cardia. Left subclavian central line is in place. There is no pneumothorax. No pleural effusion is identified. Extensive bilateral airspace opacities persist. Lung lungs are diminished. This is unchanged. IMPRESSION: 1. Satisfactory positioning of lines and tubes. 2. Persistent extensive bilateral airspace opacities. Slight improvement in right lung aeration. ACT 112: Negative or not required by law. Electronically signed by: Kolton Wilson M.D. 07/26/2020 8:51 AM
[2020-07-26] MEDS: METOPROLOL TARTRATE 25 MG TAB PO SCH (08:55)
[2020-07-26] MEDS: ATORVASTATIN 40 MG TAB PO SCH (08:57)
[2020-07-26] MEDS: ASPIRIN 81 MG CHEW PO SCH (08:57)
[2020-07-26] MEDS: INSULIN HUMAN NPH SC SCH (09:30)
[2020-07-26] MEDS ORDERED: MIDAZOLAM BOLUS FROM BAG IV PRN (10:32)
[2020-07-26] MEDS ORDERED: MIDAZOLAM HCL 125 MG/250 ML BAG IV SCH (10:45)
[2020-07-26] MEDS ORDERED: INSULIN PROTOCOL GOAL RANGE ONE (11:03)
[2020-07-26] MEDS ORDERED: SEVERE STRESS LEVEL ONE (11:03)
[2020-07-26 11:04] LABS: iSTAT Art Bld Gas pCO2 Correct 60 mmHg (35-46); iSTAT Arterial Blood Gas HCO3 21 meg/L (19-24); iSTAT Arterial Blood Gas pCO2 56 mmHg (35-46); iSTAT Arterial Blood Gas pH 7.19 (7.35-7.45); iSTAT Arterial Blood Gas pO2 83 mmHg (80-95); iSTAT Arterial Blood Gas pO2 C 92; iSTAT Carbon Dioxide 23 mmol/L (24-31); iSTAT FiO2 60 %; iSTAT Hematocrit 47 % (42-52); iSTAT Potassium 6.3 mmol/L (3.3-5.0); iSTAT Site Art Line; iSTAT Sodium 133 mmol/L (135-144)
--- NOTE | 2020-07-26 11:11 | Critical Care Progress Note ---
Date of Service July 26, 2020 Assessment & Plan (1) COVID-19: Impression: 70-year-old male admitted 07/15 with Covid pneumonia and now found to have an ileus. Recommendations: 1. Neurologic: Continues with altered mental status. Likely metabolic encephalopathy. Currently on propofol, Precedex and fentanyl. We will discontinue propofol and Precedex given hypotension. Start Versed drip. We will wean off neuromuscular blockade. 2. Cardiovascular: Patient is currently in profound shock likely septic. Cannot rule out component of cardiogenic shock. Will obtain an echocardiogram. He has lower extremity DVTs and pulmonary embolism remains a possibility. Troponin was unremarkable. We will evaluate RV function with the echocardiogram as well. We will wean down the norepinephrine drip and wean off phenylephrine given his ongoing sinus tachycardia with rates in the 140s. Continue vasopressin. Start hydrocortisone 50 mg every 6 hours. 3. Pulmonary: Severe COVID-19 pneumonitis. Self extubated on 07/24/2020. Reintubated on 07/26/2020. Continue lung protective ventilation strategy. 4. GI: Ileus likely related to COVID-19. CT abdomen/pelvis on 07/25/2020 demonstrated small bowel loops that are distended and fluid-filled. Nonspecific findings could represent enteritis. Not a surgical candidate for surgery. Continue NG tube to suction. Unable to get nutrition at this time. Will need to consider TPN in the next 1 to 2 days if shock state improves. Continue with pantoprazole 40 mg daily. 5. ID: Continue dexamethasone for Covid pneumonia. Started cefepime and Flagyl 07/26/2020. Previously on Zosyn and meropenem. We will check procalcitonin. Blood cultures from 07/22/2020 with gram-positive cocci in clusters. We will repeat blood cultures today. Possible contaminant. MRSA screen was negative on 07/21/2020. 6. Renal: Currently in severe JENNIFER with hyperkalemia. Started on insulin drip. Nephrology is following. We will seek transfer to tertiary medical care for continuous repeat renal replacement therapy. Unlikely to tolerate normal hemodialysis. Repeat BMP and lactic acid pending. 7. Endocrine: Glycemic control per ICU protocol. 8. Hematological: Lower extremity Doppler with evidence of DVT that is nonocclusive within the right superficial femoral vein, left common femoral vein and left peroneal vein. Currently on therapeutic heparin. Possibility of PE remains. Disposition: was updated over the phone and she would like the patient to remain a full code. We will seek transfer to a higher level of care for continuous renal replacement therapy. Prognosis is extremely poor. Patient was discussed on multidisciplinary rounds. CRITICAL CARE TIME - I have personally spent 58 minutes of critical care time in the direct management of this patient. This is a life/limb threatening event. This includes time spent evaluating patient, direct bedside care, chart review, placing orders, interpretation of diagnostic studies, discussion with consultants, patient, and family members, as well as other required patient management activities. This time is exclusive of all separately billable procedures, and teaching time and separate from and in addition to any other critical care service time. (2) Multifocal pneumonia: (3) Acute respiratory failure with hypoxia: (4) Lactic acidosis: (5) Septic shock: (6) Ileus: (7) JENNIFER (acute kidney injury): Admission and Anticipated Discharge Date Admission Date: July 15, 2020 Subjective Patient seen and examined this morning. He is maxed out on Levophed drips. He is also on phenylephrine and vasopressin. He has on a Precedex, propofol and fentanyl for sedation. He is also on a Nimbex drip. Unable to participate in review of systems. He decompensated to overnight and required reintubation. He is requiring insulin and D50 help try to bring his potassium down. Review of Systems Review of Systems: Unobtainable due to cognitive status and Unobtainable due to endotracheal tube Physical Exam Constitutional: Currently intubated and sedated. He is also on neuromuscular blockade. Eyes: PERRL, conjunctivae normal, anicteric sclerae ENMT: external ear and nose normal, oropharynx normal Respiratory: + tachypneic Diminished lung sounds bilaterally. Cardiovascular: RRR, no murmur, no edema Gastrointestinal (Abdomen): Percussion/Palpation: + abdomen rigid and + tympanic to percussion; + abdomen not soft Musculoskeletal: Extremities: extremities normal to inspection Skin: no rashes, warm and dry Neurologic: Unable to assess given the use of neuromuscular blockade Psychiatric: Unable to assess as he is sedated and intubated Results & Data Results & Data ([facility]) Vital Signs (Past 12 Hours) Vital Signs Temp Temp Pulse Resp BP BP Pulse Ox 07/26/20 10:02 101.5 F H 126 H 79/56 L 94 07/26/20 10:00 126 H 94 07/26/20 09:46 101.3 F H 127 H 87/71 L 93 07/26/20 09:32 130 H 93/45 L 94 07/26/20 09:30 130 H 95 07/26/20 09:17 101.5 F H 132 H 65/34 L 96 07/26/20 09:02 128 H 94 07/26/20 09:00 129 H 95 07/26/20 08:47 102.0 F H 130 H 101/71 07/26/20 08:31 127 H 97/84 L 07/26/20 08:30 127 H 93 07/26/20 08:17 125 H 91/55 L 07/26/20 08:09 80 28 H 93 07/26/20 08:01 102.2 F H 123 H 94 07/26/20 08:00 122 H 95 07/26/20 07:52 102.2 F H 120 H 28 H 100/70 07/26/20 07:46 116 H 83/65 L 91 07/26/20 07:31 102.2 F H 114 H 102/71 92 07/26/20 07:30 114 H 93 07/26/20 07:16 102.2 F H 112 H 104/76 94 07/26/20 07:01 102.2 F H 110 H 99/74 L 95 07/26/20 07:00 102.2 F H 109 H 28 H 92/65 L 94 07/26/20 06:53 102.2 F H 109 H 94/72 L 93 07/26/20 06:31 102.0 F H 109 H 28 H 92/65 L 94 07/26/20 06:16 102.0 F H 110 H 28 H 103/63 93 07/26/20 06:03 101.8 F H 110 H 28 H 101/68 93 07/26/20 05:46 101.5 F H 104 H 28 H 92/65 L 95 07/26/20 05:31 101.5 F H 106 H 28 H 99/67 L 95 07/26/20 05:16 101.7 F H 109 H 28 H 109/70 95 07/26/20 05:01 101.8 F H 111 H 28 H 122/73 95 07/26/20 04:46 101.7 F H 109 H 28 H 139/77 94 07/26/20 04:35 101.8 F H 112 H 28 H 115/65 95 07/26/20 04:30 101.8 F H 115 H 28 H 171/79 H 95 07/26/20 04:16 101.8 F H 105 H 28 H 98/58 L 07/26/20 04:01 102.0 F H 108 H 28 H 100/65 95 07/26/20 04:00 28 H 07/26/20 03:48 24 07/26/20 03:46 102.0 F H 107 H 28 H 114/70 95 07/26/20 03:31 102.2 F H 107 H 24 111/78 07/26/20 03:16 102.2 F H 108 H 24 107/76 95 07/26/20 03:10 102.4 F H 108 H 24 98/68 L 07/26/20 03:04 102.4 F H 108 H 24 91/50 L 93 07/26/20 02:46 102.4 F H 112 H 24 104/67 93 07/26/20 02:31 102.4 F H 113 H 24 95/68 L 93 07/26/20 02:16 102.4 F H 117 H 24 95/69 L 92 07/26/20 02:01 102.2 F H 121 H 24 98/72 L 95 07/26/20 01:46 102.6 F H 125 H 24 116/78 95 07/26/20 01:31 102.9 F H 125 H 24 132/85 95 07/26/20 01:24 103.1 F H 123 H 24 160/91 H 95 07/26/20 01:01 103.5 F H 123 H 24 108/69 93 07/26/20 00:46 103.5 F H 129 H 24 102/61 93 07/26/20 00:34 103.5 F H 132 H 24 110/73 93 07/26/20 00:30 103.5 F H 131 H 24 126/90 94 07/26/20 00:18 103.6 F H 128 H 24 97/72 L 94 07/26/20 00:00 103.5 F H 127 H 24 92/73 L 94 07/25/20 23:46 103.1 F H 127 H 24 84/72 L 93 07/25/20 23:43 103.1 F H 127 H 24 109/76 93 07/25/20 23:30 102.4 F H 127 H 24 106/76 94 07/25/20 23:22 24 07/25/20 23:15 99.5 F 125 H 24 88/69 L 93 I reviewed the vital signs, labs and imaging Coding Level of Care Code Critical Care 1st 30-74 mins Diagnoses COVID-19 U07.1 Multifocal pneumonia J18.9 Acute respiratory failure with hypoxia J96.01 Lactic acidosis E87.2 Septic shock A41.9; R65.21 Ileus K56.7 JENNIFER (acute kidney injury) N17.9 Time Spent (min) 58
[2020-07-26 11:14] LABS: Mean Corpuscular Hgb Conc 34.2 g/dL (32-36); Mean Platelet Volume 12.1 fL (7.4-10.4); Platelet Count 278 K/uL (130-400)
[2020-07-26 11:21] LABS: Hepatitis B Surface Ab Quant < 3.10 mIU/mL (>or=10mIU/mL Immune); Hepatitis B Surface Antibody Non-Immune
--- NOTE | 2020-07-26 11:21 | Nephrology Consultation ---
Date of Consultation July 26, 2020 Assessment & Plan (1) JENNIFER (acute kidney injury): Mr. Doss was admitted on 07/16/2019 on with COVID pneumonia, treated with remdesivir and dexamethasone. Respiratory status continued to worsen and he was intubated on 07/14 17 however self-extubated on 07/25 but Re intubated later on as respiratory status worsened again. Baseline creatinine 1.2-1.4, on admission creatinine was 1.4 which improved to 1.2 however over last 24 hours renal function rapidly worsened with creatinine 2.3 persistent hyperkalemia and oliguria with volume overload. Developed Ileus, evaluated by surgery however not a candidate for surgery at this time. Persistently hypotensive since yesterday currently requiring 3 pressor with blood pressure staying 70s to 80s systolic. Acute kidney injury secondary to dense ATN in the setting of septic shock. --considering persistent hypotension despite being on 3 pressor, risk for progressive worsening of renal function and electrolyte abnormality. Will need dialysis for correction of electrolyte abnormality and volume overload however with hemodynamic instability, unlikely to tolerate hemodialysis and may need CRRT. Unfortunately Mr. Doss is currently critically ill with guarded prognosis. If family wants aggressive management at this time, we can try dialysis with low blood flow however he may not even tolerate that. Discussed with intensive care team, further decision depending on discussion of goals of care with family. Will be available and follow closely Thank you for allowing me to participate in your patient's care. It was a pleasure to see Mr. Doss. (2) Hyperkalemia: (3) Oliguria: (4) Ileus: (5) Acute respiratory failure with hypoxia: (6) COVID-19: (7) Multifocal pneumonia: (8) Septic shock: History of Present Illness Reason for Consultation: JENNIFER, Oliguria, Hyperkalemia, volume overload Attending Physician: King Pineda DO History of Present Illness Mr. Doss is a 70 Y O M with past medical history significant for hypertension stage III CKD admitted to the hospital with COVID pneumonia and developed progressive JENNIFER and electrolyte abnormality. Nephrology consult was requested for evaluation for need for urgent dialysis. EMR records are reviewed in detail during patient's visit. Most of the information retrieved from EMR review and discussion with intensive care unit team as patient is currently intubated and sedated. Mr. Doss was admitted to on 07/15/2020 with progressive shortness of breath and was diagnosed with COVID pneumonia. He received remdesivir and currently continuing on dexamethasone. Over last few days his respiratory status progressively worsened and he was intubated on 07/25/2019. However, he self extubated himself on 07/25/2020 and we intubated again after several hours as he was getting progressively short of breath and hypoxic. He also developed abdominal distention and ileus and evaluated by surgery and concluded not to be a surgical candidate at this time. He has been hypotensive through yesterday and currently he is requiring 3 pressor with systolic blood pressure staying around 80-85. Remained intubated and sedated. Requiring 60% FiO2 as urine output dropped and is getting volume overloaded. Baseline creatinine around 1.2-1.4, on admission creatinine was 1.4 which peaked to 1.7 and then improved to 1.2 on 07/25/2020. However, renal function rapidly worsened over last 24 hours with creatinine 2.3 this morning, persistent hyp erkalemia with potassium 6.3-6.4 and drop in urine output. Made only around 100 mL of urine over last 24 hours. Currently remained intubated and sedated with systolic blood pressure 79/56 and febrile with temperature 38.6. Allergies Allergy/AdvReac Type Severity Reaction Status Date / Time lisinopril AdvReac Mild cough Verified 07/15/20 20:23 Home Medications Medication Instructions Recorded Confirmed Type ascorbic acid (vitamin C) 500 mg 500 mg PO DAILY tab 02/16/19 07/15/20 History tablet cholecalciferol (vitamin D3) 25 1,000 units PO BID cap 02/16/19 07/15/20 History mcg (1,000 unit) capsule [id number] K-lycop 1 ea PO DAILY 04/26/19 07/15/20 History BD Ultra-Fine Yessy Pen Needle 32 #300 ea NS 06/13/19 05/03/20 Rx gauge x 5/32" metformin 1,000 mg tablet 1,000 mg PO BID #180 tab 06/13/19 07/15/20 Rx liraglutide 0.6 mg/0.1 mL (18 mg/3 1.8 mg SQ DAILY 90 Days #27 ml 07/24/19 07/15/20 Rx mL) subcutaneous pen injector cyanocobalamin (vitamin B-12) 1,000 mcg PO .COMPLEX tab 10/03/19 07/15/20 History 1,000 mcg tablet,extended release atorvastatin 80 mg tablet 80 mg PO DAILY #90 tab 01/04/20 07/15/20 Rx insulin lispro 100 unit/mL 25 unit SUBCUT DAILY ml 01/10/20 07/15/20 History subcutaneous pen Humulin N NPH Insulin KwikPen 100 37 unit SQ QPM #45 ml NS 01/24/20 07/15/20 Rx unit/mL (3 mL) subcutaneous OneTouch Ultra Blue Test Strip #300 ea NS 03/27/20 05/03/20 Rx aspirin 81 mg PO DAILY 07/15/20 07/15/20 History lysine 1,000 mg PO DAILY 07/15/20 07/15/20 History Patient History Medical History (Updated 07/26/20 @ 11:24 by Lina Rodrigez MD) JENNIFER (acute kidney injury) Bleeding nose CKD (chronic kidney disease) stage 3, GFR 30-59 ml/min Elevated TSH Hyperkalemia Ileus Nasal congestion Nasal obstruction Oliguria Rupture of biceps tendon Syncope Tachycardia Surgical History H/O hernia repair H/O sinus surgery Family History Mother Diabetes Father Diabetes Social History Smoking Status: Never smoker Second Hand Exposure: No; Hx Alcohol Use: Yes Alcohol type: beer Hx Substance Use: No Preferred Language: Fijian Communication Ability: Effective Chalk Tester Required: Yes Beliefs That Will Affect Care: None marital status: Current Living Situation: Spouse 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 Feels Safe at Home: Yes Assistive Devices: Oxygen - Continuous Review of Systems Review of Systems: Unobtainable due to endotracheal tube and Unobtainable due to reduced consciousness Physical Exam Constitutional: + mechanically ventilated; no acute distress Eyes: + anicteric sclerae ENMT: Ears: + hearing impairment Neck: ET Tube Respiratory: Auscultation: + crackles; no wheezes Cardiovascular: RRR, no murmur, no edema Gastrointestinal (Abdomen): Inspection/Auscultation: + abdomen distended Musculoskeletal: Extremities: extremities normal to inspection Skin: no rashes, warm and dry Neurologic: Sedated Results & Data ([facility]) Vital Signs (Past 12 Hours) Vital Signs Temp Temp Pulse Resp BP BP Pulse Ox 07/26/20 10:02 38.6 C H 126 H 79/56 L 94 07/26/20 10:00 126 H 94 07/26/20 09:46 38.5 C H 127 H 87/71 L 93 07/26/20 09:32 130 H 93/45 L 94 07/26/20 09:30 130 H 95 07/26/20 09:17 38.6 C H 132 H 65/34 L 96 07/26/20 09:02 128 H 94 07/26/20 09:00 129 H 95 07/26/20 08:47 38.9 C H 130 H 101/71 07/26/20 08:31 127 H 97/84 L 07/26/20 08:30 127 H 93 07/26/20 08:17 125 H 91/55 L 07/26/20 08:09 80 28 H 93 07/26/20 08:01 39.0 C H 123 H 94 07/26/20 08:00 122 H 95 07/26/20 07:52 39.0 C H 120 H 28 H 100/70 07/26/20 07:46 116 H 83/65 L 91 07/26/20 07:31 39.0 C H 114 H 102/71 92 07/26/20 07:30 114 H 93 07/26/20 07:16 39.0 C H 112 H 104/76 94 07/26/20 07:01 39.0 C H 110 H 99/74 L 95 07/26/20 07:00 39.0 C H 109 H 28 H 92/65 L 94 07/26/20 06:53 39.0 C H 109 H 94/72 L 93 07/26/20 06:31 38.9 C H 109 H 28 H 92/65 L 94 07/26/20 06:16 38.9 C H 110 H 28 H 103/63 93 07/26/20 06:03 38.8 C H 110 H 28 H 101/68 93 07/26/20 05:46 38.6 C H 104 H 28 H 92/65 L 95 07/26/20 05:31 38.6 C H 106 H 28 H 99/67 L 95 07/26/20 05:16 38.7 C H 109 H 28 H 109/70 95 07/26/20 05:01 38.8 C H 111 H 28 H 122/73 95 07/26/20 04:46 38.7 C H 109 H 28 H 139/77 94 07/26/20 04:35 38.8 C H 112 H 28 H 115/65 95 07/26/20 04:30 38.8 C H 115 H 28 H 171/79 H 95 07/26/20 04:16 38.8 C H 105 H 28 H 98/58 L 07/26/20 04:01 38.9 C H 108 H 28 H 100/65 95 07/26/20 04:00 28 H 07/26/20 03:48 24 07/26/20 03:46 38.9 C H 107 H 28 H 114/70 95 07/26/20 03:31 39.0 C H 107 H 24 111/78 07/26/20 03:16 39.0 C H 108 H 24 107/76 95 07/26/20 03:10 39.1 C H 108 H 24 98/68 L 07/26/20 03:04 39.1 C H 108 H 24 91/50 L 93 07/26/20 02:46 39.1 C H 112 H 24 104/67 93 07/26/20 02:31 39.1 C H 113 H 24 95/68 L 93 07/26/20 02:16 39.1 C H 117 H 24 95/69 L 92 07/26/20 02:01 39.0 C H 121 H 24 98/72 L 95 07/26/20 01:46 39.2 C H 125 H 24 116/78 95 07/26/20 01:31 39.4 C H 125 H 24 132/85 95 07/26/20 01:24 39.5 C H 123 H 24 160/91 H 95 07/26/20 01:01 39.7 C H 123 H 24 108/69 93 07/26/20 00:46 39.7 C H 129 H 24 102/61 93 07/26/20 00:34 39.7 C H 132 H 24 110/73 93 07/26/20 00:30 39.7 C H 131 H 24 126/90 94 07/26/20 00:18 39.8 C H 128 H 24 97/72 L 94 07/26/20 00:00 39.7 C H 127 H 24 92/73 L 94 07/25/20 23:46 39.5 C H 127 H 24 84/72 L 93 07/25/20 23:43 39.5 C H 127 H 24 109/76 93 07/25/20 23:30 39.1 C H 127 H 24 106/76 94 07/25/20 23:22 24 07/25/20 23:15 37.5 C 125 H 24 88/69 L 93 PG Care Time/CCT Total # of Minutes Spent Total Time Spent with Patient: Total time spent is greater than 50% in coordination of care (as documented) at patient's floor/unit and/or counseling patient: Coding Level of Care Code 93800 Initial Inpt Care Lvl 3 Diagnoses JENNIFER (acute kidney injury) N17.9 Hyperkalemia E87.5 Oliguria R34 Ileus K56.7 Acute respiratory failure with hypoxia J96.01 COVID-19 U07.1 Multifocal pneumonia J18.9 Septic shock A41.9; R65.21
[2020-07-26] MEDS ORDERED: INSULIN REGULAR 250 UNITS in SODIUM CHLORIDE 0.9% 247.5 ML IV SCH (11:30)
[2020-07-26 11:35] LABS: iSTAT Hematocrit 43 % (42-52); iSTAT Hemoglobin 14.6 g/dl (14.0-18.0); iSTAT Potassium 5.3 mmol/L (3.3-5.0); iSTAT Sodium 141 mmol/L (135-144)
[2020-07-26 11:35] LABS: Hepatitis B Surf Ag Rflx Conf Neg (Neg)
[2020-07-26 11:36] LABS: iSTAT Arterial Blood Gas pCO2 45 mmHg (35-46); iSTAT Arterial Blood Gas pO2 58 mmHg (80-95); iSTAT Carbon Dioxide 23 mmol/L (24-31)
[2020-07-26 11:38] LABS: Patient Temperature 38.7; iSTAT Arterial Blood Gas HCO3 22 meg/L (19-24)
[2020-07-26 11:39] LABS: iSTAT Allen Test Acceptable; iSTAT Sample Type Arterial; iSTAT Site Art Line
[2020-07-26 11:41] LABS: iSTAT Arterial Blood Gas pCO2 65 mmHg (35-46); iSTAT Arterial Blood Gas pH 7.15 (7.35-7.45); iSTAT Arterial Blood Gas pO2 103 mmHg (80-95); iSTAT Hematocrit 47 % (42-52); iSTAT Sodium 138 mmol/L (135-144)
[2020-07-26 11:43] LABS: Patient Temperature 38.9; iSTAT Arterial Blood Gas HCO3 23 meg/L (19-24); iSTAT Carbon Dioxide 24 mmol/L (24-31); iSTAT Sample Type Arterial
[2020-07-26 11:44] LABS: iSTAT Potassium 6.7 mmol/L (3.3-5.0); iSTAT Site Art Line
[2020-07-26 11:45] LABS: ALC (manual) 2.12 K/uL (1.2-3.4); ANC (manual) 23.38 K/uL (1.4-6.5); Hematocrit (blood only) 46.5 % (42-52); Hemoglobin 15.9 g/dL (14.0-18.0); Lymphocytes # (manual) 2.12 K/uL (1.2-3.4); Lymphocytes % (manual) 8.1 %; Mean Corpuscular Hemoglobin 29.7 pg (25-34); Mean Corpuscular Volume 86.8 fL (80-100); Monocytes # (manual) 0.71 K/uL (0.11-0.59); Monocytes % (manual) 2.7 %; Neutrophils # (manual) 23.38 K/uL (1.4-6.5); Neutrophils % (manual) 89.2 %; RDW Coefficient of Variation 13.8 % (11.5-14.5); RDW Standard Deviation 43.5 fL (36.4-46.3); Red Blood Count 5.36 M/uL (4.7-6.1); White Blood Count 26.21 K/uL (4.8-10.8)
[2020-07-26] MEDS ORDERED: PHENYLEPHRINE HCL IV SCH (11:45)
[2020-07-26] MEDS ORDERED: DEXTROSE 5% IV SCH (11:45)
[2020-07-26 11:49] LABS: BUN Creatinine Ratio 22.6 (10-20); Calcium 7.8 mg/dl (8.5-10.1); Est GFR (African American) 27.1; Est GFR (Non-African American) 23.4; Potassium 6.5 mmol/L (3.5-5.1); Troponin I 0.047 ng/ml (0-0.045)
[2020-07-26] MEDS ORDERED: HYDROCORTISONE SOD 50 MG in SYRINGE 0 ML IV SCH (12:00)
[2020-07-26 12:20] LABS: Partial Thromboplastin Ratio > 5.3
[2020-07-26 12:55] LABS: Partial Thromboplastin Time > 139.0 Seconds (21.0-31.0)
[2020-07-26] MEDS: fentaNYL DRIP 1,250 MCG/250 ML BAG IV SCH (13:01)
--- NOTE | 2020-07-26 13:54 | Pharmacy Report ---
Pharmacy Glycemic Short Note 2 - Date of Service July 26, 2020 - Glycemic Short BSG Results (Last 24 hours): 07/25/20 07/25/20 07/25/20 17:03 23:52 23:53 Glucose 259 H POC Glucose 191 H 281 H POC Glucose (other) 07/26/20 07/26/20 07/26/20 00:18 03:03 04:34 Glucose 230 H POC Glucose POC Glucose (other) 276 H 213 H 07/26/20 07/26/20 07/26/20 07:18 10:55 11:28 Glucose 236 H 263 H POC Glucose POC Glucose (other) 265 H OUTPATIENT ANTIDIABETIC REGIMEN: * NPH 37 units SQ qPM * Humalog insulin, ~25 units prior to meals (unless low carb meal, then skip) * information obtained from outpt DM provider's notes * Victoza 1.8mg SQ daily * Metformin 1gm PO BID * HbA1c: 8.2% (07/16/20) ASSESSMENT: 07/26: * BSG control over the last 24 hrs has deteriorated. New DVT's dx with possible PE, requiring intubation and 3 pressors for BP support. * Renal fxn has continued to deteriorate as well. Hyperkalemia present on this AM's labs. * IV insulin infusion is the most appropriate therapy at this time to treat both hyperglycemia with beneficial effects on hyperkalemia with JENNIFER PLAN FOR INPATIENT GLYCEMIC CONTROL: * Hold Metformin and Victoza * Begin IV insulin infusion per severe stress protocol: * goal Le 110-180mg/dL * Novolog SQ may be given if enteral nutrition initiated in the future, however this is not the case at this time. PLAN FOR DISCHARGE: * pending
[2020-07-26] MEDS: DEXMEDETOMIDINE HCL 1,000 MCG in SODIUM CHLORIDE 0.9% 240 ML IV SCH (15:01)
--- NOTE | 2020-07-26 17:56 | Death Pronouncement Note ---
Date of Service July 26, 2020 Pronouncement Note Admission Date Admission Date: July 15, 2020 Date and Time of Date of : 07/26/20 Time of : 17:00 PCOD Preliminary cause of : COVID-19 Contributing Factors (1) JENNIFER (acute kidney injury): (2) Hyperkalemia: (3) Oliguria: (4) Ileus: (5) Acute respiratory failure with hypoxia: (6) COVID-19: (7) Multifocal pneumonia: (8) Septic shock: Hospital Course Hospital Course: see discharge summary for details Additional Data Confirmation of : no pulse, no respirations, no heart sounds and pupils fixed and dilated Family: contacted Attending/PCP notified?: Yes Attending physician: King Pineda, DO Was code activated?: No Autopsy requested?: No x ray examiner of aircraft notified?: No Organ bank notified?: No Advance directives: Yes Coding Level of Care Code None Diagnoses JENNIFER (acute kidney injury) N17.9 Hyperkalemia E87.5 Oliguria R34 Ileus K56.7 Acute respiratory failure with hypoxia J96.01 COVID-19 U07.1 Multifocal pneumonia J18.9 Septic shock A41.9; R65.21
--- NOTE | 2020-07-26 17:57 | Discharge Summary ---
Date of Service July 26, 2020 Admission HPI Per Admitting Provider The patient is a 70-year-old male with a past medical history including vitamin D deficiency, hypertension, cerebrovascular disease, obesity, dyslipidemia, ED, diabetes mellitus with long-term use of insulin, bilateral carpal tunnel syndrome and anemia. He reports that he started feeling symptoms at the beginning of the month, felt like he might be getting a little bit better, and then started getting worse again. Upon arrival in the emergency department, his pulse ox was 79% on room air, and he was placed on oxime mask with improvement into the low to mid 90s. In the emergency department, COVID-19 test was p ositive. CT angiography showed a multifocal pneumonia with reactive mediastinal lymphadenopathy. Principal Diagnosis COVID 19 pneumonia with acute hypoxic respiratory failure Discharge Exam no pulse, no respirations, no heart tones, no breath sounds, pupils fixed, unresponsive Discharge Data Allergies Allergy/AdvReac Type Severity Reaction Status Date / Time lisinopril AdvReac Mild cough Verified 07/15/20 20:23 Consultations 07/15/20 19:27 ED Decision to Admit Stat 07/16/20 13:06 Consult [employer] Routine 07/21/20 11:06 Consult General Surgery Stat 07/26/20 07:20 Consult Nephrology Routine Ordered Studies 07/15/20 17:20 CT angio chest PE protocol Stat 07/21/20 12:37 CT abd pelvis oral and IV con Stat 07/25/20 11:10 CT abd pelvis wo con Urgent 07/26/20 01:03 US venous doppler [facility] Urgent Hospital Course (1) Shock circulatory: developed shock over the past 36 hours unclear etiology, no clear source of bacterial infection echo today with preserved EF, actually EF was 70's, normal RV function could have large pulmonary emboli, patient with bilateral DVT found 07/25 but unable to get CTA chest due to JENNIFER requiring three pressors today, Levophed, Vasopressin, Neosynephrine Hydrocortisone 50mg q8 added this morning HR 160's, tried to back off on the Levophed and stopped Propofol and Precedex and keep Fentanyl Cr rising, pH is 7.1, oliguric, ileus and hypoxemia Dr. Ortiz called this morning to discuss the situation, she asked for transfer to [facility] for consideration of CRRT I spoke with Dr. Ritchie, litigation specialist at [facility], she would be glad to accept but felt the patient was too unstable for transfer I agreed, at that time the patient's HR was 160 on three pressors I called the patient's Vera to discuss the situation explained that his prognosis was essentially 0% chance of meaningful survival explained that he had 5 organ systems failing and he was getting worse by the hour without the ability to perform CRRT even with CRRT he would not have any home for meaningful recovery arranged for the patient to be moved to room 106 so she could visit with the patient at the bedside she brought in his living will which actually stated that if he was in this current situation he would want comfort measures assured her that she was making the right decision to change him to DNR and terminally extubate she visited with him twice at the bedside, I arranged for his other family members to call in for Zoom session via iPad so they could say goodbye I spoke with the patient's son Martin on the phone and answered his questions once Vera was done with her second visit at the bedside she left the hospital patient was extubated and pressors stopped, he within minutes at 1700 I waited to call Vera until 1750 since she was driving home and did not want to give her the news while she was driving (2) COVID-19: Covid-19 pneumonia with acute hypoxemic respiratory failure. Approximately one week of symptoms prior to presentation. - Dexamethasone 6 mg IV every morning (End date: 07/26/2020) - Remdesivir IV per protocol finished on 07/19/2020 - antibiotic coverage with ceftriaxone and azithromycin (End date: 07/20/2020 for 5-day course) - received tocilizumab - Continue Duonebs standing and PRN - Continue guaifenesin patient intubated on 07/21/20 for worsening respiratory failure, distress after about one week of high flow, CPAP management per ICU self extubated evening of 07/24, placed on high flow attempted to keep him calm with Precedex but respiratory status declined re-intubated on 07/[address] Ortiz remained intubated until terminal extubation in the evening on 07/26/20 (3) Acute respiratory failure with hypoxia: progressed from high flow to CPAP and then intubation, ventilation he self extubated on 07/24, placed on high flow needed re-intubation on 07/25 (4) JENNIFER (acute kidney injury): worsening renal failure the past 48 hours hyperkalemia, oliguria, metabolic and respiratory acidosis nephrology consulted, recommend [employer] unable to perform HD here due to circulatory shock too unstable to transfer to [facility] for CRRT and CRRT would not be helpful given multi-organ system failure (5) Hyperkalemia: up to 6.2 today, due to JENNIFER (6) Oliguria: (7) Ileus: NGT to low intermittent suction multiple CT scans of the Abd/pelvis, showed enteritis and ileus placed on Cefepime and Flagyl most recently (8) DVT, bilateral lower limbs: discovered on dopplers on 07/25 placed on heparin drip could not check for PE given JENNIFER (9) Multifocal pneumonia: due to COVID 19 Total Time Total Time Spent Total Time Spent (In Minutes): 150 minutes Total Time Includes: Examination of the Patient, Communication With Other Providers (20 minutes on phone with Sarah, [address] Ortiz) and Other (100 minutes with and family) Discharge Plan Discharge Items Patient Disposition: Coding Level of Care Code D/C Day Management >30 mins Diagnoses Shock circulatory R57.9 COVID-19 U07.1 Acute respiratory failure with hypoxia J96.01 JENNIFER (acute kidney injury) N17.9 Hyperkalemia E87.5 Oliguria R34 Ileus K56.7 DVT, bilateral lower limbs I82.403 Multifocal pneumonia J18.9 Time Spent (min) 150
--- NOTE | 2020-07-26 18:16 | XCELERA ---
[id number]
--- NOTE | 2020-07-27 06:09 | Electrocardiogram Report ---
Test Reason : Blood Pressure : / mmHG Vent. Rate : 124 BPM Atrial Rate : 124 BPM P-R Int : 126 ms QRS Dur : 078 ms QT Int : 296 ms P-R-T Axes : 047 -47 108 degrees QTc Int : 425 ms Sinus tachycardia Possible Left atrial enlargement Left axis deviation Septal infarct , age undetermined T wave abnormality, consider lateral ischemia Abnormal ECG When compared with ECG of 15-JUL-2020 17:36, Septal infarct is now Present T wave inversion now evident in Lateral leads Confirmed by Steve Stacy ([id number]) on 07/27/2020 6:08:53 AM Referred By: Dallas Coulter Confirmed By:Steve Stacy
== END 2020-07-26 18:33 | disposition expired | DRG 208 ==
LOC: ED 17:02 → SUATTDRO 20:46 → 2S 20:46 → 2E 07-21 11:36 → 1E 07-26 14:07